=== PATIENT | female | born 1980 | race Caucasian/White ===

== ENCOUNTER 2017-01-16 19:04 | Emergency (ER) | payer OTHER ==
[2017-01-16 19:21] VITALS: BMI 42.0
[2017-01-16] MEDS ORDERED: FAMOTIDINE 20 MG/50 ML IVPB 50 ML IVPB ONE ×2 (20:04→20:19)
[2017-01-16] MEDS ORDERED: ONDANSETRON 4 MG/2 ML VIAL IVPUSH ONE (20:04)
[2017-01-16] MEDS ORDERED: SODIUM CHLORIDE 0.9% 1000 ML INFUS.BAG IV ONE (20:04)
--- NOTE | 2017-01-16 20:18 | PDOC ---
History of Present Illness - General Chief Complaint: Vomiting/Diarrhea Stated Complaint: VOMITING/HEADACHE/BODY ACHE Time Seen by Provider: 01/16/17 19:47 - History of Present Illness Initial Comments: 01/16/17 20:08 CHIEF COMPLAINT: vomiting/diarrhea HISTORY OF PRESENT ILLNESS: 36 yo F with hx of cervical cancer (surgery scheduled next month), depression, anxiety presents to ED with vomiting/ diarrhea since this morning. Patient states she has had persistent vomiting and a least 10 episodes of diarrhea since she woke up this morning and reports current lower abdominal pain bilaterally. Patient also reports having urinary frequency. She denies eating any different foods and states she cooks all her own food and has not had anything different. PAST MEDICAL HISTORY: Denies past medical history FAMILY HISTORY: Denies SOCIAL HISTORY: Lives at home. "Quit smoking and drinking in October when I found out I have cancer." Denies illicit drug use. SURGICAL HISTORY: Denies ALLERGIES: peanuts, iodine REVIEW OF SYSTEMS General/Constitutional: Denies fever or chills. HEENT: Denies change in vision. Denies ear pain or discharge. Denies sore throat. Cardiovascular: Denies chest pain or shortness of breath. Respiratory: Denies cough, wheezing, or hemoptysis. Gastrointestinal: Vomiting/diarrhea since today. Denies rectal bleeding. Genitourinary: "I have to pee all the time." Musculoskeletal: Denies joint or muscle swelling or pain. Denies neck or back pain. Skin and breasts: Denies rash or easy bruising. Neurologic: Denies headache, vertigo, loss of consciousness, or loss of sensation. PHYSICAL EXAM General Appearance: Well-appearing, appropriately dressed. No apparent distress. HEENT: EOMI, PERRLA.No conjunctival pallor. No photophobia, scleral icterus. Neck: Supple. Trachea midline. No tenderness, rigidity, carotid bruit, stridor , lymphadenopathy, or thyromegaly. Respiratory/Chest: Lungs CTAB. Cardiovascular: RRR. S1, S2. Vascular Pulses: Dorsalis-Pedis (R): 2+, Dorsalis-Pedis (L): 2+ Gastrointestinal/Abdominal: Mild tenderness to LLQ. Normal bowel sounds. Abdomen soft, non-distended. No tenderness or rebound tenderness. No organomegaly, pulsatile mass, guarding, hernia, hepatomegaly, splenomegaly. Lymphatic: No adenopathy, tenderness. Musculoskeletal/Extremities: L CVA tenderness. Normal inspection. FROM of all extremities, normal capillary refill. Pelvis Stable. No tenderness to extremities, pedal edema, swelling, erythema or deformity. Integumentary: Appropriate color, dry, warm. No cyanosis, erythema, jaundice or rash Neurologic: clinical services specialist II-XII intact. Fully oriented, alert. Appropriate mood/affect. Motor strength 5/5. No appreciable EOM palsy, facial droop or sensory deficit. Past History - Past Medical History Allergies/Adverse Reactions: Allergies Allergy/AdvReac Type Severity Reaction Status Date / Time Iodine and Iodide Containing Allergy Verified 01/16/17 19:14 Produc No Known Drug Allergies Allergy Verified 01/16/17 19:14 peanut Allergy Rash Verified 01/16/17 19:14 Home Medications: Ambulatory Orders Aripiprazole [Abilify] 10 mg PO HS 09/10/15 Clonazepam [Klonopin] 1 mg PO TID 09/10/15 Ondansetron [Zofran *Odt*] 8 mg SL TID PRN #15 od.tablet 01/16/17 Cardiac Disorders: No Dementia: No Diabetes: No GI Disorders: No Disorders: No Liver Disease: No Psychiatric Problems: Yes (BIPOLAR, anxiety) Suicide Attempt (Hx): No Seizures: No Thyroid Disease: No - Surgical History Abdominal Surgery: Yes (ANA FALLOPIAN TUBES REMOVAL, cervix removed) - Immunization History Immunization Up to Date: Yes - Psycho/Social/Smoking Cessation Hx Anxiety: Yes Suicidal Ideation: No Smoking Status: Yes (QUIT 2007) Smoking History: Former smoker Have you smoked in the past 12 months: Yes Number of Cigarettes Smoked Daily: 0 If you are a former smoker, when did you quit?: t-7 Information on smoking cessation initiated: No 'Breaking Loose' booklet given: 10/30/16 Hx Alcohol Use: No Drug/Substance Use Hx: No Substance Use Type: None Abd/GI Specific PMHX - Complaint Specific PMHX GERD: No *Physical Exam - Vital Signs Last Vital Signs Temp Pulse Resp BP Pulse Ox 97.8 F 95 H 18 137/76 98 01/16/17 19:15 01/16/17 19:15 01/16/17 19:15 01/16/17 19:15 01/16/17 19:15 ED Treatment Course - LABORATORY CBC & Chemistry Diagram: 01/16/17 19:50 01/16/17 19:50 Medical Decision Making - Medical Decision Making 01/16/17 20:18 36 yo F with hx of cervical cancer, depression, anxiety presents to ED with vomiting, diarrhea, and lower abdominal pain since this morning. Ddx includes but is not limited to: gallstones, pancreatitis, acute gastroenteritis. Appendicitis considered but unlikely given nontender RLQ. -CBC, CMP, lipase -UA, Ucx, UPreg -Zofrdionte Pepcid 01/16/17 21:24 Patient reassessed; states she is feeling " much better." -Zofran 8 mg ODT prn vomiting Advised patient to take medication as directed and to f/u with primary care doctor by the end of next week. Advised patient to drink plenty of fluids to maintain hydration and of signs and symptoms for return to ER. Patient verbalized understanding and agrees to plan. *DC/Admit/Observation/Transfer Diagnosis at time of Disposition: Acute gastroenteritis - Discharge Dispostion Disposition: HOME Condition at time of disposition: Stable Admit: No - Prescriptions Prescriptions: Ondansetron [Zofran *Odt*] 8 mg SL TID PRN #15 od.tablet PRN Reason: Nausea And/Or Vomiting - Referrals Referrals: Sapphire Bryant [Primary Care Provider] - - Patient Instructions Printed Discharge Instructions: DI for Viral Gastroenteritis -- Adult Additional Instructions: Please take medication as directed. Drink plenty of fluids to maintain hydration. Start eating bland foods for the next couple of days and advance your diet as tolerated. If you experience fever, chills, or persistent vomiting that does not improve with medication, or you are unable to tolerate and food or fluids, or have any new or worsening symptoms, please return to the ER.
[2017-01-16] MEDS ORDERED: ONDANSETRON 4 MG/2 ML VIAL ONE (20:19)
[2017-01-16 20:23] LABS: BASOPHIL 0.7 % (0-2.0); EOSINOPHIL 1.6 % (0-4.5); MCH 27.9 pg (25.7-33.7); MCHC 33.2 g/dl (32.0-36.0); MEAN CELL VOLUME 83.8 fl (80-96); MEAN PLT VOLUME 8.4 fl (7.5-11.1); NEUTROPHILS 73.2 % (42.8-82.8); PLATELET COUNT 263 K/MM3 (134-434); RDW 13.8 % (11.6-15.6); WHITE BLOOD COUNT 6.1 K/mm3 (4.0-10.0)
[2017-01-16 20:57] LABS: URINE APPEARANCE SLCLOUDY; URINE BILIRUBIN NEGATIVE (NEGATIVE); URINE COLOR YELLOW; URINE GLUCOSE (UA) NEGATIVE (NEGATIVE); URINE KETONE NEGATIVE (NEGATIVE); URINE NITRITE NEGATIVE (NEGATIVE); URINE UROBILINOGEN NEGATIVE E.U./dl (0.2-1.0)
[2017-01-16 20:58] LABS: URINE BLOOD 3+ (NEGATIVE); URINE LEUK ESTERASE 3+ (NEGATIVE); URINE PROTEIN 1+ (NEGATIVE)
[2017-01-16 21:00] LABS: ALBUMIN 3.6 g/dl (3.4-5.0); CALCIUM 8.6 mg/dL (8.5-10.1); CREATININE 1.1 mg/dL (0.55-1.02)
[2017-01-16 21:01] LABS: BILIRUBIN,TOTAL 0.3 mg/dL (0.2-1.0); TOT PROT 7.4 g/dl (6.4-8.2)
[2017-01-16 21:02] LABS: URINE BACTERIA RARE /hpf (NONE SEEN); URINE HYALINE CAST 3 /lpf; URINE MUCUS RARE; URINE RBC 27 /hpf (0-3); URINE WBC 55 /hpf (3-5)
[2017-01-16] MEDS ORDERED: PIPERACILLIN/TAZOB 3.375 GM/50 ML PRE-DOCKED IVPB ONE (21:10)
[2017-01-16 21:46] VITALS: BP 137/78; PULSE 88; TEMP 98.6
== END 2017-01-16 21:44 | disposition home or self-care (01) ==
LOC: JER 19:04
PROC: 3E033GC Introduction of Other Therapeutic Substance into Peripheral Vein, Percutaneous Approach (ICD-10-PCS; principal; 2017-01-16)
DX: K52.9 Noninfective gastroenteritis and colitis, unspecified (principal); F31.9 Bipolar disorder, unspecified; Z87.891 Personal history of nicotine dependence; C53.9 Malignant neoplasm of cervix uteri, unspecified
CPT/HCPCS: 36415; 80053; 81003; 81015; 83690; 84703; 85025; 87077; 87086; 96365; 96375; 99284-25

== ENCOUNTER 2017-02-06 23:23 | Emergency (ER) | payer OTHER ==
[2017-02-06 23:31] VITALS: BP 138/81; PULSE 108; TEMP 97.2; BMI 42.0
--- NOTE | 2017-02-07 00:29 | PDOC ---
History of Present Illness - General Chief Complaint: Pain Stated Complaint: POST OP PAIN Time Seen by Provider: 02/06/17 23:44 History Source: Patient Exam Limitations: No Limitations - History of Present Illness Initial Comments: 02/07/17 00:26 36yo Female patient w/ PmHx: Cervical Ca, constipation and Hysterectomy presents to ED c/o abd pain at surgical incision site, with burning sensation to vagina where catheter is located. 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 She had surgery last week Thursday at [facility] with Dr. Tomlinson and was d/c'd yesterday. Patient denies n/v/d, chills, burning sensation, back pain, fever, diff breathing, or any other complaints at this time. Past History - Travel Traveled outside of the country in the last 30 days: No Close contact w/someone who was outside of country & ill: No - Past Medical History Allergies/Adverse Reactions: Allergies Allergy/AdvReac Type Severity Reaction Status Date / Time Iodine and Iodide Containing Allergy Verified 02/06/17 23:28 Produc No Known Drug Allergies Allergy Verified 02/06/17 23:28 peanut Allergy Rash Verified 02/06/17 23:28 Home Medications: Ambulatory Orders Aripiprazole [Abilify] 10 mg PO HS 09/10/15 Clonazepam [Klonopin] 1 mg PO TID 09/10/15 Ondansetron [Zofran *Odt*] 8 mg SL TID PRN #15 od.tablet 01/16/17 Cephalexin Monohydrate [Keflex -] 500 mg PO BID #20 capsule 02/07/17 Cardiac Disorders: No Dementia: No Diabetes: No GI Disorders: No Disorders: No Liver Disease: No Psychiatric Problems: Yes (BIPOLAR, anxiety) Suicide Attempt (Hx): No Seizures: No Thyroid Disease: No - Surgical History Abdominal Surgery: Yes (ANA FALLOPIAN TUBES REMOVAL, cervix removed) - Immunization History Immunization Up to Date: Yes - Psycho/Social/Smoking Cessation Hx Anxiety: Yes Suicidal Ideation: No Smoking Status: Yes (QUIT 2007) Smoking History: Never smoked Have you smoked in the past 12 months: No Number of Cigarettes Smoked Daily: 0 If you are a former smoker, when did you quit?: t-7 Information on smoking cessation initiated: No 'Breaking Loose' booklet given: 10/30/16 Hx Alcohol Use: No Drug/Substance Use Hx: No Substance Use Type: None Review of Systems - Review of Systems Able to Perform ROS?: Yes Is the patient limited Turkmen proficient: No Constitutional: No: Chills, Fever Respiratory: No: Cough, Shortness of Breath, Stridor, Wheezing Cardiac (ROS): No: Chest Pain, Lightheadedness, Palpitations, Syncope ABD/GI: Yes: Constipated. No: Diarrhea, Nausea, Poor Appetite, Poor Fluid Intake, Vomiting : Yes: Burning. No: Dysuria, Frequency, Flank Pain, Hematuria, Pain, Urgency Musculoskeletal: No: Back Pain Integumentary: No: Bruising, Erythema, Rash Neurological: No: Headache All Other Systems: Reviewed and Negative *Physical Exam - Vital Signs Last Vital Signs Temp Pulse Resp BP Pulse Ox 97.2 F L 108 H 14 138/81 96 02/06/17 23:28 02/06/17 23:28 02/06/17 23:28 02/06/17 23:28 02/06/17 23:28 - Physical Exam General Appearance: Yes: Nourished, Appropriately Dressed. No: Apparent Distress, Mild Distress, Moderate Distress, Severe Distress Neck: positive: Trachea midline, Supple. negative: Stridor, Lymphadenopathy (R) , Lymphadenopathy (L) Respiratory/Chest: positive: Lungs Clear, Normal Breath Sounds. negative: Respiratory Distress, Accessory Muscle Use, Labored Respiration, Rapid RR, Stridor, Wheezing Cardiovascular: positive: Regular Rhythm, Regular Rate. negative: Edema, JVD, Murmur Gastrointestinal/Abdominal: positive: Normal Bowel Sounds, Soft, Distended, Other (Large abdomen with 3 sites of surgical incision that are clean, dry and intact. No drainage, redness, swelling, discharge, odor noted.). negative: Guarding, Rebound, Tenderness Musculoskeletal: positive: Normal Inspection. negative: CVA Tenderness Extremity: positive: Normal Capillary Refill, Normal Inspection, Normal Range of Motion Integumentary: positive: Normal Color, Dry, Warm Neurologic: positive: business insight and analytics manager II-XII NML intact, Fully Oriented, Alert, Normal Mood/ Affect, Normal Response, Motor Strength 5/5 ED Treatment Course - RADIOLOGY Radiology Studies Ordered: Category Date Time Status ABDOMEN FLAT & UPRIGHT [RAD] Stat Radiology 02/07/17 00:16 Ordered *DC/Admit/Observation/Transfer Diagnosis at time of Disposition: Yeast infection Urinary tract infection Qualifiers: Urinary tract infection type: catheter-associated UTI Indwelling urinary catheter type: indwelling urethral catheter Encounter type: initial encounter Qualified Code(s): T83.51XA - Infection and inflammatory reaction due to indwelling urinary catheter, initial encounter; N39.0 - Urinary tract infection , site not specified - Discharge Dispostion Disposition: HOME Condition at time of disposition: Stable Admit: No - Prescriptions Prescriptions: Cephalexin Monohydrate [Keflex -] 500 mg PO BID #20 capsule - Patient Instructions Printed Discharge Instructions: DI for Vaginal Yeast Infection, Urinary Tract Infection Additional Instructions: FOLLOW UP WITH YOUR SURGEON LATER TODAY OR EARLY THURSDAY MORNING. CALL SERVICE LINE TO SCHEDULE APPOINTMENT. DRINK LOTS OF WATER OR CRANBERRY JUICE. RETURN IF YOUR SYMPTOMS WORSEN, OR ANY CONCERNS FOR FURTHER EVALUATION. Print Language: ARMENIAN
[2017-02-07 00:55] LABS: URINE APPEARANCE CLEAR; URINE BILIRUBIN NEGATIVE (NEGATIVE); URINE BLOOD 2+ (NEGATIVE); URINE COLOR YELLOW; URINE GLUCOSE (UA) NEGATIVE (NEGATIVE); URINE KETONE NEGATIVE (NEGATIVE); URINE LEUK ESTERASE TRACE (NEGATIVE); URINE NITRITE NEGATIVE (NEGATIVE); URINE PROTEIN 1+ (NEGATIVE); URINE UROBILINOGEN NEGATIVE E.U./dl (0.2-1.0)
[2017-02-07 00:58] LABS: URINE BACTERIA RARE /hpf (NONE SEEN); URINE HYALINE CAST 1 /lpf; URINE MUCUS RARE; URINE RBC 39 /hpf (0-3); URINE WBC 4 /hpf (3-5)
[2017-02-07] MEDS ORDERED: morphine CARPU-JECT 2 MG/1 ML DISP.SYRIN IM ONE (01:22)
[2017-02-07] MEDS ORDERED: CEPHALEXIN MONOHYDRATE 500 MG CAPSULE (UD) PO ONE (02:08)
[2017-02-07] MEDS ORDERED: FLUCONAZOLE 50 MG TABLET PO ONE (02:08)
[2017-02-07] MEDS ORDERED: morphine CARPU-JECT 2 MG/1 ML DISP.SYRIN ONE ×2 (02:24→02:30)
[2017-02-07] MEDS ORDERED: FLUCONAZOLE 100 MG TABLET (UD) ONE (02:24)
[2017-02-07] MEDS ORDERED: CEPHALEXIN MONOHYDRATE 250 MG CAPSULE (FP) ONE (02:25)
== END 2017-02-07 03:00 | disposition home or self-care (01) ==
LOC: JER 23:23
PROC: 3E023NZ Introduction of Analgesics, Hypnotics, Sedatives into Muscle, Percutaneous Approach (ICD-10-PCS; principal; 2017-02-06)
DX: B37.9 Candidiasis, unspecified (principal); T83.518A Infection and inflammatory reaction due to other urinary catheter, initial encounter; N39.0 Urinary tract infection, site not specified; X58.XXXA Exposure to other specified factors, initial encounter; Y93.9 Activity, unspecified; Z85.41 Personal history of malignant neoplasm of cervix uteri; F41.9 Anxiety disorder, unspecified; Z87.891 Personal history of nicotine dependence
CPT/HCPCS: 74020-TC; 81003; 81015; 87086; 96372; 99282-25

== ENCOUNTER 2017-02-16 21:12 | Emergency (ER) | payer OTHER ==
[2017-02-16 21:27] VITALS: TEMP 98.3; BMI 42.0
--- NOTE | 2017-02-16 21:32 | PDOC ---
Rapid Medical Evaluation Chief Complaint: Urinary Problem Time Seen by Provider: 02/16/17 21:23 Medical Evaluation: Allergies Allergy/AdvReac Type Severity Reaction Status Date / Time Iodine and Iodide Containing Allergy Verified 02/06/17 23:28 Produc No Known Drug Allergies Allergy Verified 02/06/17 23:28 peanut Allergy Rash Verified 02/06/17 23:28 02/16/17 21:26 RME Note: I have performed a brief, in-person evaluation of this patient . This patient presents with CC: dysuria, incontience x today; with fever last night; post partial hysterectomy @ [facility] 02/04 Pertinent PE findings are: suprapubic tenderness, afebrile I have ordered: labs, UA, UC The patient will proceed to ED for further evaluation.
[2017-02-16 21:42] LABS: BASOPHIL 1.1 % (0-2.0); EOSINOPHIL 1.9 % (0-4.5); MCH 28.3 pg (25.7-33.7); MCHC 33.9 g/dl (32.0-36.0); MEAN CELL VOLUME 83.5 fl (80-96); MEAN PLT VOLUME 7.9 fl (7.5-11.1); NEUTROPHILS 69.1 % (42.8-82.8); PLATELET COUNT 378 K/MM3 (134-434); RDW 14.1 % (11.6-15.6)
[2017-02-16 21:49] LABS: URINE APPEARANCE SLCLOUDY; URINE BILIRUBIN NEGATIVE (NEGATIVE); URINE COLOR LTYELLOW; URINE GLUCOSE (UA) NEGATIVE (NEGATIVE); URINE KETONE NEGATIVE (NEGATIVE); URINE NITRITE NEGATIVE (NEGATIVE); URINE UROBILINOGEN NEGATIVE E.U./dl (0.2-1.0)
[2017-02-16 21:51] LABS: URINE BLOOD 1+ (NEGATIVE); URINE LEUK ESTERASE 1+ (NEGATIVE); URINE PROTEIN 1+ (NEGATIVE)
[2017-02-16 21:52] LABS: URINE HYALINE CAST 1 /lpf; URINE MUCUS RARE; URINE RBC 6 /hpf (0-3); URINE WBC 9 /hpf (3-5)
[2017-02-16 22:06] LABS: INR 0.96 (0.82-1.09); PROTHROMBIN TIME (PATIENT) 10.6 SEC (9.98-11.88)
[2017-02-16 22:09] LABS: ACTIVATED PTT 30.7 SECONDS (26.9-34.4)
[2017-02-16 22:21] LABS: ALBUMIN 2.8 g/dl (3.4-5.0); ALK PHOS 62 U/L (45-117); ANION GAP 9 (8-16); BILIRUBIN,TOTAL 0.2 mg/dL (0.2-1.0); CALCIUM 8.5 mg/dL (8.5-10.1); CO2 24 mmol/L (21-32); CREATININE 0.8 mg/dL (0.55-1.02); GLUCOSE,RANDOM 105 mg/dL (74-106); SGOT/AST 21 U/L (15-37); SGPT/ALT 28 U/L (12-78)
--- NOTE | 2017-02-16 23:21 | PDOC ---
History of Present Illness <Elyse Holt - Last Filed: 02/17/17 00:19> - History of Present Illness Initial Comments: 02/17/17 00:28 The patient is a 36 year old female, with a significant past medical history of ovarian cancer s/p laprascopic hysterectomy (02/02/17), who presents to the emergency department with urinary incontinence and abdominal discomfort today. The patient states her abdominal pain begins over the midsection of her abdomen and radiates to her suprapubic region. The patient reports having a fever yesterday of 102F and reports taking ibuprofen. She states she has been taking 600mg ibuprofen every 4-5 hours for pain as per her doctors instructions since her hysterectomy. She denies chest pain, shortness of breath, headache and dizziness. She denies fever, chills, nausea, vomit, diarrhea and constipation. She denies dysuria, frequency, and hematuria. Allergies: NKDA <Miryam Jackson - Last Filed: 02/17/17 00:40> - General Chief Complaint: Urinary Problem Stated Complaint: URINARY PROBLEM/PELVIC PAIN Time Seen by Provider: 02/16/17 21:23 Past History - Past Medical History Cancer: Yes (cervical) Cardiac Disorders: No Dementia: No Diabetes: No GI Disorders: No Disorders: No Liver Disease: No Psychiatric Problems: Yes (BIPOLAR, anxiety) Suicide Attempt (Hx): No Seizures: No Thyroid Disease: No - Surgical History Abdominal Surgery: Yes (ANA FALLOPIAN TUBES REMOVAL, cervix removed) - Reproductive History Is Patient Now?: No Cervical CA: Yes - Immunization History Immunization Up to Date: Yes - Psycho/Social/Smoking Cessation Hx Anxiety: Yes Suicidal Ideation: No Smoking Status: Yes (QUIT 2007) Smoking History: Former smoker Have you smoked in the past 12 months: No Number of Cigarettes Smoked Daily: 0 If you are a former smoker, when did you quit?: October 2016 Information on smoking cessation initiated: No 'Breaking Loose' booklet given: 10/30/16 Hx Alcohol Use: No Drug/Substance Use Hx: No Substance Use Type: None <Elyse Holt - Last Filed: 02/17/17 00:19> <Miryam Jackson - Last Filed: 02/17/17 00:40> - Past Medical History Allergies/Adverse Reactions: Allergies Allergy/AdvReac Type Severity Reaction Status Date / Time Iodine and Iodide Containing Allergy Verified 02/16/17 21:53 Produc No Known Drug Allergies Allergy Verified 02/16/17 21:53 peanut Allergy Rash Verified 02/16/17 21:53 Home Medications: Ambulatory Orders Aripiprazole [Abilify] 10 mg PO HS 09/10/15 Clonazepam [Klonopin] 1 mg PO TID 09/10/15 Ondansetron [Zofran *Odt*] 8 mg SL TID PRN #15 od.tablet 01/16/17 Oxycodone HCl/Acetaminophen [Percocet 5-325 mg Tablet] 5 mg PO PRN PRN 02/16/17 Simethicone [Gas Relief 80] 80 mg PO TID 02/16/17 Abd/GI Specific PMHX - Complaint Specific PMHX GERD: No <Elyse Holt - Last Filed: 02/17/17 00:19> Review of Systems - Review of Systems Able to Perform ROS?: Yes Comments:: 02/17/17 00:35 CONSTITUTIONAL: Absent: fever, chills, diaphoresis, generalized weakness, malaise, loss of appetite HEENT: Absent: rhinorrhea, nasal congestion, throat pain, throat swelling, difficulty swallowing, mouth swelling, ear pain, eye pain, visual Changes CARDIOVASCULAR: Absent: chest pain, syncope, palpitations, irregular heart rate, lightheadedness , peripheral edema RESPIRATORY: Absent: cough, shortness of breath, dyspnea with exertion, orthopnea, wheezing, stridor, hemoptysis GASTROINTESTINAL: (+) abdominal pain and suprapubic pain. Absent: abdominal distension, nausea, vomiting, diarrhea, constipation, melena, hematochezia GENITOURINARY: (+) bladder incontinence. Absent: dysuria, frequency, hesitancy, hematuria, flank pain, genital pain MUSCULOSKELETAL: Absent: myalgia, arthralgia, joint swelling SKIN: Absent: rash, itching, pallor HEMATOLOGIC/IMMUNOLOGIC: Absent: easy bleeding, easy bruising, lymphadenopathy, frequent infections ENDOCRINE: Absent: unexplained weight gain, unexplained weight loss, heat intolerance, cold intolerance NEUROLOGIC: Absent: headache, focal weakness or paresthesias, dizziness, unsteady gait, seizure, mental status changes, bowel incontinence PSYCHIATRIC: Absent: anxiety, depression, suicidal or homicidal ideation, hallucinations. <Miryam Jackson - Last Filed: 02/17/17 00:40> *Physical Exam - Vital Signs Last Vital Signs Temp Pulse Resp BP Pulse Ox 98.3 F 105 H 20 147/89 98 02/16/17 21:25 02/16/17 21:25 02/16/17 21:25 02/16/17 21:25 02/16/17 21:25 <JonathonElyse - Last Filed: 02/17/17 00:19> - Vital Signs Last Vital Signs Temp Pulse Resp BP Pulse Ox 98.3 F 79 20 138/72 98 02/16/17 21:25 02/17/17 00:24 02/17/17 00:24 02/17/17 00:24 02/17/17 00:24 - Physical Exam Comments: 02/17/17 00:36 GENERAL: Well developed, well nourished. Awake and alert. No acute distress. HEENT: Normocephalic, atraumatic. PERRLA, EOMI. No conjunctival pallor. Sclera are non- icteric. Moist mucous membranes. Oropharynx is clear. NECK: Supple. Full ROM. No JVD. Carotid pulses 2+ and symmetric, without bruits. No thyromegaly. No lymphadenopathy. CARDIOVASCULAR: Regular rate and rhythm. No murmurs, rubs, or gallops. Distal pulses are 2+ and symmetric. PULMONARY: No evidence of respiratory distress. Lungs clear to auscultation bilaterally. No wheezing, rales or rhonchi. ABDOMINAL: (+) diffusely tender. There are three 2cm closed incisions, non-erythematous. protuberant abdomen. Non-distended. Soft. No rebound or guarding. No organomegaly. Normoactive bowel sounds. MUSCULOSKELETAL Normal range of motion at all joints. No bony deformities or tenderness. No CVA tenderness. EXTREMITIES: No cyanosis. No clubbing. No edema. No calf tenderness. SKIN: Warm and dry. Normal capillary refill. No rashes. No jaundice. NEUROLOGICAL: Alert, awake, appropriate. Cranial nerves 2-12 intact. Normoreflexic in the upper and lower extremities. Normal speech. Toes are down-going bilaterally. Gait is normal without ataxia. PSYCHIATRIC: Cooperative. Good eye contact. Appropriate mood and affect. <Miryam Jackson - Last Filed: 02/17/17 00:40> ED Treatment Course - LABORATORY CBC & Chemistry Diagram: 02/16/17 21:00 02/16/17 21:00 - ADDITIONAL ORDERS Additional order review: Laboratory Results 02/16/17 02/16/17 02/16/17 21:23 21:00 21:00 INR 0.96 PTT (Actin FS) 30.7 Sodium 140 Potassium 4.3 Chloride 107 Carbon Dioxide 24 Anion Gap 9 BUN 11 D Creatinine 0.8 D Creat Clearance w eGFR > 60 Random Glucose 105 Calcium 8.5 Total Bilirubin 0.2 D AST 21 ALT 28 Alkaline Phosphatase 62 Total Protein 7.0 Albumin 2.8 L D Urine Color Ltyellow Urine Appearance Slcloudy Urine pH 5.0 Ur Specific [place] 1.020 Urine Protein 1+ H Urine Glucose (UA) Negative Urine Ketones Negative Urine Blood 1+ H Urine Nitrite Negative Urine Bilirubin Negative Urine Urobilinogen Negative Ur Leukocyte Esterase 1+ H Urine RBC 6 Urine WBC 9 Ur Epithelial Cells Moderate Hyaline Casts 1 Urine Mucus Rare Urine HCG, Qual Negative 02/16/17 21:00 RBC 3.57 L D MCV 83.5 MCHC 33.9 RDW 14.1 MPV 7.9 Neutrophils % 69.1 Lymphocytes % 19.7 Monocytes % 8.2 Eosinophils % 1.9 Basophils % 1.1 <Elyse Holt - Last Filed: 02/17/17 00:19> - LABORATORY CBC & Chemistry Diagram: 02/16/17 21:00 02/16/17 21:00 - ADDITIONAL ORDERS Additional order review: Laboratory Results 02/16/17 02/16/17 02/16/17 21:23 21:00 21:00 INR 0.96 PTT (Actin FS) 30.7 Sodium 140 Potassium 4.3 Chloride 107 Carbon Dioxide 24 Anion Gap 9 BUN 11 D Creatinine 0.8 D Creat Clearance w eGFR > 60 Random Glucose 105 Calcium 8.5 Total Bilirubin 0.2 D AST 21 ALT 28 Alkaline Phosphatase 62 Total Protein 7.0 Albumin 2.8 L D Urine Color Ltyellow Urine Appearance Slcloudy Urine pH 5.0 Ur Specific [place] 1.020 Urine Protein 1+ H Urine Glucose (UA) Negative Urine Ketones Negative Urine Blood 1+ H Urine Nitrite Negative Urine Bilirubin Negative Urine Urobilinogen Negative Ur Leukocyte Esterase 1+ H Urine RBC 6 Urine WBC 9 Ur Epithelial Cells Moderate Hyaline Casts 1 Urine Mucus Rare Urine HCG, Qual Negative 02/16/17 21:00 RBC 3.57 L D MCV 83.5 MCHC 33.9 RDW 14.1 MPV 7.9 Neutrophils % 69.1 Lymphocytes % 19.7 Monocytes % 8.2 Eosinophils % 1.9 Basophils % 1.1 - Medications Given in the ED: ED Medications Discontinued Medications Generic Name Dose Route Start Last Admin Trade Name Enriqueta PRN Reason Stop Dose Admin Ketorolac Tromethamine 30 mg 02/16/17 23:32 02/16/17 23:39 Toradol Injection - IM 02/16/17 23:33 30 mg ONCE ONE Administration <Miryam Jackson - Last Filed: 02/17/17 00:40> *DC/Admit/Observation/Transfer <Elyse Holt - Last Filed: 02/17/17 00:19> - Attestations Scribe Attestion: 02/17/17 00:40 Documentation prepared by Miryam Jackson, acting as medical sales representative for Elyse Holt MD <Miryam Jackson - Last Filed: 02/17/17 00:40> Diagnosis at time of Disposition: Pelvic pain - Discharge Dispostion Disposition: HOME Condition at time of disposition: Stable - Referrals Referrals: Sapphire Bryant [Primary Care Provider] - - Patient Instructions Printed Discharge Instructions: DI for Pelvic Pain Additional Instructions: If you have further problems,please call your surgeon and make another appointment If you develop a fever or worsening symptoms -return to the emergency department
[2017-02-16] MEDS ORDERED: KETOROLAC TROMETHAMINE 30 MG/1 ML VIAL IM ONE (23:32)
[2017-02-16] MEDS ORDERED: KETOROLAC TROMETHAMINE 30 MG/1 ML VIAL ONE (23:35)
[2017-02-17 00:25] VITALS: BP 138/72; PULSE 79
== END 2017-02-17 00:25 | disposition home or self-care (01) ==
LOC: JER 21:12
PROC: 3E0233Z Introduction of Anti-inflammatory into Muscle, Percutaneous Approach (ICD-10-PCS; principal; 2017-02-16)
DX: R10.2 Pelvic and perineal pain (principal); Z85.41 Personal history of malignant neoplasm of cervix uteri; Z85.43 Personal history of malignant neoplasm of ovary; F32.9 Major depressive disorder, single episode, unspecified
CPT/HCPCS: 36415; 80053; 81003; 81015; 84703; 85025; 85610; 85730; 87086; 96372; 99282-25

== ENCOUNTER 2017-05-26 11:13 | Emergency (ER) | payer OTHER ==
[2017-05-26 11:38] VITALS: BMI 35.0
[2017-05-26] MEDS ORDERED: ONDANSETRON 4 MG/2 ML VIAL IVPUSH ONE (12:03)
[2017-05-26] MEDS ORDERED: KETOROLAC TROMETHAMINE 30 MG/1 ML VIAL IVPUSH ONE (12:03)
--- NOTE | 2017-05-26 12:03 | PDOC ---
History of Present Illness - General History Source: Patient, Old Records Exam Limitations: No Limitations <RachelGiuliana rodriguez - Last Filed: 05/26/17 18:29> - History of Present Illness Initial Comments: 05/26/17 12:11 Patient is a 37 year old female with significant medical hx of bipolar disorder and ovarian cancer s/p laprascopic hysterectomy (02/02/17), who is presenting to the ED with one day of suprapubic pain, LLQ pain, vaginal pain, and dysuria. Patient reports her symptoms began when she woke up this morning around 9 AM. She complains of constant, non-radiating suprapubic pain and vaginal pain. She reports burning with urination but denies any vaginal discharge or hematuria. Patient also complains of nausea and dry, non-productive cough. The patient states shes had UTIs in the past but this does not feel like her past UTIs. Denies fever, chills, shortness of breath, vomiting, diarrhea, or chest pain. Social Hx: Current every day tobacco smoker Allergies: NKDA, peanuts, iodine and iodide containing products Surgical Hx: bilateral fallopian tube removal, cervix removal, LEEP procedure Gynecologic Oncology Surgeon: Raisa Tomlinson MD ([phone]) <Yolette Urias - Last Filed: 05/26/17 18:40> - General Chief Complaint: Pain, Acute Stated Complaint: LOWER ABD PAIN Time Seen by Provider: 05/26/17 11:47 Past History - Past Medical History Cancer: Yes (cervical) Cardiac Disorders: No Dementia: No Diabetes: No GI Disorders: No Disorders: No Liver Disease: No Psychiatric Problems: Yes (BIPOLAR, anxiety) Suicide Attempt (Hx): No Seizures: No Thyroid Disease: No - Surgical History Abdominal Surgery: Yes (ANA FALLOPIAN TUBES REMOVAL, cervix removed) - Reproductive History Cervical CA: Yes - Immunization History Immunization Up to Date: Yes - Psycho/Social/Smoking Cessation Hx Anxiety: Yes Suicidal Ideation: No Smoking Status: Yes (QUIT 2007) Smoking History: Never smoked Have you smoked in the past 12 months: No Number of Cigarettes Smoked Daily: 0 If you are a former smoker, when did you quit?: October 2016 Information on smoking cessation initiated: No 'Breaking Loose' booklet given: 10/30/16 Hx Alcohol Use: No Drug/Substance Use Hx: No Substance Use Type: None <AbelGiuliana - Last Filed: 05/26/17 18:29> <Jaden Uriasantha - Last Filed: 05/26/17 18:40> - Past Medical History Allergies/Adverse Reactions: Allergies Allergy/AdvReac Type Severity Reaction Status Date / Time Iodine and Iodide Containing Allergy Verified 05/26/17 11:38 Produc No Known Drug Allergies Allergy Verified 05/26/17 11:38 peanut Allergy Rash Verified 05/26/17 11:38 Home Medications: Ambulatory Orders Aripiprazole [Abilify] 10 mg PO HS 09/10/15 Clonazepam [Klonopin] 1 mg PO TID 09/10/15 Oxycodone HCl/Acetaminophen [Percocet 5-325 mg Tablet] 1 tab PO Q4H #4 tablet MDD 4 05/26/17 Review of Systems - Review of Systems Comments:: 05/26/17 12:13 GENERAL/CONSTITUTIONAL: No fever or chills. No weakness. HEAD, EYES, EARS, NOSE AND THROAT: No change in vision. No ear pain or discharge. No sore throat. CARDIOVASCULAR: No chest pain or shortness of breath. RESPIRATORY: Dry cough. No wheezing, or hemoptysis. GASTROINTESTINAL: Suprapubic pain, LLQ pain, nausea. No vomiting, diarrhea or constipation. GENITOURINARY: Dysuria, vaginal pain. No frequency or hematuria. MUSCULOSKELETAL: No joint or muscle swelling or pain. No neck or back pain. ENDOCRINE: No increased thirst. No abnormal weight change. SKIN: No rash NEUROLOGIC: No headache, vertigo, loss of consciousness, or change in strength/ sensation. <BridgettYolette - Last Filed: 05/26/17 18:40> *Physical Exam - Vital Signs Last Vital Signs Temp Pulse Resp BP Pulse Ox 98.8 F 89 18 115/78 100 05/26/17 11:33 05/26/17 11:33 05/26/17 11:33 05/26/17 11:33 05/26/17 11:33 <RachelmichaelGiuliana - Last Filed: 05/26/17 18:29> - Vital Signs Last Vital Signs Temp Pulse Resp BP Pulse Ox 98.8 F 89 18 115/78 100 05/26/17 11:33 05/26/17 11:33 05/26/17 11:33 05/26/17 11:33 05/26/17 11:33 - Physical Exam Comments: 05/26/17 12:16 GENERAL: Awake, alert, and fully oriented, in no acute distress HEAD: No signs of trauma EYES: PERRLA, EOMI, sclera anicteric, conjunctiva clear ENT: Auricles normal inspection, hearing grossly normal, nares patent, oropharynx clear without exudates. Moist mucosa NECK: Normal ROM, supple, no lymphadenopathy, JVD, or masses LUNGS: Breath sounds equal, clear to auscultation bilaterally. No wheezes, and no crackles HEART: Regular rate and rhythm, normal S1 and S2, no murmurs, rubs or gallops ABDOMEN: Obese abdomen. Suprapubic and LLQ tenderness without rebound or guarding. Soft, normoactive bowel sounds. No masses EXTREMITIES: Normal range of motion, no edema. No clubbing or cyanosis. No cords, erythema, or tenderness NEUROLOGICAL: Cranial nerves II through XII grossly intact. Normal speech, normal gait SKIN: Warm, Dry, normal turgor, no rashes or lesions noted. HEMATOLOGIC/LYMPHATIC: No anemia, easy bleeding, or history of blood clots. ALLERGIC/IMMUNOLOGIC: No hives or skin allergy. <Yolette Urias - Last Filed: 05/26/17 18:40> ED Treatment Course - LABORATORY CBC & Chemistry Diagram: 05/26/17 12:10 05/26/17 12:10 <Giuliana Roman - Last Filed: 05/26/17 18:29> - LABORATORY CBC & Chemistry Diagram: 05/26/17 12:10 05/26/17 12:10 - RADIOLOGY Radiograph Interpretation: 05/26/17 15:50 Transvaginal US Impression: S/P Hysterectomy with an enlarged right ovary containing a complex area that might represent a hemorrhagic cyst. Clinical correlation and follow-up recommended. Please see discussion. Reported By: Yvan Bui MD 05/26/17 18:12 Abdomen/Pelvis CT Impression: A 8.4 x 4.7 cm fluid structure is seen within the left lower pelvis. This structure demonstrates a heterogenous appears internally on sonography performed earlier the same date. This finding may represent a subacute to chronic hematoma/seroma, infected hematoma/seroma, or abscess. Adjacent soft tissue stranding is seen which may be on the basis of edema and/ or representing postsurgical change. Status post interval hysterectomy in comparison to a 2013 CT study (as well as in comparison to sonography of 2015). In comparison to a 2013 CT study the ovaries are now visualized within the right and left lateral aspects of the mid to upper pelvis adjacent to several surgical clips. A very small amount of free fluid id seen within the cul-de-sac. Diffuse hepatic steatosis. Reported By: Tristan Pickens MD <Yolette Urias - Last Filed: 05/26/17 18:40> Medical Decision Making - Medical Decision Making 05/26/17 12:51 37-year-old female with history of stage I cervical CA status post hysterectomy presents the emergency department with suprapubic and left lower quadrant pain since this morning. Differential diagnosis includes but is not limited to: Urinary tract infection, ovarian pathology, electrolyte abnormality, dehydration , toxic/metabolic derangement. Plan: 1. Labs 2. Urine analysis 3. Pain management 4. Antiemetics 5. Observe and reevaluate 05/26/17 15:57 Addendum: Labs were reviewed and are noted in the EMR. Pelvic ultrasound was obtained that shows a ovarian mass 5.7 x 5.5 x 3.9 cm with no identified and no flow seen. I have reevaluated the patient at this time and she is still in pain. I will emergently consult PLANING MACHINE OPERATOR to evaluate the patient for a suspected ovarian torsion. 05/26/17 18:29 Addendum: I have spoken to PLANING MACHINE OPERATOR on-call regarding this patient. There was some controversy as to whether or not she actually had a hysterectomy therefore I have contacted the patient's gynecologic oncologist at [facility],Dr Guero Brice; he states that this patient indeed had a hysterectomy and bilateral fallopian tube removed and the ovaries were in fact not tacked up. The patient has a chronic fluid collection in her pelvis that was seen on both ultrasound and CAT scan in January of this year that was consistent with the findings seen on our studies. The patient has had multiple admissions to [facility] for this chronic pelvic pain and has missed multiple follow-up appointments. I reevaluated treated the patient at this time and although she still has the pain she is feeling improved and wants to go home. I have discussed the plan with her PLANING MACHINE OPERATOR on physician as well as the patient. The plan is to discharge the patient home and follow-up with her physician in the morning. I have advised the patient to return to the emergency department if her symptoms persist, worsen, or new symptoms arise. <Giuliana Roman - Last Filed: 05/26/17 18:29> *DC/Admit/Observation/Transfer - Discharge Dispostion Admit: No - Attestations Physician Attestion: 05/26/17 12:51 I, Dr. Giuliana Roman, attest that the scribes documentation that appears above has been prepared under my direction and personally reviewed by me in its entirety. I confirmed that the note above accurately reflects all work, treatment, procedures, and medical decision-making performed by me. <Giuliana Roman - Last Filed: 05/26/17 18:29> - Attestations Scribe Attestion: 05/26/17 12:19 Documentation prepared by Yolette Urias, acting as medical office worker for Giuliana Roman MD. <Yolette Urias - Last Filed: 05/26/17 18:40> Diagnosis at time of Disposition: Abdominal pain - Prescriptions Prescriptions: Oxycodone HCl/Acetaminophen [Percocet 5-325 mg Tablet] 1 tab PO Q4H #4 tablet MDD 4 - Patient Instructions Printed Discharge Instructions: DI for Abdominal Pain-Adult Additional Instructions: Please follow-up with your [facility] onc physician, Dr. Abraham tomorrow morning--she will be expecting you at the office. Your are being prescribed percocet--take one tablet every 4-6 hours as needed for pain. Return to the ED if your symptoms persist, worsen or new symptoms arise.
[2017-05-26] MEDS ORDERED: ONDANSETRON 4 MG/2 ML VIAL ONE (12:14)
[2017-05-26] MEDS ORDERED: KETOROLAC TROMETHAMINE 30 MG/1 ML VIAL ONE (12:14)
[2017-05-26 12:38] LABS: BASOPHIL 0.7 % (0-2.0); EOSINOPHIL 0.9 % (0-4.5); MCH 25.8 pg (25.7-33.7); MCHC 32.5 g/dl (32.0-36.0); MEAN CELL VOLUME 79.3 fl (80-96); MEAN PLT VOLUME 8.7 fl (7.5-11.1); NEUTROPHILS 83.9 % (42.8-82.8); PLATELET COUNT 261 K/MM3 (134-434); WHITE BLOOD COUNT 8.2 K/mm3 (4.0-10.0)
[2017-05-26 12:40] LABS: URINE APPEARANCE SLCLOUDY; URINE BILIRUBIN NEGATIVE (NEGATIVE); URINE BLOOD NEGATIVE (NEGATIVE); URINE COLOR YELLOW; URINE GLUCOSE (UA) NEGATIVE (NEGATIVE); URINE KETONE NEGATIVE (NEGATIVE); URINE LEUK ESTERASE NEGATIVE (NEGATIVE); URINE NITRITE NEGATIVE (NEGATIVE); URINE PROTEIN NEGATIVE (NEGATIVE); URINE UROBILINOGEN NEGATIVE E.U./dl (0.2-1.0)
[2017-05-26 13:05] LABS: ALBUMIN 3.5 g/dl (3.4-5.0); ANION GAP 7 (8-16); CO2 26 mmol/L (21-32); CREATININE 0.9 mg/dL (0.55-1.02); GLUCOSE,RANDOM 91 mg/dL (74-106); SGPT/ALT 25 U/L (12-78)
[2017-05-26 13:07] LABS: ALK PHOS 64 U/L (45-117); BILIRUBIN,TOTAL 0.4 mg/dL (0.2-1.0); TOT PROT 7.7 g/dl (6.4-8.2)
[2017-05-26 13:08] LABS: SGOT/AST 24 U/L (15-37)
[2017-05-26] MEDS ORDERED: morphine CARPU-JECT 4 MG/1 ML DISP.SYRIN IVPUSH ONE (15:58)
[2017-05-26] MEDS ORDERED: morphine CARPU-JECT 4 MG/1 ML DISP.SYRIN ONE (16:06)
[2017-05-26 19:03] VITALS: BP 100/70; PULSE 67; TEMP 97.9
== END 2017-05-26 19:04 | disposition home or self-care (01) ==
LOC: JER 11:13
PROC: 3E0333Z Introduction of Anti-inflammatory into Peripheral Vein, Percutaneous Approach (ICD-10-PCS; principal; 2017-05-26)
PROC: 3E033NZ Introduction of Analgesics, Hypnotics, Sedatives into Peripheral Vein, Percutaneous Approach (ICD-10-PCS; 2017-05-26)
PROC: 3E033GC Introduction of Other Therapeutic Substance into Peripheral Vein, Percutaneous Approach (ICD-10-PCS; 2017-05-26)
DX: R10.9 Unspecified abdominal pain (principal); Z85.41 Personal history of malignant neoplasm of cervix uteri; Z87.891 Personal history of nicotine dependence; F31.9 Bipolar disorder, unspecified; F41.9 Anxiety disorder, unspecified
CPT/HCPCS: 36415; 74176-TC; 76830-TC; 80053; 81003; 85025; 87086; 96374; 96375; 99282-25

== ENCOUNTER 2017-08-25 00:04 | Emergency (ER) | payer OTHER ==
[2017-08-25 01:04] VITALS: TEMP 97.6
[2017-08-25 01:10] VITALS: BP 106/77; PULSE 89; BMI 36.0
--- NOTE | 2017-08-25 01:35 | PDOC ---
History of Present Illness - History of Present Illness Initial Comments: 08/25/17 02:04 The patient is a 37 year old female, with a significant past medical history of partial hysterectomy (ovaries remain) s/p cervical CA (January 2017), taking klonopin and Abilify, who presents to the emergency department with right lower quadrant and right suprapubic pain since 4PM yesterday. The patient reports taking one oxycodone with minimal relief of her pain. She denies any other symptoms. She states she is concerned because her last experience with this required drainage which was at [facility]. She denies chest pain, shortness of breath, headache and dizziness. She denies fever, chills, nausea, vomit, diarrhea and constipation. She denies dysuria, frequency, urgency and hematuria. Allergies: NKDA Surgical History: paracentesis (unknown date) Social history: smokes 8 cigarettes daily <Miryam Jackson - Last Filed: 08/25/17 02:04> <Elyse Holt - Last Filed: 08/25/17 03:28> - General Chief Complaint: Pain Stated Complaint: PELVIC PAIN Time Seen by Provider: 08/25/17 00:52 Past History <Miryam Jackson - Last Filed: 08/25/17 02:04> - Past Medical History Cancer: Yes (cervical) Cardiac Disorders: No Dementia: No Diabetes: No GI Disorders: No Disorders: No Liver Disease: No Psychiatric Problems: Yes (BIPOLAR, anxiety) Seizures: No Thyroid Disease: No - Surgical History Abdominal Surgery: Yes (ANA FALLOPIAN TUBES REMOVAL, cervix removed) - Reproductive History Cervical CA: Yes - Immunization History Immunization Up to Date: Yes - Suicide/Smoking/Psychosocial Hx Smoking Status: Yes (QUIT 2007) Smoking History: Never smoked Have you smoked in the past 12 months: No Number of Cigarettes Smoked Daily: 0 If you are a former smoker, when did you quit?: October 2016 Information on smoking cessation initiated: No 'Breaking Loose' booklet given: 10/30/16 Hx Alcohol Use: No Drug/Substance Use Hx: No Substance Use Type: None <Elyse Holt - Last Filed: 08/25/17 03:28> - Past Medical History Allergies/Adverse Reactions: Allergies Allergy/AdvReac Type Severity Reaction Status Date / Time Iodine and Iodide Containing Allergy Verified 08/25/17 01:00 Produc No Known Drug Allergies Allergy Verified 08/25/17 01:00 peanut Allergy Rash Verified 08/25/17 01:00 Home Medications: Ambulatory Orders Aripiprazole [Abilify] 10 mg PO HS 09/10/15 Clonazepam [Klonopin] 1 mg PO TID 09/10/15 Oxycodone HCl/Acetaminophen [Percocet 5-325 mg Tablet] 1 tab PO Q4H #4 tablet MDD 4 05/26/17 Sulfamethoxazole/Trimethoprim [Bactrim Ds -] 1 tab PO BID #10 tablet 08/25/17 Abd/GI Specific PMHX - Complaint Specific PMHX GERD: No <Elyse Holt - Last Filed: 08/25/17 03:28> Review of Systems - Review of Systems Able to Perform ROS?: Yes Comments:: 08/25/17 02:04 CONSTITUTIONAL: Absent: fever, chills, diaphoresis, generalized weakness, malaise, loss of appetite HEENT: Absent: rhinorrhea, nasal congestion, throat pain, throat swelling, difficulty swallowing, mouth swelling, ear pain, eye pain, visual Changes CARDIOVASCULAR: Absent: chest pain, syncope, palpitations, irregular heart rate, lightheadedness , peripheral edema RESPIRATORY: Absent: cough, shortness of breath, dyspnea with exertion, orthopnea, wheezing, stridor, hemoptysis GASTROINTESTINAL: (+) RLQ pain and rigth suprapubic pain. Absent: abdominal distension, nausea, vomiting, diarrhea, constipation, melena, hematochezia GENITOURINARY: Absent: dysuria, frequency, urgency, hesitancy, hematuria, flank pain, genital pain MUSCULOSKELETAL: Absent: myalgia, arthralgia, joint swelling SKIN: Absent: rash, itching, pallor HEMATOLOGIC/IMMUNOLOGIC: Absent: easy bleeding, easy bruising, lymphadenopathy, frequent infections ENDOCRINE: Absent: unexplained weight gain, unexplained weight loss, heat intolerance, cold intolerance NEUROLOGIC: Absent: headache, focal weakness or paresthesias, dizziness, unsteady gait, seizure, mental status changes, bladder or bowel incontinence PSYCHIATRIC: Absent: anxiety, depression, suicidal or homicidal ideation, hallucinations. <Miryam Jackson - Last Filed: 08/25/17 02:04> *Physical Exam - Vital Signs Last Vital Signs Temp Pulse Resp BP Pulse Ox 97.6 F 89 14 106/77 98 08/25/17 01:01 08/25/17 01:01 08/25/17 01:01 08/25/17 01:01 08/25/17 01:01 - Physical Exam Comments: 08/25/17 02:05 GENERAL: Well developed, well nourished. Awake and alert. No acute distress. HEENT: Normocephalic, atraumatic. PERRLA, EOMI. No conjunctival pallor. Sclera are non- icteric. Moist mucous membranes. Oropharynx is clear. NECK: Supple. Full ROM. No JVD. Carotid pulses 2+ and symmetric, without bruits. No thyromegaly. No lymphadenopathy. CARDIOVASCULAR: Regular rate and rhythm. No murmurs, rubs, or gallops. Distal pulses are 2+ and symmetric. PULMONARY: No evidence of respiratory distress. Lungs clear to auscultation bilaterally. No wheezing, rales or rhonchi. ABDOMINAL: (+) RLQ and Right suprapubic ttp. Soft. Non-distended. No rebound or guarding. No organomegaly. Normoactive bowel sounds. MUSCULOSKELETAL Normal range of motion at all joints. No bony deformities or tenderness. No CVA tenderness. EXTREMITIES: No cyanosis. No clubbing. No edema. No calf tenderness. SKIN: Warm and dry. Normal capillary refill. No rashes. No jaundice. NEUROLOGICAL: Alert, awake, appropriate. Cranial nerves 2-12 intact. Normoreflexic in the upper and lower extremities. Normal speech. Toes are down-going bilaterally. Gait is normal without ataxia. PSYCHIATRIC: Cooperative. Good eye contact. Appropriate mood and affect. <Miryam Jackson - Last Filed: 08/25/17 02:04> - Vital Signs Last Vital Signs Temp Pulse Resp BP Pulse Ox 97.6 F 89 14 106/77 98 08/25/17 01:01 08/25/17 01:01 08/25/17 01:01 08/25/17 01:01 08/25/17 01:01 <Elyse Holt - Last Filed: 08/25/17 03:28> ED Treatment Course - LABORATORY CBC & Chemistry Diagram: 08/25/17 01:53 08/25/17 01:53 <Miryam Jackson - Last Filed: 08/25/17 02:04> - LABORATORY CBC & Chemistry Diagram: 08/25/17 01:53 08/25/17 01:53 - RADIOLOGY Radiology Studies Ordered: Category Date Time Status TRANSVAGINAL ULTRASOUND US [US] Stat Ultrasound 08/25/17 01:31 Ordered <Elyse Holt - Last Filed: 08/25/17 03:28> Medical Decision Making - Medical Decision Making 08/25/17 01:35 37-year-old female presents with right adnexal pain. This started at 4 PM this afternoon. She denies any fever or chills, nausea, vomiting or dysuria. Past medical history significant for cervical cancer and she is status post partial hysterectomy with removal of her uterus, but she still has her ovaries. 2, para 2 Medications Klonopin and Abilify 08/25/17 03:21 She denies any abdominal tenderness or dysuria. Ultrasound did not show any torsion, no free fluid Labs were reviewed Patient's discomfort resolved without any intervention Patient discharged home -wanted to give pt bactrim po before leaving but she didnt want it-said she would start her antibiotics in the morning after she picked up her prescription at the pharmacy 08/25/17 03:27 <Elyse Holt - Last Filed: 08/25/17 03:28> *DC/Admit/Observation/Transfer - Attestations Scribe Attestion: 08/25/17 02:05 Documentation prepared by Miryam Jackson, acting as senior medical writer for Elyse Holt MD <Miryam Jackson - Last Filed: 08/25/17 02:04> <Elyse Holt - Last Filed: 08/25/17 03:28> Diagnosis at time of Disposition: Pelvic pain Urinary tract infection Qualifiers: Urinary tract infection type: site unspecified Hematuria presence: without hematuria Qualified Code(s): N39.0 - Urinary tract infection, site not specified - Discharge Dispostion Disposition: HOME Condition at time of disposition: Stable - Prescriptions Prescriptions: Sulfamethoxazole/Trimethoprim [Bactrim Ds -] 1 tab PO BID #10 tablet - Referrals Referrals: STAFF,NOT ON [Primary Care Provider] - - Patient Instructions Printed Discharge Instructions: DI for Urinary Tract Infection (UTI), DI for Pelvic Pain Additional Instructions: please pickle sorter your antibiotics at your pharmacy return if you have any worsening symptoms
[2017-08-25 02:02] LABS: MCH 27.5 pg (25.7-33.7); MCHC 33.5 g/dl (32.0-36.0); MEAN CELL VOLUME 82.3 fl (80-96); MEAN PLT VOLUME 8.3 fl (7.5-11.1); PLATELET COUNT 251 K/MM3 (134-434); RDW 16.8 % (11.6-15.6); WHITE BLOOD COUNT 4.5 K/mm3 (4.0-10.0)
[2017-08-25 02:27] LABS: PLATELET ESTIMATE ADEQUATE (NORMAL); REACTIVE LYMPHOCYTES 2 % (0-80); TOTAL CELLS COUNTED 100
[2017-08-25 02:32] LABS: URINE APPEARANCE CLOUDY; URINE BILIRUBIN NEGATIVE (NEGATIVE); URINE BLOOD NEGATIVE (NEGATIVE); URINE COLOR YELLOW; URINE GLUCOSE (UA) NEGATIVE (NEGATIVE); URINE KETONE NEGATIVE (NEGATIVE); URINE LEUK ESTERASE TRACE (NEGATIVE); URINE NITRITE NEGATIVE (NEGATIVE); URINE PROTEIN NEGATIVE (NEGATIVE); URINE UROBILINOGEN NEGATIVE mg/dL (0.2-1.0)
[2017-08-25 02:34] LABS: ALBUMIN 3.6 g/dl (3.4-5.0); ALK PHOS 53 U/L (45-117); ANION GAP 9 (8-16); BILIRUBIN,TOTAL 0.2 mg/dL (0.2-1.0); CALCIUM 8.5 mg/dL (8.5-10.1); CO2 24 mmol/L (21-32); CREATININE 0.9 mg/dL (0.55-1.02); GLUCOSE,RANDOM 89 mg/dL (74-106); SGOT/AST 16 U/L (15-37); SGPT/ALT 18 U/L (12-78); TOT PROT 7.2 g/dl (6.4-8.2)
[2017-08-25 02:35] LABS: URINE HYALINE CAST 2 /lpf; URINE MUCUS RARE; URINE RBC <1 /hpf (0-3); URINE WBC 17 /hpf (3-5)
== END 2017-08-25 03:31 | disposition home or self-care (01) ==
LOC: JER 00:04
DX: N39.0 Urinary tract infection, site not specified (principal); R10.2 Pelvic and perineal pain; Z85.41 Personal history of malignant neoplasm of cervix uteri; F31.9 Bipolar disorder, unspecified; F41.9 Anxiety disorder, unspecified; Z87.891 Personal history of nicotine dependence
CPT/HCPCS: 36415; 76830-TC; 80053; 81003; 81015; 85025; 99282-25

== ENCOUNTER 2017-12-23 22:33 | Emergency (ER) | payer OTHER ==
[2017-12-23 22:56] VITALS: BP 134/83; PULSE 74; TEMP 98.4; BMI 36.7
--- NOTE | 2017-12-23 23:42 | PDOC ---
History of Present Illness - General History Source: Patient, Family, Old Records Exam Limitations: No Limitations - History of Present Illness Initial Comments: 12/23/17 23:45 The patient is a 37 year old female presenting with a friend, with a significant past medical history of cervical CA s/p hysterectomy, bipolar disorder and anxiety, who presents to the emergency department with chest pain and shortness of breath. She states that she awoke gasping for air. She describes her chest pain as a pressure, ranging from mild to moderate, without radiation or modifying factors. She notes that her left upper extremity feels weird and she feels generally weak. She denies any recent illness. The patient denies headache and dizziness. Denies fever, chills, nausea, vomit, diarrhea and constipation. Allergies: Peanuts Past surgical history: Hysterectomy (01/2017) Social history: Cigarette use. No alcohol use or drug use reported <Claeb Sullivan - Last Filed: 12/23/17 23:44> <Nanette Hdez - Last Filed: 12/24/17 01:33> - General Chief Complaint: Chest Pain Stated Complaint: CHEST PAIN Time Seen by Provider: 12/23/17 23:27 Past History <Caleb Sullivan - Last Filed: 12/23/17 23:44> - Past Medical History Cancer: Yes (cervical) Cardiac Disorders: No COPD: No Dementia: No Diabetes: No GI Disorders: No Disorders: No Liver Disease: No Psychiatric Problems: Yes (BIPOLAR, anxiety) Seizures: No Thyroid Disease: No - Surgical History Abdominal Surgery: Yes (ANA FALLOPIAN TUBES REMOVAL, cervix removed) - Reproductive History (#): 2 Para: 2 Cervical CA: Yes Dysfunctional Uterine Bleeding: No Ectopic : No Endometrial CA: No Polycystic Ovaries: No Therapeutic (s) & number: No Tubal Ligation: No Spontaneous : 0 - Immunization History Immunization Up to Date: Yes - Suicide/Smoking/Psychosocial Hx Smoking Status: Yes (QUIT 2007) Smoking History: Current every day smoker Have you smoked in the past 12 months: Yes Number of Cigarettes Smoked Daily: 0 If you are a former smoker, when did you quit?: October 2016 Information on smoking cessation initiated: No 'Breaking Loose' booklet given: 10/30/16 Hx Alcohol Use: No Drug/Substance Use Hx: No Substance Use Type: None <Nanette Hdez - Last Filed: 12/24/17 01:33> - Past Medical History Allergies/Adverse Reactions: Allergies Allergy/AdvReac Type Severity Reaction Status Date / Time Iodine and Iodide Containing Allergy Verified 12/23/17 22:53 Produc No Known Drug Allergies Allergy Verified 12/23/17 22:53 peanut Allergy Rash Verified 12/23/17 22:53 Home Medications: Ambulatory Orders Aripiprazole [Abilify] 10 mg PO HS 09/10/15 Clonazepam [Klonopin] 1 mg PO TID 09/10/15 Albuterol Sulfate Inhaler - [Ventolin HFA Inhaler -] 1 - 2 inh PO QID PRN #1 inhaler 12/24/17 Inhaler, Assist Devices [Space Chamber Plus] 1 each MC QID PRN #1 spacer Prednisone [Deltasone -] 40 mg PO DAILY #8 tablet 12/24/17 Review of Systems - Review of Systems Able to Perform ROS?: Yes Comments:: 12/23/17 23:45 GENERAL/CONSTITUTIONAL: No fever or chills. No weakness. HEAD, EYES, EARS, NOSE AND THROAT: No change in vision. No ear pain or discharge. No sore throat.- CARDIOVASCULAR: (+) Chest pain and shortness of breath RESPIRATORY: No cough, wheezing, or hemoptysis. GASTROINTESTINAL: No nausea, vomiting, diarrhea or constipation. GENITOURINARY: No dysuria, frequency, or change in urination. MUSCULOSKELETAL: No joint or muscle swelling or pain. No neck or back pain. SKIN: No rash NEUROLOGIC: No headache, vertigo, loss of consciousness, or change in strength/ sensation. ENDOCRINE: No increased thirst. No abnormal weight change HEMATOLOGIC/LYMPHATIC: No anemia, easy bleeding, or history of blood clots. ALLERGIC/IMMUNOLOGIC: No hives or skin allergy. <Caleb Sullivan - Last Filed: 12/23/17 23:44> *Physical Exam - Vital Signs Last Vital Signs Temp Pulse Resp BP Pulse Ox 98.4 F 74 16 134/83 99 12/23/17 22:53 12/23/17 22:53 12/23/17 22:53 12/23/17 22:53 12/23/17 22:53 - Physical Exam Comments: 12/23/17 23:46 GENERAL: (+) Mildly Obese. Awake, alert, and fully oriented, in no acute distress HEAD: No signs of trauma, normocephalic, atraumatic EYES: PERRLA, EOMI, sclera anicteric, conjunctiva clear ENT: Auricles normal inspection, hearing grossly normal, nares patent, oropharynx clear without exudates. Moist mucosa NECK: Normal ROM, supple, no lymphadenopathy, JVD, or masses LUNGS: No distress, speaks full sentences. (+) Wheezing expiratory diffusely. HEART: Regular rate and rhythm, normal S1 and S2, no murmurs, rubs or gallops, peripheral pulses normal and equal bilaterally. ABDOMEN: Soft, nontender, normoactive bowel sounds. No guarding, no rebound. No masses EXTREMITIES : Normal inspection, Normal range of motion, no edema. No clubbing or cyanosis. No calf tenderness. NEUROLOGICAL: Cranial nerves II through XII grossly intact. Normal speech, normal gait, no focal sensorimotor deficits SKIN: Warm, Dry, normal turgor, no rashes or lesions noted. <Caleb Sullivan - Last Filed: 12/23/17 23:44> - Vital Signs Last Vital Signs Temp Pulse Resp BP Pulse Ox 98.4 F 74 16 134/83 99 12/23/17 22:53 12/23/17 22:53 12/23/17 22:53 12/23/17 22:53 12/23/17 22:53 <Nanette Hdez - Last Filed: 12/24/17 01:33> ED Treatment Course - LABORATORY CBC & Chemistry Diagram: 12/24/17 00:00 12/24/17 00:00 <Nanette Hdez - Last Filed: 12/24/17 01:33> Medical Decision Making - Medical Decision Making 12/23/17 23:51 a/p: 37yo female with chest pain and arm pain -woke her from sleep -atypical presentation -wheezing on exam -will check labs, ekg, cxr -will give nebs and reassess 12/24/17 01:21 pt feels better after the neb treatment large smoking hx 12/24/17 01:29 pt with mild end expiratory wheezing, will give 1 more neb discussed lab results pt is not - hx of hysterectomy in January of last year stable for d/c to home with RAD on steroids and albuterol will have her follow up with the pMD. answered all questions no cp at this time 12/24/17 01:33 discussed smoking cessation with the patient in full detail <Nanette Hdez - Last Filed: 12/24/17 01:33> *DC/Admit/Observation/Transfer - Attestations Scribe Attestion: 12/23/17 23:48 Documentation prepared by Caleb Sullivan, acting as medical device sales for Nanette Hdez DO <Caleb Sullivan - Last Filed: 12/23/17 23:44> - Discharge Dispostion Admit: No - Attestations Physician Attestion: 12/24/17 01:33 I, Dr. Nanette Hdez, , attest that this document has been prepared under my direction and personally reviewed by me in its entirety. I further attest, that it accurately reflects all work, treatment, procedures and medical decision -making performed by me. <Nanette Hdez - Last Filed: 12/24/17 01:33> Diagnosis at time of Disposition: Reactive airway disease, Atypical chest pain - Discharge Dispostion Disposition: HOME Condition at time of disposition: Stable - Prescriptions Prescriptions: Albuterol Sulfate Inhaler - [Ventolin HFA Inhaler -] 1 - 2 inh PO QID PRN #1 inhaler PRN Reason: Shortness Of Breath Inhaler, Assist Devices [Space Chamber Plus] 1 each MC QID PRN #1 spacer PRN Reason: Short Of Breath/Wheezing Prednisone [Deltasone -] 40 mg PO DAILY #8 tablet - Referrals Referrals: Sal Garcia MD [Staff Physician] - - Patient Instructions Printed Discharge Instructions: DI for Atypical Chest Pain, DI for Reactive Airway Disease-Adult, Smoking Cessation
[2017-12-23] MEDS ORDERED: ALBUTEROL SO4 2.5/IPRATROPIUM 0.5 INH SOL 3 ML VIAL.NEB. NEB ONE (23:43)
[2017-12-23] MEDS ORDERED: SODIUM CHLORIDE 0.9% 1000 ML INFUS.BAG IV ONE (23:43)
[2017-12-24] MEDS ORDERED: ALBUTEROL SO4 2.5/IPRATROPIUM 0.5 INH SOL 3 ML VIAL.NEB. NEB ONE ×3 (00:09→01:46)
[2017-12-24 00:21] LABS: BASO % 1.1 % (0-2.0); EOS % 4.3 % (0-4.5); HEMATOCRIT 36.8 % (32.4-45.2); HEMOGLOBIN 12.3 GM/dL (10.7-15.3); LYMPH % 39.1 % (8-40); MCH 28.7 pg (25.7-33.7); MCHC 33.4 g/dl (32.0-36.0); MEAN CELL VOLUME 85.8 fl (80-96); MEAN PLT VOLUME 8.3 fl (7.5-11.1); NEUT % 48.5 % (42.8-82.8); PLATELET COUNT 261 K/MM3 (134-434); RBC 4.29 M/mm3 (3.60-5.2); RDW 14.9 % (11.6-15.6); WHITE BLOOD COUNT 3.7 K/mm3 (4.0-10.0)
[2017-12-24 00:51] LABS: ALBUMIN 3.2 g/dl (3.4-5.0); ANION GAP 10 (8-16); BILIRUBIN,TOTAL 0.1 mg/dL (0.2-1.0); BLOOD UREA NITROGEN 12 mg/dL (7-18); CALCIUM 8.7 mg/dL (8.5-10.1); CHLORIDE 106 mmol/L (98-107); CO2 25 mmol/L (21-32); CREATININE 0.9 mg/dL (0.55-1.02); GLUCOSE,RANDOM 91 mg/dL (74-106); SGPT/ALT 20 U/L (12-78); SODIUM 141 mmol/L (136-145); TOT PROT 7.1 g/dl (6.4-8.2)
[2017-12-24 00:53] LABS: ALK PHOS 51 U/L (45-117)
[2017-12-24 00:55] LABS: MAGNESIUM 2.1 mg/dL (1.8-2.4); POTASSIUM 4.1 mmol/L (3.5-5.1); SGOT/AST 18 U/L (15-37)
[2017-12-24] MEDS ORDERED: predniSONE 20 MG TABLET (UD) PO ONE (01:28)
[2017-12-24] MEDS ORDERED: predniSONE 20 MG TABLET (UD) ONE (01:46)
--- NOTE | 2017-12-24 12:59 | EKG ---
Test Reason : Blood Pressure : / mmHG Vent. Rate : 074 BPM Atrial Rate : 074 BPM P-R Int : 164 ms QRS Dur : 080 ms QT Int : 390 ms P-R-T Axes : 048 043 028 degrees QTc Int : 432 ms POOR DATA QUALITY, INTERPRETATION MAY BE ADVERSELY AFFECTED NORMAL SINUS RHYTHM JUNCTIONAL ST DEPRESSION, PROBABLY NORMAL BORDERLINE ECG WHEN COMPARED WITH ECG OF 17-SEP-2016 10:49, NO SIGNIFICANT CHANGE WAS FOUND Confirmed by TEA HALL, MARY ([id number]) on 12/24/2017 12:59:25 PM Referred By: Confirmed By:MARY METCALF MD
== END 2017-12-24 02:11 | disposition home or self-care (01) ==
LOC: JER 22:33
PROC: 3E0337Z Introduction of Electrolytic and Water Balance Substance into Peripheral Vein, Percutaneous Approach (ICD-10-PCS; principal; 2017-12-23)
PROC: 3E0F7GC Introduction of Other Therapeutic Substance into Respiratory Tract, Via Natural or Artificial Opening (ICD-10-PCS; 2017-12-23)
DX: J45.909 Unspecified asthma, uncomplicated (principal); R07.89 Other chest pain; F17.210 Nicotine dependence, cigarettes, uncomplicated; Z85.41 Personal history of malignant neoplasm of cervix uteri; F31.9 Bipolar disorder, unspecified; F41.9 Anxiety disorder, unspecified
CPT/HCPCS: 36415; 71046-TC; 80053; 82550; 83735; 83880; 84484; 85025; 93005; 93010; 99283-25

== ENCOUNTER 2018-01-04 22:05 | Emergency (ER) | payer OTHER ==
[2018-01-04 22:32] VITALS: BP 120/81; PULSE 89; TEMP 97.8; BMI 36.7
--- NOTE | 2018-01-04 23:22 | PDOC ---
History of Present Illness - History of Present Illness Initial Comments: Ms Morgan is a 37yo F with a PMHx of Cervical CA s/p hysterectomy, non-diabetic with frequent UTIs who presents to the ER for sudden onset R flank pain that woke her up Thursday morning. The pain is constant, has been getting progressively worse. She has associated suprapubic pain and increased frequency. She denies dysuria, denies fevers and chills. Also endorses intermittent hematuria. Never had history of kidney stones. Denies CP, SOB, nausea, vomiting, diarrhea, constipation PMD - [facility] ([facility]) PMHx - Bipolar disorder, Asthma, Anxiety <Xiomara Ann - Last Filed: 01/05/18 00:00> <Lindsey Ruiz - Last Filed: 01/05/18 01:12> - General Chief Complaint: Back Pain Stated Complaint: PAIN/FATIGUE Time Seen by Provider: 01/04/18 22:47 Past History - Past Medical History Cancer: Yes (cervical) Cardiac Disorders: No COPD: No DVT: No Dementia: No Diabetes: No GI Disorders: No Disorders: No Liver Disease: No Psychiatric Problems: Yes (BIPOLAR, anxiety) Seizures: No Thyroid Disease: No - Surgical History Abdominal Surgery: Yes (ANA FALLOPIAN TUBES REMOVAL, cervix removed) - Reproductive History (#): 2 Para: 2 Cervical CA: Yes Dysfunctional Uterine Bleeding: No Ectopic : No Endometrial CA: No Polycystic Ovaries: No Therapeutic (s) & number: No Tubal Ligation: No Spontaneous : 0 - Immunization History Immunization Up to Date: Yes - Suicide/Smoking/Psychosocial Hx Smoking Status: Yes (QUIT 2007) Smoking History: Current every day smoker Have you smoked in the past 12 months: Yes Number of Cigarettes Smoked Daily: 8 If you are a former smoker, when did you quit?: October 2016 Information on smoking cessation initiated: No 'Breaking Loose' booklet given: 10/30/16 Hx Alcohol Use: No Drug/Substance Use Hx: No Substance Use Type: None <Xiomara Ann - Last Filed: 01/05/18 00:00> <Lindsey Ruiz - Last Filed: 01/05/18 01:12> - Past Medical History Allergies/Adverse Reactions: Allergies Allergy/AdvReac Type Severity Reaction Status Date / Time Iodine and Iodide Containing Allergy Verified 01/04/18 22:28 Produc No Known Drug Allergies Allergy Verified 12/23/17 22:53 peanut Allergy Rash Verified 01/04/18 22:28 Home Medications: Ambulatory Orders Aripiprazole [Abilify] 10 mg PO HS 09/10/15 Clonazepam [Klonopin] 1 mg PO TID 09/10/15 Review of Systems - Review of Systems Constitutional: No: Chills, Diaphoresis, Fever HEENTM: No: Eye Pain, Blurred Vision, Tearing Respiratory: No: Cough, Orthopnea Cardiac (ROS): No: Chest Pain, Edema ABD/GI: Yes: Symptoms Reported. No: Abdominal Distended, Abd. Pain w/ defecation : Yes: Frequency. No: Burning, Dysuria Musculoskeletal: Yes: Back Pain. No: Gout Integumentary: No: Bruising, Change in Color Neurological: No: Headache, Numbness Psychiatric: No: Depression, Frequent Crying Endocrine: No: See HPI, Excessive Sweating Hematologic/Lymphatic: No: Anemia, Blood Clots <Xiomara Ann - Last Filed: 01/05/18 00:00> *Physical Exam - Vital Signs Last Vital Signs Temp Pulse Resp BP Pulse Ox 97.8 F 89 18 120/81 99 01/04/18 22:29 01/04/18 22:29 01/04/18 22:29 01/04/18 22:29 01/04/18 22:29 - Physical Exam Comments: GEN: AAOx3, NAD, Lying down on her side HEENT: PERRLA, EOMi CV: S1, S2, RRR LUNG: CTABL ABD: Soft, TTP mostly in suprapubic tenderness MSK: R flank tenderness NEURO: CN 2-12 intact <Xiomara Ann - Last Filed: 01/05/18 00:00> - Vital Signs Last Vital Signs Temp Pulse Resp BP Pulse Ox 97.8 F 89 18 120/81 99 01/04/18 22:29 01/04/18 22:29 01/04/18 22:29 01/04/18 22:29 01/04/18 22:29 <Lindsey Ruiz - Last Filed: 01/05/18 01:12> ED Treatment Course - LABORATORY CBC & Chemistry Diagram: 01/04/18 23:13 01/04/18 23:13 <Xiomara Ann - Last Filed: 01/05/18 00:00> - LABORATORY CBC & Chemistry Diagram: 01/04/18 23:13 01/04/18 23:13 - ADDITIONAL ORDERS Additional order review: Laboratory Results 01/04/18 01/04/18 23:13 23:13 Sodium 139 Potassium 3.9 Chloride 104 Carbon Dioxide 27 Anion Gap 8 BUN 11 Creatinine 1.0 Creat Clearance w eGFR > 60 Random Glucose 113 H Calcium 8.7 Total Bilirubin 0.3 D AST 22 ALT 32 Alkaline Phosphatase 62 Total Protein 7.4 Albumin 3.4 Urine Color Yellow Urine Appearance Cloudy Urine pH 5.0 Ur Specific [place] 1.025 Urine Protein Negative Urine Glucose (UA) Negative Urine Ketones Negative Urine Blood Negative Urine Nitrite Negative Urine Bilirubin Negative Urine Urobilinogen Negative Ur Leukocyte Esterase Trace Urine WBC (Auto) 1 Urine RBC (Auto) <1 Ur Epithelial Cells Moderate Urine Bacteria Rare Urine Mucus Rare 01/04/18 23:13 RBC 4.70 MCV 86.1 MCHC 34.0 RDW 14.4 MPV 8.1 Neutrophils % 57.4 Lymphocytes % 32.3 Monocytes % 6.7 Eosinophils % 2.5 Basophils % 1.1 - Medications Given in the ED: ED Medications Discontinued Medications Generic Name Dose Route Start Last Admin Trade Name Terenceq PRN Reason Stop Dose Admin Ketorolac Tromethamine 30 mg 01/04/18 23:58 01/05/18 00:08 Toradol Injection - IVPUSH 01/04/18 23:59 30 mg ONCE ONE Administration <Lindsey Ruiz - Last Filed: 01/05/18 01:12> Medical Decision Making - Medical Decision Making 37yo F with PMHx of Cervical CA s/p hysterectomy, frequent UTI who presents with R flank pain, frequency, hemturia, and suprapubic pain. She denies fevers, chills, dysuria. I suspect she has either a urinary tract infection, cyst rupture (patient has ovaries), or possibly a kidney stone. -- CBC, CMP -- UA -- Will defer Urine since patient had total hysterectomy 01/04/18 23:58 UA negative for UTI. Will get pelvic & renal sono to r/o ovarian pathology or check for kidney stone Will give Toradol 30mg x1 for pain. <Xiomara Ann - Last Filed: 01/05/18 00:00> *DC/Admit/Observation/Transfer <Xiomara Ann - Last Filed: 01/05/18 00:00> - Discharge Dispostion Admit: No <Lindsey Ruiz - Last Filed: 01/05/18 01:12> Diagnosis at time of Disposition: Pain - Discharge Dispostion Disposition: HOME Condition at time of disposition: Good - Patient Instructions Additional Instructions: You can use Motrin for your pain. Return to the Emergency Department for any new/worsening/concerning symptoms.
[2018-01-04 23:27] LABS: BASO % 1.1 % (0-2.0); EOS % 2.5 % (0-4.5); HEMATOCRIT 40.5 % (32.4-45.2); HEMOGLOBIN 13.8 GM/dL (10.7-15.3); LYMPH % 32.3 % (8-40); MCH 29.3 pg (25.7-33.7); MEAN CELL VOLUME 86.1 fl (80-96); MEAN PLT VOLUME 8.1 fl (7.5-11.1); MONO % 6.7 % (3.8-10.2); NEUT % 57.4 % (42.8-82.8); PLATELET COUNT 246 K/MM3 (134-434); RDW 14.4 % (11.6-15.6); WHITE BLOOD COUNT 5.5 K/mm3 (4.0-10.0)
[2018-01-04 23:33] LABS: URINE APPEARANCE CLOUDY; URINE BILIRUBIN NEGATIVE (NEGATIVE); URINE BLOOD NEGATIVE (NEGATIVE); URINE COLOR YELLOW; URINE GLUCOSE (UA) NEGATIVE (NEGATIVE); URINE KETONE NEGATIVE (NEGATIVE); URINE LEUK ESTERASE TRACE (NEGATIVE); URINE NITRITE NEGATIVE (NEGATIVE); URINE PROTEIN NEGATIVE (NEGATIVE); URINE UROBILINOGEN NEGATIVE mg/dL (0.2-1.0)
[2018-01-04 23:39] LABS: EPI CELLS MODERATE /HPF (FEW); URINE BACTERIA RARE /hpf (NONE SEEN); URINE MUCUS RARE
--- NOTE | 2018-01-04 23:46 | PDOC ---
Attending Attestation - Medical Decision Making 01/05/18 00:47 Renal US, preliminary reading by Imaging Fiber Technician Impression: Normal kidneys Pelvic US, preliminary reading by Imaging Fiber Technician Impression: 1.5 cm R ovarian cyst without torsion or free fluid. <Johanna Drew - Last Filed: 01/05/18 00:47> - Resident Resident Name: Xiomara Ann - ED Attending Attestation I have performed the following: I have examined & evaluated the patient, The case was reviewed & discussed with the resident, I agree w/resident's findings & plan, Exceptions are as noted - HPI HPI: 01/04/18 23:45 37 yo female p/w right sided adnexal pain since Thursday. It is constant, but she doesn't have fever, chills or vomiting Past medical history significant for partial hysterectomy. She still has her ovaries. She did have a history of cervical cancer 01/05/18 00:03 - Physicial Exam PE: 01/05/18 00:04 Well-nourished well-developed 37-year-old female presents with right-sided pelvic discomfort since Thursday. Head normocephalic/atraumatic. Neck no bruits, several, no lymphadenopathy. Lungs clear to auscultation. CVS regular rate and rhythm S1, S2. No murmurs, rubs, gallops. Abdominal soft, no rebound and no guarding. She states that she has pain above her right hip that radiates to her groin Musculoskeletal no edema, no clubbing no cellulitis Neuro alert and oriented 3, ambulating with ease - Medical Decision Making 01/05/18 00:05 Urinalysis is negative. CBC is within normal limits. Patient taken to ultrasound 01/05/18 01:17 IMP rt ovarian cyst plan f/u with crap game box person pt told to return if her symptoms worsen or she develop fever or vomiting <Elyse Holt - Last Filed: 01/05/18 01:17>
[2018-01-04] MEDS ORDERED: KETOROLAC TROMETHAMINE 30 MG/1 ML VIAL IVPUSH ONE (23:58)
[2018-01-05 00:08] LABS: ALBUMIN 3.4 g/dl (3.4-5.0); ALK PHOS 62 U/L (45-117); ANION GAP 8 (8-16); BILIRUBIN,TOTAL 0.3 mg/dL (0.2-1.0); BLOOD UREA NITROGEN 11 mg/dL (7-18); CALCIUM 8.7 mg/dL (8.5-10.1); CHLORIDE 104 mmol/L (98-107); CO2 27 mmol/L (21-32); SGPT/ALT 32 U/L (12-78); SODIUM 139 mmol/L (136-145); TOT PROT 7.4 g/dl (6.4-8.2)
[2018-01-05 00:10] LABS: GLUCOSE,RANDOM 113 mg/dL (74-106); POTASSIUM 3.9 mmol/L (3.5-5.1); SGOT/AST 22 U/L (15-37)
[2018-01-05] MEDS ORDERED: KETOROLAC TROMETHAMINE 30 MG/1 ML VIAL ONE (00:11)
== END 2018-01-05 01:29 | disposition home or self-care (01) ==
LOC: JER 22:05
PROC: 3E0333Z Introduction of Anti-inflammatory into Peripheral Vein, Percutaneous Approach (ICD-10-PCS; principal; 2018-01-04)
DX: N83.201 Unspecified ovarian cyst, right side (principal); J45.909 Unspecified asthma, uncomplicated; F41.9 Anxiety disorder, unspecified; F31.9 Bipolar disorder, unspecified; Z85.41 Personal history of malignant neoplasm of cervix uteri
CPT/HCPCS: 36415; 76775-TC; 76856-TC; 80053; 81003; 81015; 85025; 87086; 96374; 99282-25

== ENCOUNTER 2018-05-09 23:29 | Emergency (ER) | payer OTHER ==
[2018-05-10 00:51] VITALS: BP 124/69; PULSE 87; TEMP 98.9; BMI 38.6
[2018-05-10] MEDS ORDERED: KETOROLAC TROMETHAMINE 60 MG/2 ML VIAL IM ONE (01:17)
[2018-05-10] MEDS ORDERED: KETOROLAC TROMETHAMINE 60 MG/2 ML VIAL ONE (01:43)
--- NOTE | 2018-05-10 02:44 | PDOC ---
History of Present Illness - General Chief Complaint: Respiratory Stated Complaint: DIFFICULTY BREATHING Time Seen by Provider: 05/09/18 23:45 History Source: Patient Exam Limitations: No Limitations - History of Present Illness Initial Comments: 05/10/18 02:37 Patient is a 38 year old female with history of bipolar disorder, anxiety, panic attacks, depression, hysterectomy for cervical CVA - with no radiation/ chemotherapy, complaining of left arm pain, left back pain and left chest pain, headache since 9:30 tonight states that she was sitting at home laying on the bed when she had some sharp pain in the mid sternal area. She then started to have some shortness of breathgasping for air, vomited 1. He then took a neb treatment with no relief of symptoms. States the pain went to her left lower back, then to her left arm and now her left breast. States the pain in her left breast a sharp, intermittent stabbing 8/10 and is painful to touch. States initially thought she was having a panic attack but then she had the chest pain she was concerned. PMD: [facility] PMHX; as above PSocHX: neg etoh, drug, GENERAL/CONSTITUTIONAL: [No fever or chills. No weakness. No weight change.] HEAD, EYES, EARS, NOSE AND THROAT: [No change in vision. No ear pain or discharge. No sore throat.] CARDIOVASCULAR: (+) chest pain or shortness of breath.] RESPIRATORY: [No cough, wheezing, or hemoptysis.] GASTROINTESTINAL: [No nausea, vomiting, diarrhea or constipation. No rectal bleeding.] GENITOURINARY: [No dysuria, frequency, or change in urination.] MUSCULOSKELETAL: [No joint or muscle swelling or pain. No neck or back pain.] SKIN AND BREASTS: [No rash or easy bruising.] NEUROLOGIC: [No headache, vertigo, loss of consciousness, or loss of sensation.] PSYCHIATRIC: (+) depression or anxiety.] ENDOCRINE: [No increased thirst. No abnormal weight change.] HEMATOLOGIC/LYMPHATIC: [No anemia, easy bleeding, or history of blood clots.] ALLERGIC/IMMUNOLOGIC: [No hives or skin allergy. No latex allergy.] GENERAL: [The patient is awake, alert, and fully oriented, in no acute distress. ] HEAD: [Normal with no signs of trauma.] EYES: [Pupils equal, round and reactive to light, extraocular movements intact, sclera anicteric, conjunctiva clear.] ENT: [Ears normal, nares patent, oropharynx clear without exudates. Moist mucous membranes.] NECK: [Normal range of motion, supple without lymphadenopathy, JVD, or masses.] LUNGS: [Breath sounds equal, clear to auscultation bilaterally. No wheezes, and no crackles.] HEART: [Regular rate and rhythm, normal S1 and S2 without murmur, rub, (+) tenderness to the left breast to palp.] ABDOMEN: [Soft, nontender, normoactive bowel sounds. No guarding, no rebound. No masses.] EXTREMITIES: [Normal range of motion, no edema. No clubbing or cyanosis. No cords, erythema, or tenderness.] NEUROLOGICAL: [Cranial nerves II through XII grossly intact. Normal speech, normal gait.] PSYCH: [Normal mood- calm, normal flat SKIN: [Warm, Dry, normal turgor, no rashes or lesions noted.] Past History - Past Medical History Allergies/Adverse Reactions: Allergies Allergy/AdvReac Type Severity Reaction Status Date / Time Iodine and Iodide Containing Allergy Verified 05/10/18 03:43 Produc No Known Drug Allergies Allergy Verified 05/10/18 03:43 peanut Allergy Rash Verified 05/10/18 03:43 Home Medications: Ambulatory Orders Aripiprazole [Abilify] 10 mg PO HS 09/10/15 Clonazepam [Klonopin] 1 mg PO TID 09/10/15 Cancer: Yes (cervical) Cardiac Disorders: No COPD: No DVT: No Dementia: No Diabetes: No GI Disorders: No Disorders: No Liver Disease: No Psychiatric Problems: Yes (BIPOLAR, anxiety) Seizures: No Thyroid Disease: No - Surgical History Abdominal Surgery: Yes (ANA FALLOPIAN TUBES REMOVAL, cervix removed) - Reproductive History (#): 2 Para: 2 Cervical CA: Yes Dysfunctional Uterine Bleeding: No Ectopic : No Endometrial CA: No Polycystic Ovaries: No Therapeutic (s) & number: No Tubal Ligation: No Spontaneous : 0 - Immunization History Immunization Up to Date: Yes - Suicide/Smoking/Psychosocial Hx Smoking Status: Yes (QUIT 2007) Smoking History: Current every day smoker Have you smoked in the past 12 months: Yes Number of Cigarettes Smoked Daily: 20 If you are a former smoker, when did you quit?: October 2016 Information on smoking cessation initiated: Yes 'Breaking Loose' booklet given: 10/30/16 Hx Alcohol Use: No Drug/Substance Use Hx: No Substance Use Type: None Cardiac Specific PMH - Complaint Specific PMHX Angina: No Cardiac Arrhythmia: No Cardiac Stent: No GERD: No Pacemaker: No Pulmonary Embolus: No Valvular Heart Disease: No Peripheral Vascular Disease: No *Physical Exam - Vital Signs Last Vital Signs Temp Pulse Resp BP Pulse Ox 98.9 F 87 18 124/69 97 05/10/18 00:00 05/10/18 00:00 05/10/18 00:00 05/10/18 00:00 05/10/18 00:00 ED Treatment Course - RADIOLOGY Radiology Studies Ordered: Category Date Time Status CHEST PA & LAT [RAD] Stat Radiology 05/10/18 01:16 Taken - Medications Given in the ED: ED Medications Discontinued Medications Generic Name Dose Route Start Last Admin Trade Name Freq PRN Reason Stop Dose Admin Ketorolac Tromethamine 60 mg 05/10/18 01:17 05/10/18 01:53 Toradol Injection - IM 05/10/18 01:18 60 mg ONCE ONE Administration Medical Decision Making - Medical Decision Making 05/10/18 02:37 Patient is a 38 year old female with history of bipolar disorder, anxiety, panic attacks, depression, hysterectomy for cervical CVA - with no radiation/ chemotherapy, complaining of left arm pain, left back pain and left chest pain, headache since 9:30 tonight states that she was sitting at home laying on the bed when she had some sharp pain in the mid sternal area. Has symptoms of a panic attack then had pain which is reproducible, that moved to different areas which is not consistent with cardiac chest pain. cxr and ekg toradol 60mg IM EKG SR rate 78, NAD, (-) ST-T wave changes unchanged from 12/2016 CXR neg as read by me I discussed the physical exam findings, ancillary test results and final diagnoses with the patient. I answered all of the patient's questions. The patient was satisfied with the care received and felt comfortable with the discharge plan and treatment plan. The Patient agrees to follow up with the primary care physician within 24-72 hours. 05/10/18 05:56 *DC/Admit/Observation/Transfer Diagnosis at time of Disposition: Anxiety, Chest wall pain - Discharge Dispostion Disposition: HOME Condition at time of disposition: Stable - Referrals Referrals: Vernon Lamb MD [Staff Physician] - - Patient Instructions Printed Discharge Instructions: DI for Atypical Chest Pain, DI for Anxiety -- Adult Additional Instructions: Your Discharge Instructions: You must call primary care physician within 24 hours to arrange follow-up. Return to the Emergency Department with any new, persistent or worsening symptoms, for fever, chills, SOB, dizziness or any other concerning changes that may occur. To her PMD for cardiology follow-up. - Post Discharge Activity
--- NOTE | 2018-05-10 08:44 | EKG ---
Test Reason : Blood Pressure : / mmHG Vent. Rate : 078 BPM Atrial Rate : 078 BPM P-R Int : 154 ms QRS Dur : 084 ms QT Int : 390 ms P-R-T Axes : 047 041 026 degrees QTc Int : 444 ms POOR DATA QUALITY, INTERPRETATION MAY BE ADVERSELY AFFECTED NORMAL SINUS RHYTHM T WAVE ABNORMALITY, CONSIDER ANTERIOR ISCHEMIA ABNORMAL ECG WHEN COMPARED WITH ECG OF 23-DEC-2017 22:39, NO SIGNIFICANT CHANGE WAS FOUND Confirmed by SHADI STORM MD ([id number]) on 05/10/2018 8:44:26 AM Referred By: Confirmed By:SHADI STORM MD
== END 2018-05-10 03:43 | disposition home or self-care (01) ==
LOC: JER 23:29
PROC: 3E0233Z Introduction of Anti-inflammatory into Muscle, Percutaneous Approach (ICD-10-PCS; principal; 2018-05-09)
DX: F41.9 Anxiety disorder, unspecified (principal); R07.89 Other chest pain; F31.9 Bipolar disorder, unspecified; F41.0 Panic disorder [episodic paroxysmal anxiety]; Z85.41 Personal history of malignant neoplasm of cervix uteri; Z90.710 Acquired absence of both cervix and uterus; Z87.891 Personal history of nicotine dependence
CPT/HCPCS: 71046-TC-FY; 93005; 93010; 96372; 99282-25

== ENCOUNTER 2018-07-05 13:59 | Emergency (ER) | payer OTHER ==
[2018-07-05 14:19] VITALS: BP 132/81; PULSE 91; TEMP 98.4; BMI 37.8
[2018-07-05] MEDS ORDERED: IBUPROFEN 600 MG TABLET (FP) PO ONE ×2 (15:01→15:10)
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
== END 2018-07-05 15:55 | disposition home or self-care (01) ==
LOC: JERFT 13:59
DX: S39.012A Strain of muscle, fascia and tendon of lower back, initial encounter (principal); F31.9 Bipolar disorder, unspecified; F41.9 Anxiety disorder, unspecified; Z85.41 Personal history of malignant neoplasm of cervix uteri; F17.210 Nicotine dependence, cigarettes, uncomplicated
CPT/HCPCS: 72050-TC-FY; 73110-TC-RT-FY; 73130-TC-RT-FY; 99281-25

== ENCOUNTER 2018-08-29 18:41 | Emergency (ER) | payer OTHER ==
[2018-08-29 19:02] VITALS: BP 115/67; PULSE 94; TEMP 98.5; BMI 38.6
--- NOTE | 2018-08-29 20:38 | PDOC ---
History of Present Illness - General Chief Complaint: Pain Stated Complaint: ABDOMINAL PAIN, HEADACHE Time Seen by Provider: 08/29/18 20:32 - History of Present Illness Initial Comments: 08/29/18 20:36 38 yo F with h/o anxiety, depression, cervical CA s/p hysterectomy x 8 years who p/w pelvic pain. Patient reports acute onset of sharp, unremitting, pelvic pain beginning 1030AM today, with radiation to lower abdomen. No identifiable triggers or alleviators. Similar pelvic pain one month ago resolving spontaneously. Also endorses multiple x 2-3 episodes of non bilious, non bloody emesis, with decreased appetite today. + lightheadedness, and frontal headache. Normal daily stools. Pain not relieved with OTC Ibuprofen 400mg. Heme/Onc physician Dr. Wynn at [facility]. Patient denies F,C, CP, SOB, urinary complaints, hematuira, vaginal bleeding/ discharge/burning, diarrhea, constipation, BPR. lightheadedness, weakness, sensory changes. PMHx: as noted above. Partial hysterectomy x 8 years ago, with ovaries intact. ROS: as noted SHx: 1/4 ppd tobacco use x 30 years. Social Etoh. Denies IVDA. Sexually active with 1 male partner. Denies h/o STI's. Allergies: NKDA PMD: Kelvin Li Past History - Past Medical History Allergies/Adverse Reactions: Allergies Allergy/AdvReac Type Severity Reaction Status Date / Time Iodine and Iodide Containing Allergy Verified 08/29/18 19:02 Produc No Known Drug Allergies Allergy Verified 08/29/18 19:02 peanut Allergy Rash Verified 08/29/18 19:02 Home Medications: Ambulatory Orders Aripiprazole [Abilify] 10 mg PO HS 09/10/15 Clonazepam [Klonopin] 1 mg PO TID 09/10/15 Cancer: Yes (cervical) Cardiac Disorders: No COPD: No DVT: No Dementia: No Diabetes: No GI Disorders: No Disorders: No Liver Disease: No Psychiatric Problems: Yes (BIPOLAR, anxiety) Seizures: No Thyroid Disease: No - Surgical History Abdominal Surgery: Yes (ANA FALLOPIAN TUBES REMOVAL, cervix removed) - Reproductive History (#): 2 Para: 2 Cervical CA: Yes Dysfunctional Uterine Bleeding: No Ectopic : No Endometrial CA: No Polycystic Ovaries: No Therapeutic (s) & number: No Tubal Ligation: No Spontaneous : 0 - Immunization History Immunization Up to Date: Yes - Suicide/Smoking/Psychosocial Hx Smoking Status: Yes (QUIT 2007) Smoking History: Current every day smoker Have you smoked in the past 12 months: Yes Number of Cigarettes Smoked Daily: 4 If you are a former smoker, when did you quit?: October 2016 Information on smoking cessation initiated: No 'Breaking Loose' booklet given: 10/30/16 Hx Alcohol Use: No Drug/Substance Use Hx: No Substance Use Type: None Review of Systems - Review of Systems Comments:: 08/29/18 20:37 GENERAL/CONSTITUTIONAL: No fever or chills. No weakness. HEAD, EYES, EARS, NOSE AND THROAT: No change in vision. No ear pain or discharge. No sore throat. CARDIOVASCULAR: No chest pain or shortness of breath RESPIRATORY: No cough, wheezing, or hemoptysis. GASTROINTESTINAL: + Abdominal pain, nausea, vomiting.No diarrhea or constipation. GENITOURINARY: No dysuria, frequency, or change in urination. MUSCULOSKELETAL: No joint or muscle swelling or pain. No neck or back pain. SKIN: No rash NEUROLOGIC:+ headache.No vertigo, loss of consciousness, or change in strength/ sensation. ENDOCRINE: No increased thirst. No abnormal weight change HEMATOLOGIC/LYMPHATIC: No anemia, easy bleeding, or history of blood clots. ALLERGIC/IMMUNOLOGIC: No hives or skin allergy. *Physical Exam - Vital Signs Last Vital Signs Temp Pulse Resp BP Pulse Ox 98.5 F 94 H 18 115/67 98 08/29/18 19:00 08/29/18 19:00 08/29/18 19:00 08/29/18 19:00 08/29/18 19:00 - Physical Exam Comments: 08/29/18 20:37 GENERAL: Awake, alert, and fully oriented, in no acute distress HEAD: No signs of trauma, normocephalic, atraumatic EYES: PERRLA, EOMI, sclera anicteric, conjunctiva clear ENT: Hearing grossly normal, nares patent, oropharynx clear without exudates. Moist mucosa NECK: Normal ROM, supple, no lymphadenopathy, JVD, or masses LUNGS: No distress, speaks full sentences, clear to auscultation bilaterally HEART: Regular rate and rhythm, normal S1 and S2, no murmurs, rubs or gallops, peripheral pulses normal and equal bilaterally. ABDOMEN: + Lower abdominal ttp. Nontender, normoactive bowel sounds. No guarding, no rebound, no rigidity. No masses. Neg CVA ttp. EXTREMITIES : Normal inspection, Normal range of motion, no edema. No clubbing or cyanosis. SKIN: Warm, Dry, normal turgor, no rashes or lesions noted Medical Decision Making - Medical Decision Making 08/29/18 20:51 38 yo F with h/o anxiety, depression, cervical CA ( remission x 1 year) s/p hysterectomy x 8 years who p/w pelvic pain.VSS, AF. + Lower abdominal ttp. Possible cystitis. Will consider diverticulitis, colitis, nephrolithiasis. Low suspicion appendicitis, AAA, Ao dissection. Absent upper abdominal involvement. Low suspicion pancreatitis, biliary dz., gastritis. Ed Course: UA, UCx. NS, Zofran, Tylenol, Ibruprofen UA: Neg Patient symptoms improved. Stable for d/c with return precautions. Agrees to f/ u at [facility] with PMD. *DC/Admit/Observation/Transfer Diagnosis at time of Disposition: Pelvic pain - Discharge Dispostion Disposition: HOME Condition at time of disposition: Stable Decision to Admit order: No - Referrals Referrals: Figueroa Gambino MD [Primary Care Provider] - - Patient Instructions Printed Discharge Instructions: DI for Pelvic Pain Additional Instructions: Please return to the emergency department with any new or worsening symptoms or concerns. Please follow up with your primary care physician within 72 hours. - Post Discharge Activity - Attestations Physician Attestion: 08/29/18 20:37 I attest to the information provided in this note.
--- NOTE | 2018-08-29 20:50 | PDOC ---
Attending Attestation - HPI HPI: 08/29/18 21:58 The patient is a 38 year old Female with significant past medical history of anxiety, depression, cervical CA s/p hysterectomy x8 years who presents to the ED for evaluation of acute onset of sharp, pelvic pain since 10:30 AM. She also reports 2-3 episodes of non bilious, non bloody emesis, with decreased appetite today. She denies pain relief with use of OTC Ibuprofen 400mg. Patient denies Fever,Chills, CP, SOB, urinary complaints, vaginal bleeding/ discharge/burning, diarrhea, constipation. SHx: 12/03 ppd tobacco use x 30 years. Social Etoh. Denies IVDA. Sexually active with 1 male partner. Denies h/o STI's. Allergies: NKDA PMD: Kelvin Li Heme/Onc physician Dr. Wynn at [facility]. - Physicial Exam PE: 08/29/18 22:01 GENERAL: Well-appearing, well-nourished. No apparent distress. HEENT: Normocephalic, atraumatic. PERRL, EOM intact. CARDIOVASCULAR: Normal S1, S2. Regular rate and rhythm. PULMONARY: Clear to auscultation bilaterally. ABDOMEN: Soft, non-distended, non-tender. EXTREMITIES: Normal ROM in all four extremities. No gross deformities. SKIN: Warm, dry. No rash NEUROLOGICAL: No focal neurological deficits. - Medical Decision Making 08/29/18 22:01 Documentation prepared by Miryam Jackson, acting as medical education manager for Elyse Holt MD <Miryam Jackson - Last Filed: 08/29/18 21:58> - Resident Resident Name: Harry Paz - ED Attending Attestation I have performed the following: I have examined & evaluated the patient, The case was reviewed & discussed with the resident, I agree w/resident's findings & plan, Exceptions are as noted - Medical Decision Making 38-year-old female with suprapubic discomfort today,she took motrin 400mg at 4pm today. she has no fever,chills,diarrhea -she's s/p hysterectomy for cervical cancer -her UA was negative -she has a benign abd exam -pt is going to followup with her doctor at [facility] if her discomfort persists 08/29/18 23:23 <Elyse Holt - Last Filed: 08/29/18 23:27>
[2018-08-29] MEDS ORDERED: ACETAMINOPHEN 1000 MG/100 ML VIAL (NON FORMULARY) IVPB ONE (20:53)
[2018-08-29] MEDS ORDERED: ONDANSETRON 4 MG/2 ML VIAL IVPUSH ONE (20:53)
[2018-08-29] MEDS ORDERED: SODIUM CHLORIDE 1,000 ML IV STA (20:53)
[2018-08-29 22:13] LABS: URINE APPEARANCE CLEAR; URINE BILIRUBIN NEGATIVE (<2.0 mg/dL); URINE COLOR YELLOW; URINE GLUCOSE (UA) NEGATIVE (NEGATIVE); URINE KETONE NEGATIVE (NEGATIVE); URINE LEUK ESTERASE NEGATIVE (NEGATIVE); URINE NITRITE NEGATIVE (NEGATIVE); URINE PROTEIN NEGATIVE (NEGATIVE); URINE UROBILINOGEN NEGATIVE mg/dL (0.2-1.0)
[2018-08-29] MEDS ORDERED: IBUPROFEN 600 MG TABLET (FP) PO ONE (23:18)
== END 2018-08-29 23:30 | disposition home or self-care (01) ==
LOC: JER 18:41
PROC: 3E033GC Introduction of Other Therapeutic Substance into Peripheral Vein, Percutaneous Approach (ICD-10-PCS; principal; 2018-08-29)
DX: R10.2 Pelvic and perineal pain (principal); F31.9 Bipolar disorder, unspecified; F41.9 Anxiety disorder, unspecified; F32.9 Major depressive disorder, single episode, unspecified; Z85.41 Personal history of malignant neoplasm of cervix uteri; Z90.710 Acquired absence of both cervix and uterus; Z90.79 Acquired absence of other genital organ(s)
CPT/HCPCS: 81003; 87086; 96374; 99282-25

== ENCOUNTER 2018-10-12 21:56 | Emergency (ER) | payer OTHER ==
[2018-10-12 22:15] VITALS: BP 116/72; PULSE 87; TEMP 98.1; BMI 37.8
--- NOTE | 2018-10-12 22:54 | PDOC ---
History of Present Illness - History of Present Illness Initial Comments: 10/12/18 23:20 The patient is a 38 year old female, with a significant past medical history of anxiety, depression, cervical CA (s/p hysterectomy), who presents to the emergency department with, 2.5 hours of chest pain. She describes her chest pain as sharp midsternal, constant, 6/10, and radiating to the left arm with associated tingling to her toes. Yesterday, she was seen at [facility] for an allergic reaction to seafood and placed on Prednisone (compliant). She denies recent fevers, chills, headache or dizziness. She denies recent nausea, vomit, diarrhea or constipation. She denies recent dysuria, frequency, urgency or hematuria. Allergies: Peanuts, Iodine/Iodine products. Past surgical history: 12/03 ppd tobacco use x 30 years. Social Etoh. Denies IVDA. Sexually active with 1 male partner. Denies h/o STI's. Social history: Nonsmoker. Denies EtOH use and recreational drug use. Primary Care Physician: Dr. Kelvin Li Heme/Onc physician Dr. Wynn at [facility]. <Aicha Lee - Last Filed: 10/12/18 23:39> - General History Source: Patient Exam Limitations: No Limitations <Roselyn Brownlee - Last Filed: 10/13/18 01:07> - General Chief Complaint: Chest Pain Stated Complaint: CHEST PAIN Time Seen by Provider: 10/12/18 22:32 Past History <Aicha Lee - Last Filed: 10/12/18 23:39> - Past Medical History Cancer: Yes (cervical) Cardiac Disorders: No COPD: No DVT: No Dementia: No Diabetes: No GI Disorders: No Disorders: No Liver Disease: No Psychiatric Problems: Yes (BIPOLAR, anxiety) Seizures: No Thyroid Disease: No - Surgical History Abdominal Surgery: Yes (ANA FALLOPIAN TUBES REMOVAL, cervix removed) - Reproductive History (#): 2 Para: 2 Cervical CA: Yes Dysfunctional Uterine Bleeding: No Ectopic : No Endometrial CA: No Polycystic Ovaries: No Therapeutic (s) & number: No Tubal Ligation: No Spontaneous : 0 - Immunization History Immunization Up to Date: Yes - Suicide/Smoking/Psychosocial Hx Smoking Status: Yes (QUIT 2007) Smoking History: Current every day smoker Have you smoked in the past 12 months: Yes Number of Cigarettes Smoked Daily: 5 If you are a former smoker, when did you quit?: October 2016 Information on smoking cessation initiated: No 'Breaking Loose' booklet given: 10/30/16 Hx Alcohol Use: Yes Drug/Substance Use Hx: No Substance Use Type: Alcohol <Roselyn Brownlee - Last Filed: 10/13/18 01:07> - Past Medical History Allergies/Adverse Reactions: Allergies Allergy/AdvReac Type Severity Reaction Status Date / Time Iodine and Iodide Containing Allergy Verified 10/12/18 22:15 Produc No Known Drug Allergies Allergy Verified 10/12/18 22:15 peanut Allergy Rash Verified 10/12/18 22:15 Home Medications: Ambulatory Orders Aripiprazole [Abilify] 10 mg PO HS 09/10/15 Clonazepam [Klonopin] 1 mg PO TID 09/10/15 Review of Systems - Review of Systems Able to Perform ROS?: Yes Comments:: 10/12/18 23:21 CONSTITUTIONAL: No fever, no chills, no fatigue EYES: No visual changes ENT: No ear pain, no sore throat +CARDIOVASCULAR: Chest pain. No palpitations RESPIRATORY: No cough, no SOB GI: No abdominal pain, no nausea, no vomiting, no constipation, no diarrhea GENITOURINARY: No dysuria, no frequency, no hematuria MUSKULOSKELETAL: No back pain, no joint pain, no myalgias SKIN: No rash +NEURO: Tingling to the toes. No headache All Other Systems: Reviewed and Negative <Aicha Lee - Last Filed: 10/12/18 23:39> *Physical Exam - Vital Signs Last Vital Signs Temp Pulse Resp BP Pulse Ox 98.1 F 87 17 116/72 100 10/12/18 22:08 10/12/18 22:08 10/12/18 22:08 10/12/18 22:08 10/12/18 22:08 - Physical Exam Comments: 10/12/18 23:39 GENERAL: The patient is in no acute distress. HEAD: Normal with no signs of trauma. EYES: PERRLA, EOMI, sclera anicteric, conjunctiva clear. ENT: Ears normal, nares patent, oropharynx clear without exudates. Moist mucous membranes. NECK: Normal range of motion, supple without lymphadenopathy, JVD, or masses. LUNGS: Breath sounds equal, clear to auscultation bilaterally. No wheezes, and no crackles. HEART:Regular rate and rhythm, normal S1 and S2 without murmur, rub or gallop. ABDOMEN: Soft, nontender, normoactive bowel sounds. No guarding, no rebound. No masses palpable. EXTREMITIES: Normal range of motion, no edema. No clubbing or cyanosis. No erythema, or tenderness. NEUROLOGICAL: Cranial nerves II through XII grossly intact. Normal speech. No focal neurological deficits. MUSCULOSKELETAL: Back non-tender to palpation, no CVA tenderness SKIN: Warm, Dry, normal turgor, no rashes or lesions noted. <Aicha Lee - Last Filed: 10/12/18 23:39> - Vital Signs Last Vital Signs Temp Pulse Resp BP Pulse Ox 98.1 F 87 17 116/72 100 10/12/18 22:08 10/12/18 22:08 10/12/18 22:08 10/12/18 22:08 10/12/18 22:08 <Roselyn Brownlee - Last Filed: 10/13/18 01:07> ED Treatment Course - LABORATORY CBC & Chemistry Diagram: 10/12/18 23:22 10/12/18 23:22 <Aicha Lee - Last Filed: 10/12/18 23:39> - LABORATORY CBC & Chemistry Diagram: 10/12/18 23:22 10/12/18 23:22 <Roselyn Brownlee - Last Filed: 10/13/18 01:07> Medical Decision Making - Medical Decision Making 10/13/18 00:01 38 yo F presenting to the ER with a complaint of chest pain Pt has a h/o cervical cancer s/p MARTINEZ (01/2017), h/o bipolar d/o and anxiety She presents to the ER for evaluation of chest pain that began 2 hrs prior to arrival to the ER She was about to go to bed Developed midsternal chest pain which is described as sharp, no radiation Pt has not taken any medications for her pain No shortness of breath Symptoms non exertional No recent cold or URI On examination: Pt is sleeping, but answers questions appropriately RRR CTA, no wheezing No abd pain Chest wall tender to palpation DD: ACS, musculoskeletal pain, Pneumonia, Effusion Will do Labs CXR Asa, Tylenol, Neb Re assess 10/13/18 00:09 10/13/18 00:10 ReAssessed Pt resting comfortably, no chest pain at all Vitals: CXR: nml cardiomediastinal silhouette, no effusion, no pneumothorax, no infiltrate 10/13/18 00:11 Laboratory Tests 01/04/18 10/12/18 10/12/18 23:13 23:22 23:22 WBC 5.5 D 11.2 H Hgb 13.8 D 12.7 Hct 40.5 38.8 Plt Count 246 269 INR 0.97 BUN Creatinine Creatine Kinase Troponin I 10/12/18 23:22 WBC Hgb Hct Plt Count INR BUN 12 Creatinine 0.9 Creatine Kinase 170 Troponin I < 0.02 Discharge to home Unlikely PE given - Low risk Wells, PERC negative, chest pain resolved with tylenol Follow up with PMD <Roselyn Brownlee - Last Filed: 10/13/18 01:07> *DC/Admit/Observation/Transfer - Attestations Scribe Attestion: 10/12/18 23:22 Documentation prepared by Aicha Lee, acting as diploma medical assistant for Roselyn Brownlee MD. <Aicha Lee - Last Filed: 10/12/18 23:39> - Discharge Dispostion Decision to Admit order: No <Roselyn Brownlee - Last Filed: 10/13/18 01:07> Diagnosis at time of Disposition: Atypical chest pain - Discharge Dispostion Disposition: HOME Condition at time of disposition: Stable - Referrals Referrals: Figueroa Gambino MD [Primary Care Provider] - - Patient Instructions Printed Discharge Instructions: DI for Atypical Chest Pain Additional Instructions: Ms Morgan Thank you for coming in to the ER today Please be sure to review your labs If you develop more chest pain, shortness of breath, weakness, palpitations, please feel free to return to the ER for re assessment at any time Please follow up with your primary care physician at [facility] within 2-3 days - Post Discharge Activity Forms/Work/School Notes: Back to School, Back to Work
[2018-10-12] MEDS ORDERED: ACETAMINOPHEN 1000 MG/100 ML VIAL (NON FORMULARY) IVPB ONE (22:56)
[2018-10-12] MEDS ORDERED: ALBUTEROL SO4 0.083% IH SOL 2.5 MG/3 ML VIAL.NEB. NEB ONE ×2 (22:56→23:29)
[2018-10-12] MEDS ORDERED: ASPIRIN 81 MG CHEWABLE TABLETS PO ONE (22:56)
[2018-10-12 23:30] LABS: BASO % 0.2 % (0-2.0); HEMATOCRIT 38.8 % (32.4-45.2); HEMOGLOBIN 12.7 GM/dL (10.7-15.3); LYMPH % 10.8 % (8-40); MCH 28.6 pg (25.7-33.7); MCHC 32.8 g/dl (32.0-36.0); PLATELET COUNT 269 K/MM3 (134-434); RBC 4.46 M/mm3 (3.60-5.2); RDW 13.6 % (11.6-15.6); WHITE BLOOD COUNT 11.2 K/mm3 (4.0-10.0)
[2018-10-12] MEDS ORDERED: ASPIRIN 81 MG CHEWABLE TABLETS ONE (23:30)
[2018-10-12] MEDS ORDERED: ACETAMINOPHEN INJECTION 100 ML IVPB ONE (23:30)
[2018-10-12 23:42] LABS: INR 0.97 (0.83-1.09); PROTHROMBIN TIME (PATIENT) 11.4 SEC (9.7-13.0)
[2018-10-12 23:55] LABS: ALBUMIN 3.3 g/dl (3.4-5.0); ALK PHOS 46 U/L (45-117); ANION GAP 8 MMOL/L (8-16); BILIRUBIN,TOTAL 0.1 mg/dL (0.2-1); BLOOD UREA NITROGEN 12 mg/dL (7-18); CALCIUM 9.1 mg/dL (8.5-10.1); CHLORIDE 106 mmol/L (98-107); CO2 24 mmol/L (21-32); CREATININE 0.9 mg/dL (0.55-1.3); GLUCOSE,RANDOM 123 mg/dL (74-106); MAGNESIUM 2.2 mg/dL (1.8-2.4); POTASSIUM 4.5 mmol/L (3.5-5.1); SGOT/AST 17 U/L (15-37); SGPT/ALT 20 U/L (13-61); SODIUM 138 mmol/L (136-145); TOT PROT 7.3 g/dl (6.4-8.2)
[2018-10-13] MEDS ORDERED: FAMOTIDINE 20 MG/50 ML IVPB 20 MG/50 ML MG IVPB ONE ×2 (00:08→00:20)
--- NOTE | 2018-10-13 11:33 | EKG ---
Test Reason : Blood Pressure : / mmHG Vent. Rate : 088 BPM Atrial Rate : 088 BPM P-R Int : 158 ms QRS Dur : 092 ms QT Int : 356 ms P-R-T Axes : 036 030 016 degrees QTc Int : 430 ms NORMAL SINUS RHYTHM CANNOT RULE OUT INFERIOR INFARCT , AGE UNDETERMINED ABNORMAL ECG WHEN COMPARED WITH ECG OF 10-MAY-2018 02:54, NO SIGNIFICANT CHANGE WAS FOUND Confirmed by SAMINA HALL, JOSE R ([id number]) on 10/13/2018 11:32:24 AM Referred By: Confirmed By:JOSE R HAAS MD
== END 2018-10-13 01:46 | disposition home or self-care (01) ==
LOC: JER 21:56
PROC: 3E033GC Introduction of Other Therapeutic Substance into Peripheral Vein, Percutaneous Approach (ICD-10-PCS; principal; 2018-10-12)
PROC: 3E033NZ Introduction of Analgesics, Hypnotics, Sedatives into Peripheral Vein, Percutaneous Approach (ICD-10-PCS; 2018-10-12)
PROC: 3E0F7GC Introduction of Other Therapeutic Substance into Respiratory Tract, Via Natural or Artificial Opening (ICD-10-PCS; 2018-10-12)
DX: R07.89 Other chest pain (principal); F31.9 Bipolar disorder, unspecified; F41.9 Anxiety disorder, unspecified; Z85.41 Personal history of malignant neoplasm of cervix uteri; Z90.79 Acquired absence of other genital organ(s)
CPT/HCPCS: 36415; 71045-TC-FY; 80053; 82550; 82553; 83735; 84484; 85025; 85610; 93005; 93010; 94640; 96365; 96375; 99282-25; J0131

== ENCOUNTER 2018-10-31 20:15 | Emergency (ER) | payer OTHER ==
[2018-10-31 20:25] VITALS: BP 132/74; PULSE 102; TEMP 98.5; BMI 39.3
[2018-10-31] MEDS ORDERED: IBUPROFEN 600 MG TABLET (FP) PO ONE ×2 (20:57→20:59)
[2018-10-31] MEDS ORDERED: MAG HYDROX/AL HYDROX/SIMETH 30 ML UNIT-DOSE CUP PO ONE (20:57)
[2018-10-31] MEDS ORDERED: MAG HYDROX/AL HYDROX/SIMETH 30 ML UNIT-DOSE CUP ONE (21:00)
--- NOTE | 2018-10-31 21:02 | PDOC ---
History of Present Illness - General Chief Complaint: Cold Symptoms Stated Complaint: COLD SYMPTOMS Time Seen by Provider: 10/31/18 20:29 History Source: Patient Exam Limitations: No Limitations - History of Present Illness Initial Comments: 10/31/18 20:59 38 yr female with c/o nasal congestion right sided ear pain and epigastric pain since 5pm tonight. Pt denies shortness of breath ahd one epsiode vomiting after eating dinner. no fever, neg abd pain , neg pmhx or allergies. no meds. pt is a smoker Timing/Duration: reports: this afternoon Severity: reports: mild Episode Description: constant epigastric pressure, non radiating Past History - Past Medical History Allergies/Adverse Reactions: Allergies Allergy/AdvReac Type Severity Reaction Status Date / Time Iodine and Iodide Containing Allergy Verified 10/31/18 20:23 Produc No Known Drug Allergies Allergy Verified 10/31/18 20:23 peanut Allergy Rash Verified 10/31/18 20:23 Home Medications: Ambulatory Orders NK [No Known Home Medication] 10/31/18 Cancer: Yes (cervical) Cardiac Disorders: No COPD: No DVT: No Dementia: No Diabetes: No GI Disorders: No Disorders: No Liver Disease: No Psychiatric Problems: Yes (BIPOLAR, anxiety) Seizures: No Thyroid Disease: No - Surgical History Abdominal Surgery: Yes (ANA FALLOPIAN TUBES REMOVAL, cervix removed) - Reproductive History (#): 2 Para: 2 Cervical CA: Yes Dysfunctional Uterine Bleeding: No Ectopic : No Endometrial CA: No Polycystic Ovaries: No Therapeutic (s) & number: No Tubal Ligation: No Spontaneous : 0 - Immunization History Immunization Up to Date: Yes - Suicide/Smoking/Psychosocial Hx Smoking Status: Yes (QUIT 2007) Smoking History: Current every day smoker Have you smoked in the past 12 months: Yes Number of Cigarettes Smoked Daily: 5 If you are a former smoker, when did you quit?: October 2016 Information on smoking cessation initiated: No 'Breaking Loose' booklet given: 10/30/16 Hx Alcohol Use: Yes Drug/Substance Use Hx: No Substance Use Type: Alcohol Respiratory Specific PMHX - Complaint Specific PMHX Angina: No Pulmonary Embolus: No Review of Systems - Review of Systems Able to Perform ROS?: Yes Is the patient limited [place] Citizen proficient: No Constitutional: No: Symptoms Reported HEENTM: Yes: Symptoms Reported, Nose Congestion Respiratory: Yes: Cough Cardiac (ROS): No: Symptoms Reported : No: Symptoms Reported Musculoskeletal: No: Symptoms Reported Integumentary: No: Symptoms Reported Neurological: No: Symptoms reported *Physical Exam - Vital Signs Last Vital Signs Temp Pulse Resp BP Pulse Ox 98.5 F 102 H 18 132/74 97 10/31/18 20:23 10/31/18 20:23 10/31/18 20:23 10/31/18 20:23 10/31/18 20:23 - Physical Exam General Appearance: Yes: Nourished, Appropriately Dressed, Obese HEENT: positive: EOMI, CRISTIANE, TMs Normal, Pharynx Normal, Nasal Congestion. negative: Pharyngeal Erythema, Tonsillar Exudate Neck: positive: Supple Respiratory/Chest: positive: Chest Tender (epigastric area TTP ), Lungs Clear, Normal Breath Sounds Cardiovascular: positive: Regular Rhythm, Regular Rate Gastrointestinal/Abdominal: positive: Normal Bowel Sounds, Soft. 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, Fully Oriented, Alert, Normal Mood/ Affect, Normal Response, Motor Strength 5/5 Moderate Sedation - Procedure Monitoring Vital Signs: Procedure Monitoring Vital Signs Temperature 98.5 F 10/31/18 20:23 Pulse Rate 102 H 10/31/18 20:23 Respiratory Rate 18 10/31/18 20:23 Blood Pressure 132/74 10/31/18 20:23 O2 Sat by Pulse Oximetry (%) 97 10/31/18 20:23 Heart Score/ECG Review - History History: Slightly suspicious - ECG Intrepretation Rhythm: Regular Rhythm - [place]: Normal Medical Decision Making - Medical Decision Making 10/31/18 21:05 cc: epigastric pain nasal congestion ear ache pt has history of bipolar denies taking no meds no nausea non radiating pain no fever no chills dry cough will give maalox, ibuprofen, EKG less likely cardiac as pt has no risk factors no history of cardiac disease 10/31/18 21:30 EKG NSR signed by 10/31/18 21:36 pt feels better after meds pt states the pain has resolved EKG NSR will refer to PMD for follow up *DC/Admit/Observation/Transfer Diagnosis at time of Disposition: Gastritis Qualifiers: Gastritis type: unspecified gastritis Chronicity: acute Gastritis bleeding: without bleeding Qualified Code(s): K29.00 - Acute gastritis without bleeding - Discharge Dispostion Disposition: HOME Condition at time of disposition: Good - Referrals Referrals: Figueroa Gambino MD [Primary Care Provider] - - Patient Instructions Additional Instructions: follow up with your primary care doctor call tomorrow to make appointment bland diet avoid fatty foods, spicy foods you can try over the counter TUMS or maalox for epigastric pain Return to ER for any worsening symptoms you can try a decongestant sold over the counter such as sudafed - Post Discharge Activity
--- NOTE | 2018-11-01 11:09 | EKG ---
Test Reason : Blood Pressure : / mmHG Vent. Rate : 094 BPM Atrial Rate : 094 BPM P-R Int : 150 ms QRS Dur : 088 ms QT Int : 352 ms P-R-T Axes : 032 043 017 degrees QTc Int : 440 ms NORMAL SINUS RHYTHM NORMAL ECG WHEN COMPARED WITH ECG OF 12-OCT-2018 22:11, NO SIGNIFICANT CHANGE WAS FOUND Confirmed by FLORENCE BELL MD ([id number]) on 11/01/2018 11:09:02 AM Referred By: Confirmed By:FLORENCE BELL MD
== END 2018-10-31 21:42 | disposition home or self-care (01) ==
LOC: JERFT 20:15
DX: K29.00 Acute gastritis without bleeding (principal); F17.210 Nicotine dependence, cigarettes, uncomplicated; F31.9 Bipolar disorder, unspecified
CPT/HCPCS: 84703; 93005; 93010; 99281-25

== ENCOUNTER 2019-01-01 23:14 | Emergency (ER) | payer OTHER ==
[2019-01-01 23:26] VITALS: BP 114/69; PULSE 102; TEMP 98.2; BMI 39.6
--- NOTE | 2019-01-01 23:35 | PDOC ---
History of Present Illness - General Chief Complaint: Pain Stated Complaint: PELVIC PAIN Time Seen by Provider: 01/01/19 23:34 History Source: Patient Exam Limitations: No Limitations - History of Present Illness Initial Comments: 01/01/19 23:35 38 year old woman with a significant past medical history of bipolar, anxiety, depression, cervical CA (s/p hysterectomy), who presents to the emergency department with acute onset of bilateral lower quadrant pain at 2000 that was cramping initially and became stabbing, she rates it at 10/10. She took ibuprofen at 2030 without relief of symptoms but notes some slight improvement of symptoms when lying back. She denies any nausea, vomiting, fevers, diarrhea or constipation. She denies burning with urination but admits to dark urine for several days with some small odor noted. She denies any recent fever, nausea, recent travel. She has no other complaints at bedside. Past History - Past Medical History Allergies/Adverse Reactions: Allergies Allergy/AdvReac Type Severity Reaction Status Date / Time Iodine and Iodide Containing Allergy Verified 10/31/18 20:23 Produc No Known Drug Allergies Allergy Verified 10/31/18 20:23 peanut Allergy Rash Verified 10/31/18 20:23 Home Medications: Ambulatory Orders NK [No Known Home Medication] 10/31/18 Cancer: Yes (cervical) Cardiac Disorders: No COPD: No DVT: No Dementia: No Diabetes: No GI Disorders: No Disorders: No Liver Disease: No Psychiatric Problems: Yes (BIPOLAR, anxiety) Seizures: No Thyroid Disease: No - Surgical History Abdominal Surgery: Yes (ANA FALLOPIAN TUBES REMOVAL, cervix removed) - Reproductive History (#): 2 Para: 2 Cervical CA: Yes Dysfunctional Uterine Bleeding: No Ectopic : No Endometrial CA: No Polycystic Ovaries: No Therapeutic (s) & number: No Tubal Ligation: No Spontaneous : 0 - Immunization History Immunization Up to Date: Yes - Suicide/Smoking/Psychosocial Hx Smoking Status: Yes (QUIT 2007) Smoking History: Current some day smoker Have you smoked in the past 12 months: Yes Number of Cigarettes Smoked Daily: 4 If you are a former smoker, when did you quit?: October 2016 Information on smoking cessation initiated: Yes 'Breaking Loose' booklet given: 10/30/16 Hx Alcohol Use: No Drug/Substance Use Hx: No Substance Use Type: Alcohol Review of Systems - Review of Systems Able to Perform ROS?: Yes Is the patient limited [place] proficient: No *Physical Exam - Vital Signs Last Vital Signs Temp Pulse Resp BP Pulse Ox 98.2 F 102 H 20 114/69 100 01/01/19 23:23 01/01/19 23:23 01/01/19 23:23 01/01/19 23:23 01/01/19 23:23 - Physical Exam Comments: 01/02/19 00:40 GENERAL: Awake, alert, and fully oriented, in no acute distress HEAD: No signs of trauma, normocephalic, atraumatic EYES: EOMI, sclera anicteric, conjunctiva clear ENT: oropharynx clear without exudates. Moist mucosa NECK: Normal ROM, supple LUNGS: No distress, speaks full sentences, clear to auscultation bilaterally HEART: Regular rate and rhythm, normal S1 and S2, no murmurs, rubs or gallops, peripheral pulses normal and equal bilaterally. ABDOMEN: Soft, slight LLQ tendernes to palpation, suprapubic and RLQ tenderness to palpation, RLQ rebound, normoactive bowel sounds. No guarding, No masses BACK: No CVA tenderness EXTREMITIES : Normal inspection, Normal range of motion, no edema. No clubbing or cyanosis. NEUROLOGICAL: Cranial nerves II through XII grossly intact. Normal speech, normal gait, no focal sensorimotor deficits SKIN: Warm, Dry, normal turgor, no rashes or lesions noted PELVIC: closed tract, with physiologic fluid Moderate Sedation - Procedure Monitoring Vital Signs: Procedure Monitoring Vital Signs Temperature 98.2 F 01/01/19 23:23 Pulse Rate 102 H 01/01/19 23:23 Respiratory Rate 20 01/01/19 23:23 Blood Pressure 114/69 01/01/19 23:23 O2 Sat by Pulse Oximetry (%) 100 01/01/19 23:23 ED Treatment Course - LABORATORY CBC & Chemistry Diagram: 01/02/19 00:25 01/02/19 00:25 Medical Decision Making - Medical Decision Making 01/02/19 00:39 38 year old woman with a significant past medical history of bipolar, anxiety, depression, cervical CA (s/p hysterectomy), who presents to the emergency department with acute onset of bilateral lower quadrant pain at 1999 that was cramping initially and became stabbing, she rates it at 10/10. She took ibuprofen at 2030 without relief of symptoms but notes some slight improvement of symptoms when lying back. She denies any nausea, vomiting, fevers, diarrhea or constipation. She denies burning with urination but admits to dark urine for several days with some small odor noted. She denies any recent fever, nausea, recent travel. She has no other complaints at bedside. ED Course: acute onset of pain is concerning for ovarian cyst rupture as the patient still has ovaries. consider appendicitis as patient with RLQ pain and positive obturator sign, however symptom onset inconsistent with typical presentation less likely cholecystitis as patient without RUQ pain and with abrupt time course Ovarian torsion is not a likely consideration as patient had a hysterectomy r/o UTI vs pyelo vs nephrolithiasis cbc, cmp, ua, ucx, abd pelvic ct, tvus patient has allergy to iodine, will order CT w/o contrast 01/02/19 01:43 labwork unremarkable Abd Pelvis CT, unremarkable pending TVUS 01/02/19 02:18 TVUS -unremarkable will treat symptomatically and reassess 01/02/19 03:16 Patient walking without difficulty, desires to go home *DC/Admit/Observation/Transfer Diagnosis at time of Disposition: Pelvic pain - Discharge Dispostion Disposition: HOME Condition at time of disposition: Fair Decision to Admit order: No - Referrals Referrals: Figueroa Gambino MD [Primary Care Provider] - - Patient Instructions Printed Discharge Instructions: DI for Abdominal Pain-Adult Additional Instructions: You were seen in the ED for complaints of abdominal pain that is now resolved. In the ED you were evaluated with labwork and imaging. Your results were unremarkable. There does not appear to be an acute need for immediate hospitalization. You are advised to follow up with your Primary Care Physician within 1 week. You have an OBGYN who you see and it is advised that you see your OBGYN within 1 week. Return to the ED immediately if you experience worsening abdominal pain, blood in the urine or stool, nausea, vomiting, fevers, chest pain or shortness of breath. - Post Discharge Activity
--- NOTE | 2019-01-02 00:03 | PDOC ---
Attending Attestation - Resident Resident Name: Arlene Genao - ED Attending Attestation I have performed the following: I have examined & evaluated the patient, The case was reviewed & discussed with the resident, I agree w/resident's findings & plan - Medical Decision Making 01/02/19 00:39 Pt has RLQ pain and significant rebound. She has no CMR on pelvic exam. She has white discharge but no foul odor; s/p hysterectomy. 01/02/19 01:34 Pt's labs are completely normal 01/02/19 01:44 Patient Name: TAMMY LANCE THIS IS A PRELIMINARY REPORT FROM [facility] DATE OF SERVICE: 2019-01-02 00:49:24 IMAGES: [id number] EXAM: CT ABDOMEN \T\ PELVIS CT W/O CONTR HISTORY: Concern for appendicitis COMPARISON: None. FINDINGS: Abdomen Liver: Normal Spleen: Normal Pancreas: Normal Gallbladder: Normal Stomach: Normal Small bowel: Normal Large bowel: Normal Appendix: Normal Adrenals:Normal Kidneys: Normal Vascular: Normal Lymphatic: Normal Peritoneal: No free peritoneal air or fluid Pelvis: Uterus: normal Rectum: Normal Bladder: Normal The inferior thorax: Normal General: Skeletal: Normal Abdominal wall: Normal IMPRESSION: Normal appearing appendix. No acute findings <Linda Scott - Last Filed: 01/02/19 01:44> - HPI HPI: This patient is a 38 year old female, with PMHx of anxiety , depression, BPD, Cervical cancer s/p hysterectomy 8 yrs ago who is presenting with lower back and worsening sudden onset pelvic pain since 8pm. She describes it as cramping initially and eventually became stabbing, constant, rates 10/10, lower b/l quadrants, travels to back when supine for a while and took 800mg ibuprofen at 8 :30m with no relief. She states that she has had this before but this is worse. She denies burning with urination but admits to dark urine for several days with some small odor noted. She states that she has seen her PCP and has had PET & CT scans which came back negative. She denies any fever, chills, nausea, vomiting, chest pain, shortness of breath , recent immobilization, recent illness, recent injury. - Physicial Exam PE: GENERAL: Awake, alert, and fully oriented, in no acute distress HEAD: No signs of trauma EYES: PERRLA, EOMI, sclera anicteric, conjunctiva clear LUNGS: Breath sounds equal, clear to auscultation bilaterally. No wheezes, and no crackles HEART: Regular rate and rhythm, normal S1 and S2, no murmurs, rubs or gallops ABDOMEN: Soft, RLQ rebound tenderness, suprapubic tenderness, normoactive bowel sounds. No guarding. No masses. No flank or mid-back pain. EXTREMITIES: Normal range of motion, no edema. No clubbing or cyanosis. No cords, erythema, or tenderness NEUROLOGICAL: Cranial nerves II through XII grossly intact. Normal speech, normal gait SKIN: Warm, Dry, normal turgor, no rashes or lesions noted. <Tammy Blas - Last Filed: 01/02/19 01:48>
[2019-01-02 00:42] LABS: BASO % 0.8 % (0-2.0); HEMATOCRIT 38.4 % (32.4-45.2); HEMOGLOBIN 13.4 GM/dL (10.7-15.3); LYMPH % 33.5 % (8-40); MCH 30.6 pg (25.7-33.7); MCHC 34.9 g/dl (32.0-36.0); MEAN CELL VOLUME 87.8 fl (80-96); MEAN PLT VOLUME 8.5 fl (7.5-11.1); MONO % 7.7 % (3.8-10.2); PLATELET COUNT 233 K/MM3 (134-434); RBC 4.38 M/mm3 (3.60-5.2); RDW 13.7 % (11.6-15.6); WHITE BLOOD COUNT 5.6 K/mm3 (4.0-10.0)
[2019-01-02 01:16] LABS: ALBUMIN 3.6 g/dl (3.4-5.0); ALK PHOS 52 U/L (45-117); ANION GAP 7 MMOL/L (8-16); BILIRUBIN,TOTAL 0.2 mg/dL (0.2-1); BLOOD UREA NITROGEN 16 mg/dL (7-18); CHLORIDE 106 mmol/L (98-107); CO2 24 mmol/L (21-32); CREATININE 0.9 mg/dL (0.55-1.3); GLUCOSE,RANDOM 110 mg/dL (74-106); SGOT/AST 23 U/L (15-37); SGPT/ALT 22 U/L (13-61); SODIUM 138 mmol/L (136-145); TOT PROT 7.4 g/dl (6.4-8.2)
[2019-01-02 01:20] LABS: POTASSIUM 4.2 mmol/L (3.5-5.1)
[2019-01-02] MEDS ORDERED: ACETAMINOPHEN 500 MG TABLET (FP) PO ONE ×2 (02:17→02:56)
[2019-01-02 02:37] LABS: URINE APPEARANCE SLCLOUDY; URINE BILIRUBIN NEGATIVE (<2.0 mg/dL); URINE COLOR YELLOW; URINE GLUCOSE (UA) NEGATIVE (NEGATIVE); URINE KETONE NEGATIVE (NEGATIVE); URINE LEUK ESTERASE NEGATIVE (NEGATIVE); URINE NITRITE NEGATIVE (NEGATIVE); URINE PROTEIN NEGATIVE (NEGATIVE); URINE UROBILINOGEN NEGATIVE mg/dL (0.2-1.0)
[2019-01-02 02:40] LABS: HCG,QUALITATIVE URINE Negative
== END 2019-01-02 03:33 | disposition home or self-care (01) ==
LOC: JER 23:14
DX: R10.2 Pelvic and perineal pain (principal); N89.8 Other specified noninflammatory disorders of vagina; Z86.59 Personal history of other mental and behavioral disorders; Z85.41 Personal history of malignant neoplasm of cervix uteri; Z90.710 Acquired absence of both cervix and uterus
CPT/HCPCS: 36415; 74176-TC; 76830-TC; 80053; 81003; 84703; 85025; 87086; 99282-25

== ENCOUNTER 2019-01-10 17:11 | Emergency (ER) | payer OTHER ==
[2019-01-10] MEDS ORDERED: ACETAMINOPHEN 325 MG TABLET (FP) PO ONE (17:31)
--- NOTE | 2019-01-10 17:31 | PDOC ---
Rapid Medical Evaluation Medical Evaluation: Allergies Allergy/AdvReac Type Severity Reaction Status Date / Time Iodine and Iodide Containing Allergy Verified 10/31/18 20:23 Produc No Known Drug Allergies Allergy Verified 10/31/18 20:23 peanut Allergy Rash Verified 10/31/18 20:23 I have performed a brief in-person evaluation of this patient. The patient presents with a chief complaint of: Hx of cervical CA s/p hysterectomy, B/L salpingo-oopherectomy; C/o vaginal bleeding and lower back pain x today; states her OB advised her to come to ED Pertinent physical exam findings:Pelvic deferred to ED I have ordered the following: Labs, Tylenol The patient will proceed to the ED for further evaluation. 01/10/19 17:29
[2019-01-10 17:32] VITALS: TEMP 98.2; BMI 39.4
[2019-01-10] MEDS ORDERED: ACETAMINOPHEN 325 MG TABLET (FP) ONE (18:03)
[2019-01-10 18:43] LABS: EOS % 3.3 % (0-4.5); HEMATOCRIT 40.2 % (32.4-45.2); HEMOGLOBIN 13.9 GM/dL (10.7-15.3); LYMPH % 33.9 % (8-40); MCH 30.8 pg (25.7-33.7); MCHC 34.7 g/dl (32.0-36.0); MEAN CELL VOLUME 88.9 fl (80-96); MEAN PLT VOLUME 8.4 fl (7.5-11.1); MONO % 5.9 % (3.8-10.2); NEUT % 55.9 % (42.8-82.8); PLATELET COUNT 264 K/MM3 (134-434); RBC 4.52 M/mm3 (3.60-5.2); RDW 13.7 % (11.6-15.6); WHITE BLOOD COUNT 4.7 K/mm3 (4.0-10.0)
[2019-01-10 18:52] LABS: ANION GAP 9 MMOL/L (8-16); BLOOD UREA NITROGEN 20 mg/dL (7-18); CALCIUM 9.4 mg/dL (8.5-10.1); CHLORIDE 106 mmol/L (98-107); CO2 25 mmol/L (21-32); GLUCOSE,RANDOM 92 mg/dL (74-106); POTASSIUM 4.5 mmol/L (3.5-5.1); SODIUM 140 mmol/L (136-145)
--- NOTE | 2019-01-10 19:26 | PDOC ---
History of Present Illness - General Chief Complaint: Vaginal Bleeding Stated Complaint: BACK PAIN Time Seen by Provider: 01/10/19 17:29 - History of Present Illness Initial Comments: 01/10/19 19:27 38 year old woman with a significant past medical history of bipolar, anxiety, depression, cervical CA (s/p hysterectomy), who presents to the emergency department with Past History - Past Medical History Allergies/Adverse Reactions: Allergies Allergy/AdvReac Type Severity Reaction Status Date / Time Iodine and Iodide Containing Allergy Verified 01/10/19 19:27 Produc No Known Drug Allergies Allergy Verified 01/10/19 19:27 peanut Allergy Rash Verified 01/10/19 19:27 Home Medications: Ambulatory Orders Aripiprazole [Abilify -] 30 mg PO DAILY 01/10/19 clonazePAM [Klonopin -] 2 mg PO TID 01/10/19 Cancer: Yes (cervical) Cardiac Disorders: No COPD: No DVT: No Dementia: No Diabetes: No GI Disorders: No Disorders: No Liver Disease: No Psychiatric Problems: Yes (BIPOLAR, anxiety) Seizures: No Thyroid Disease: No - Surgical History Abdominal Surgery: Yes (ANA FALLOPIAN TUBES REMOVAL, cervix removed) Neurologic Surgery: No - Reproductive History Is Patient Now?: No (#): 2 Para: 2 Cervical CA: Yes Dysfunctional Uterine Bleeding: No Ectopic : No Endometrial CA: No Polycystic Ovaries: No Therapeutic (s) & number: No Tubal Ligation: No Spontaneous : 0 - Immunization History Immunization Up to Date: Yes - Suicide/Smoking/Psychosocial Hx Smoking Status: Yes (QUIT 2007) Smoking History: Current every day smoker Have you smoked in the past 12 months: Yes Number of Cigarettes Smoked Daily: 4 If you are a former smoker, when did you quit?: October 2016 Information on smoking cessation initiated: No 'Breaking Loose' booklet given: 10/30/16 Hx Alcohol Use: No Drug/Substance Use Hx: No Substance Use Type: Alcohol *Physical Exam - Vital Signs Last Vital Signs Temp Pulse Resp BP Pulse Ox 98.2 F 97 H 18 109/76 95 01/10/19 17:29 01/10/19 17:29 01/10/19 17:29 01/10/19 17:29 01/10/19 17:29 Moderate Sedation - Procedure Monitoring Vital Signs: Procedure Monitoring Vital Signs Temperature 98.2 F 01/10/19 17:29 Pulse Rate 97 H 01/10/19 17:29 Respiratory Rate 18 01/10/19 17:29 Blood Pressure 109/76 01/10/19 17:29 O2 Sat by Pulse Oximetry (%) 95 01/10/19 17:29 ED Treatment Course - LABORATORY CBC & Chemistry Diagram: 01/10/19 18:00 01/10/19 18:00 - ADDITIONAL ORDERS Additional order review: Laboratory Results 01/10/19 18:00 Sodium 140 Potassium 4.5 Chloride 106 Carbon Dioxide 25 Anion Gap 9 BUN 20 H Creatinine 1.0 Creat Clearance w eGFR > 60 Random Glucose 92 Calcium 9.4 01/10/19 18:00 RBC 4.52 MCV 88.9 MCHC 34.7 RDW 13.7 MPV 8.4 Neutrophils % 55.9 Lymphocytes % 33.9 Monocytes % 5.9 Eosinophils % 3.3 Basophils % 1.0 - Medications Given in the ED: ED Medications Discontinued Medications Generic Name Dose Route Start Last Admin Trade Name Freq PRN Reason Stop Dose Admin Acetaminophen 975 mg 01/10/19 17:31 01/10/19 18:06 Tylenol - PO 01/10/19 17:32 975 mg ONCE ONE Administration *DC/Admit/Observation/Transfer Diagnosis at time of Disposition: Vaginal bleeding, Hematuria - Discharge Dispostion Disposition: AGAINST MEDICAL ADVICE Condition at time of disposition: Stable Decision to Admit order: No - Referrals Referrals: Figueroa Gambino MD [Primary Care Provider] - - Patient Instructions Printed Discharge Instructions: DI for Vaginal Bleeding, DI for Hematuria Additional Instructions: You were seen in the ED for complaints of blood spots in the toilet. In the ED you were evaluated with bloodwork and physical exam. Your results currently appear unremarkable. It is advised that you stay in the Emergency Department for urine lab results and CT scan. However you desire to leave Against Medical Advice. The risks of leaving the hospital without complete evaluation for possible blood in the urine include , cardiac arrest, heart attack, stroke, loss of consciousness, worsening blood in the urine, fevers, kidney stone. These risks have been discussed with your for > 30min. You express understanding of these risks and still desire to leave the hospital against medical advice. Return to the ED if you experience worsening bleeding, abdominal pain, nausea, vomiting, or fevers. - Post Discharge Activity
--- NOTE | 2019-01-10 19:30 | PDOC ---
Attending Attestation - HPI HPI: 01/10/19 20:37 The patient is a 38 year old female with a PMH of bipolar, anxiety, depression, cervical CA (s/p hysterectomy) who presents to the ER with pelvic cramping. Patient states the pelvic cramping is 10/10 in severity with associated vaginal spotting and back pain, which are similar to the episodes she has been experiencing since her hysterectomy. Patient has been taking ibuprofen 600mg, which she last took at 3PM today. Patient went to her [employer] for similar pelvic pain. Patient went to urgent care today and was told to come to the ER for further evaluation. Patient denies fever, chills, N/V/D/C, or urinary symptoms. Allergies: Iodine Surgical Hx: Hysterectomy Social Hx: No reported alcohol, drug or cigarette use. PCP: Dr. Gambino <Emily Valverde - Last Filed: 01/10/19 20:37> - Resident Resident Name: Arlene Genao - ED Attending Attestation I have performed the following: I have examined & evaluated the patient, The case was reviewed & discussed with the resident, I agree w/resident's findings & plan - Physicial Exam PE: 01/10/19 20:47 GENERAL: Awake, in no acute distress HEAD: No signs of trauma EYES: ENT:clear without exudates. Moist mucosa NECK: Normal ROM, LUNGS:. Normal work of breathing. HEART: Regular rate and rhythm, ABDOMEN: Soft, LLQ tenderness CHEST WALL: BACK: No midline tenderness. EXTREMITIES:. No erythema, or tenderness NEUROLOGICAL: Alert, SKIN: Warm, Dry : agree with residents exam 01/10/19 20:48 - Medical Decision Making 01/10/19 20:50 38-year-old female with left lower quadrant and left flank pain as well as possible hematuria Patient has agreed to give a urinalysis but would like to leave AGAINST MEDICAL ADVICE without imaging as recommended She states that she needs to give her keys to her son She understands that her workup isn't complete and that she may have undiagnosed illness including but not limited to ureterolithiasis She has agreed to come back when she is available and/or to follow-up with her primary care physician <Chandrika Celestin - Last Filed: 01/10/19 20:51>
[2019-01-10 21:06] VITALS: BP 108/72; PULSE 84
[2019-01-10 21:22] LABS: URINE APPEARANCE CLEAR; URINE BILIRUBIN NEGATIVE (<2.0 mg/dL); URINE COLOR LTYELLOW; URINE GLUCOSE (UA) NEGATIVE (NEGATIVE); URINE KETONE NEGATIVE (NEGATIVE); URINE LEUK ESTERASE NEGATIVE (NEGATIVE); URINE NITRITE NEGATIVE (NEGATIVE); URINE PROTEIN NEGATIVE (NEGATIVE); URINE UROBILINOGEN NEGATIVE mg/dL (0.2-1.0)
== END 2019-01-10 21:02 | disposition left against medical advice (07) ==
LOC: JER 17:11
DX: N93.8 Other specified abnormal uterine and vaginal bleeding (principal); R31.9 Hematuria, unspecified; F31.9 Bipolar disorder, unspecified; F41.8 Other specified anxiety disorders; Z85.41 Personal history of malignant neoplasm of cervix uteri; Z90.710 Acquired absence of both cervix and uterus; Z90.79 Acquired absence of other genital organ(s); Z90.722 Acquired absence of ovaries, bilateral
CPT/HCPCS: 36415; 80048; 81003; 85025; 86850; 86900; 86901; 99283-25

== ENCOUNTER 2019-01-11 11:32 | Emergency (ER) | payer OTHER ==
[2019-01-11 11:51] VITALS: BP 128/77; PULSE 96; TEMP 98.4; BMI 39.4
--- NOTE | 2019-01-11 12:48 | PDOC ---
History of Present Illness - General Chief Complaint: Back Pain Stated Complaint: LOWER BACK PAIN Time Seen by Provider: 01/11/19 12:34 - History of Present Illness Initial Comments: 01/11/19 12:47 38-year-old female presents for evaluation of lower back pain. She will if she has a kidney stone. She was triaged in the emergency room last night however left before being seen. Her pain is been going on for 6 days. Past History - Past Medical History Allergies/Adverse Reactions: Allergies Allergy/AdvReac Type Severity Reaction Status Date / Time Iodine and Iodide Containing Allergy Verified 01/11/19 11:47 Produc No Known Drug Allergies Allergy Verified 01/11/19 11:47 peanut Allergy Rash Verified 01/11/19 11:47 Home Medications: Ambulatory Orders clonazePAM [Klonopin -] 2 mg PO TID 01/10/19 Ibuprofen [Motrin -] 600 mg PO TID #30 tablet 01/11/19 Cancer: Yes (cervical) Cardiac Disorders: No COPD: No DVT: No Dementia: No Diabetes: No GI Disorders: No Disorders: No Liver Disease: No Psychiatric Problems: Yes (BIPOLAR, anxiety) Seizures: No Thyroid Disease: No - Surgical History Abdominal Surgery: Yes (ANA FALLOPIAN TUBES REMOVAL, cervix removed) Neurologic Surgery: No - Reproductive History (#): 2 Para: 2 Cervical CA: Yes Dysfunctional Uterine Bleeding: No Ectopic : No Endometrial CA: No Polycystic Ovaries: No Therapeutic (s) & number: No Tubal Ligation: No Spontaneous : 0 - Immunization History Immunization Up to Date: Yes - Suicide/Smoking/Psychosocial Hx Smoking Status: Yes (QUIT 2007) Smoking History: Current every day smoker Have you smoked in the past 12 months: Yes Number of Cigarettes Smoked Daily: 4 If you are a former smoker, when did you quit?: October 2016 Information on smoking cessation initiated: No 'Breaking Loose' booklet given: 10/30/16 Hx Alcohol Use: No Drug/Substance Use Hx: No Substance Use Type: Alcohol Review of Systems - Review of Systems Constitutional: No: Fever : Yes: Flank Pain. No: Dysuria *Physical Exam - Vital Signs Last Vital Signs Temp Pulse Resp BP Pulse Ox 98.4 F 96 H 19 128/77 97 01/11/19 11:47 01/11/19 11:47 01/11/19 11:47 01/11/19 11:47 01/11/19 11:47 - Physical Exam Comments: 01/11/19 12:48 HEAD: NC/AT EYES: Conjuntiva clear Ears: Canals and TM's normal NOSE: No d/c THROAT: Moist mucous membrances, oral pharanx clear, uvula midline NECK: Supple without adenopathy CARDIAC: S1 S2 LUNGS: CTA Full and Equal breath sounds ABDOMEN: Soft NT ND left-sided CVA tenderness MS: Full ROM in all joints without edema NEUROLOGIC: No gross sensory or motor deficits, NVID SKIN: Normal color and temperature no lesions or rashes Moderate Sedation - Procedure Monitoring Vital Signs: Procedure Monitoring Vital Signs Temperature 98.4 F 01/11/19 11:47 Pulse Rate 96 H 01/11/19 11:47 Respiratory Rate 19 01/11/19 11:47 Blood Pressure 128/77 01/11/19 11:47 O2 Sat by Pulse Oximetry (%) 97 01/11/19 11:47 *DC/Admit/Observation/Transfer Diagnosis at time of Disposition: Back strain - Discharge Dispostion Disposition: HOME Condition at time of disposition: Stable Decision to Admit order: No - Referrals Referrals: Maciel Montero MD [Staff Physician] - - Patient Instructions Printed Discharge Instructions: Low Back Pain, DI for Low Back Pain Additional Instructions: Return to the emergency room should symptoms worsen or go unresolved. Please take the and anti-inflammatory 3 times a day with food. Discontinue the medication if it bothers her stomach. Follow-up with spine surgery in 2-3 days for further evaluation and treatment options. Her CAT scan today was normal there is no kidney stone. He may get a report from radiology - Post Discharge Activity
[2019-01-11 13:00] LABS: HCG,QUALITATIVE URINE Negative
[2019-01-11] MEDS ORDERED: KETOROLAC TROMETHAMINE 60 MG/2 ML VIAL IM ONE (13:06)
[2019-01-11] MEDS ORDERED: KETOROLAC TROMETHAMINE 60 MG/2 ML VIAL ONE (13:08)
[2019-01-11 13:45] LABS: URINE APPEARANCE SLCLOUDY; URINE BILIRUBIN NEGATIVE (<2.0 mg/dL); URINE COLOR YELLOW; URINE GLUCOSE (UA) NEGATIVE (NEGATIVE); URINE KETONE NEGATIVE (NEGATIVE); URINE LEUK ESTERASE NEGATIVE (NEGATIVE); URINE NITRITE NEGATIVE (NEGATIVE); URINE PROTEIN NEGATIVE (NEGATIVE); URINE UROBILINOGEN NEGATIVE mg/dL (0.2-1.0)
== END 2019-01-11 14:31 | disposition home or self-care (01) ==
LOC: JERFT 11:32
PROC: 3E0233Z Introduction of Anti-inflammatory into Muscle, Percutaneous Approach (ICD-10-PCS; principal; 2019-01-11)
DX: S39.012A Strain of muscle, fascia and tendon of lower back, initial encounter (principal); X58.XXXA Exposure to other specified factors, initial encounter; Y93.89 Activity, other specified; Y92.89 Other specified places as the place of occurrence of the external cause; Y99.8 Other external cause status; F31.9 Bipolar disorder, unspecified; F41.9 Anxiety disorder, unspecified; Z85.41 Personal history of malignant neoplasm of cervix uteri; Z90.710 Acquired absence of both cervix and uterus; Z90.79 Acquired absence of other genital organ(s)
CPT/HCPCS: 74176-TC; 81003; 84703; 87086; 96372; 99281-25

== ENCOUNTER 2019-03-14 21:16 | Emergency (ER) | payer SELFPAY ==
--- NOTE | 2019-03-14 21:20 | PDOC ---
Rapid Medical Evaluation Time Seen by Provider: 03/14/19 21:19 Medical Evaluation: Allergies Allergy/AdvReac Type Severity Reaction Status Date / Time Iodine and Iodide Containing Allergy Verified 01/11/19 11:47 Produc No Known Drug Allergies Allergy Verified 01/11/19 11:47 peanut Allergy Rash Verified 01/11/19 11:47 03/14/19 21:19 I have performed a brief in-person evaluation of this patient. The patient presents with a chief complaint of: epistaxis and headache Pertinent physical exam findings: TTP over maxillary sinuses I have ordered the following: nothing The patient will proceed to the ED for further evaluation. Discharge Disposition - Diagnosis Sinus pain - Referrals - Patient Instructions - Post Discharge Activity
[2019-03-14 21:21] VITALS: BP 134/78; PULSE 92; TEMP 98.2; BMI 40.6
[2019-03-14] MEDS ORDERED: METOCLOPRAMIDE HCL INJECTION 10 MG/2 ML VIAL IVPUSH ONE (22:18)
[2019-03-14] MEDS ORDERED: SODIUM CHLORIDE 0.9% 500 ML INFUS.BAG IV ONE (22:18)
[2019-03-14] MEDS ORDERED: ACETAMINOPHEN 1000 MG/100 ML VIAL (NON FORMULARY) IVPB ONE (22:18)
[2019-03-14] MEDS ORDERED: ONDANSETRON 4 MG/2 ML VIAL IVPB ONE (22:19)
--- NOTE | 2019-03-14 22:35 | PDOC ---
History of Present Illness - General Chief Complaint: Nausea Stated Complaint: NAUSEA Time Seen by Provider: 03/14/19 21:19 - History of Present Illness Initial Comments: 03/14/19 22:21 38-year-old female with a past medical history of bipolar disorder presents for evaluation of headache typical of her usual migraines. There is no change in character. The headache started this morning and been unrelieved with Motrin. Past History - Past Medical History Allergies/Adverse Reactions: Allergies Allergy/AdvReac Type Severity Reaction Status Date / Time Iodine and Iodide Containing Allergy Verified 03/14/19 21:21 Produc No Known Drug Allergies Allergy Verified 03/14/19 21:21 peanut Allergy Rash Verified 03/14/19 21:21 Home Medications: Ambulatory Orders clonazePAM [Klonopin -] 2 mg PO TID 01/10/19 Ibuprofen [Motrin -] 600 mg PO TID #30 tablet 01/11/19 Cancer: Yes (cervical) Cardiac Disorders: No COPD: No DVT: No Dementia: No Diabetes: No GI Disorders: No Disorders: No Liver Disease: No Psychiatric Problems: Yes (BIPOLAR, anxiety) Seizures: No Thyroid Disease: No - Surgical History Abdominal Surgery: Yes (ANA FALLOPIAN TUBES REMOVAL, cervix removed) Neurologic Surgery: No - Reproductive History (#): 2 Para: 2 Cervical CA: Yes Dysfunctional Uterine Bleeding: No Ectopic : No Endometrial CA: No Polycystic Ovaries: No Therapeutic (s) & number: No Tubal Ligation: No Spontaneous : 0 - Immunization History Immunization Up to Date: Yes - Suicide/Smoking/Psychosocial Hx Smoking Status: Yes (QUIT 2007) Smoking History: Never smoked Have you smoked in the past 12 months: Yes Number of Cigarettes Smoked Daily: 4 If you are a former smoker, when did you quit?: October 2016 'Breaking Loose' booklet given: 10/30/16 Hx Alcohol Use: No Drug/Substance Use Hx: No Substance Use Type: Alcohol *Physical Exam - Vital Signs Last Vital Signs Temp Pulse Resp BP Pulse Ox 98.2 F 92 H 18 134/78 98 03/14/19 21:18 03/14/19 21:18 03/14/19 21:18 03/14/19 21:18 03/14/19 21:18 Medical Decision Making - Medical Decision Making 03/14/19 22:34 03/14/19 22:35 03/14/19 22:57 Pt signed out to main ER *DC/Admit/Observation/Transfer Diagnosis at time of Disposition: Migraine Diagnosis at time of Disposition: (Ruled Out): Sinus pain - Referrals Referrals: Figueroa Gambino MD [Primary Care Provider] - - Patient Instructions - Post Discharge Activity
[2019-03-14] MEDS ORDERED: ONDANSETRON 4 MG/2 ML VIAL ONE ×2 (22:44→22:45)
[2019-03-14] MEDS ORDERED: ACETAMINOPHEN INJECTION 100 ML IVPB ONE (22:44)
--- NOTE | 2019-03-15 00:15 | PDOC ---
*Physical Exam - Vital Signs Last Vital Signs Temp Pulse Resp BP Pulse Ox 98.2 F 92 H 18 134/78 98 03/14/19 21:18 03/14/19 21:18 03/14/19 21:18 03/14/19 21:18 03/14/19 21:18 ED Treatment Course - Medications Given in the ED: ED Medications Discontinued Medications Generic Name Dose Route Start Last Admin Trade Name Enriqueta PRN Reason Stop Dose Admin Acetaminophen 1,000 mg 03/14/19 22:18 03/14/19 22:35 Ofirmev Injection - IVPB 03/14/19 22:19 1,000 mg ONCE ONE Administration Diphenhydramine HCl 25 mg 03/14/19 22:18 03/14/19 22:45 Benadryl Injection - IVPB 03/14/19 22:19 25 mg ONCE ONE Administration Metoclopramide HCl 10 mg 03/14/19 22:18 03/14/19 22:59 Reglan Injection - IVPUSH 03/14/19 22:19 Not Given ONCE ONE Ondansetron HCl 4 mg 03/14/19 22:19 03/14/19 22:40 Zofran Injection IVPB 03/14/19 22:20 4 mg ONCE ONE Administration Sodium Chloride 1,000 ml 03/14/19 22:18 03/14/19 22:58 Normal Saline - IV 03/14/19 22:19 1,000 ml ONCE ONE Administration Medical Decision Making - Medical Decision Making Patient signed out to me by KESHIA Montes Patient feeling much better on reassessment Stable for dc 03/15/19 00:14 *DC/Admit/Observation/Transfer Diagnosis at time of Disposition: Migraine Qualifiers: Migraine type: unspecified Status migrainosus presence: without status migrainosus Intractability: not intractable Qualified Code(s): G43.909 - Migraine, unspecified, not intractable, without status migrainosus - Discharge Dispostion Disposition: HOME Condition at time of disposition: Improved Decision to Admit order: No - Referrals Referrals: Figueroa Gambino MD [Primary Care Provider] - 2 Days - Patient Instructions Printed Discharge Instructions: DI for Migraine Additional Instructions: Thank you for choosing [facility]. It was a pleasure taking care of you. Please continue follow-up with your neurologist for your migraines Return to the Emergency Department if your symptoms worsen or persist or have other concerning symptoms. - Post Discharge Activity
== END 2019-03-15 00:05 | disposition home or self-care (01) ==
LOC: JERFT 21:16 → JER 21:16
PROC: 3E033NZ Introduction of Analgesics, Hypnotics, Sedatives into Peripheral Vein, Percutaneous Approach (ICD-10-PCS; principal; 2019-03-14)
PROC: 3E033GC Introduction of Other Therapeutic Substance into Peripheral Vein, Percutaneous Approach (ICD-10-PCS; 2019-03-14)
PROC: 3E033GC Introduction of Other Therapeutic Substance into Peripheral Vein, Percutaneous Approach (ICD-10-PCS; 2019-03-14)
DX: G43.909 Migraine, unspecified, not intractable, without status migrainosus (principal)
CPT/HCPCS: 99282-25; J0131

== ENCOUNTER 2019-05-20 10:26 | Emergency (ER) | payer SELFPAY ==
[2019-05-20 10:34] VITALS: BMI 39.1
--- NOTE | 2019-05-20 10:57 | PDOC ---
History of Present Illness - General Chief Complaint: Pain Stated Complaint: LT SIDE NECK PAIN Time Seen by Provider: 05/20/19 10:40 tPA Exclusion checklist 3-4.5h - Time Elapsed Date last known well: 05/19/19 Time last known well: 10:00 Elaspsed time: 1 Day(s) and 3 Hour(s) and 57 Minutes - Thrombolytic Therapy Candidate Is patient eligible for thrombolytic therapy: No - Ineligibility reason(s) Reasons No tPA given: Outside of window - delayed arrival NIH Stroke Scale - Last Known Well Date/Time & Onset Date Last Known Well: 05/19/19 Time Last Known Well: 10:00 - Initial Evaluation Level of consciousness: Alert Ask patient the month and their age: Answers both correctly Ask patient to open & close eyes; make fist and let go: Obeys both correctly Best gaze (horizontal eye movement): Normal Visual field testing: No visual field loss Facial paresis (Show teeth/raise eyebrows/close eyes tight): Minor paralysis ( flattened nasolabial fold, asymmetry on smiling) Motor Function: Left Arm: Normal Motor Function: Right Arm: Normal (extends arm 90 (or 45) degrees for 10 seconds without drift Motor Function: Left Leg: Normal (extends leg 30 degrees for 5 seconds without drift) Motor Function: Right Leg: Normal (extends leg 30 degrees for 5 seconds without drift) Limb Ataxia: No ataxia Sensory(Use pinprick test arms,legs,trunk,face/side to side): Normal Best language (Describe picture, name items, read sentences): No Aphasia Dysarthria (read several words): Mild to moderate slurring of words Extinction and Inattention: No abnormality - Total Score NIH Stroke Scale Score: 2 Past History - Travel Traveled outside of the country in the last 30 days: No Close contact w/someone who was outside of country & ill: No - Past Medical History Allergies/Adverse Reactions: Allergies Allergy/AdvReac Type Severity Reaction Status Date / Time No Known Drug Allergies Allergy Verified 05/20/19 10:29 peanut Allergy Rash Verified 05/20/19 10:29 shellfish derived Allergy Verified 05/20/19 12:44 Home Medications: Ambulatory Orders clonazePAM [Klonopin -] 2 mg PO TID 01/10/19 Aripiprazole [Abilify -] 30 mg PO DAILY 05/20/19 Ibuprofen [Motrin -] 600 mg PO TID PRN 05/20/19 Cancer: Yes (cervical) Cardiac Disorders: No COPD: No DVT: No Dementia: No Diabetes: No GI Disorders: No Disorders: No Liver Disease: No Psychiatric Problems: Yes (BIPOLAR, anxiety) Seizures: No Thyroid Disease: No - Surgical History Abdominal Surgery: Yes (ANA FALLOPIAN TUBES REMOVAL, cervix removed) Neurologic Surgery: No - Reproductive History (#): 2 Para: 2 Cervical CA: Yes Dysfunctional Uterine Bleeding: No Ectopic : No Endometrial CA: No Polycystic Ovaries: No Therapeutic (s) & number: No Tubal Ligation: No Spontaneous : 0 - Immunization History Immunization Up to Date: Yes - Suicide/Smoking/Psychosocial Hx Smoking Status: Yes (QUIT 2007) Smoking History: Former smoker Have you smoked in the past 12 months: Yes Number of Cigarettes Smoked Daily: 4 If you are a former smoker, when did you quit?: 05/09/19 Information on smoking cessation initiated: No 'Breaking Loose' booklet given: 10/30/16 Hx Alcohol Use: No Drug/Substance Use Hx: No Substance Use Type: Alcohol Review of Systems - Review of Systems Able to Perform ROS?: Yes Comments:: 05/20/19 11:13 CONSTITUTIONAL: Absent: fever, chills, diaphoresis, generalized weakness, malaise, loss of appetite HEENT: Present: neck pain Absent: rhinorrhea, nasal congestion, throat pain, throat swelling, difficulty swallowing, mouth swelling, ear pain, eye pain, visual Changes CARDIOVASCULAR: Absent: chest pain, loss of consciousness, palpitations, irregular heart rate, peripheral edema RESPIRATORY: Absent: cough, shortness of breath, dyspnea with exertion, orthopnea, wheezing, stridor, hemoptysis GASTROINTESTINAL: Absent: abdominal pain, abdominal distension, nausea, vomiting, diarrhea, constipation, melena, hematochezia GENITOURINARY: Absent: dysuria, frequency, urgency, hesitancy, hematuria, flank pain, genital pain MUSCULOSKELETAL: Absent: myalgia, arthralgia, joint swelling SKIN: Absent: rash, itching, pallor HEMATOLOGIC/IMMUNOLOGIC: Absent: easy bleeding, easy bruising, lymphadenopathy, frequent infections ENDOCRINE: Absent: unexplained weight gain, unexplained weight loss, heat intolerance, cold intolerance NEUROLOGIC: Present: headache, slurred speech Absent: focal weakness or paresthesias, dizziness, unsteady gait, seizure, mental status changes, bladder or bowel incontinence PSYCHIATRIC: Absent: anxiety, depression, suicidal or homicidal ideation, hallucinations. Is the patient limited Yi proficient: No *Physical Exam - Vital Signs Last Vital Signs Temp Pulse Resp BP Pulse Ox 97.8 F 89 18 121/73 99 05/20/19 10:32 05/20/19 10:32 05/20/19 10:32 05/20/19 10:32 05/20/19 10:32 - Physical Exam Comments: 05/20/19 11:14 GENERAL: Well developed, well nourished. Awake and alert. No acute distress. HEENT: Normocephalic, atraumatic. PERRLA, EOMI. No conjunctival pallor. Sclera are non- icteric. Moist mucous membranes. Oropharynx is clear. NECK: Supple. Decreased ROM with rotation to the L. Palpable muscle spasm of the sternocledomastoid at the insert on the clavicle. No JVD. Carotid pulses 2+ and symmetric, without bruits. No thyromegaly. No lymphadenopathy. CARDIOVASCULAR: Regular rate and rhythm. No murmurs, rubs, or gallops. Distal pulses are 2+ and symmetric. PULMONARY: No evidence of respiratory distress. Lungs clear to auscultation bilaterally. No wheezing, rales or rhonchi. ABDOMINAL: Soft. Non-tender. Non-distended. No rebound or guarding. No organomegaly. Normoactive bowel sounds. MUSCULOSKELETAL Normal range of motion at all joints. No bony deformities or tenderness. No CVA tenderness. EXTREMITIES: No cyanosis. No clubbing. No edema. No calf tenderness. SKIN: Warm and dry. Normal capillary refill. No rashes. No jaundice. NEUROLOGICAL: Alert, awake, appropriate. Cranial nerves 2-12 intact. No deficits to light touch and temperature in face, upper extremities and lower extremities. Slight flattening to the L nasolabial fold. No motor deficits in the in upper extremities and lower extremities. Normoreflexic in the upper and lower extremities. Mildly slurred speech. Toes are down-going bilaterally. Gait is normal without ataxia. PSYCHIATRIC: Cooperative. Good eye contact. Appropriate mood and affect. ED Treatment Course - LABORATORY CBC & Chemistry Diagram: 05/20/19 11:36 05/20/19 11:36 Medical Decision Making - Medical Decision Making 05/20/19 10:48 The patient is a 39-year-old female with past medical history of cervical cancer , in remission, anxiety, bipolar disorder, comes into the ER today for evaluation of her neck pain, headache, left arm pain and slurred speech. Patient states that her symptoms began at approximately 10 AM yesterday. She took 800 mg of Motrin to see if it would help at the time and fell asleep. When she woke up in the afternoon she states that her symptoms were still there so she called the ambulance and was evaluated at [facility]. She states that she says the same pain despite treatment yesterday. She received a call from her primary care doctor today telling her to come to the ER for further evaluation of her headache and neck pain, recommending a CAT scan. Patient states that her speech still feels unclear. She has not taken any further medication for her headache. Denies fevers, chills, lightheadedness, dizziness, unsteady gait, nausea, vomiting, loss of consciousness, chest pain and shortness of breath. PCP: Dr. Kelvin Gambino PSHx: Salpingectomy, removal of the cervix Social Hx: Quit smoking two weeks ago, 15 pack year history. No alcohol or drugs. A/P: Neck pain with neurologic changes On exam patient does have some mildly slurred speech, mild flattening of the left nasal labial folds. Patient also with reproducible neck tenderness with pain to palpation along the insert of the cervical and mastoid at the clavicle. Differential diagnosis includes but is not limited to, ischemic versus hemorrhagic stroke, vertebral artery dissection, carotid artery dissection, complex migraine NIS stroke scale of 2 at this time EKG: Rate 82 bpm, sinus rhythm. Normal intervals and axis. No acute ST-T wave changes. Overall normal EKG Basic labs, EKG, cardiac monitoring, urine ordered IV, fluids, ofirmev ordered for pain CT head placed. We'll wait for results and call neuro for consult. Suspect patient will need to CTA. Patient states she does not have an ALLERGY to contrast dye. Reevaluate 05/20/19 13:57 Lab work is all grossly normal at this time Pain improved after ofirmev and fluids. Repeat neuro exam now normal with no slurred speech or nasolabial flattening Wet read of CT/CTA head and neck show no acute pathology Call placed to Dr. Pacheco who also reviewed the images and case was discussed. Given resolution of symptoms and normal scans, likely a complex migraine Will give Reglan and Benadryl at this time. States he will see the patient in the office for follow up DC home with strict return precautions I discussed the physical exam findings, ancillary test results and final diagnoses with the patient. I answered all of the patient's questions. The patient was satisfied with the care received and felt comfortable with the discharge plan and treatment plan. The Patient agrees to follow up with the primary care physician/specialist within 24-72 hours. Return precautions were given. *DC/Admit/Observation/Transfer Diagnosis at time of Disposition: Migraine Qualifiers: Migraine type: unspecified Status migrainosus presence: without status migrainosus Intractability: not intractable Qualified Code(s): G43.909 - Migraine, unspecified, not intractable, without status migrainosus - Discharge Dispostion Disposition: HOME Condition at time of disposition: Stable Decision to Admit order: No - Referrals Referrals: Giacomo Pacheco MD [Staff Physician] - - Patient Instructions Printed Discharge Instructions: DI for Migraine Additional Instructions: You were evaluated today for your headache Your CAT Scans were normal We suspect this was a complex migraine given your symptoms resolved after pain medication Please follow up with neurology this week. Dr. Pacheco's office is expecting you to call. His number is attached Take the Reglan and Tylenol as directed Return to the ER for worsening headache despite treatment, dizziness, lightheadedness, weakness, fever, or if you have any changes in your symptoms - Post Discharge Activity Forms/Work/School Notes: Back to Work
[2019-05-20] MEDS ORDERED: ACETAMINOPHEN 1000 MG/100 ML VIAL (NON FORMULARY) IVPB ONE (10:59)
[2019-05-20] MEDS ORDERED: SODIUM CHLORIDE 1,000 ML IV STA (10:59)
[2019-05-20] MEDS ORDERED: ACETAMINOPHEN INJECTION 100 ML IVPB ONE (11:21)
[2019-05-20 11:54] LABS: BASO % 2.5 % (0-2.0); EOS % 5.8 % (0-4.5); HEMATOCRIT 42.2 % (32.4-45.2); LYMPH % 38.7 % (8-40); MCH 29.4 pg (25.7-33.7); MCHC 33.1 g/dl (32.0-36.0); MEAN CELL VOLUME 88.6 fl (80-96); MEAN PLT VOLUME 8.2 fl (7.5-11.1); MONO % 8.1 % (3.8-10.2); NEUT % 44.9 % (42.8-82.8); PLATELET COUNT 243 K/MM3 (134-434); RBC 4.76 M/mm3 (3.60-5.2); RDW 13.6 % (11.6-15.6)
[2019-05-20 12:05] LABS: INR 0.95 (0.83-1.09); PROTHROMBIN TIME (PATIENT) 11.2 SEC (9.7-13.0)
[2019-05-20 12:08] LABS: URINE APPEARANCE CLEAR; URINE BILIRUBIN NEGATIVE (NEGATIVE); URINE COLOR YELLOW; URINE GLUCOSE (UA) NEGATIVE (NEGATIVE); URINE KETONE NEGATIVE (NEGATIVE); URINE LEUK ESTERASE NEGATIVE (NEGATIVE); URINE NITRITE NEGATIVE (NEGATIVE); URINE PROTEIN NEGATIVE (NEGATIVE); URINE UROBILINOGEN 0.2 mg/dL (0.2-1.0)
[2019-05-20 13:00] LABS: ALBUMIN 3.5 g/dl (3.4-5.0); BILIRUBIN,TOTAL 0.2 mg/dL (0.2-1); CREATININE 0.9 mg/dL (0.55-1.3); POTASSIUM 4.8 mmol/L (3.5-5.1); TOT PROT 7.4 g/dl (6.4-8.2)
--- NOTE | 2019-05-20 13:29 | EKG ---
Test Reason : Blood Pressure : / mmHG Vent. Rate : 082 BPM Atrial Rate : 082 BPM P-R Int : 142 ms QRS Dur : 092 ms QT Int : 376 ms P-R-T Axes : 049 034 017 degrees QTc Int : 439 ms NORMAL SINUS RHYTHM NONSPECIFIC T WAVE ABNORMALITY Confirmed by PATI ALVAREZ MD ([id number]) on 05/20/2019 1:29:32 PM Referred By: Confirmed By:PATI ALVAREZ MD
[2019-05-20] MEDS ORDERED: METOCLOPRAMIDE HCL INJECTION 10 MG/2 ML VIAL IVPB ONE (13:55)
[2019-05-20] MEDS ORDERED: METOCLOPRAMIDE HCL INJECTION 10 MG/2 ML VIAL ONE (14:01)
[2019-05-20 15:25] VITALS: BP 109/59; PULSE 69; TEMP 97.9
== END 2019-05-20 15:28 | disposition home or self-care (01) ==
LOC: JER 10:26
PROC: 3E033NZ Introduction of Analgesics, Hypnotics, Sedatives into Peripheral Vein, Percutaneous Approach (ICD-10-PCS; principal; 2019-05-20)
PROC: 3E033GC Introduction of Other Therapeutic Substance into Peripheral Vein, Percutaneous Approach (ICD-10-PCS; 2019-05-20)
PROC: 3E0337Z Introduction of Electrolytic and Water Balance Substance into Peripheral Vein, Percutaneous Approach (ICD-10-PCS; 2019-05-20)
DX: G43.909 Migraine, unspecified, not intractable, without status migrainosus (principal); Z85.41 Personal history of malignant neoplasm of cervix uteri; F31.9 Bipolar disorder, unspecified; F41.9 Anxiety disorder, unspecified; M54.2 Cervicalgia; R47.81 Slurred speech
CPT/HCPCS: 36415; 70450-TC; 70496-TC; 70498-TC; 80053; 81003; 82550; 84484; 84702; 85025; 85610; 87086; 93005; 93010; 99282-25; J0131; J7030

== ENCOUNTER 2019-06-08 00:13 | Emergency (ER) | payer OTHER ==
--- NOTE | 2019-06-08 02:01 | PDOC ---
History of Present Illness - General Stated Complaint: CHEST DISCOMFORT Time Seen by Provider: 06/08/19 01:48 - History of Present Illness Initial Comments: 06/08/19 03:59 The patient is a 39 year old female with no significant PMH who presents for evaluation of chest pain. The patient reports onset of left sided chest pain with radiation to her left arm yesterday evening prompting her presentation to the ED for further evaluation. She states that the pain is worse with palpation and movement of her left arm. She denies similar symptoms in the past and otherwise denies recent long travel, OCP use, fevers, chills, SOB, cough, nausea, vomiting, abdominal pain, or changes with urination or bowel movements. Past History - Past Medical History Allergies/Adverse Reactions: Allergies Allergy/AdvReac Type Severity Reaction Status Date / Time No Known Drug Allergies Allergy Verified 06/08/19 02:35 peanut Allergy Rash Verified 06/08/19 02:35 shellfish derived Allergy Verified 06/08/19 02:35 Home Medications: Ambulatory Orders clonazePAM [Klonopin -] 2 mg PO TID 01/10/19 Aripiprazole [Abilify -] 30 mg PO DAILY 05/20/19 Ibuprofen [Motrin -] 600 mg PO TID PRN 05/20/19 Cancer: Yes (cervical) Cardiac Disorders: No COPD: No DVT: No Dementia: No Diabetes: No GI Disorders: No Disorders: No Liver Disease: No Psychiatric Problems: Yes (BIPOLAR, anxiety) Seizures: No Thyroid Disease: No - Surgical History Abdominal Surgery: Yes (ANA FALLOPIAN TUBES REMOVAL, cervix removed) Neurologic Surgery: No - Reproductive History (#): 2 Para: 2 Cervical CA: Yes Dysfunctional Uterine Bleeding: No Ectopic : No Endometrial CA: No Polycystic Ovaries: No Therapeutic (s) & number: No Tubal Ligation: No Spontaneous : 0 - Immunization History Immunization Up to Date: Yes - Suicide/Smoking/Psychosocial Hx Smoking Status: Yes (QUIT 2007) Smoking History: Former smoker Have you smoked in the past 12 months: Yes Number of Cigarettes Smoked Daily: 4 If you are a former smoker, when did you quit?: 05/09/19 'Breaking Loose' booklet given: 10/30/16 Hx Alcohol Use: No Drug/Substance Use Hx: No Substance Use Type: Alcohol Review of Systems - Review of Systems Comments:: 06/08/19 04:00 Constitutional: No fevers, chills, fatigue, malaise HEENT: No Rhinorrhea, nasal congestion, visual changes Cardiovascular: Chest pain. No syncope, palpitations, lightheadedness Respiratory: No Cough, SOB, Hemoptysis, Gastrointestinal: No Abdominal pain, Nausea, Vomiting, Constipation, Diarrhea, Melena Genitourinary: No Dysuria, Frequency, Urgency, Hesitancy, Hematuria, Flank pain Musculoskeletal: No Myalgia, arthralgia Skin: No rashes, itching, bruising, pallor Neurologic: No Headache, Dizziness, Numbness, Weakness, or Tingling Psychiatric: No Hallucinations. No SI or HI *Physical Exam - Physical Exam Comments: 06/08/19 04:00 General Appearance: Nourished. No Apparent Distress HEENT: No Pharyngeal Erythema, Tonsillar Exudate, Tonsillar Erythema Neck: No Cervical Lymphadenopathy Respiratory/Chest: Lungs Clear, Normal Breath Sounds. Reproducible tenderness to palpation of the left chest wall. No Crackles, Rales, Rhonchi, Wheezing Cardiovascular: Regular Rhythm, Regular Rate. No Murmur, Gallops, Rubs Gastrointestinal/Abdominal: Normal Bowel Sounds, Soft. No Guarding, Rebound, Tenderness Musculoskeletal: No CVA Tenderness Extremity: Normal Capillary Refill Integumentary: Normal Color, Dry, Warm Neurologic: Fully Oriented, Alert, Normal Mood/Affect, Normal Response, ED Treatment Course - LABORATORY CBC & Chemistry Diagram: 06/08/19 02:15 06/08/19 02:15 Medical Decision Making - Medical Decision Making 06/08/19 04:14 The patient is a 39 year old female with no significant PMH who presents for evaluation of chest pain. Differential includes but is not limited to: ACS, Musculoskeletal, Infectious, Metabolic Derangement. The patient is low risk for PE via PERC criteria. Given the patient's history and physical exam, we will obtain a cbc, cmp, troponin, ekg, chest plain film to evaluate further. We will treat with tylenol and continue to monitor and reassess while here in the ED. 06/08/19 04:54 CBC, cmp, troponin are unremarkable. Chest plain film does not demonstrate any acute pathology. The patient was reassessed and reports improvement in their symptoms. We are comfortable discharging the patient home in stable condition. Patient made aware of impression and plan, return precautions discussed including but not limited to worsening pain or symptoms, fevers, or signs of infection, chest pain, respiratory distress, inability to tolerate oral intake, dehydration, syncope, or neurologic changes. The patient is to follow up with PMD and specialist as recommended within 1 week, follow up information provided and the patient will call for an appointment. The patient is to take medications as instructed for duration of time and continue with supportive care , avoid triggers and precipitants. Patient is safe for outpatient follow-up. *DC/Admit/Observation/Transfer Diagnosis at time of Disposition: Chest wall pain - Discharge Dispostion Disposition: HOME Condition at time of disposition: Stable - Referrals Referrals: Figueroa Gambino MD [Primary Care Provider] - Obed Washington MD [Staff Physician] - - Patient Instructions Printed Discharge Instructions: DI for Atypical Chest Pain Additional Instructions: 1) Please follow-up with your primary care doctor in the next 2-3 days. Please call tomorrow to schedule a follow up appointment. If you cannot follow up with your doctor within 1 week please return to the Emergency Department for any urgent issues. 2) Your laboratory / imaging results were normal here in the ER. Please make sure you follow up with our geography faculty member with in 2-3 days to discuss your ER visit and further management of your symptoms. 3) If you have any worsening of symptoms or any other concerns please return to the ER immediately. Return if worsening symptoms including fevers, headache, vomiting, visual or hearing disturbances, abdominal pain, chest pain, shortness of breath, syncope, dehydration, inability to take things by mouth/vomiting, altered mental status, or worsening concerning symptoms. 4) Please continue taking your home medications as directed. Your medications on discharge include Naproxen. Side effects may include upset stomach, abdominal pain, vomiting, or diarrhea. Do not drink alcohol with your medications. - Post Discharge Activity
[2019-06-08] MEDS ORDERED: ACETAMINOPHEN 500 MG TABLET (FP) PO ONE (02:03)
[2019-06-08 02:30] LABS: BASO % 2.1 % (0-2.0); EOS % 4.6 % (0-4.5); HEMOGLOBIN 13.1 GM/dL (10.7-15.3); LYMPH % 46.6 % (8-40); MCH 29.6 pg (25.7-33.7); MCHC 33.5 g/dl (32.0-36.0); MEAN CELL VOLUME 88.5 fl (80-96); MEAN PLT VOLUME 8.1 fl (7.5-11.1); NEUT % 37.7 % (42.8-82.8); PLATELET COUNT 233 K/MM3 (134-434); RBC 4.41 M/mm3 (3.60-5.2); RDW 13.7 % (11.6-15.6); WHITE BLOOD COUNT 3.5 K/mm3 (4.0-10.0)
[2019-06-08 02:35] VITALS: BP 103/67; PULSE 65; TEMP 98.3; BMI 39.1
--- NOTE | 2019-06-08 02:41 | PDOC ---
Documentation entered by Jenna Torres SCRIBE, acting as scribe for Chandrika Celestin DO. Chandrika Celestin DO: This documentation has been prepared by the Melissa rebolledo Brenda, SCRIBE, under my direction and personally reviewed by me in its entirety. I confirm that the documentation accurately reflects all work , treatment, procedures, and medical decision making performed by me. Attending Attestation - Resident Resident Name: KittyJohny - ED Attending Attestation I have performed the following: I have examined & evaluated the patient, The case was reviewed & discussed with the resident, I agree w/resident's findings & plan, Exceptions are as noted - HPI HPI: 06/08/19 02:39 The patient is a 39 year old female, with a significant PMH of bipolar disorder , anxiety, depression and cervical CA (s/p hysterectomy), who presents to the emergency department with left chest discomfort since 8:00pm. The patient reports symptoms of left chest pain with radiation to the left shoulder, worsened with movement and palpation. The patient denies similar symptoms. Denies trauma and weight bearing. Denies chest pain, headache and dizziness. Denies fever, chills, nausea, vomiting, diarrhea and constipation. Denies any other symptoms. Allergies: NKA Past surgical history: Hysterectomy Social history: Tobacco use. (Unknown if quit) PCP: Dr. Gambino - Physicial Exam PE: 06/08/19 02:02 Agree with resident's exam. - Medical Decision Making 06/08/19 02:34 39-year-old female with left chest wall pain, reproducible on exam EKG, chest x-ray, labs with likely discharge home Anti-inflammatories for pain
[2019-06-08] MEDS ORDERED: ACETAMINOPHEN 325 MG TABLET (FP) ONE (02:46)
[2019-06-08 03:06] LABS: ALBUMIN 3.2 g/dl (3.4-5.0); ALK PHOS 50 U/L (45-117); ANION GAP 6 MMOL/L (8-16); BILIRUBIN,TOTAL 0.3 mg/dL (0.2-1); CALCIUM 8.7 mg/dL (8.5-10.1); CHLORIDE 108 mmol/L (98-107); CO2 26 mmol/L (21-32); GLUCOSE,RANDOM 92 mg/dL (74-106); POTASSIUM 4.8 mmol/L (3.5-5.1); SGOT/AST 15 U/L (15-37); SGPT/ALT 23 U/L (13-61); SODIUM 139 mmol/L (136-145)
--- NOTE | 2019-06-08 08:32 | EKG ---
Test Reason : Blood Pressure : / mmHG Vent. Rate : 072 BPM Atrial Rate : 072 BPM P-R Int : 152 ms QRS Dur : 092 ms QT Int : 402 ms P-R-T Axes : 053 044 018 degrees QTc Int : 440 ms NORMAL SINUS RHYTHM NORMAL ECG WHEN COMPARED WITH ECG OF 20-MAY-2019 10:26, NO SIGNIFICANT CHANGE WAS FOUND Confirmed by JOSE R HAAS MD ([id number]) on 06/08/2019 8:32:15 AM Referred By: Confirmed By:JOSE R HAAS MD
== END 2019-06-08 05:17 | disposition home or self-care (01) ==
LOC: JER 00:13
DX: R07.89 Other chest pain (principal); Z87.891 Personal history of nicotine dependence; Z85.41 Personal history of malignant neoplasm of cervix uteri; F31.9 Bipolar disorder, unspecified
CPT/HCPCS: 36415; 71046-TC-FY; 80053; 82550; 84484; 84703; 85025; 93005; 93010; 99281-25

== ENCOUNTER 2019-08-28 19:39 | Emergency (ER) | payer OTHER ==
[2019-08-28 19:53] VITALS: TEMP 98.1; BMI 38.4
[2019-08-28] MEDS ORDERED: ACETAMINOPHEN 500 MG TABLET (FP) PO ONE (20:18)
[2019-08-28] MEDS ORDERED: METOCLOPRAMIDE HCL INJECTION 10 MG/2 ML VIAL IVPUSH ONE (20:25)
[2019-08-28] MEDS ORDERED: LACTATED RINGERS SOLUTION 1000 ML INFUS.BAG IV ONE (20:26)
[2019-08-28] MEDS ORDERED: METOCLOPRAMIDE HCL INJECTION 10 MG/2 ML VIAL ONE (20:52)
[2019-08-28] MEDS ORDERED: ACETAMINOPHEN 325 MG TABLET (FP) ONE (20:54)
[2019-08-28 21:12] LABS: ALBUMIN 3.5 g/dl (3.4-5.0); BILIRUBIN,TOTAL 0.2 mg/dL (0.2-1); BLOOD UREA NITROGEN 15.3 mg/dL (7-18); CALCIUM 8.9 mg/dL (8.5-10.1); CREATININE 0.9 mg/dL (0.55-1.3); POTASSIUM 4.2 mmol/L (3.5-5.1); TOT PROT 7.2 g/dl (6.4-8.2)
[2019-08-28 21:13] LABS: EOS % 3.1 % (0-4.5); HEMATOCRIT 38.8 % (32.4-45.2); HEMOGLOBIN 12.9 GM/dL (10.7-15.3); MCH 29.3 pg (25.7-33.7); MCHC 33.2 g/dl (32.0-36.0); MEAN CELL VOLUME 88.3 fl (80-96); MEAN PLT VOLUME 8.3 fl (7.5-11.1); NEUT % 44.9 % (42.8-82.8); PLATELET COUNT 274 K/MM3 (134-434); RDW 13.6 % (11.6-15.6); WHITE BLOOD COUNT 4.6 K/mm3 (4.0-10.0)
--- NOTE | 2019-08-28 21:14 | PDOC ---
History of Present Illness - General Chief Complaint: Headache Stated Complaint: HEAD PAIN VOMITING Time Seen by Provider: 08/28/19 20:09 History Source: Patient, Family (Daughter present at bedside.), Old Records Exam Limitations: No Limitations - History of Present Illness Initial Comments: HPI: 39 y/o female presenting to [facility] ER complaining of intermittent posterior headache with nausea and vomiting. Symptoms started on Thursday and improved with OTC Motrin. Returned more intensely this afternoon. Experienced "one second " of transient vision loss in left eye while drinking water. While undergoing triage at this department, the pt developed left ear pain and positional dizziness - made worse with positional change and turning head to left. Headache is made worse by light and sound. Pt reports a history of complex migraines. Was previously under the care of a neurologist and prescribed prophylaxis and abortive migraine therapy but stopped after the doctor left the area. Denies ever undergoing LP. Of note, pt was evaluated in this department in April [address] for similar symptoms[address] Under[address] CT and CTA of head and neck. Studies were grossly unremarkable. Denies use of OCPs or other hormonal therapy. PCP: Immanuel Das Hx: - H/o of Cervical CA s/p salpingectomy - Bipolar Disorder Review of Systems: In addition to that documented in the HPI above, the additional ROS was obtained : Constitutional: Denies fevers or chills Head: Per HPI ENMT: Denies sore throat or difficulty swallowing CV: Denies chest pain Resp: Denies SOB GI: Endorses vomiting. Denies diarrhea : Denies painful urination, hematuria, or increased urinary frequency MSK: Denies recent trauma Skin: Denies new rashes Neuro: Denies new numbness or tingling or weakness Endocrine: Denies polyuria Heme: Denies bleeding or bruising Physical Examination: Constitutional: Well-developed, well-nourished female in no acute distress but obvious discomfort. Obese body habitus. Found semi-fowlers on hospital bed. Answered all questions appropriately and completely. Speech was non-labored, non -pressured. Head: Normocephalic. No obvious external signs of trauma. Eyes: Pupils 4m and PERRL bilaterally. EOMI. Sclerae white. Conjunctiva moist and not injected. Ears: External auditory canals and tympanic membranes pearly young. Hearing grossly intact. No mastoid tenderness. Nose: No nasal discharge. Throat: Oral cavity and pharynx normal. No inflammation, swelling, exudate, or lesions. Teeth and gingiva in good general condition. Neck: Left lateral rotation limited by pain. Diffuse point tenderness to L and R paraspinal areas and base of the occiput. Cardiovascular / Chest: Regular rate and regular rhythm. No murmur, rubs, clicks , or gallops. Peripheral pulses: radial pulses full. Respiratory: Breathing unlabored. Equal chest rise and fall. Clear to auscultation bilaterally. No stridor, no wheezing, no rhonchi. Gastrointestinal: abdomen is soft, non-tender, non-distended. Neuro: Alert and oriented x4. Moving all four extremities spontaneously. No focal deficits. Cranial nerves intact. Sensation to all four extremities intact. Proximal and distal strength 5/5. Admitting Counselor strength 5/5 - equal and symmetric. Plantar flexion and dorsiflexion 5/5. Skin: Warm, dry, and intact. Psych: Affect: appropriate. Mood: normal. MDM: *Reviewed vital signs, nursing notes, and prior visit documentation (if available). 39 y/o female presenting with headache, transient vision loss, nausea, vomiting , and dizziness. H/o of complex migraines but not currently undergoing treatment. Recent imaging unremarkable. Afebrile. Vitals unremarkable for hypotension or tachycardia. Physical exam as described above. Low suspicion for infectious etiology. Likely complex migraine versus IIH. CTA unremarkable for acute pathology. Will attempt LP to eval for opening pressure. Given Tylenol and Reglan for symptom relief. LP unsuccessful. Given Morphine and Ativan during procedure for pain and anxiolytic. Attempts made by multiple providers. Placed IR LP order. Dr. Lomas made aware by ED Attending. Pt signed out to resident Dr. Reveles after she was verbally appraised of the pt s HPI, current ED course, and plan of management. Will f/u on pending LP. Anticipate likely outpatient f/u with pts neurologist, Dr. Pacheco. Lucien Ramon M.D., PGY2 Emergency Medicine Resident Past History - Past Medical History Allergies/Adverse Reactions: Allergies Allergy/AdvReac Type Severity Reaction Status Date / Time No Known Drug Allergies Allergy Verified 06/08/19 02:35 peanut Allergy Rash Verified 06/08/19 02:35 shellfish derived Allergy Verified 06/08/19 02:35 Home Medications: Ambulatory Orders clonazePAM [Klonopin -] 2 mg PO TID 01/10/19 Aripiprazole [Abilify -] 30 mg PO DAILY 05/20/19 Ibuprofen [Motrin -] 600 mg PO TID PRN 05/20/19 Cancer: Yes (cervical) Cardiac Disorders: No COPD: No DVT: No Dementia: No Diabetes: No GI Disorders: No Disorders: No Liver Disease: No Psychiatric Problems: Yes (BIPOLAR, anxiety) Seizures: No Thyroid Disease: No - Surgical History Abdominal Surgery: Yes (AAN FALLOPIAN TUBES REMOVAL, cervix removed) Neurologic Surgery: No - Reproductive History (#): 2 Para: 2 Cervical CA: Yes Dysfunctional Uterine Bleeding: No Ectopic : No Endometrial CA: No Polycystic Ovaries: No Therapeutic (s) & number: No Tubal Ligation: No Spontaneous : 0 - Immunization History Immunization Up to Date: Yes - Psycho Social/Smoking Cessation Hx Smoking Status: Yes (QUIT 2007) Smoking History: Former smoker Have you smoked in the past 12 months: Yes Number of Cigarettes Smoked Daily: 4 If you are a former smoker, when did you quit?: 1 week Information on smoking cessation initiated: No 'Breaking Loose' booklet given: 10/30/16 Hx Alcohol Use: No Drug/Substance Use Hx: No Substance Use Type: Alcohol *Physical Exam - Vital Signs Last Vital Signs Temp Pulse Resp BP Pulse Ox 98.1 F 81 19 132/80 98 08/28/19 19:49 08/28/19 19:49 08/28/19 19:49 08/28/19 19:49 08/28/19 19:49 Procedures - Additional Procedures Progress: Lumbar Puncture Procedure Note INDICATION: Eval for IIH PROCEDURE AUTOMATIC FOLDER SEAMER: Lucien Ramon M.D. PGY2 ATTENDING PHYSICIAN: Dr. Scott In Attendance (Y/N): Y CONSENT: Consent was obtained from pt prior to the procedure. Indications, risks, and benefits were explained at length. PROCEDURE SUMMARY: A time-out was performed. My hands were washed immediately prior to the procedure. I wore a surgical cap, mask with protective eyewear, sterile gown and sterile gloves throughout the procedure. The patient was placed in the right lateral recumbent position with help from the nursing staff. The area was cleansed and draped in usual sterile fashion using chlorhexidine scrub. Anesthesia was achieved with 1% Xylocaine. A 20-gauge 3.5-inch spinal needle was placed in the lumbar interspace. Two attempts made by myself and my attending without success. Estimated blood loss was <5cc. ED Treatment Course - LABORATORY CBC & Chemistry Diagram: 08/28/19 20:39 08/28/19 20:39 - ADDITIONAL ORDERS Additional order review: Laboratory Results 08/28/19 20:39 Sodium 140 Potassium 4.2 Chloride 108 H Carbon Dioxide 24 Anion Gap 8 BUN 15.3 Creatinine 0.9 Est GFR (CKD-EPI)AfAm 92.05 Est GFR (CKD-EPI)NonAf 79.42 Random Glucose 92 Calcium 8.9 Total Bilirubin 0.2 AST 27 ALT 35 Alkaline Phosphatase 50 Total Protein 7.2 Albumin 3.5 - RADIOLOGY Radiology Studies Ordered: Category Date Time Status HEAD CT WITHOUT CONTRAST [CT] Stat CT Scan 08/28/19 20:46 Ordered Radiograph Interpretation: HCT: THIS IS A PRELIMINARY REPORT FROM IMAGING ANIMAL SCIENTIST EXAM: CT head without contrast IMAGES: 147 DATE OF EXAM: 2019-08-28 21:02:42 REASON FOR EXAM: Posterior headache with nausea COMPARISON: None. FINDINGS: The brain parenchyma demonstrates normal attenuation without focal mass or mass effect. The ventricles are not enlarged. No acute intracranial hemorrhage or acute infarction. The visualized aspect of the paranasal sinuses and mastoid air cells are unremarkable. No acute fracture. One or more of the following dose reduction techniques were used: automated exposure control, adjustment of the mA and/or kV according to patient size, use of iterative reconstructive technique. THIS DOCUMENT HAS BEEN ELECTRONICALLY SIGNED Maciel You MD 08/28/2019 21:58 EST - Medications Given in the ED: ED Medications Discontinued Medications Generic Name Dose Route Start Last Admin Trade Name Freq PRN Reason Stop Dose Admin Acetaminophen 975 mg 08/28/19 20:18 08/28/19 21:09 Tylenol - PO 08/28/19 20:19 975 mg ONCE ONE Administration Metoclopramide HCl 10 mg 08/28/19 20:25 08/28/19 21:09 Reglan Injection - IVPUSH 08/28/19 20:26 10 mg ONCE ONE Administration Discharge - Discharge Information Problems reviewed: Yes Clinical Impression/Diagnosis: Headache Qualifiers: Headache type: unspecified Headache chronicity pattern: acute headache Intractability: not intractable Qualified Code(s): R51 - Headache - Follow up/Referral Referrals: Figueroa Gambino MD [Primary Care Provider] - - Patient Discharge Instructions - Post Discharge Activity
[2019-08-28] MEDS ORDERED: MORPHINE SULFATE 2 MG/ML VIAL ONE (22:46)
[2019-08-28] MEDS ORDERED: LORazepam 2 MG/ML SDV VIAL ONE (22:53)
[2019-08-28] MEDS ORDERED: LIDOCAINE 1%/EPI 1:100000 (20 ML MULTI DOSE VIAL) ONE (22:53)
[2019-08-28] MEDS ORDERED: LIDOCAINE HCL 1%, 10 MG/ML (50 mL VIAL) SQ ONE (23:58)
[2019-08-28] MEDS ORDERED: morphine CARPU-JECT 4 MG/1 ML DISP.SYRIN IVPUSH ONE (23:58)
--- NOTE | 2019-08-29 02:23 | PDOC ---
Documentation entered by Aicha Lee SCRIBE, acting as scribe for Linda Scott MD. Linda Scott MD: This documentation has been prepared by the Jesus rebolledo Nirvannie, SCRIBE, under my direction and personally reviewed by me in its entirety. I confirm that the documentation accurately reflects all work, treatment, procedures, and medical decision making performed by me. Attending Attestation - Resident Resident Name: RamonLucien - ED Attending Attestation I have performed the following: I have examined & evaluated the patient, The case was reviewed & discussed with the resident, I agree w/resident's findings & plan - HPI HPI: 08/28/19 23:47 The patient is a 39 year old female, with a significant past medical history of bipolar disorder, anxiety, depression and cervical CA (s/p hysterectomy), who presents to the emergency department with, a headache described as pounding. As per patient, she has a history of headaches which she had multiple head CTs for but, never had a LP for opening pressure measurement. She denies recent chest pain or shortness of breath. Allergies: NKDA Primary Care Physician: Dr. Gambino - Physicial Exam PE: 08/28/19 23:47 GENERAL: Awake, alert, and fully oriented, in no acute distress HEAD: No signs of trauma EYES: PERRLA, EOMI, sclera anicteric, conjunctiva clear ENT: Auricles normal inspection, hearing grossly normal, nares patent, oropharynx clear without exudates. Moist mucosa NECK: Normal ROM, supple, no lymphadenopathy, JVD, or masses LUNGS: Breath sounds equal, clear to auscultation bilaterally. No wheezes, and no crackles HEART: Regular rate and rhythm, normal S1 and S2, no murmurs, rubs or gallops ABDOMEN: Soft, nontender, normoactive bowel sounds. No guarding, no rebound. No masses EXTREMITIES: Normal range of motion, no edema. No clubbing or cyanosis. No cords, erythema, or tenderness NEUROLOGICAL: Alert, awake, appropriate. Cranial nerves 2-12 intact. No deficits to light touch and temperature in face, upper extremities and lower extremities. No motor deficits in the in face, upper extremities and lower extremities. No pronator drift. Normoreflexic in the upper and lower extremities. Normal speech. Toes are down-going bilaterally. Gait is normal without ataxia. No dysmetria. No dysdiadochokinesis. No skew deviation. No abnormal nystagmus. SKIN: Warm, Dry, normal turgor, no rashes or lesions noted. - Medical Decision Making 08/28/19 22:10 Patient Name: TAMMY LANCE THIS IS A PRELIMINARY REPORT FROM IMAGING DIRECTOR RADIO EXAM: CT head without contrast IMAGES: 147 DATE OF EXAM: 2019-08-28 21:02:42 REASON FOR EXAM: Posterior headache with nausea COMPARISON: None. FINDINGS: The brain parenchyma demonstrates normal attenuation without focal mass or mass effect. The ventricles are not enlarged. No acute intracranial hemorrhage or acute infarction. The visualized aspect of the paranasal sinuses and mastoid air cells are unremarkable. No acute fracture. 08/29/19 02:25 We failed to do a spinal tap. We are looking to measure pt's CSF opening pressure to r/o pseudotumor cerebri; pt has migrained x years and never had an LP. Pt will have LP done under fluoroscopy. She will remain in the ER til AM we will request Dr. Cabrera to see the patient.
--- NOTE | 2019-08-29 07:32 | PDOC ---
*Physical Exam - Vital Signs Last Vital Signs Temp Pulse Resp BP Pulse Ox 98.1 F 74 18 123/86 98 08/28/19 19:49 08/29/19 06:16 08/29/19 06:16 08/29/19 06:16 08/29/19 06:16 ED Treatment Course - LABORATORY CBC & Chemistry Diagram: 08/28/19 20:39 08/28/19 20:39 - ADDITIONAL ORDERS Additional order review: Laboratory Results 08/28/19 08/28/19 21:21 20:39 Sodium 140 Potassium 4.2 Chloride 108 H Carbon Dioxide 24 Anion Gap 8 BUN 15.3 Creatinine 0.9 Est GFR (CKD-EPI)AfAm 92.05 Est GFR (CKD-EPI)NonAf 79.42 Random Glucose 92 Calcium 8.9 Total Bilirubin 0.2 AST 27 ALT 35 Alkaline Phosphatase 50 Total Protein 7.2 Albumin 3.5 Urine HCG, Qual Negative 08/28/19 20:39 RBC 4.40 MCV 88.3 MCHC 33.2 RDW 13.6 MPV 8.3 Neutrophils % 44.9 Lymphocytes % 41.0 H Monocytes % 10.0 Eosinophils % 3.1 Basophils % 1.0 - Medications Given in the ED: ED Medications Discontinued Medications Generic Name Dose Route Start Last Admin Trade Name Freq PRN Reason Stop Dose Admin Acetaminophen 975 mg 08/28/19 20:18 08/28/19 21:09 Tylenol - PO 08/28/19 20:19 975 mg ONCE ONE Administration Lactated Ringer's 1,000 ml 08/28/19 20:26 08/28/19 21:19 Lactated Ringers Solution IV 08/28/19 20:27 1,000 ml ONCE ONE Administration Lidocaine HCl 5 ml 08/28/19 23:58 08/29/19 00:05 Xylocaine 1% SQ 08/28/19 23:59 5 ml ONCE ONE Administration Lorazepam 2 mg 08/28/19 23:58 08/29/19 00:05 Ativan Injection - IVPUSH 08/28/19 23:59 2 mg ONCE ONE Administration Metoclopramide HCl 10 mg 08/28/19 20:25 08/28/19 21:09 Reglan Injection - IVPUSH 08/28/19 20:26 10 mg ONCE ONE Administration Morphine Sulfate 2 mg 08/28/19 23:58 08/29/19 00:05 Morphine Injection - IVPUSH 08/28/19 23:59 2 mg ONCE ONE Administration Medical Decision Making - Medical Decision Making Pt was signed out to me by resident Dr. Ramon, who explained the presentation, ED course, any pending results, and needed interventions. Pending results include LP conducted by IR (Dr. Medina). Pt is currently stable and is lying comfortably; headache was improved with tylenol, reglan, morphine, and IVF. 08/29/19 07:31 IR will do LP, requested stat INR. Coags ordered. 08/29/19 11:17 Due to negative head CT, pt symptomatic improvement, we will not pursue LP at this time. Pt agrees with outpatient f/u with Neurology. Pt pain improved after tylenol. Strict return precautions provided with pt understanding. Pt tolerated PO intake in ED. 08/29/19 13:03 Discharge - Discharge Information Problems reviewed: Yes Clinical Impression/Diagnosis: Headache Qualifiers: Headache type: unspecified Headache chronicity pattern: acute headache Intractability: not intractable Qualified Code(s): R51 - Headache Condition: Improved Disposition: HOME - Admission No - Follow up/Referral Referrals: Figueroa Gambino MD [Primary Care Provider] - Giacomo Pacheco MD [Staff Physician] - - Patient Discharge Instructions Patient Printed Discharge Instructions: DI for Migraine Additional Instructions: You were seen in the ER today for headache. The results of your labs and imaging today were normal. Please follow-up with your primary care doctor and neurology (Dr. Pacheco) within 1-2 days to discuss your visit and make sure your symptoms have improved. Please return to the ER if you have any worsening pain, development of fevers or chills, loss of consciousness, inability to tolerate food or fluids, or any other concerns. You can take tylenol or motrin every 4-6 hours as needed for pain. - Post Discharge Activity
[2019-08-29 11:07] VITALS: BP 110/68; PULSE 68
[2019-08-29 12:36] LABS: PROTHROMBIN TIME (PATIENT) 11.8 SEC (9.7-13.0)
[2019-08-29 12:39] LABS: ACTIVATED PTT 32.8 SECONDS (25.2-36.5)
--- NOTE | 2019-08-29 13:15 | EKG ---
Test Reason : Blood Pressure : / mmHG Vent. Rate : 074 BPM Atrial Rate : 074 BPM P-R Int : 166 ms QRS Dur : 096 ms QT Int : 386 ms P-R-T Axes : 034 034 024 degrees QTc Int : 428 ms NORMAL SINUS RHYTHM NORMAL ECG WHEN COMPARED WITH ECG OF 08-JUN-2019 00:58, NO SIGNIFICANT CHANGE WAS FOUND Confirmed by SHADI STORM MD ([id number]) on 08/29/2019 1:14:59 PM Referred By: Confirmed By:SHADI STORM MD
== END 2019-08-29 13:59 | disposition home or self-care (01) ==
LOC: JER 19:39 → SUPCPDRO 19:39 → JER 08-29 13:59
PROC: 3E033GC Introduction of Other Therapeutic Substance into Peripheral Vein, Percutaneous Approach (ICD-10-PCS; principal; 2019-08-28)
PROC: 00JU3ZZ Inspection of Spinal Canal, Percutaneous Approach (ICD-10-PCS; 2019-08-28)
DX: R51 Headache (principal); F31.9 Bipolar disorder, unspecified; F41.9 Anxiety disorder, unspecified; Z85.41 Personal history of malignant neoplasm of cervix uteri; Z90.710 Acquired absence of both cervix and uterus; Z90.79 Acquired absence of other genital organ(s); Z91.010 Allergy to peanuts; Z91.013 Allergy to seafood
CPT/HCPCS: 36415; 62270; 70450-TC; 80053; 84703; 85025; 85610; 85730; 93005; 93010; 96374; 99283-25

== ENCOUNTER 2019-09-16 21:18 | Inpatient (IN) | payer OTHER ==
[2019-09-16 21:25] VITALS: BMI 38.4
--- NOTE | 2019-09-16 21:29 | PDOC ---
Rapid Medical Evaluation Time Seen by Provider: 09/16/19 21:22 Medical Evaluation: Allergies Allergy/AdvReac Type Severity Reaction Status Date / Time No Known Drug Allergies Allergy Verified 06/08/19 02:35 peanut Allergy Rash Verified 06/08/19 02:35 shellfish derived Allergy Verified 06/08/19 02:35 09/16/19 21:24 I have performed a brief in-person evaluation of this patient. The patient presents with a chief complaint of: Sudden onset of slurred speech and heavy tongue with RUE weakness which started at around 6:45pm today. Also says that it was all preceeded with a headache. PMH anxiety and bipolar. Pertinent physical exam findings: slurred speech. 5/5 strength bilateral UEs. I have ordered the following: Code young, CT head, labs including cardiac enzymes , EKG The patient will proceed to the ED for further evaluation. 09/16/19 21:26 Discharge Disposition - Diagnosis Slurred speech - Referrals - Patient Instructions - Post Discharge Activity
--- NOTE | 2019-09-16 21:40 | PDOC ---
History of Present Illness - General Chief Complaint: CVA/TIA Stated Complaint: HEADACHE Time Seen by Provider: 09/16/19 21:22 History Source: Patient Exam Limitations: No Limitations - History of Present Illness Initial Comments: 09/16/19 21:40 Nancy Morgan is a 39yF w PMHx bipolar and migraines presenting w slurred speech and headache. Between 6-7p today, pt laying down when noted sudden onset slurred speech, R occipital headache radiating anterior, R facial numbness, and bilateral upper extremity weakness and numbness. Denies alcohol, heroin, cocaine use. Denies fever, headache, nausea/vomiting, chest/AB pain, Past History - Past Medical History Allergies/Adverse Reactions: Allergies Allergy/AdvReac Type Severity Reaction Status Date / Time No Known Drug Allergies Allergy Verified 09/16/19 21:25 peanut Allergy Rash Verified 09/16/19 21:25 shellfish derived Allergy Verified 09/16/19 21:25 Home Medications: Ambulatory Orders clonazePAM [Klonopin -] 2 mg PO TID 01/10/19 Aripiprazole [Abilify -] 30 mg PO DAILY 05/20/19 Cancer: Yes (cervical) Cardiac Disorders: No COPD: No DVT: No Dementia: No Diabetes: No GI Disorders: No Disorders: No Liver Disease: No Psychiatric Problems: Yes (BIPOLAR, anxiety) Seizures: No Thyroid Disease: No - Surgical History Abdominal Surgery: Yes (ANA FALLOPIAN TUBES REMOVAL, cervix removed) Neurologic Surgery: No - Reproductive History (#): 2 Para: 2 Cervical CA: Yes Dysfunctional Uterine Bleeding: No Ectopic : No Endometrial CA: No Polycystic Ovaries: No Therapeutic (s) & number: No Tubal Ligation: No Spontaneous : 0 - Immunization History Td Vaccination: Yes TDAP Vaccination: Yes Immunization Up to Date: Yes - Psycho Social/Smoking Cessation Hx Smoking Status: Yes (QUIT 2007) Smoking History: Never smoked Have you smoked in the past 12 months: Yes Number of Cigarettes Smoked Daily: 4 If you are a former smoker, when did you quit?: 1 week 'Breaking Loose' booklet given: 10/30/16 Hx Alcohol Use: No Drug/Substance Use Hx: No Substance Use Type: Alcohol Neuro Specific PMHX - Complaint Specific PMHX Glaucoma: No Herniated Disk: No Laminectomy: No Migraine: Yes Multiple Sclerosis: No TIA: No Review of Systems - Review of Systems Constitutional: No: Chills, Fever HEENTM: Yes: Recent change in vision. No: Eye Pain, Nose Pain, Throat Pain, Mouth Pain Respiratory: No: Cough, Shortness of Breath Cardiac (ROS): No: Chest Pain, Palpitations, Syncope ABD/GI: No: Abdominal Distended, Constipated, Diarrhea, Nausea, Vomiting : No: Burning, Dysuria, Discharge, Flank Pain, Hematuria Musculoskeletal: No: Back Pain, Joint Pain, Muscle Pain, Neck Pain Integumentary: No: Bruising, Flushing, Lesions Neurological: Yes: Headache, Numbness. No: Seizure, Tingling, Tremors Psychiatric: No: Anxiety, Depression, Stressors Endocrine: No: Excessive Sweating, Flushing, Intolerance to Cold, Intolerance to Heat Hematologic/Lymphatic: No: Anemia, Blood Clots *Physical Exam - Vital Signs Last Vital Signs Temp Pulse Resp BP Pulse Ox 98 F 93 H 18 139/84 99 09/16/19 21:22 09/16/19 21:22 09/16/19 21:22 09/16/19 21:22 09/16/19 21:22 - Physical Exam General Appearance: Yes: Nourished, Appropriately Dressed, Mild Distress HEENT: positive: EOMI, CRISTIANE, Normal Voice, Hearing Grossly Normal. negative: Scleral Icterus (R), Scleral Icterus (L) Respiratory/Chest: positive: Lungs Clear, Normal Breath Sounds. negative: Chest Tender, Respiratory Distress, Crackles, Rales, Rhonchi, Stridor, Wheezing Cardiovascular: positive: Regular Rhythm, Regular Rate, S1, S2. negative: Edema , Murmur Gastrointestinal/Abdominal: positive: Normal Bowel Sounds, Flat, Soft. negative : Tender, Organomegaly, Distended, Guarding, Rebound Extremity: positive: Normal Capillary Refill Integumentary: positive: Normal Color Neurologic: positive: Fully Oriented, Alert, Motor Strength 5/5, Responsive, Depressed Affect (slow response). negative: fractionating still operator II-XII NML intact (R mouth droop), Normal Mood/Affect (slowly follows commands, sleepy), Numbness, Sensory Deficit, Confused, Disoriented NIH Stroke Scale - Last Known Well Date/Time & Onset Date Last Known Well: 09/16/19 Time Last Known Well: 18:00 - Initial Evaluation Level of consciousness: Alert Ask patient the month and their age: Answers both correctly Ask patient to open & close eyes; make fist and let go: Obeys both correctly Best gaze (horizontal eye movement): Normal Visual field testing: No visual field loss Facial paresis (Show teeth/raise eyebrows/close eyes tight): Minor paralysis ( flattened nasolabial fold, asymmetry on smiling) Motor Function: Left Arm: Normal Motor Function: Right Arm: Normal (extends arm 90 (or 45) degrees for 10 seconds without drift Motor Function: Left Leg: Normal (extends leg 30 degrees for 5 seconds without drift) Motor Function: Right Leg: Normal (extends leg 30 degrees for 5 seconds without drift) Limb Ataxia: No ataxia Sensory(Use pinprick test arms,legs,trunk,face/side to side): Normal Best language (Describe picture, name items, read sentences): No Aphasia Dysarthria (read several words): Mild to moderate slurring of words Extinction and Inattention: No abnormality - Total Score NIH Stroke Scale Score: 2 tPA Exclusion Checklist 0-3hr - Time Elapsed Date last known well: 09/16/19 Time last known well: 18:00 Elaspsed time: Day(s) and 7 Hour(s) and 50 Minutes - Thrombolytic Therapy Candidate Is the patient eligible for Thrombolytic Therapy?: No - Exclusion Criteria 0-3hr SBP greater than 185 or DBP greater than 110mmHg despite tx: No Recent IC/spinal surgery,head trauma or stroke w/in last 3mo: No Hx of previous IC hemorrhage, IC neoplasm, AVM or aneurysm: No Active internal bleeding: No Blding diathesis(low plt ct, inc PTT,INR>1.7 or use of NOAC): No Symptoms suggest subarachnoid hemorrhage: No CT demonstrates multilobar infarct(>1/3 cerebral hemiphere): No Arterial puncture at noncompressible site in previous 7 days: No Blood glucose concentration less than 50mg/dL (2.7mmol/L): No - Relative Exclusion Criteria 0-3h Life expectancy <1yr/severe co-morbid illness/MANAGER MANAGING on admit: No : No Patient/family refused: No Rapid improvement: No Stroke severity too mild: Yes Recent acute FL (w/in previous 3 months): No Seizure at onset with postictal residual neuro impairments: No Major surgery or serious trauma w/in previous 14 days: No Recent GI or hemorrhage (w/in previous 21 days): No - Ineligibility reason(s) Reasons No tPA given: Outside of window - delayed arrival (outside 3.5hrs, mild symptoms) tPA Exclusion checklist 3-4.5h - Time Elapsed Date last known well: 09/16/19 Time last known well: 18:45 Elaspsed time: Day(s) and 7 Hour(s) and 5 Minutes Critical Care Time/MDM Note - Medical Decision Making Note: 09/16/19 22:00 CBC CMP trop coags HCG UA Utox EKG CXR head CT 1L NS reglan EKG shows NSR, flat T waves, HR 87, QTc 438 CXR shows ana basilar infiltrates, unchanged to 06/[address] shows no acute bleed/infarct/lesion CBC CMP coags UA normal, neg HCG, trop, UTox --- Nancy Morgan is a 39yF w PMHx bipolar and migraines presenting w slurred speech and headache 3.5hrs before admission concerning for post-ictal seizure vs TIA vs psychiatric. Upon arrival a code carrasco was initiated in the ED. Pt had slurred speech, R mouth droop, flat affect w delayed response w NIHSS score 2. No tPA given bc pt passed 3 hr threshold and mild symptoms. Head CT shows no acute bleed/infarct/lesion. No evidence of ACS (neg trop, NSR EKG) or lung infection or UTI or toxins. Not . Given 1L NS reglan for headache On reevaluation at 1130p, pt had normal speech, normal affect, no facial droop, regular response, no headache Admitted stroke Dr Christie for slurred speech Discharge - Discharge Information Problems reviewed: Yes Clinical Impression/Diagnosis: Slurred speech Condition: Improved - Follow up/Referral Referrals: Figueroa Gambino MD [Primary Care Provider] - - Patient Discharge Instructions - Post Discharge Activity
[2019-09-16] MEDS ORDERED: METOCLOPRAMIDE HCL INJECTION 10 MG/2 ML VIAL IVPUSH ONE (21:45)
[2019-09-16] MEDS ORDERED: SODIUM CHLORIDE 1,000 ML IV ONE (21:45)
[2019-09-16] MEDS ORDERED: METOCLOPRAMIDE HCL INJECTION 10 MG/2 ML VIAL ONE (21:57)
[2019-09-16 22:11] LABS: BASO % 0.5 % (0-2.0); EOS % 2.9 % (0-4.5); HEMATOCRIT 37.3 % (32.4-45.2); HEMOGLOBIN 12.7 GM/dL (10.7-15.3); LYMPH % 37.5 % (8-40); MCH 29.7 pg (25.7-33.7); MCHC 34.1 g/dl (32.0-36.0); MEAN CELL VOLUME 87.1 fl (80-96); MEAN PLT VOLUME 8.1 fl (7.5-11.1); MONO % 8.7 % (3.8-10.2); NEUT % 50.4 % (42.8-82.8); PLATELET COUNT 243 K/MM3 (134-434); RBC 4.29 M/mm3 (3.60-5.2); RDW 13.8 % (11.6-15.6)
[2019-09-16 22:23] LABS: INR 0.94 (0.83-1.09); PROTHROMBIN TIME (PATIENT) 11.1 SEC (9.7-13.0)
[2019-09-16 22:40] LABS: ALBUMIN 3.3 g/dl (3.4-5.0); BILIRUBIN,TOTAL 0.2 mg/dL (0.2-1); BLOOD UREA NITROGEN 14.9 mg/dL (7-18); CALCIUM 8.7 mg/dL (8.5-10.1); MAGNESIUM 1.9 mg/dL (1.8-2.4); PHOSPHOROUS 3.4 mg/dL (2.5-4.9); POTASSIUM 4.2 mmol/L (3.5-5.1); TOT PROT 6.9 g/dl (6.4-8.2)
[2019-09-16] MEDS ORDERED: ACETAMINOPHEN 1000 MG/100 ML VIAL (NON FORMULARY) IVPB ONE (22:40)
[2019-09-16] MEDS ORDERED: ACETAMINOPHEN INJECTION 100 ML IVPB ONE (23:00)
[2019-09-16 23:10] LABS: EPI CELLS 6.2 /HPF (0-5/HPF); HYALINE CASTS 5 /lpf (0-8); URINE APPEARANCE CLEAR; URINE BILIRUBIN NEGATIVE (NEGATIVE); URINE COLOR YELLOW; URINE GLUCOSE (UA) NEGATIVE (NEGATIVE); URINE KETONE NEGATIVE (NEGATIVE); URINE LEUK ESTERASE TRACE (NEGATIVE); URINE NITRITE NEGATIVE (NEGATIVE); URINE PROTEIN NEGATIVE (NEGATIVE); URINE RBC 1 /hpf (0-4); URINE UROBILINOGEN 0.2 mg/dL (0.2-1.0); URINE WBC 7 /hpf (0-5)
[2019-09-16 23:22] LABS: COCAINE, UR NEGATIVE ng/ml (CUTOFF=300); METHADONE, UR NEGATIVE ng/ml (CUTOFF=300); PHENCYCLIDINE,URINE NEGATIVE ng/ml (CUTOFF=25); URINE AMPHETAMINES NEGATIVE ng/ml (CUTOFF=500); URINE BENZODIAZEPINES NEGATIVE ng/ml (CUTOFF=200)
[2019-09-16 23:23] LABS: OPIATES, URI NEGATIVE ng/ml (CUTOFF=300); URINE BARBITURATES NEGATIVE ng/ml (CUTOFF=200)
--- NOTE | 2019-09-16 23:27 | PDOC ---
Documentation entered by Renetta Terrazas SCRIBE, acting as scribe for Andrade Drummond MD. Andrade Drummond MD: This documentation has been prepared by the idaliaibeMk Lincy, SCRIBE, under my direction and personally reviewed by me in its entirety. I confirm that the documentation accurately reflects all work, treatment, procedures, and medical decision making performed by me. Attending Attestation - Resident Resident Name: Marshall Brumfield - ED Attending Attestation I have performed the following: I have examined & evaluated the patient, The case was reviewed & discussed with the resident, I agree w/resident's findings & plan, Exceptions are as noted - HPI HPI: 09/16/19 21:54 39y F hx of bipolar disorder, migraines noted that she have b/l upper extermity numnbess and weakness, R facial numbness , slurred speech. Pt denies any headache 09/16/19 22:59 The patient is a 39-year-old female with a past medical history significant for Bipolar disorder and migraine who presents to the emergency department with bilateral upper extremity weakness, right facial numbness, and right mouth droop since around 6:00 pm today. The patient reports she woke from sleep with a frontal headache and facial pain, associated with slurred speech, right mouth drooping, right facial numbness, and bilateral upper extremity weakness. Denies fever, chest pain, nausea, vomiting, or IV drug use. The patient reports her usual migraine is to the occipital region, current pain is to the frontal area. - Physicial Exam PE: 09/16/19 22:16 GENERAL: The patient is awake, alert, and fully oriented, Nontoxic - in no acute distress. HEAD: Normocephalic, atraumatic. EYES: extraocular movements intact, sclera anicteric, conjunctiva clear. ENT: Normal voice, dry mucous membranes, NECK: Normal range of motion, supple LUNGS: Breath sounds equal, clear to auscultation bilaterally. No wheezes, no rhonchi, no rales. HEART: Regular rate and rhythm, normal S1 and S2 without murmur, rub or gallop. ABDOMEN: Soft, nontender, No guarding, no rebound. No CVA tenderness EXTREMITIES: Normal range of motion, no edema. PSYCH: Normal mood, flat affect. SKIN: Warm, Dry, normal turgor, NEURO: Mental status: The patient is oriented x3. Cranial nerves: EOMI, normal sensation symmetrically on the face, very faint droop of the lateral corner of the right lip without any flattening of the nasolabial fold, cranial nerve exam otherwise unremarkable Motor: The upper extremities are 5 over 5 in all muscle groups. The lower extremities are 5 over 5 in all muscle groups. Negative pronator drift Sensation: Sensation is intact to light touch throughout. romberg negative Cerebellar: [id number]-[id number] is normal in both upper extremities. Heel-knee- payne is normal in both lower extremities. rapid alternating movements are normal. Reflexes: 2+ and symmetric in the upper and lower extremities. Gait: deferred - Medical Decision Making 09/16/19 22:22 39y F hx of bipolar, migraines presents with onset of headache and facial weakness between 6-7pm -upon arrival a code carrasco was initiated in the ED. the patient did have mild slurring of speech as well as a very faint weakness in her right corner of the mouth however her rest of exam was unremarkable. CT head was negative Onset was approximately 4 hours prior to arrival. Patient does not meet criteria for TPA as she has passed 3.5 hours and due to very mild symptoms. We will treat the patient with Reglan, Toradol for her headache. Anticipate admission for neuro eval 09/16/19 23:41 pts labs reviewed pt back to [facility] now - her affect is also cmpletely different - and is esesntially normal. her weakness has ersulved. NIHSS is 0 unclear etiology o fwh happenned - with the affect chanes and weakness -? posible seizure/post ictal? - she denies any tounge biting or urinary incontinenc.e recommend admission, however pt Heart Score/ECG Review - ECG Impressions Comment:: 09/17/19 00:13 Twelve-lead EKG was performed and reviewed by me. There is normal sinus rhythm with a normal rate. Rate of 87 The axis is normal. The intervals are normal. There is normal R wave progression Nonspecific ST wave changes
--- NOTE | 2019-09-17 00:47 | PN ---
Teaching Attending Note Name of Resident: Kayleigh Akers ATTENDING PHYSICIAN STATEMENT I saw and evaluated the patient. I reviewed the resident's note and discussed the case with the resident. I agree with the resident's findings and plan as documented. SUBJECTIVE: 39-year-old woman w/ Bipolar disorder and migraine d/o reported right sided headache which started 1800 on 09/17, associated with right facial droop, right facial numbness, right arm weakness and slurred speech. Right sided headache started spontaneously and was not worsened by bright lights or loud sounds. She reports migraine attacks at least twice a month. Was on a prophylactic medication previously but not currently. Lost f/u with her old neurologist. Said that tylenol relieved her headache in er. She was a code young in ER. OBJECTIVE: Last Vital Signs Temp Pulse Resp BP Pulse Ox 98 F 79 18 139/84 99 09/16/19 21:22 09/16/19 22:10 09/16/19 21:22 09/16/19 21:22 09/16/19 22:10 heent - atraumatic , perrla neck - supple cv chest abdomen obese, soft, n neuro - slight dysarthria, no facial droop noted, CN intact aside from dysarhtria. 4/5 right sided handgrip, no hyperfelxia, finger to nose test was wnl b/l, neg babinski, no hyperreflexia Abnormal Lab Results 09/16/19 21:41 Random Glucose 107 H Albumin 3.3 L imaging studies appreciated head ct neg for acute insults ASSESSMENT AND PLAN: unilateral right sided headache associated with right facial droop, right facial numbness, probably a complex migraine with hemiplegia. I doubt CVA as this patient is generally young and lacks risk factors. -admit to telemetry -neurology evaluation -asa -tylenol prn if headache -echo,carotid duplex -brain mri only if neurology requests (doubt actual CVA) -dvt ppx
--- NOTE | 2019-09-17 02:52 | HP ---
CHIEF COMPLAINT: slurred speech, facial drooping PCP: HISTORY OF PRESENT ILLNESS: 39F w/ pmh of cervical cancer(s/p hysterectomy), bipolar, chronic migraines presenting with complaint of sudden onset Right-sided numbness, speech slurring , Right-sided Headache, at ~18:30 - 19:00. States that her tongue felt full and wouldn't stay in her mouth. Denies h/o stroke, TIA, [place], recent trauma. Has had migraines x2 q-monthly, w/o specific auditory, olfactory triggers. Takes motrin for migraines. Used to see a Neurologist for migraines. LMP was 2ys prior, due to hysterectomy. ER course was notable for: (1) NIHSS ~2 d/t Right-sided facial droop, slurred speech; Code [place] (2) CT H: neg (3) NIHSS ~0 prior to admission decision (4) UDS neg (5) troponin neg Recent Travel: none PAST MEDICAL HISTORY: cervical cancer(s/p hysterectomy), bipolar, chronic migraines PAST SURGICAL HISTORY: hysterectomy Social History: Smoking: current active smoker Alcohol: social Drugs: drugs Allergies No Known Drug Allergies Allergy (Verified 09/16/19 21:25) peanut Allergy (Verified 09/16/19 21:25) Rash shellfish derived Allergy (Verified 09/16/19 21:25) HOME MEDICATIONS: Home Medications Medication Instructions Recorded clonazePAM [Klonopin -] 2 mg PO TID 01/10/19 Aripiprazole [Abilify -] 30 mg PO DAILY 05/20/19 REVIEW OF SYSTEMS CONSTITUTIONAL: Absent: fever, chills, diaphoresis, generalized weakness, malaise, loss of appetite, weight change HEENT: Absent: rhinorrhea, nasal congestion, throat pain, throat swelling, difficulty swallowing, mouth swelling, ear pain, eye pain CARDIOVASCULAR: Absent: chest pain, syncope, palpitations, irregular heart rate, lightheadedness , peripheral edema RESPIRATORY: Absent: cough, shortness of breath, dyspnea with exertion, orthopnea, wheezing, stridor, hemoptysis GASTROINTESTINAL: Absent: abdominal pain, abdominal distension, nausea, vomiting, diarrhea, constipation, melena, hematochezia GENITOURINARY: Absent: dysuria, frequency, urgency, hesitancy, hematuria, flank pain, genital pain MUSCULOSKELETAL: Absent: myalgia, arthralgia, joint swelling, back pain, neck pain SKIN: Absent: rash, itching, pallor HEMATOLOGIC/IMMUNOLOGIC: Absent: easy bleeding, easy bruising, lymphadenopathy, frequent infections ENDOCRINE: Absent: unexplained weight gain, unexplained weight loss, heat intolerance, cold intolerance NEUROLOGIC: Right-sided BAR, Right-sided facial droop, slurred speech Absent: focal weakness or paresthesias, dizziness, unsteady gait, seizure, mental status changes, bladder or bowel incontinence PHYSICAL EXAMINATION Vital Signs - 24 hr 09/16/19 09/16/19 21:22 22:10 Temperature 98 F Pulse Rate 93 H 79 Respiratory 18 Rate Blood Pressure 139/84 O2 Sat by Pulse 99 99 Oximetry (%) GENERAL: Awake, alert, and fully oriented, in no acute distress. HEAD: NC/AT EYES: Pupils equal, round and reactive to light, extraocular movements intact, sclera anicteric, conjunctiva clear. EARS, NOSE, THROAT: Ears normal, nares patent, oropharynx clear without exudates. Moist mucous membranes. No tongue deviation NECK: Normal range of motion, supple without lymphadenopathy, JVD, or masses. LUNGS: Breath sounds equal, clear to auscultation bilaterally. No wheezes, and no crackles. No accessory muscle use. HEART: Regular rate and rhythm, normal S1 and S2 without murmur, rub or gallop. ABDOMEN: Soft, nontender, not distended, no guarding, no rebound, no masses. MUSCULOSKELETAL: Normal range of motion at all joints. No bony deformities or tenderness. No CVA tenderness. UPPER EXTREMITIES: 2+ pulses, warm, well-perfused. No cyanosis. No peripheral edema. LOWER EXTREMITIES: 2+ pulses, warm, well-perfused. No calf tenderness. No peripheral edema. NEUROLOGICAL: No visual field defects. Cranial nerves II-XII intact. Normal speech. Normal 2+ reflexes of Antecubital, Knees. 4/5 Title Supervisor Strength of Right hand. NIHSS 0 SKIN: Warm, dry, normal turgor, no rashes or lesions noted, normal capillary refill. Laboratory Results - last 24 hr 09/16/19 09/16/19 09/16/19 21:41 21:41 21:41 WBC 5.0 RBC 4.29 Hgb 12.7 Hct 37.3 MCV 87.1 MCH 29.7 MCHC 34.1 RDW 13.8 Plt Count 243 MPV 8.1 Absolute Neuts (auto) 2.5 Neutrophils % 50.4 Lymphocytes % 37.5 Monocytes % 8.7 Eosinophils % 2.9 Basophils % 0.5 Nucleated RBC % 0 PT with INR INR Sodium Potassium Chloride Carbon Dioxide Anion Gap BUN Creatinine Est GFR (CKD-EPI)AfAm Est GFR (CKD-EPI)NonAf Random Glucose Calcium Phosphorus Magnesium Total Bilirubin AST ALT Alkaline Phosphatase Creatine Kinase 175 Creatine Kinase Index 0.6 CK-MB (CK-2) 1.2 Troponin I < 0.02 Total Protein Albumin Beta HCG, Quant < 1.0 Urine Color Urine Appearance Urine pH Ur Specific Perry Urine Protein Urine Glucose (UA) Urine Ketones Urine Blood Urine Nitrite Urine Bilirubin Urine Urobilinogen Ur Leukocyte Esterase Urine WBC (Auto) Urine RBC (Auto) Urine Casts (Auto) U Epithel Cells (Auto) Urine Bacteria (Auto) Opiates Screen Methadone Screen Barbiturate Screen Phencyclidine Screen Ur Amphetamines Screen MDMA (Ecstasy) Screen Benzodiazepines Screen Cocaine Screen U Marijuana (THC) Screen 09/16/19 09/16/19 09/16/19 21:41 21:41 23:00 WBC RBC Hgb Hct MCV MCH MCHC RDW Plt Count MPV Absolute Neuts (auto) Neutrophils % Lymphocytes % Monocytes % Eosinophils % Basophils % Nucleated RBC % PT with INR 11.10 INR 0.94 Sodium 138 Potassium 4.2 Chloride 107 Carbon Dioxide 22 Anion Gap 8 BUN 14.9 Creatinine 1.0 Est GFR (CKD-EPI)AfAm 81.04 Est GFR (CKD-EPI)NonAf 69.92 Random Glucose 107 H Calcium 8.7 Phosphorus 3.4 Magnesium 1.9 Total Bilirubin 0.2 AST 23 ALT 37 Alkaline Phosphatase 49 Creatine Kinase Creatine Kinase Index CK-MB (CK-2) Troponin I Total Protein 6.9 Albumin 3.3 L Beta HCG, Quant Urine Color Urine Appearance Urine pH Ur Specific Perry Urine Protein Urine Glucose (UA) Urine Ketones Urine Blood Urine Nitrite Urine Bilirubin Urine Urobilinogen Ur Leukocyte Esterase Urine WBC (Auto) Urine RBC (Auto) Urine Casts (Auto) U Epithel Cells (Auto) Urine Bacteria (Auto) Opiates Screen Negative Methadone Screen Negative Barbiturate Screen Negative Phencyclidine Screen Negative Ur Amphetamines Screen Negative MDMA (Ecstasy) Screen Negative Benzodiazepines Screen Negative Cocaine Screen Negative U Marijuana (THC) Screen Negative 09/16/19 23:00 WBC RBC Hgb Hct MCV MCH MCHC RDW Plt Count MPV Absolute Neuts (auto) Neutrophils % Lymphocytes % Monocytes % Eosinophils % Basophils % Nucleated RBC % PT with INR INR Sodium Potassium Chloride Carbon Dioxide Anion Gap BUN Creatinine Est GFR (CKD-EPI)AfAm Est GFR (CKD-EPI)NonAf Random Glucose Calcium Phosphorus Magnesium Total Bilirubin AST ALT Alkaline Phosphatase Creatine Kinase Creatine Kinase Index CK-MB (CK-2) Troponin I Total Protein Albumin Beta HCG, Quant Urine Color Yellow Urine Appearance Clear Urine pH 5.0 Ur Specific Perry 1.028 Urine Protein Negative Urine Glucose (UA) Negative Urine Ketones Negative Urine Blood Negative Urine Nitrite Negative Urine Bilirubin Negative Urine Urobilinogen 0.2 Ur Leukocyte Esterase Trace Urine WBC (Auto) 7 Urine RBC (Auto) 1 Urine Casts (Auto) 5 U Epithel Cells (Auto) 6.2 Urine Bacteria (Auto) 227.0 Opiates Screen Methadone Screen Barbiturate Screen Phencyclidine Screen Ur Amphetamines Screen MDMA (Ecstasy) Screen Benzodiazepines Screen Cocaine Screen U Marijuana (THC) Screen ASSESSMENT/PLAN: 39F w/ pmh of cervical cancer(s/p hysterectomy), bipolar, chronic migraines presented with transient Right-sided facial droop w/a slurring of speech likely 2/2 migraine-related. #slurred speech, facial droop -- resolved -- unlikely CVA, more likely related to migraines - no TPA due to being outside of stroke window > CTH(09/17/19): neg > UDS: all neg - ASA 162mg --unlikely CVA but drug is relatively benign - fu neurology consult - possible carotid duplex - possible echo - possible MRI brain - tele admission #chronic migraines - acetaminophen for pain PRN - fu neurology consult #bipolar - med rec needs to be done prior to resuming home meds #FEN - low salt/sugar diet #DVT ppx -lovenox Visit type - Emergency Visit Emergency Visit: Yes ED Registration Date: 09/16/19 Care time: The patient presented to the Emergency Department on the above date and was hospitalized for further evaluation of their emergent condition. - New Patient This patient is new to me today: Yes Date on this admission: 09/17/19 - Critical Care Critical Care patient: No ATTENDING PHYSICIAN STATEMENT I saw and evaluated the patient. I reviewed the resident's note and discussed the case with the resident. I agree with the resident's findings and plan as documented. SUBJECTIVE: OBJECTIVE: ASSESSMENT AND PLAN:
[2019-09-17] MEDS ORDERED: MAGNESIUM OXIDE 400 MG TABLET (FP) PO ONE (05:45)
[2019-09-17] MEDS ORDERED: ACETAMINOPHEN 325 MG TABLET (FP) PO PRN (05:48)
[2019-09-17] MEDS ORDERED: PT OWN MED DRAWER 7, Y5N ONE ×2 (09:12→20:46)
[2019-09-17] MEDS: OSELTAMIVIR PHOSPHATE 75 MG CAPSULE PO SCH ×2 (09:40→21:03)
[2019-09-17] MEDS ORDERED: ASPIRIN COATED 81 MG TABLET.EC PO SCH (10:00)
[2019-09-17] MEDS ORDERED: FLU VACCINE QUAD 60 MCG/0.5 ML (MDV 19-20) IM ONE (10:00)
[2019-09-17] MEDS ORDERED: ENOXAPARIN NA (PORCINE) 40 MG/0.4 ML DISP.SYRIN SQ SCH (10:00)
--- NOTE | 2019-09-17 12:26 | CON.NEURO ---
Consult - History of Present Illness History of Present Illness: Neurology Coverage for Dr WU 39F w/ pmh of cervical cancer(s/p hysterectomy), bipolar, chronic migraines presenting with complaint of sudden onset Right-sided numbness, speech slurring , Right-sided Headache, at ~18:30 - 19:00. States that her tongue felt full and wouldn't stay in her mouth. Denies h/o stroke, TIA, [place], recent trauma. Has had migraines x2 q-monthly, w/o specific auditory, olfactory triggers. Takes motrin for migraines. Used to see a Neurologist for migraines. LMP was 2ys prior, due to hysterectomy. feeling better , BAR improved, though tongue still feels heavy. - Past Medical History Pulmonary: Yes: Other (+ smoker). No: Asthma ...LMP: 12/31/18 - Alcohol/Substance Use Hx Alcohol Use: No - Smoking History Smoking history: Current every day smoker Have you smoked in the past 12 months: Yes Aproximately how many cigarettes per day: 5 If you are a former smoker, when did you quit?: 1 week - Social History History of Recent Travel: No Home Medications - Allergies Allergies/Adverse Reactions: Allergies Allergy/AdvReac Type Severity Reaction Status Date / Time No Known Drug Allergies Allergy Verified 09/16/19 21:25 peanut Allergy Rash Verified 09/16/19 21:25 shellfish derived Allergy Verified 09/16/19 21:25 - Home Medications Home Medications: Ambulatory Orders clonazePAM [Klonopin -] 2 mg PO TID 01/10/19 Aripiprazole [Abilify -] 30 mg PO DAILY 05/20/19 Physical Exam-Neuro Vital Signs: Vital Signs Temperature 97.8 F 09/17/19 10:00 Pulse Rate 73 09/17/19 10:00 Respiratory Rate 22 H 09/17/19 10:00 Blood Pressure 134/90 09/17/19 10:00 O2 Sat by Pulse Oximetry (%) 97 09/17/19 09:00 Labs: CBC, BMP 09/16/19 21:41 09/16/19 21:41 INR, PTT INR 0.94 (0.83-1.09) 09/16/19 21:41 - Neuro Exam Level Of Consciousness: Yes: Alert (EOMi, mild dysrthria continues , no focal weakness, numbness , nonfocal ) Imaging - Results Cat Scan: Report Reviewed, Image Reviewed Problem List - Problems (1) Migraine Code(s): G43.909 - MIGRAINE, UNSP, NOT INTRACTABLE, WITHOUT STATUS MIGRAINOSUS (2) Slurred speech Code(s): R47.81 - SLURRED SPEECH Assessment/Plan 39F w/ pmh of cervical cancer(s/p hysterectomy), bipolar, chronic migraines presenting with complaint of sudden onset Right-sided numbness, speech slurring , Right-sided Headache, at ~18:30 - 19:00. States that her tongue felt full and wouldn't stay in her mouth. Denies h/o stroke, TIA, [place], recent trauma. Has had migraines x2 q-monthly, w/o specific auditory, olfactory triggers. Takes motrin for migraines. Used to see a Neurologist for migraines. LMP was 2ys prior, due to hysterectomy. feeling better , BAR improved, though tongue still feels heavy. AP : chronic migraines with transient R sided numbness and slight dysarthria dysarthria continues -- although migraine possible , her BAR resolved and dysarthria continues would check MRI BRAIN with Meseret ( HX of CA ) if (-) then can DC and can FU as outpt DR DEXTER
--- NOTE | 2019-09-17 13:52 | PN ---
Progress Note (short form) - Note Progress Note: Patient seen and examined at bedside no events overnight feels better today still with dysarthria and speaking like her tongue is heavy or as if there is something in her mouth which she says is not her baseline on exam she is AAOx3 with dysarthria RRR CTAB soft, obese non tender abdomen on neuro exam CN 2-12 intact. global muscle strength 5/5 neuro consult noted and appreciated-discussed with Dr. Payne face to face. Will get MRI with gadolinium if negative can discharge and follow up as outpatient please see H&P done earlier this AM Visit type - Emergency Visit Emergency Visit: Yes ED Registration Date: 09/16/19 Care time: The patient presented to the Emergency Department on the above date and was hospitalized for further evaluation of their emergent condition. - New Patient This patient is new to me today: Yes Date on this admission: 09/17/19 - Critical Care Critical Care patient: No
--- NOTE | 2019-09-17 20:20 | EKG ---
Test Reason : Blood Pressure : / mmHG Vent. Rate : 087 BPM Atrial Rate : 087 BPM P-R Int : 146 ms QRS Dur : 090 ms QT Int : 364 ms P-R-T Axes : 049 029 018 degrees QTc Int : 438 ms NORMAL SINUS RHYTHM NONSPECIFIC T WAVE ABNORMALITY ABNORMAL ECG WHEN COMPARED WITH ECG OF 28-AUG-2019 20:38, NO SIGNIFICANT CHANGE WAS FOUND Confirmed by MD JENNY, SANDY ([id number]) on 09/17/2019 8:20:00 PM Referred By: Confirmed By:SANDY ALVARADO MD
[2019-09-17 22:50] VITALS: BP 118/74; PULSE 88; TEMP 97.7
--- NOTE | 2019-09-18 07:29 | DS ---
Physical Examination Vital Signs: Vital Signs Temperature 97.7 F 09/17/19 22:00 Pulse Rate 88 09/17/19 22:00 Respiratory Rate 19 09/17/19 22:00 Blood Pressure 118/74 09/17/19 22:00 O2 Sat by Pulse Oximetry (%) 98 09/17/19 21:25 Findings/Remarks: patient left AMA no exam Labs: CBC, BMP 09/16/19 21:41 09/16/19 21:41 Discharge Summary Problems reviewed: Yes Reason For Visit: SLURRED SPEECH Hospital Course: 39F w/ pmh of cervical cancer(s/p hysterectomy), bipolar, chronic migraines presenting with complaint of sudden onset Right-sided numbness, speech slurring , Right-sided Headache. States that her tongue felt full and wouldn't stay in her mouth. Denies h/o stroke, TIA, CT, recent trauma. Has had migraines x2 q- monthly, w/o specific auditory, olfactory triggers. Takes motrin for migraines. Used to see a Neurologist for migraines. LMP was 2ys prior, due to hysterectomy. Patient was seen by neurology and had MRI of brain with gadolinium which did not show any acute stroke. Patient left AMA last night. Plan was to discharge patient this AM if MRI was without acute findings with follow up to Dr. payne. Patient still had tongue heaviness. Senior on team to call patient to give her Dr. payne follow up information today. Condition: Stable - Instructions Diet, Activity, Other Instructions: please follow up with your primary care doctor please follow up with Dr. Payne from neurology Referrals: London Payne DO [Staff Physician] - 2 Weeks Figueroa Gambino MD [Primary Care Provider] - Disposition: AGAINST MEDICAL ADVICE - Home Medications Comprehensive Discharge Medication List: Ambulatory Orders clonazePAM [KlonoPIN -] 2 mg PO TID 01/10/19 Aripiprazole [Abilify -] 30 mg PO DAILY 05/20/19 This patient is new to me today: No Emergency Visit: Yes ED Registration Date: 09/16/19 Care time: The patient presented to the Emergency Department on the above date and was hospitalized for further evaluation of their emergent condition. Critical Care patient: No - Discharge Referral Referred to [facility] No
== END 2019-09-17 23:00 | disposition left against medical advice (07) | DRG 54 ==
LOC: JER 21:18 → JERBED 23:59 → J4W 09-17 04:03
PROVIDERS: ADMIT Internal Medicine; ATTEND Internal Medicine
DX: G43.909 Migraine, unspecified, not intractable, without status migrainosus (principal); R47.81 Slurred speech; R47.1 Dysarthria and anarthria; F17.210 Nicotine dependence, cigarettes, uncomplicated; R20.0 Anesthesia of skin; R29.810 Facial weakness; F31.9 Bipolar disorder, unspecified; E66.9 Obesity, unspecified; Z68.38 Body mass index [BMI] 38.0-38.9, adult
CPT/HCPCS: 36415; 70450-TC; 70552-TC; 71045-TC-FY; 80053; 80307; 81003; 82550; 82553; 82962; 83735; 84100; 84484; 84702; 85025; 85610; 87086; 93005; 93010; 99285-25; A9579; J7030; Q2036

== ENCOUNTER 2019-10-25 09:54 | Inpatient (IN) | payer OTHER ==
[2019-10-25 10:04] VITALS: BMI 45.4
--- NOTE | 2019-10-25 10:44 | PDOC ---
History of Present Illness <ZacharyAsh - Last Filed: 10/25/19 11:27> - General History Source: Patient - History of Present Illness Timing/Duration: reports: this morning Severity: reports: moderate Associated Symptoms: reports: shortness of breath. denies: cough, fever/chills <Jaelyn Armando - Last Filed: 10/25/19 18:37> - General Chief Complaint: Shortness of Breath Stated Complaint: CHEST PAIN/ CONGESTED/ SOB Time Seen by Provider: 10/25/19 10:24 Past History <ZacharyAsh - Last Filed: 10/25/19 11:27> - Past Medical History Cancer: Yes (cervical) Cardiac Disorders: No COPD: No DVT: No Dementia: No Diabetes: No GI Disorders: No Disorders: No Liver Disease: No Psychiatric Problems: Yes (BIPOLAR, anxiety) Seizures: No Thyroid Disease: No - Surgical History Abdominal Surgery: Yes (ANA FALLOPIAN TUBES REMOVAL, cervix removed) Neurologic Surgery: No - Reproductive History (#): 2 Para: 2 Cervical CA: Yes Dysfunctional Uterine Bleeding: No Ectopic : No Endometrial CA: No Polycystic Ovaries: No Therapeutic (s) & number: No Tubal Ligation: No Spontaneous : 0 - Immunization History Td Vaccination: Yes TDAP Vaccination: Yes Immunization Up to Date: Yes - Psycho Social/Smoking Cessation Hx Smoking Status: Yes (QUIT 2007) Smoking History: Current every day smoker Have you smoked in the past 12 months: Yes Number of Cigarettes Smoked Daily: 4 If you are a former smoker, when did you quit?: 1 week Information on smoking cessation initiated: No 'Breaking Loose' booklet given: 09/17/19 Hx Alcohol Use: No Drug/Substance Use Hx: No Substance Use Type: None Hx Substance Use Treatment: No <Jaelyn Armando - Last Filed: 10/25/19 18:37> - Past Medical History Allergies/Adverse Reactions: Allergies Allergy/AdvReac Type Severity Reaction Status Date / Time No Known Drug Allergies Allergy Verified 10/25/19 10:04 peanut Allergy Rash Verified 10/25/19 10:04 shellfish derived Allergy Verified 10/25/19 10:04 Home Medications: Ambulatory Orders clonazePAM [KlonoPIN -] 2 mg PO TID 01/10/19 Aripiprazole [Abilify -] 30 mg PO HS 05/20/19 Respiratory Specific PMHX - Complaint Specific PMHX Hx Pulmonary Embolus: No <TrJaelyn Last Filed: 10/25/19 18:37> Review of Systems - Review of Systems Constitutional: No: Chills, Fever Respiratory: Yes: Shortness of Breath. No: Cough, Wheezing, Hemoptysis Cardiac (ROS): Yes: Chest Pain. No: Palpitations <TrJaelyn - Last Filed: 10/25/19 18:37> *Physical Exam - Vital Signs Last Vital Signs Temp Pulse Resp BP Pulse Ox 97.7 F 100 H 16 131/86 99 10/25/19 10:00 10/25/19 10:00 10/25/19 10:00 10/25/19 10:00 10/25/19 10:00 <Ash Sharma - Last Filed: 10/25/19 11:27> - Vital Signs Last Vital Signs Temp Pulse Resp BP Pulse Ox 97.7 F 100 H 16 131/86 99 10/25/19 10:00 10/25/19 10:00 10/25/19 10:00 10/25/19 10:00 10/25/19 10:00 - Physical Exam General Appearance: Yes: Appropriately Dressed, Mild Distress HEENT: positive: Normal Voice Neck: positive: Supple Respiratory/Chest: positive: Lungs Clear, Normal Breath Sounds. negative: Respiratory Distress Cardiovascular: positive: Regular Rate, S1, S2, Tachycardia Gastrointestinal/Abdominal: positive: Soft. negative: Tender Extremity: positive: Pedal Edema Integumentary: positive: Dry, Warm Neurologic: positive: Fully Oriented, Alert, Normal Mood/Affect, Motor Strength 5/5 <TrJaelyn - Last Filed: 10/25/19 18:37> Heart Score/ECG Review #1 ECG reviewed & interpreted by me at: 09:59 General ECG Interpretation: Sinus Rhythm, Normal Rate (89), Normal Intervals ( qtc 438), No acute ischemic changes <Ash Sharma - Last Filed: 10/25/19 11:27> ED Treatment Course - LABORATORY CBC & Chemistry Diagram: 10/25/19 11:40 10/25/19 11:40 <Jaelyn Armando - Last Filed: 10/25/19 18:37> Medical Decision Making - Medical Decision Making 10/25/19 10:40 39 female history of cervical cancer, s/p surgery 2 years ago at [facility], here with sudden onset shortness of breath w/ severe L sided CP that started this am while talking to her sister on the phone. Denies palpitations, leg pain, swelling, diaphoresis, nausea, vomiting, cough, fever or chills. No history of similar symptoms see exam R/o PE, less likely ACS or infection Tachy to 100 and esme very uncomfortable Placed on monitor EKG wnl -labs and CTA (shellfish allergy but no longer contraindication for IV dye and pt s/p multiple contrast study including 05/18 at [facility] per records) -dipso pending 10/25/19 14:45 CTA read as filling defect in right lower lobe. Study limited for confirmation given opacity of pulmonary arterial tree per radiology. Given history and how patient presented, will treat for PE. Pt stable at present. Will arrange admission at this time <Jaelyn Armando - Last Filed: 10/25/19 18:37> Discharge <Ash Sharma - Last Filed: 10/25/19 11:27> - Discharge Information Problems reviewed: Yes - Admission Yes <Jaelyn Armando - Last Filed: 10/25/19 18:37> - Discharge Information Clinical Impression/Diagnosis: Precordial chest pain, SOB (shortness of breath) Pulmonary embolism Qualifiers: Pulmonary embolism type: unspecified Chronicity: acute Acute cor pulmonale presence: unspecified Qualified Code(s): I26.99 - Other pulmonary embolism without acute cor pulmonale Condition: Fair
--- NOTE | 2019-10-25 11:58 | PDOC ---
*Physical Exam - Vital Signs Last Vital Signs Temp Pulse Resp BP Pulse Ox 97.7 F 100 H 16 131/86 99 10/25/19 10:00 10/25/19 10:00 10/25/19 10:00 10/25/19 10:00 10/25/19 10:00 ED Treatment Course - LABORATORY CBC & Chemistry Diagram: 10/26/19 06:27 10/26/19 06:27 Medical Decision Making - Medical Decision Making 10/25/19 11:48 Patient seen and evaluated with the nurse practitioner. I agree with the overall evaluation, assessment, and management with the following summary of visit: 39-year-old female presents with acute onset of shortness of breath today, slight tachycardia triage but not hypoxic, afebrile. symmetric and clear breath sounds. agree with exam as noted labs cxr r/o ptx, cta chest given suspicion for PE EKG improved heart rate and sinus without ischemia/strain dispo accordingly Discharge - Discharge Information Problems reviewed: Yes Clinical Impression/Diagnosis: Precordial chest pain, SOB (shortness of breath) Pulmonary embolism Qualifiers: Pulmonary embolism type: unspecified Chronicity: unspecified Acute cor pulmonale presence: unspecified Qualified Code(s): I26.99 - Other pulmonary embolism without acute cor pulmonale Condition: Guarded Disposition: AGAINST MEDICAL ADVICE - Follow up/Referral - Patient Discharge Instructions - Post Discharge Activity
[2019-10-25 11:59] LABS: BASO % 1.4 % (0-2.0); HEMATOCRIT 38.8 % (32.4-45.2); HEMOGLOBIN 13.1 GM/dL (10.7-15.3); MCH 29.5 pg (25.7-33.7); MCHC 33.8 g/dl (32.0-36.0); MEAN CELL VOLUME 87.2 fl (80-96); MEAN PLT VOLUME 7.9 fl (7.5-11.1); MONO % 7.2 % (3.8-10.2); NEUT % 59.4 % (42.8-82.8); PLATELET COUNT 248 K/MM3 (134-434); RBC 4.45 M/mm3 (3.60-5.2); RDW 13.6 % (11.6-15.6); WHITE BLOOD COUNT 5.4 K/mm3 (4.0-10.0)
[2019-10-25 12:08] LABS: INR 0.97 (0.83-1.09); PROTHROMBIN TIME (PATIENT) 11.4 SEC (9.7-13.0)
[2019-10-25 12:28] LABS: ALBUMIN 3.4 g/dl (3.4-5.0); ALK PHOS 51 U/L (45-117); ANION GAP 6 MMOL/L (8-16); BILIRUBIN,TOTAL 0.3 mg/dL (0.2-1); BLOOD UREA NITROGEN 13.9 mg/dL (7-18); CALCIUM 9.2 mg/dL (8.5-10.1); CHLORIDE 108 mmol/L (98-107); CO2 22 mmol/L (21-32); CREATININE 0.8 mg/dL (0.55-1.3); GLUCOSE,RANDOM 78 mg/dL (74-106); POTASSIUM 5.1 mmol/L (3.5-5.1); SGOT/AST 31 U/L (15-37); SGPT/ALT 35 U/L (13-61); SODIUM 136 mmol/L (136-145); TOT PROT 7.3 g/dl (6.4-8.2)
[2019-10-25] MEDS ORDERED: ENOXAPARIN NA (PORCINE) 120 MG/0.8 ML DISP.SYRIN SQ SCH (14:45)
[2019-10-25] MEDS ORDERED: ENOXAPARIN NA (PORCINE) 60 MG/0.6 ML DISP.SYRIN SQ ONE ×3 (15:18→23:36)
[2019-10-25] MEDS ORDERED: ENOXAPARIN NA (PORCINE) 60 MG/0.6 ML DISP.SYRIN SQ SCH (15:30)
--- NOTE | 2019-10-25 15:45 | HP ---
CHIEF COMPLAINT: chest pain/shortness of breath PCP: HISTORY OF PRESENT ILLNESS: Patient is a 39 year old female with a significant past medical history of cervical cancer, s/p surgery in 2016 at [facility], daily smoker and morbid obesity. Patient presents to the ED with sudden onset shortness of breath with left sided chest pain that started this morning while speaking with her sister this morning. Patient denies any leg pain, swelling, diaphoresis, nausea, vomiting, cough, fever or chills. No history of similar symptoms in the past. In the ED a CTA was performed which shows as a possible filling defect in the right lower lobe, but study limited for confirmation given opacity of pulmonary arterial tree per radiology report. Patient was given Lovenox 120mg once in the ED and is being admitted for chest pain and will be monitored on tele. Pulmonary consult for possible PE. ER course was notable for: (1) lovenox 120mg x 1 (2) sinus rhythm, heart rate 89s. qtc 438 Recent Travel: denies PAST MEDICAL HISTORY: cervical cancer, s/p surgery in 2016 at [facility], daily smoker and morbid obesity. PAST SURGICAL HISTORY: Social History: Smokin cigarettes per day Alcohol: denies Drugs: denies Allergies No Known Drug Allergies Allergy (Verified 10/25/19 10:04) peanut Allergy (Verified 10/25/19 10:04) Rash shellfish derived Allergy (Verified 10/25/19 10:04) HOME MEDICATIONS: Home Medications Medication Instructions Recorded clonazePAM [KlonoPIN -] 2 mg PO TID 01/10/19 Aripiprazole [Abilify -] 30 mg PO DAILY 05/20/19 PHYSICAL EXAMINATION Vital Signs - 24 hr 10/25/19 10:00 Temperature 97.7 F Pulse Rate 100 H Respiratory 16 Rate Blood Pressure 131/86 O2 Sat by Pulse 99 Oximetry (%) GENERAL: Awake, alert, and fully oriented, in no acute distress. HEAD: Normal with no signs of trauma. EYES: Pupils equal, round and reactive to light, extraocular movements intact, sclera anicteric, conjunctiva clear. No lid lag. EARS, NOSE, THROAT: Ears normal, nares patent, oropharynx clear without exudates. Moist mucous membranes. NECK: Normal range of motion, supple without lymphadenopathy, JVD, or masses. LUNGS: Breath sounds equal, clear to auscultation bilaterally. No wheezes, and no crackles. No accessory muscle use. HEART: Regular rate and rhythm, ABDOMEN: Soft, nontender, not distended, normoactive bowel sounds, no guarding, no rebound, no masses. No hepatomegaly or splenomegaly. MUSCULOSKELETAL: Normal range of motion at all joints. No bony deformities or tenderness. No CVA tenderness. UPPER EXTREMITIES: . No clubbing. No peripheral edema. LOWER EXTREMITIES: No calf tenderness. No peripheral edema. NEUROLOGICAL: Cranial nerves II-XII intact. Normal speech. Normal gait. PSYCHIATRIC: Cooperative. Good eye contact. Appropriate mood and affect. SKIN: Warm, dry, normal turgor, no rashes or lesions noted, normal capillary refill. Laboratory Results - last 24 hr 10/25/19 10/25/19 10/25/19 11:40 11:40 11:40 WBC 5.4 RBC 4.45 Hgb 13.1 Hct 38.8 MCV 87.2 MCH 29.5 MCHC 33.8 RDW 13.6 Plt Count 248 MPV 7.9 Absolute Neuts (auto) 3.2 Neutrophils % 59.4 Lymphocytes % 30.0 Monocytes % 7.2 Eosinophils % 2.0 Basophils % 1.4 Nucleated RBC % 0 PT with INR 11.40 INR 0.97 Sodium 136 Potassium 5.1 Chloride 108 H Carbon Dioxide 22 Anion Gap 6 L BUN 13.9 Creatinine 0.8 Est GFR (CKD-EPI)AfAm 106.13 Est GFR (CKD-EPI)NonAf 91.57 Random Glucose 78 Calcium 9.2 Total Bilirubin 0.3 AST 31 ALT 35 Alkaline Phosphatase 51 Troponin I < 0.02 Total Protein 7.3 Albumin 3.4 Urine HCG, Qual Blood Type Antibody Screen 10/25/19 10/25/19 11:40 14:50 WBC RBC Hgb Hct MCV MCH MCHC RDW Plt Count MPV Absolute Neuts (auto) Neutrophils % Lymphocytes % Monocytes % Eosinophils % Basophils % Nucleated RBC % PT with INR INR Sodium Potassium Chloride Carbon Dioxide Anion Gap BUN Creatinine Est GFR (CKD-EPI)AfAm Est GFR (CKD-EPI)NonAf Random Glucose Calcium Total Bilirubin AST ALT Alkaline Phosphatase Troponin I Total Protein Albumin Urine HCG, Qual Negative Blood Type AB POSITIVE Antibody Screen Negative ASSESSMENT/PLAN: Problem List - Problem (1) Pulmonary embolism Assessment/Plan: chest cta with possible PE, patient presents with acute shortness of breath with a hx of cervical cancer s/p surgery on 2016. She is also morbidly obese and a current every day smoker. will order vascular doppler, echo and d dimer pulmonary consult to rule out PE on lovenox 120mg BID Code(s): I26.99 - OTHER PULMONARY EMBOLISM WITHOUT ACUTE COR PULMONALE Qualifiers: Pulmonary embolism type: unspecified Chronicity: acute Acute cor pulmonale presence: unspecified Qualified Code(s): I26.99 - Other pulmonary embolism without acute cor pulmonale (2) Chest pain Assessment/Plan: chest pain with associated shortness of breath monitor on tele, trend troponins repeat ekg echo, hmga1c and lipid panel ordered cardiology consult Code(s): R07.9 - CHEST PAIN, UNSPECIFIED (3) SOB (shortness of breath) Assessment/Plan: resolved, tolerating room air monitor airway Code(s): R06.02 - SHORTNESS OF BREATH Visit type - Emergency Visit Emergency Visit: Yes ED Registration Date: 10/25/19 Care time: The patient presented to the Emergency Department on the above date and was hospitalized for further evaluation of their emergent condition. - New Patient This patient is new to me today: Yes Date on this admission: 10/25/19 - Critical Care Critical Care patient: No
[2019-10-25 17:25] LABS: URINE APPEARANCE CLOUDY; URINE BILIRUBIN NEGATIVE (NEGATIVE); URINE COLOR YELLOW; URINE GLUCOSE (UA) NEGATIVE (NEGATIVE); URINE KETONE NEGATIVE (NEGATIVE)
[2019-10-25 17:26] LABS: URINE LEUK ESTERASE NEGATIVE (NEGATIVE); URINE NITRITE NEGATIVE (NEGATIVE); URINE PROTEIN NEGATIVE (NEGATIVE); URINE UROBILINOGEN 0.2 mg/dL (0.2-1.0)
[2019-10-25] MEDS ORDERED: clonazePAM 2 MG TABLET PO PRN (18:06)
--- NOTE | 2019-10-25 18:19 | PDOC ---
History of Present Illness - General Chief Complaint: Shortness of Breath Stated Complaint: CHEST PAIN/ CONGESTED/ SOB Time Seen by Provider: 10/25/19 10:24 Past History - Past Medical History Allergies/Adverse Reactions: Allergies Allergy/AdvReac Type Severity Reaction Status Date / Time No Known Drug Allergies Allergy Verified 10/25/19 10:04 peanut Allergy Rash Verified 10/25/19 10:04 shellfish derived Allergy Verified 10/25/19 10:04 Home Medications: Ambulatory Orders clonazePAM [KlonoPIN -] 2 mg PO TID 01/10/19 Aripiprazole [Abilify -] 30 mg PO HS 05/20/19 Cancer: Yes (cervical) Cardiac Disorders: No COPD: No DVT: No Dementia: No Diabetes: No GI Disorders: No Disorders: No Liver Disease: No Psychiatric Problems: Yes (BIPOLAR, anxiety) Seizures: No Thyroid Disease: No - Surgical History Abdominal Surgery: Yes (ANA FALLOPIAN TUBES REMOVAL, cervix removed) Neurologic Surgery: No - Reproductive History (#): 2 Para: 2 Cervical CA: Yes Dysfunctional Uterine Bleeding: No Ectopic : No Endometrial CA: No Polycystic Ovaries: No Therapeutic (s) & number: No Tubal Ligation: No Spontaneous : 0 - Immunization History Td Vaccination: Yes TDAP Vaccination: Yes Immunization Up to Date: Yes - Psycho Social/Smoking Cessation Hx Smoking Status: Yes (QUIT 2007) Smoking History: Current every day smoker Have you smoked in the past 12 months: Yes Number of Cigarettes Smoked Daily: 4 If you are a former smoker, when did you quit?: 1 week Information on smoking cessation initiated: No 'Breaking Loose' booklet given: 09/17/19 Hx Alcohol Use: No Drug/Substance Use Hx: No Substance Use Type: None Hx Substance Use Treatment: No *Physical Exam - Vital Signs Last Vital Signs Temp Pulse Resp BP Pulse Ox 97.7 F 98 H 20 110/75 100 10/25/19 10:00 10/25/19 15:00 10/25/19 15:00 10/25/19 15:00 10/25/19 15:00 ED Treatment Course - LABORATORY CBC & Chemistry Diagram: 10/25/19 11:40 10/25/19 11:40 - ADDITIONAL ORDERS Additional order review: Laboratory Results 10/25/19 10/25/19 10/25/19 11:40 11:40 11:40 PT with INR 11.40 INR 0.97 Sodium 136 Potassium 5.1 Chloride 108 H Carbon Dioxide 22 Anion Gap 6 L BUN 13.9 Creatinine 0.8 Est GFR (CKD-EPI)AfAm 106.13 Est GFR (CKD-EPI)NonAf 91.57 Random Glucose 78 Calcium 9.2 Total Bilirubin 0.3 AST 31 ALT 35 Alkaline Phosphatase 51 Troponin I < 0.02 Total Protein 7.3 Albumin 3.4 Blood Type AB POSITIVE Antibody Screen Negative 10/25/19 11:40 RBC 4.45 MCV 87.2 MCHC 33.8 RDW 13.6 MPV 7.9 Neutrophils % 59.4 Lymphocytes % 30.0 Monocytes % 7.2 Eosinophils % 2.0 Basophils % 1.4 - Medications Given in the ED: ED Medications Discontinued Medications Generic Name Dose Route Start Last Admin Trade Name Freq PRN Reason Stop Dose Admin Enoxaparin Sodium 120 mg 10/25/19 15:30 10/25/19 15:28 Lovenox - SQ 10/25/19 15:31 120 mg ONCE ONE Administration Discharge - Discharge Information Clinical Impression/Diagnosis: Precordial chest pain, SOB (shortness of breath) Pulmonary embolism Qualifiers: Pulmonary embolism type: unspecified Chronicity: acute Acute cor pulmonale presence: unspecified Qualified Code(s): I26.99 - Other pulmonary embolism without acute cor pulmonale Condition: Fair - Follow up/Referral - Patient Discharge Instructions - Post Discharge Activity
--- NOTE | 2019-10-25 23:04 | CON.CARD ---
Consult Consult Specialty:: Cardiolology - History of Present Illness History of Present Illness: Patient is a 39 year old female with a significant past medical history of cervical cancer, s/p surgery in 2016 at [facility], daily smoker and morbid obesity. Patient presents to the ED with sudden onset shortness of breath with left sided chest pain that started this morning while speaking with her sister this morning. Patient denies any leg pain, swelling, diaphoresis, nausea, vomiting, cough, fever or chills. No history of similar symptoms in the past. In the ED a CTA was performed which shows as a possible filling defect in the right lower lobe, but study limited for confirmation given opacity of pulmonary arterial tree per radiology report. Patient was given Lovenox 120mg once in the ED and is being admitted for chest pain and will be monitored on tele. Pulmonary consult for possible PE. - History Source History Provided By: Patient, Medical Record - Past Medical History Pulmonary: Yes: Other (+ smoker). No: Asthma ...LMP: 12/31/18 - Alcohol/Substance Use Hx Alcohol Use: No - Smoking History Smoking history: Current every day smoker Have you smoked in the past 12 months: Yes Aproximately how many cigarettes per day: 4 If you are a former smoker, when did you quit?: 1 week - Social History History of Recent Travel: No Home Medications - Allergies Allergies/Adverse Reactions: Allergies Allergy/AdvReac Type Severity Reaction Status Date / Time No Known Drug Allergies Allergy Verified 10/25/19 10:04 peanut Allergy Rash Verified 10/25/19 10:04 shellfish derived Allergy Verified 10/25/19 10:04 - Home Medications Home Medications: Ambulatory Orders clonazePAM [KlonoPIN -] 2 mg PO TID 01/10/19 Aripiprazole [Abilify -] 30 mg PO HS 05/20/19 Atorvastatin Ca [Lipitor] 40 mg PO HS #60 tablet 10/26/19 Rivaroxaban [Xarelto] 15 mg PO BID #30 tab 10/26/19 Rivaroxaban [Xarelto] 15 mg PO DAILY #42 tab 10/26/19 Rivaroxaban [Xarelto] 20 mg PO DAILY #60 tablet 10/26/19 Review of Systems - Review of Systems Constitutional: reports: No Symptoms Eyes: reports: No Symptoms HENT: reports: No Symptoms Neck: reports: No Symptoms Cardiovascular: reports: Chest Pain Respiratory: reports: SOB Gastrointestinal: reports: No Symptoms Genitourinary: reports: No Symptoms Breasts: reports: No Symptoms Reported Musculoskeletal: reports: No Symptoms Integumentary: reports: No Symptoms Neurological: reports: No Symptoms Endocrine: reports: No Symptoms Hematology/Lymphatic: reports: No Symptoms Psychiatric: reports: No Symptoms Vital Signs: Vital Signs Temperature 97.7 F 10/25/19 10:00 Pulse Rate 98 H 10/25/19 15:00 Respiratory Rate 20 10/25/19 15:00 Blood Pressure 110/75 10/25/19 15:00 O2 Sat by Pulse Oximetry (%) 100 10/25/19 15:00 Constitutional: Yes: Well Nourished, No Distress, Calm Eyes: Yes: WNL, Conjunctiva Clear, EOM Intact HENT: Yes: WNL, Atraumatic, Normocephalic Neck: Yes: WNL, Supple, Trachea Midline Respiratory: Yes: WNL, Regular, CTA Bilaterally Gastrointestinal: Yes: WNL, Normal Bowel Sounds Renal/: Yes: WNL Cardiovascular: Yes: WNL, Regular Rate and Rhythm Musculoskeletal: Yes: WNL Extremities: Yes: WNL Integumentary: Yes: WNL Neurological: Yes: WNL, Alert, Oriented ...Motor Strength: WNL Psychiatric: Yes: WNL, Alert, Oriented - Other Data Labs, Other Data: CBC, BMP 10/25/19 11:40 10/25/19 11:40 INR, PTT INR 0.97 (0.83-1.09) 10/25/19 11:40 Troponin, BNP 10/25/19 10/25/19 11:40 21:30 Troponin I < 0.02 < 0.02 Troponin, BNP 10/25/19 10/25/19 11:40 21:30 Troponin I < 0.02 < 0.02 Imaging - Results Chest X-ray: Image Reviewed (no i/e) EKG: Image Reviewed (nsr) Problem List - Problems (1) Abdominal pain Code(s): R10.9 - UNSPECIFIED ABDOMINAL PAIN (2) Acute gastroenteritis Code(s): K52.9 - NONINFECTIVE GASTROENTERITIS AND COLITIS, UNSPECIFIED (3) Atypical chest pain Code(s): R07.89 - OTHER CHEST PAIN (4) Atypical glandular cells of undetermined significance (GINGER) on cervical Pap smear Code(s): R87.619 - UNSP ABNORMAL CYTOLOG FINDINGS IN SPECMN FROM CERVIX UTERI (5) 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 Code(s): D06.9 - CARCINOMA IN SITU OF CERVIX, UNSPECIFIED (6) Cervicitis Code(s): N72 - INFLAMMATORY DISEASE OF CERVIX UTERI (7) Chest pain Code(s): R07.9 - CHEST PAIN, UNSPECIFIED (8) Endometrium, polyp Code(s): N84.0 - POLYP OF CORPUS UTERI (9) Headache Code(s): R51 - HEADACHE Qualifiers: Headache type: unspecified Headache chronicity pattern: acute headache Intractability: not intractable Qualified Code(s): R51 - Headache (10) Migraine Code(s): G43.909 - MIGRAINE, UNSP, NOT INTRACTABLE, WITHOUT STATUS MIGRAINOSUS (11) Pain Code(s): R52 - PAIN, UNSPECIFIED (12) Pelvic pain Code(s): R10.2 - PELVIC AND PERINEAL PAIN (13) Precordial chest pain Code(s): R07.2 - PRECORDIAL PAIN (14) Pulmonary embolism Code(s): I26.99 - OTHER PULMONARY EMBOLISM WITHOUT ACUTE COR PULMONALE Qualifiers: Pulmonary embolism type: unspecified Chronicity: acute Acute cor pulmonale presence: unspecified Qualified Code(s): I26.99 - Other pulmonary embolism without acute cor pulmonale (15) Reactive airway disease Code(s): J45.909 - UNSPECIFIED ASTHMA, UNCOMPLICATED (16) SOB (shortness of breath) Code(s): R06.02 - SHORTNESS OF BREATH (17) Slurred speech Code(s): R47.81 - SLURRED SPEECH (18) Urinary tract infection Code(s): N39.0 - URINARY TRACT INFECTION, SITE NOT SPECIFIED Qualifiers: Urinary tract infection type: site unspecified Hematuria presence: without hematuria Qualified Code(s): N39.0 - Urinary tract infection, site not specified (19) Yeast infection Code(s): B37.9 - CANDIDIASIS, UNSPECIFIED (20) Anxiety Code(s): F41.9 - ANXIETY DISORDER, UNSPECIFIED (21) Chest wall pain Code(s): R07.89 - OTHER CHEST PAIN (22) Back strain Code(s): S39.012A - STRAIN OF MUSCLE, FASCIA AND TENDON OF LOWER BACK, INIT (23) Gastritis Code(s): K29.70 - GASTRITIS, UNSPECIFIED, WITHOUT BLEEDING Qualifiers: Gastritis type: unspecified gastritis Chronicity: acute Gastritis bleeding: without bleeding Qualified Code(s): K29.00 - Acute gastritis without bleeding (24) Hematuria Code(s): R31.9 - HEMATURIA, UNSPECIFIED (25) Migraine Code(s): G43.909 - MIGRAINE, UNSP, NOT INTRACTABLE, WITHOUT STATUS MIGRAINOSUS Qualifiers: Migraine type: unspecified Status migrainosus presence: without status migrainosus Intractability: not intractable Qualified Code(s): G43.909 - Migraine, unspecified, not intractable, without status migrainosus (26) Muscle strain Code(s): T14.8XXA - OTHER INJURY OF UNSPECIFIED BODY REGION, INITIAL ENCOUNTER (27) Vaginal bleeding Code(s): N93.9 - ABNORMAL UTERINE AND VAGINAL BLEEDING, UNSPECIFIED Assessment/Plan chest pain sob pulmonary emboli Plan agree with AC ECHO to evaluate RV telemetry
[2019-10-25] MEDS: ENOXAPARIN NA (PORCINE) 120 MG/0.8 ML DISP.SYRIN SQ SCH (23:46)
[2019-10-26 07:24] LABS: BASO % 0.9 % (0-2.0); EOS % 3.5 % (0-4.5); HEMATOCRIT 39.9 % (32.4-45.2); HEMOGLOBIN 13.4 GM/dL (10.7-15.3); MCH 29.5 pg (25.7-33.7); MCHC 33.7 g/dl (32.0-36.0); MEAN CELL VOLUME 87.7 fl (80-96); MEAN PLT VOLUME 8.3 fl (7.5-11.1); MONO % 7.1 % (3.8-10.2); NEUT % 51.5 % (42.8-82.8); PLATELET COUNT 260 K/MM3 (134-434); RBC 4.55 M/mm3 (3.60-5.2); RDW 13.7 % (11.6-15.6); WHITE BLOOD COUNT 4.3 K/mm3 (4.0-10.0)
[2019-10-26 07:58] LABS: ALBUMIN 3.4 g/dl (3.4-5.0); BILIRUBIN,TOTAL 0.4 mg/dL (0.2-1); BLOOD UREA NITROGEN 13.2 mg/dL (7-18); CREATININE 0.9 mg/dL (0.55-1.3); MAGNESIUM 2.2 mg/dL (1.8-2.4); POTASSIUM 4.3 mmol/L (3.5-5.1); TOT PROT 7.2 g/dl (6.4-8.2)
--- NOTE | 2019-10-26 09:02 | DS ---
Physical Exam: SUBJECTIVE: Patient seen and examined at the bedside. Wants to leave AMA. Again explained the risks of leaving AMA and her risk of sudden and worsening shortness of breath. She has the capacity to make her own medical decisions, verbalized understanding and tells me that she is aware of risks and will see her PCP today at 2pm. She is willing to take the Xarelto She denies chest pain or shortness of breath. OBJECTIVE: Spoke to Pulmonary (Dr. Patrick) and discussed case Patient to be sent home on Xarelto 15mg BID x 21 days, then Xarelto 20mg once per day Explained this to the patient and she verbalized understanding Asked to her to reconsider staying until seen/evaluated by pulmonary but she is not willing to do so. Encouraged her strongly to see a story analyst accepted by her insurance. Vital Signs Period Temp Pulse Resp BP Sys/Galaviz Pulse Ox Last 24 Hr 97.7 F 82-100 16-20 110-131/60-86 96-100 PHYSICAL EXAM GENERAL: The patient is awake, alert, and fully oriented, in no acute distress. HEAD: Normal with no signs of trauma. EYES: PERRL, extraocular movements intact, sclera anicteric, conjunctiva clear. ENT: Ears normal, nares patent, oropharynx clear without exudates, moist mucous membranes. NECK: Trachea midline, full range of motion, supple. LUNGS: Breath sounds equal, clear to auscultation bilaterally, no wheezes, no crackles, no accessory muscle use. HEART: Regular rate and rhythm, S1, S2 without murmur, rub or gallop. ABDOMEN: Soft, nontender, nondistended, normoactive bowel sounds, no guarding, no rebound, no hepatosplenomegaly, no masses. EXTREMITIES: 2+ pulses, warm, well-perfused, no edema. NEUROLOGICAL: Cranial nerves II through XII grossly intact. Normal speech, gait not observed. PSYCH: Normal mood, normal affect. SKIN: Warm, dry, normal turgor, no rashes or lesions noted. LABS Laboratory Results - last 24 hr 10/25/19 10/25/19 10/25/19 11:40 11:40 11:40 WBC 5.4 RBC 4.45 Hgb 13.1 Hct 38.8 MCV 87.2 MCH 29.5 MCHC 33.8 RDW 13.6 Plt Count 248 MPV 7.9 Absolute Neuts (auto) 3.2 Neutrophils % 59.4 Lymphocytes % 30.0 Monocytes % 7.2 Eosinophils % 2.0 Basophils % 1.4 Nucleated RBC % 0 PT with INR 11.40 INR 0.97 D-Dimer Sodium 136 Potassium 5.1 Chloride 108 H Carbon Dioxide 22 Anion Gap 6 L BUN 13.9 Creatinine 0.8 Est GFR (CKD-EPI)AfAm 106.13 Est GFR (CKD-EPI)NonAf 91.57 Random Glucose 78 Hemoglobin A1c % Calcium 9.2 Magnesium Total Bilirubin 0.3 AST 31 ALT 35 Alkaline Phosphatase 51 Troponin I < 0.02 Total Protein 7.3 Albumin 3.4 Triglycerides Cholesterol Total LDL Cholesterol HDL Cholesterol Urine Color Urine Appearance Urine pH Ur Specific Welch Urine Protein Urine Glucose (UA) Urine Ketones Urine Blood Urine Nitrite Urine Bilirubin Urine Urobilinogen Ur Leukocyte Esterase Urine HCG, Qual Blood Type Antibody Screen 10/25/19 10/25/19 10/25/19 11:40 14:50 14:50 WBC RBC Hgb Hct MCV MCH MCHC RDW Plt Count MPV Absolute Neuts (auto) Neutrophils % Lymphocytes % Monocytes % Eosinophils % Basophils % Nucleated RBC % PT with INR INR D-Dimer Sodium Potassium Chloride Carbon Dioxide Anion Gap BUN Creatinine Est GFR (CKD-EPI)AfAm Est GFR (CKD-EPI)NonAf Random Glucose Hemoglobin A1c % Calcium Magnesium Total Bilirubin AST ALT Alkaline Phosphatase Troponin I Total Protein Albumin Triglycerides Cholesterol Total LDL Cholesterol HDL Cholesterol Urine Color Yellow Urine Appearance Cloudy Urine pH 5.0 Ur Specific Welch 1.068 H Urine Protein Negative Urine Glucose (UA) Negative Urine Ketones Negative Urine Blood Negative Urine Nitrite Negative Urine Bilirubin Negative Urine Urobilinogen 0.2 Ur Leukocyte Esterase Negative Urine HCG, Qual Negative Blood Type AB POSITIVE Antibody Screen Negative 10/25/19 10/25/19 10/26/19 21:30 21:30 06:27 WBC 4.3 RBC 4.55 Hgb 13.4 Hct 39.9 MCV 87.7 MCH 29.5 MCHC 33.7 RDW 13.7 Plt Count 260 MPV 8.3 Absolute Neuts (auto) 2.2 Neutrophils % 51.5 Lymphocytes % 37.0 D Monocytes % 7.1 Eosinophils % 3.5 Basophils % 0.9 Nucleated RBC % 0 PT with INR INR D-Dimer 1755 H Sodium Potassium Chloride Carbon Dioxide Anion Gap BUN Creatinine Est GFR (CKD-EPI)AfAm Est GFR (CKD-EPI)NonAf Random Glucose Hemoglobin A1c % Calcium Magnesium Total Bilirubin AST ALT Alkaline Phosphatase Troponin I < 0.02 Total Protein Albumin Triglycerides Cholesterol Total LDL Cholesterol HDL Cholesterol Urine Color Urine Appearance Urine pH Ur Specific Welch Urine Protein Urine Glucose (UA) Urine Ketones Urine Blood Urine Nitrite Urine Bilirubin Urine Urobilinogen Ur Leukocyte Esterase Urine HCG, Qual Blood Type Antibody Screen 10/26/19 10/26/19 06:27 06:27 WBC RBC Hgb Hct MCV MCH MCHC RDW Plt Count MPV Absolute Neuts (auto) Neutrophils % Lymphocytes % Monocytes % Eosinophils % Basophils % Nucleated RBC % PT with INR INR D-Dimer Sodium 138 Potassium 4.3 Chloride 106 Carbon Dioxide 26 Anion Gap 6 L BUN 13.2 Creatinine 0.9 Est GFR (CKD-EPI)AfAm 92.05 Est GFR (CKD-EPI)NonAf 79.42 Random Glucose 104 Hemoglobin A1c % 5.8 Calcium 9.0 Magnesium 2.2 Total Bilirubin 0.4 AST 26 ALT 33 Alkaline Phosphatase 50 Troponin I Total Protein 7.2 Albumin 3.4 Triglycerides 357 H Cholesterol 226 H Total LDL Cholesterol 137 H HDL Cholesterol 33 L Urine Color Urine Appearance Urine pH Ur Specific Welch Urine Protein Urine Glucose (UA) Urine Ketones Urine Blood Urine Nitrite Urine Bilirubin Urine Urobilinogen Ur Leukocyte Esterase Urine HCG, Qual Blood Type Antibody Screen HOSPITAL COURSE: Date of Admission:10/25/19 Date of Discharge: 10/26/19 Patient is a 39 year old female with a significant past medical history of cervical cancer with surgical revision 2015, no active cancer per patient and not on chemotherapy, daily smoker and morbid obesity. She presents to the ED on 10/25 with severe chest pain and shortness of breath and found to have an elevated d dimer and possible PE on CTA (suboptimal imaging). She was started on Lovenox 120mg BID dose for treatment of PE. The plan was for her to be monitored on tele, seen by pulmonary and story analyst so that she can be followed outpatient. An echo was ordered for her also. She is not willing to stay and complete treatment and have an echocardiogram. I spoke to her and asked her to re consider staying as she is a high risk for cardiac event including sudden . She still wants to sign out AMA despite the risk of sudden cardiac . Will call in her medications to her pharmacy (Xarelto) as well as encouraged her to see her PCP today to further evaluate. The dosing of Xarelto explained to her in detail and written for her on the discharge instructions. Minutes to complete discharge: 60 Discharge Summary Problems reviewed: Yes Reason For Visit: SOB PRECORDIAL PAIN Current Active Problems Chest pain (Acute) Precordial chest pain (Acute) Pulmonary embolism (Acute) SOB (shortness of breath) (Acute) Condition: Guarded - Instructions Diet, Activity, Other Instructions: You are leaving against medical advice. The plan was for you to be evaluated by a pulmomary specialist and story analyst before you left, however you are not willing to stay. YOU CAME IN FOR CHEST PAIN AND YOUR IMAGING SHOWS THAT YOU HAVE A POSSIBLE PULMONARY EMBOLISM. What is a pulmonary embolism? It is a clot that is in your lung and it can travel and cause you severe symptoms of shortness of BREATH. It can be fatal if not treated. You will need close monitoring. we will send the referrals to you as follows: Dr. Patrick (pulmonoloigist) Dr. Whitaker (story analyst) Here is the medication that we will be calling in for you Xarelto 15mg TWICE per day for 21 days, start tonight at 8PM (then take at 8am, 8pm every day for 21 days after) then stop after you have taken it for 21 days. THEN, START Xarelto 20mg ONCE per day. DO not skip ANY doses of xarelto. Please see a grievance and appeals coordinator (have your PCP refer you to one) - I have included a referral for one Please see a story analyst/Oncologist - I have included a referral for one IF YOU HAVE SEVERE CHEST PAIN OR SHORTNESS OF BREATH, PLEASE TO GO THE NEAREST EMERGENCY ROOM Lipitor 40mg daily has been called for you for high cholesterol levels. Thank you for allowing us to care for you. Referrals: Tristan Patrick MD [Staff Physician] - Figueroa Olmedo [Primary Care Provider] - Andrade Whitaker MD [Staff Physician] - Disposition: AGAINST MEDICAL ADVICE - Home Medications Comprehensive Discharge Medication List: Ambulatory Orders clonazePAM [KlonoPIN -] 2 mg PO TID 01/10/19 Aripiprazole [Abilify -] 30 mg PO HS 05/20/19 Atorvastatin Ca [Lipitor] 40 mg PO HS #60 tablet 10/26/19 Rivaroxaban [Xarelto] 15 mg PO DAILY #42 tab 10/26/19 Rivaroxaban [Xarelto] 20 mg PO DAILY #60 tablet 10/26/19 Problem List - Problems (1) Pulmonary embolism Code(s): I26.99 - OTHER PULMONARY EMBOLISM WITHOUT ACUTE COR PULMONALE Qualifiers: Pulmonary embolism type: unspecified Chronicity: acute Acute cor pulmonale presence: unspecified Qualified Code(s): I26.99 - Other pulmonary embolism without acute cor pulmonale (2) Chest pain Code(s): R07.9 - CHEST PAIN, UNSPECIFIED (3) SOB (shortness of breath) Code(s): R06.02 - SHORTNESS OF BREATH This patient is new to me today: No Emergency Visit: Yes ED Registration Date: 10/25/19 Care time: The patient presented to the Emergency Department on the above date and was hospitalized for further evaluation of their emergent condition. Critical Care patient: No - Discharge Referral Referred to [facility] No
[2019-10-26] MEDS: ENOXAPARIN NA (PORCINE) 120 MG/0.8 ML DISP.SYRIN SQ SCH (09:18)
[2019-10-26 09:20] VITALS: BP 127/68; PULSE 94; TEMP 98.3
[2019-10-26] MEDS ORDERED: ENOXAPARIN NA (PORCINE) 100 MG/1 ML DISP.SYRIN SQ ONE (09:21)
[2019-10-26] MEDS ORDERED: clonazePAM 0.5 MG TABLET ONE (09:21)
[2019-10-26] MEDS ORDERED: ENOXAPARIN NA (PORCINE) 30 MG/0.3 ML DISP.SYRIN SQ ONE (09:22)
--- NOTE | 2019-10-26 10:49 | EKG ---
Test Reason : Blood Pressure : / mmHG Vent. Rate : 089 BPM Atrial Rate : 089 BPM P-R Int : 146 ms QRS Dur : 090 ms QT Int : 360 ms P-R-T Axes : 027 025 014 degrees QTc Int : 438 ms NORMAL SINUS RHYTHM NORMAL ECG WHEN COMPARED WITH ECG OF 16-SEP-2019 21:40, NO SIGNIFICANT CHANGE WAS FOUND Confirmed by JOSE R HAAS MD ([id number]) on 10/26/2019 10:49:02 AM Referred By: Confirmed By:JOSE R HAAS MD
--- NOTE | 2019-10-26 13:39 | PN ---
Progress Note, Physician History of Present Illness: Patient is a 39 year old female with a significant past medical history of cervical cancer, s/p surgery in 2016 at [facility], daily smoker and morbid obesity. Patient presents to the ED with sudden onset shortness of breath with left sided chest pain that started this morning while speaking with her sister this morning. Patient denies any leg pain, swelling, diaphoresis, nausea, vomiting, cough, fever or chills. No history of similar symptoms in the past. In the ED a CTA was performed which shows as a possible filling defect in the right lower lobe, but study limited for confirmation given opacity of pulmonary arterial tree per radiology report. Patient was given Lovenox 120mg once in the ED and is being admitted for chest pain and will be monitored on tele. Pulmonary consult for possible PE. - Objective Vital Signs: Vital Signs Temperature 98.3 F 10/26/19 09:19 Pulse Rate 94 H 10/26/19 09:19 Respiratory Rate 18 10/26/19 09:19 Blood Pressure 127/68 10/26/19 09:19 O2 Sat by Pulse Oximetry (%) 100 10/26/19 09:19 Eyes: Yes: WNL, Conjunctiva Clear, EOM Intact HENT: Yes: WNL, Atraumatic, Normocephalic Neck: Yes: WNL, Supple, Trachea Midline Cardiovascular: Yes: WNL, Regular Rate and Rhythm Respiratory: Yes: WNL, Regular, CTA Bilaterally Gastrointestinal: Yes: WNL, Normal Bowel Sounds Genitourinary: Yes: WNL Musculoskeletal: Yes: WNL Extremities: Yes: WNL Edema: No Integumentary: Yes: WNL Neurological: Yes: WNL, Alert, Oriented ...Motor Strength: WNL Psychiatric: Yes: WNL Labs: CBC, BMP 10/26/19 06:27 10/26/19 06:27 INR, PTT INR 0.97 (0.83-1.09) 10/25/19 11:40 Problem List - Problems (1) Abdominal pain Code(s): R10.9 - UNSPECIFIED ABDOMINAL PAIN (2) Acute gastroenteritis Code(s): K52.9 - NONINFECTIVE GASTROENTERITIS AND COLITIS, UNSPECIFIED (3) Atypical chest pain Code(s): R07.89 - OTHER CHEST PAIN (4) Atypical glandular cells of undetermined significance (GINGER) on cervical Pap smear Code(s): R87.619 - UNSP ABNORMAL CYTOLOG FINDINGS IN SPECMN FROM CERVIX UTERI (5) 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 Code(s): D06.9 - CARCINOMA IN SITU OF CERVIX, UNSPECIFIED (6) Cervicitis Code(s): N72 - INFLAMMATORY DISEASE OF CERVIX UTERI (7) Chest pain Code(s): R07.9 - CHEST PAIN, UNSPECIFIED (8) Endometrium, polyp Code(s): N84.0 - POLYP OF CORPUS UTERI (9) Headache Code(s): R51 - HEADACHE Qualifiers: Headache type: unspecified Headache chronicity pattern: acute headache Intractability: not intractable Qualified Code(s): R51 - Headache (10) Migraine Code(s): G43.909 - MIGRAINE, UNSP, NOT INTRACTABLE, WITHOUT STATUS MIGRAINOSUS (11) Pain Code(s): R52 - PAIN, UNSPECIFIED (12) Pelvic pain Code(s): R10.2 - PELVIC AND PERINEAL PAIN (13) Precordial chest pain Code(s): R07.2 - PRECORDIAL PAIN (14) Pulmonary embolism Code(s): I26.99 - OTHER PULMONARY EMBOLISM WITHOUT ACUTE COR PULMONALE Qualifiers: Pulmonary embolism type: unspecified Chronicity: acute Acute cor pulmonale presence: unspecified Qualified Code(s): I26.99 - Other pulmonary embolism without acute cor pulmonale (15) Reactive airway disease Code(s): J45.909 - UNSPECIFIED ASTHMA, UNCOMPLICATED (16) SOB (shortness of breath) Code(s): R06.02 - SHORTNESS OF BREATH (17) Slurred speech Code(s): R47.81 - SLURRED SPEECH (18) Urinary tract infection Code(s): N39.0 - URINARY TRACT INFECTION, SITE NOT SPECIFIED Qualifiers: Urinary tract infection type: site unspecified Hematuria presence: without hematuria Qualified Code(s): N39.0 - Urinary tract infection, site not specified (19) Yeast infection Code(s): B37.9 - CANDIDIASIS, UNSPECIFIED (20) Anxiety Code(s): F41.9 - ANXIETY DISORDER, UNSPECIFIED (21) Chest wall pain Code(s): R07.89 - OTHER CHEST PAIN (22) Back strain Code(s): S39.012A - STRAIN OF MUSCLE, FASCIA AND TENDON OF LOWER BACK, INIT (23) Gastritis Code(s): K29.70 - GASTRITIS, UNSPECIFIED, WITHOUT BLEEDING Qualifiers: Gastritis type: unspecified gastritis Chronicity: acute Gastritis bleeding: without bleeding Qualified Code(s): K29.00 - Acute gastritis without bleeding (24) Hematuria Code(s): R31.9 - HEMATURIA, UNSPECIFIED (25) Migraine Code(s): G43.909 - MIGRAINE, UNSP, NOT INTRACTABLE, WITHOUT STATUS MIGRAINOSUS Qualifiers: Migraine type: unspecified Status migrainosus presence: without status migrainosus Intractability: not intractable Qualified Code(s): G43.909 - Migraine, unspecified, not intractable, without status migrainosus (26) Muscle strain Code(s): T14.8XXA - OTHER INJURY OF UNSPECIFIED BODY REGION, INITIAL ENCOUNTER (27) Vaginal bleeding Code(s): N93.9 - ABNORMAL UTERINE AND VAGINAL BLEEDING, UNSPECIFIED Assessment/Plan chest pain sob pulmonary emboli Plan agree with AC ECHO to evaluate RV telemetry patient signed out AMA understands risks of
[2019-10-26] MEDS ORDERED: ATORVASTATIN CA 40 MG TABLET (FP) PO SCH (22:00)
== END 2019-10-26 09:36 | disposition left against medical advice (07) | DRG 134 ==
LOC: JER 09:54 → JERBED 14:46
PROVIDERS: ADMIT Internal Medicine; ATTEND Nurse Practitioner Family
DX: I26.99 Other pulmonary embolism without acute cor pulmonale (principal); R07.9 Chest pain, unspecified; R06.02 Shortness of breath; E66.01 Morbid (severe) obesity due to excess calories; Z68.42 Body mass index [BMI] 45.0-49.9, adult; F17.210 Nicotine dependence, cigarettes, uncomplicated
CPT/HCPCS: 36415; 71275-TC; 80053; 80061; 81003; 83036; 83721; 83735; 84484; 84703; 85025; 85379; 85610; 86850; 86900; 86901; 93005; 93010; 93970-TC; 99284-25; Q9967

== ENCOUNTER 2019-11-07 00:27 | Emergency (ER) | payer OTHER ==
[2019-11-07 00:47] VITALS: BP 124/81; PULSE 88; TEMP 97.6; BMI 38.4
--- NOTE | 2019-11-07 00:57 | PDOC ---
History of Present Illness - General Chief Complaint: Chest Pain Stated Complaint: LUNG PAIN Time Seen by Provider: 11/07/19 00:53 History Source: Patient Exam Limitations: No Limitations - History of Present Illness Initial Comments: 11/07/19 01:00 Patient is a 39F with history of PE (dx on 10/25, left AMA on 10/26), bipolar disorder, cervical cancer (stage 1, uterus/cervix removed, no chemo/radiation) here today complaining of chest pain that onset at rest on the left side of her chest 5 hours prior to presentation. Endorses associated shortness of breath. Pain worsened with inspiration. Denies fevers, chills, vomiting. Endorses a mild headache that onset gradually on the left side. Endorses associated nausea. Patient endorses compliance with her xarelto. Patient has not followed up with pulm or heme. Denies leg pain and swelling. Review of records shows patient's CT read showed possible PE in RLL, but was not able to confirm due to a suboptimal study. Past History - Past Medical History Allergies/Adverse Reactions: Allergies Allergy/AdvReac Type Severity Reaction Status Date / Time No Known Drug Allergies Allergy Verified 10/25/19 10:04 peanut Allergy Rash Verified 10/25/19 10:04 shellfish derived Allergy Verified 10/25/19 10:04 Home Medications: Ambulatory Orders clonazePAM [KlonoPIN -] 2 mg PO TID 01/10/19 Aripiprazole [Abilify -] 30 mg PO HS 05/20/19 Atorvastatin Ca [Lipitor] 40 mg PO HS #60 tablet 10/26/19 Rivaroxaban [Xarelto] 15 mg PO BID #30 tab 10/26/19 Rivaroxaban [Xarelto] 15 mg PO DAILY #42 tab 10/26/19 Rivaroxaban [Xarelto] 20 mg PO DAILY #60 tablet 10/26/19 Cancer: Yes (cervical) Cardiac Disorders: No COPD: No DVT: No Dementia: No Diabetes: No GI Disorders: No Disorders: No Liver Disease: No Psychiatric Problems: Yes (BIPOLAR, anxiety) Seizures: No Thyroid Disease: No Other medical history: Blood clot - Surgical History Abdominal Surgery: Yes (ANA FALLOPIAN TUBES REMOVAL, cervix removed) Neurologic Surgery: No - Reproductive History (#): 2 Para: 2 Cervical CA: Yes Dysfunctional Uterine Bleeding: No Ectopic : No Endometrial CA: No Polycystic Ovaries: No Therapeutic (s) & number: No Tubal Ligation: No Spontaneous : 0 - Immunization History Td Vaccination: Yes TDAP Vaccination: Yes Immunization Up to Date: Yes - Psycho Social/Smoking Cessation Hx Smoking Status: Yes (QUIT 2007) Smoking History: Never smoked Have you smoked in the past 12 months: Yes Number of Cigarettes Smoked Daily: 4 If you are a former smoker, when did you quit?: 1 week 'Breaking Loose' booklet given: 09/17/19 Hx Alcohol Use: No Drug/Substance Use Hx: No Substance Use Type: None Hx Substance Use Treatment: No Review of Systems - Review of Systems Able to Perform ROS?: Yes Comments:: 11/07/19 01:13 GENERAL/CONSTITUTIONAL: No fever or chills. No weakness. HEAD, EYES, EARS, NOSE AND THROAT: No change in vision. No ear pain or discharge. No sore throat. CARDIOVASCULAR: +chest pain +shortness of breath RESPIRATORY: No cough, wheezing, or hemoptysis. GASTROINTESTINAL: No nausea, vomiting, diarrhea or constipation. GENITOURINARY: No dysuria, frequency, or change in urination. MUSCULOSKELETAL: No joint or muscle swelling or pain. No neck or back pain. SKIN: No rash NEUROLOGIC: No headache, vertigo, loss of consciousness, or change in strength/ sensation. ENDOCRINE: No increased thirst. No abnormal weight change HEMATOLOGIC/LYMPHATIC: No anemia, easy bleeding, +history of blood clots. ALLERGIC/IMMUNOLOGIC: No hives or skin allergy. *Physical Exam - Vital Signs Last Vital Signs Temp Pulse Resp BP Pulse Ox 97.6 F 88 20 124/81 100 11/07/19 00:43 11/07/19 00:43 11/07/19 00:43 11/07/19 00:43 11/07/19 00:43 - Physical Exam 11/07/19 01:15 GENERAL: Awake, alert, and fully oriented, in no acute distress HEAD: No signs of trauma, normocephalic, atraumatic EYES: PERRLA, EOMI, sclera anicteric, conjunctiva clear ENT: Auricles normal inspection, hearing grossly normal, nares patent, oropharynx clear without exudates. Moist mucosa NECK: Normal ROM, supple, no lymphadenopathy, JVD, or masses LUNGS: No distress, speaks full sentences, clear to auscultation bilaterally HEART: Regular rate and rhythm, normal S1 and S2, no murmurs, rubs or gallops, peripheral pulses normal and equal bilaterally. ABDOMEN: Soft, nontender, normoactive bowel sounds. No guarding, no rebound. No masses EXTREMITIES: Normal inspection, Normal range of motion, no edema. No clubbing or cyanosis. NEUROLOGICAL: Cranial nerves II through XII grossly intact. Normal speech, normal gait, no focal sensorimotor deficits SKIN: Warm, Dry, normal turgor, no rashes or lesions noted. ED Treatment Course - LABORATORY CBC & Chemistry Diagram: 11/07/19 01:45 11/07/19 01:45 Medical Decision Making - Medical Decision Making 11/07/19 01:15 Patient is 39F with history of PE, cervical ca here today with chest pain. Vitals normal and stable. Ddx includes, but is not limited to: PE, msk pain, pna. Will evaluate with cardiac labs, CTA. Dispo pending workup results. Will treat headache with fluids and tylenol. 11/07/19 01:47 EKG shows NSR with rate of 86. No st elevations/depressions. Flattened t waves in III, aVF, V4, V5. Inverted t wave in V3. 11/07/19 02:55 CBC normal. CMP reassuring. Trop negative. Vitals have remained stable. CTA shows PE in same area previously found. Patient endorsing compliance, has pill bottle at bedside. Patient states pain has improved, asking to go home. Will discharge with return precautions. Instructed to continue following with PCP. Discharge - Discharge Information Problems reviewed: Yes Clinical Impression/Diagnosis: Pulmonary embolism Condition: Good Disposition: HOME - Admission No - Follow up/Referral Referrals: Figueroa Gambino MD [Primary Care Provider] - - Patient Discharge Instructions Patient Printed Discharge Instructions: DI for Pulmonary Embolism Additional Instructions: Please continue taking your blood thinner medication. It is critical that you continue to do so. Please follow up with your primary care doctor this week. Please return if you have any new, worsening or concerning symptoms, especially increasing pain, losing consciousness and increased shortness of breath. - Post Discharge Activity
[2019-11-07] MEDS ORDERED: SODIUM CHLORIDE 1,000 ML IV STA (01:01)
[2019-11-07] MEDS ORDERED: ACETAMINOPHEN 1000 MG/100 ML VIAL (NON FORMULARY) IVPB ONE (01:01)
[2019-11-07] MEDS ORDERED: ACETAMINOPHEN INJECTION 100 ML IVPB ONE (01:48)
[2019-11-07 02:06] LABS: BASO % 1.1 % (0-2.0); EOS % 2.3 % (0-4.5); HEMATOCRIT 38.6 % (32.4-45.2); LYMPH % 41.5 % (8-40); MCH 29.2 pg (25.7-33.7); MCHC 33.8 g/dl (32.0-36.0); MEAN CELL VOLUME 86.4 fl (80-96); MEAN PLT VOLUME 8.5 fl (7.5-11.1); MONO % 5.6 % (3.8-10.2); NEUT % 49.5 % (42.8-82.8); PLATELET COUNT 301 K/MM3 (134-434); RBC 4.46 M/mm3 (3.60-5.2); RDW 13.6 % (11.6-15.6); WHITE BLOOD COUNT 5.3 K/mm3 (4.0-10.0)
--- NOTE | 2019-11-07 02:17 | PDOC ---
Documentation entered by Aicha Lee SCRIBE, acting as scribe for Lyndon Fitzgerald MD. Lyndon Fitzgerald MD: This documentation has been prepared by the Jesus rebolledo Nirvannie, SCRIBE, under my direction and personally reviewed by me in its entirety. I confirm that the documentation accurately reflects all work, treatment, procedures, and medical decision making performed by me. Attending Attestation - Resident Resident Name: Jonathon Wyatt - ED Attending Attestation I have performed the following: I have examined & evaluated the patient, The case was reviewed & discussed with the resident, I agree w/resident's findings & plan, Exceptions are as noted - HPI HPI: 11/07/19 01:25 CC: Chest pain. HPI: The patient is a 39 year old female, with a significant past medical history of PE (10/25), bipolar disorder, cervical cancer (stage 1, uterus/cervix removed, no chemo/radiation), who presents to the emergency department with, 5 hours of left sided pleuritic chest pain with associated shortness of breath. She denies recent dysuria, frequency, urgency or hematuria. - Physicial Exam PE: 11/07/19 03:02 Vitals: Triage Vital signs reviewed General Appearance: No acute distress, well nourished well developed, Chest Wall: Nontender Cardiac: Regular rate and rhythym, no murmurs, no rubs, no gallops, Lungs: Clear to auscultation bilateral, good air movement bilaterally, Abdomen: Soft, non distended, normal bowel sounds, non tender to palpation Extremities: Full range of motion to all extremities, no cyanosis, clubbing, or edema Skin: Warm and dry, no rashes or lesions, no rash, no petechiae Psych: Normal mood, normal affect - Medical Decision Making 11/07/19 03:02 39 years old recently diagnosed with right sided segmental PE no saddle embolism placed on Xarelto signed out of hospital AGAINST MEDICAL ADVICE re- presents with some left-sided pleuritic chest pain greater than 1 day EKG nonischemic no ST elevations or T wave inversions Repeat CTA demonstrates no progression of PE Patient is hemodynamically stable there is no evidence of saddle embolism troponin is negative she is not hypotensive no suggestion of large PE causing heart strain Patient is stable for outpatient management will recommend to continue her Xarelto the importance of close outpatient follow-up stressed at length with patient Findings, need for follow-up and strict return instructions discussed with patient.
[2019-11-07 02:40] LABS: ALBUMIN 3.5 g/dl (3.4-5.0); ALK PHOS 53 U/L (45-117); ANION GAP 9 MMOL/L (8-16); BILIRUBIN,TOTAL 0.3 mg/dL (0.2-1); BLOOD UREA NITROGEN 15.8 mg/dL (7-18); CALCIUM 8.9 mg/dL (8.5-10.1); CHLORIDE 106 mmol/L (98-107); CO2 24 mmol/L (21-32); CREATININE 0.9 mg/dL (0.55-1.3); GLUCOSE,RANDOM 92 mg/dL (74-106); POTASSIUM 4.2 mmol/L (3.5-5.1); SGOT/AST 29 U/L (15-37); SGPT/ALT 38 U/L (13-61); SODIUM 139 mmol/L (136-145); TOT PROT 7.4 g/dl (6.4-8.2)
[2019-11-07 03:12] LABS: N-TERMINAL BNP 64.6 pg/ml (5-125)
[2019-11-07 04:51] LABS: INR 0.99 (0.83-1.09); PROTHROMBIN TIME (PATIENT) 11.7 SEC (9.7-13.0)
[2019-11-07 04:55] LABS: ACTIVATED PTT 36.7 SECONDS (25.2-36.5)
--- NOTE | 2019-11-07 15:34 | EKG ---
Test Reason : Blood Pressure : / mmHG Vent. Rate : 086 BPM Atrial Rate : 086 BPM P-R Int : 166 ms QRS Dur : 092 ms QT Int : 370 ms P-R-T Axes : 022 020 016 degrees QTc Int : 442 ms NORMAL SINUS RHYTHM NONSPECIFIC T WAVE ABNORMALITY ABNORMAL ECG WHEN COMPARED WITH ECG OF 25-OCT-2019 09:59, NO SIGNIFICANT CHANGE WAS FOUND Confirmed by FLORENCE BELL MD ([id number]) on 11/07/2019 3:33:47 PM Referred By: Confirmed By:FLORENCE BELL MD
== END 2019-11-07 03:16 | disposition home or self-care (01) ==
LOC: JER 00:27
PROC: 3E033NZ Introduction of Analgesics, Hypnotics, Sedatives into Peripheral Vein, Percutaneous Approach (ICD-10-PCS; principal; 2019-11-07)
DX: I26.99 Other pulmonary embolism without acute cor pulmonale (principal); Z79.01 Long term (current) use of anticoagulants; F31.9 Bipolar disorder, unspecified; R41.9 Unspecified symptoms and signs involving cognitive functions and awareness; Z85.41 Personal history of malignant neoplasm of cervix uteri; Z90.710 Acquired absence of both cervix and uterus; Z90.79 Acquired absence of other genital organ(s)
CPT/HCPCS: 36415; 71275-TC; 80053; 82550; 82553; 83735; 83880; 84484; 84703; 85025; 85610; 85730; 93005; 93010; 96374; 99284-25; J0131; J7030; Q9967

== ENCOUNTER 2020-05-28 12:24 | Emergency (ER) | payer OTHER ==
[2020-05-28 12:29] VITALS: BP 114/75; PULSE 85; TEMP 98.5; BMI 37.3
--- NOTE | 2020-05-28 12:31 | PDOC ---
Rapid Medical Evaluation Time Seen by Provider: 05/28/20 12:26 Medical Evaluation: Allergies Allergy/AdvReac Type Severity Reaction Status Date / Time No Known Drug Allergies Allergy Verified 10/25/19 10:04 peanut Allergy Rash Verified 10/25/19 10:04 shellfish derived Allergy Verified 10/25/19 10:04 05/28/20 12:28 CC: feels like something is in her throat and had generalized itching since this am. pt took 2 dph with no improvement. On Clonapem. Exam: uvula midline, tonsils 2+ , speaking full sentences but sounds slightly garbled plan: soft tissue Discharge Disposition - Diagnosis Throat irritation - Referrals - Patient Instructions - Post Discharge Activity
[2020-05-28] MEDS ORDERED: DEXAMETHASONE SOD PHOSPHATE 10 MG/1 ML VIAL ONE (13:19)
--- NOTE | 2020-05-28 13:33 | PDOC ---
History of Present Illness - General Chief Complaint: Allergic Reaction Stated Complaint: POSSIBLE ALLERGIC REACTION Time Seen by Provider: 05/28/20 12:26 History Source: Patient Exam Limitations: No Limitations - History of Present Illness Initial Comments: 05/28/20 13:29 HISTORY OF PRESENT ILLNESS: 40-year-old woman past medical history of bipolar disorder presents emergency department for evaluation of "I feel like my throat is closing and itching all over" over the past 8 hours. Patient reports taking 2 doses of Benadryl this morning (unaware of dosage) and is concerned that she is unable to breathe. Patient reports she is allergic to shellfish and peanuts but has not eaten either 1. Patient reports she only had special K with fat- free milk this morning for breakfast. She reports this is her usual daily breakfast and is taken for many years without incident. She denies shortness of breath, vomiting, drooling, vocal changes. She denies any change in diet, medication, soaps, shampoo or cleaning products. No recent travel or sick contacts. PAST MEDICAL HISTORY: See HPI SURGICAL HISTORY: Denies ALLERGIES: No known drug allergies; peanuts, shellfish REVIEW OF SYSTEMS General/Constitutional: Denies fever or chills. Denies weakness, weight change. HEENT: See HPI Cardiovascular: Denies chest pain or shortness of breath. Respiratory: Denies cough, wheezing, or hemoptysis. Gastrointestinal: Denies nausea, vomiting, diarrhea or constipation. Denies rectal bleeding. Genitourinary: Denies dysuria, frequency, or change in urination. Musculoskeletal: Denies joint or muscle swelling or pain. Denies neck or back pain. Skin and breasts: Denies rash or easy bruising. Neurologic: Denies headache, vertigo, loss of consciousness, or loss of sensation. Psychiatric: Denies depression or anxiety. Endocrine: Denies increased thirst. Denies abnormal weight change. Hematologic/Lymphatic: Denies anemia, easy bleeding, or history of blood clots. Allergic/Immunologic: Denies hives or skin allergy. Denies latex allergy. PHYSICAL EXAM General Appearance: Well-appearing, appropriately dressed. No apparent distress, no intoxication. HEENT: EOMI, PERRLA, normal ENT inspection, normal voice, TMs normal, pharynx normal. No conjunctival pallor. No photophobia, scleral icterus. 2+ tonsils present. Uvula is midline. No tonsillar erythema, exudates or lesions present. Neck: Supple. Trachea midline. No tenderness, rigidity, carotid bruit, stridor, lymphadenopathy, or thyromegaly. Respiratory/Chest: Lungs CTAB. No shortness of breath, chest tenderness, respiratory distress, accessory muscle use. No crackles, rales, rhonchi, stridor, wheezing, dullness Cardiovascular: RRR. S1, S2. No JVD, murmur, bradycardia, tachycardia. 05/28/20 13:29 Past History - Medical History Allergies/Adverse Reactions: Allergies Allergy/AdvReac Type Severity Reaction Status Date / Time No Known Drug Allergies Allergy Verified 10/25/19 10:04 peanut Allergy Rash Verified 10/25/19 10:04 shellfish derived Allergy Verified 10/25/19 10:04 Home Medications: Ambulatory Orders clonazePAM [KlonoPIN -] 2 mg PO TID 01/10/19 Aripiprazole [Abilify -] 30 mg PO HS 05/20/19 Atorvastatin Ca [Lipitor] 40 mg PO HS #60 tablet 10/26/19 Rivaroxaban [Xarelto] 15 mg PO DAILY #42 tab 10/26/19 Rivaroxaban [Xarelto] 20 mg PO DAILY #60 tablet 10/26/19 Epinephrine [Epipen 2-Isrrael] 0.3 mg IJ ASDIR #1 kit 05/28/20 Cancer: Yes (cervical) Cardiac Disorders: No COPD: No DVT: No Dementia: No Diabetes: No GI Disorders: No Disorders: No Liver Disease: No Psychiatric Problems: Yes (BIPOLAR, anxiety) Seizures: No Thyroid Disease: No - Surgical History Abdominal Surgery: Yes (ANA FALLOPIAN TUBES REMOVAL, cervix removed) Neurologic Surgery: No - Reproductive History (#): 2 Para: 2 Cervical CA: Yes Dysfunctional Uterine Bleeding: No Ectopic : No Endometrial CA: No Polycystic Ovaries: No Therapeutic (s) & number: No Tubal Ligation: No Spontaneous : 0 - Immunization History Td Vaccination: Yes TDAP Vaccination: Yes Immunization Up to Date: Yes - Psycho-Social/Smoking History Smoking Status: Yes (QUIT 2007) Smoking History: Never smoked Have you smoked in the past 12 months: Yes Number of Cigarettes Smoked Daily: 4 If you are a former smoker, when did you quit?: 1 week 'Breaking Loose' booklet given: 09/17/19 - Substance Abuse Hx (Audit-C & DAST Scrn) How often the patient has a drink containing alcohol: Never Score: In Men: 4 or > Positive; In Women: 3 or > Positive: 0 Screen Result (Pos requires Nsg. Audit-10AR): Negative Respiratory Specific PMHX - Complaint Specific PMHX Hx Pulmonary Embolus: No *Physical Exam - Vital Signs Last Vital Signs Temp Pulse Resp BP Pulse Ox 98.5 F 85 20 114/75 100 05/28/20 12:27 05/28/20 12:27 05/28/20 12:27 05/28/20 12:27 05/28/20 12:27 Medical Decision Making - Medical Decision Making 05/28/20 13:32 A/P: 40-year-old woman with total body itching and sensation of throat closing for 8 hours No stridor auscultated No drooling noted No swelling or lifting present in the sublingual area Speaking in full sentences Slightly hoarse voice As patient is Vazquez taken Benadryl today I will add Decadron 10 mg IM now. X-ray as read by me: No foreign body present in the airway. No obvious airway compromise. Reassess 05/28/20 14:00 Patient reports she has returned to baseline. Is requesting to leave at this time. As I gave patient Decadron 10 mg IM I feel it is safe to discharge home now to follow-up with her steel erecting pusher. Prescription for EpiPen has been provided and patient has been instructed to take if she become short of breath and return to the emergency department immediately. I discussed the physical exam findings, ancillary test results and final diagnoses with the patient. I answered all of the patient's questions. The patient was satisfied with the care received and felt comfortable with the discharge plan and treatment plan. The patient will call their primary care physician within 24 hours to arrange follow-up and will return to the Emergency Department with any new, persistent or worsening symptoms. Portions of this note have been documented using voice recognition software. As a result, errors may occur in the concrete mixer operator process. Effort has been made to correct all grammatical and concrete mixer operator error, but some may have been missed which may produce sporadic inaccurate concrete mixer operator or nonsensical phrases. Discharge - Discharge Information Problems reviewed: Yes Clinical Impression/Diagnosis: Throat irritation Condition: Fair Disposition: HOME - Admission No - Additional Discharge Information Prescriptions: Epinephrine [Epipen 2-Isrrael] 0.3 mg IJ ASDIR #1 kit - Follow up/Referral Referrals: Heraclio Fisher MD [Staff Physician] - - Patient Discharge Instructions Additional Instructions: Rest, drink lots of fluids: Teas, water, soups Saltwater gargles. Consider humidifier in room at night Avoid contact with allergens Lots of handwashing and good hygiene Continue antihistamines daily until pollen season is over; Zyrtec, Claritin, Sho during the daytime and Benadryl at nighttime as will make sleepy Tylenol or Motrin for fever and pain Followup with private physician in one to 2 days as needed You have been prescribed an EpiPen. Use if you become short of breath. If you use your EpiPen you need to return to the closest emergency department immediately for evaluation. Consider following up with an steel erecting pusher/scouring train operator chief for skin testing and possible allergy shots Return to emergency department for worsened symptoms, fevers, dehydration - Post Discharge Activity
[2020-05-28] MEDS ORDERED: DEXAMETHASONE SOD PHOSPHATE 10 MG/1 ML VIAL IM ONE (13:58)
== END 2020-05-28 14:10 | disposition home or self-care (01) ==
LOC: JERFT 12:24
PROC: 3E023GC Introduction of Other Therapeutic Substance into Muscle, Percutaneous Approach (ICD-10-PCS; principal; 2020-05-28)
DX: R09.89 Other specified symptoms and signs involving the circulatory and respiratory systems (principal)
CPT/HCPCS: 70360-TC-FY; 96372; 99284-25; J1100

== ENCOUNTER 2020-06-06 12:39 | Emergency (ER) | payer OTHER ==
[2020-06-06 12:47] VITALS: BP 122/71; PULSE 93; TEMP 98.9; BMI 37.3
--- NOTE | 2020-06-06 12:47 | PDOC ---
Rapid Medical Evaluation Chief Complaint: Injury Time Seen by Provider: 06/06/20 12:44 Medical Evaluation: Allergies Allergy/AdvReac Type Severity Reaction Status Date / Time No Known Drug Allergies Allergy Verified 10/25/19 10:04 peanut Allergy Rash Verified 10/25/19 10:04 shellfish derived Allergy Verified 10/25/19 10:04 06/06/20 12:44 I have performed a brief in-person evaluation of this patient. The patient presents with a chief complaint of:tripped in store and fell mostly on R side today, c/o R knee/leg pain mostly. Did hit head and reports R sided BAR, no loc, dizziness, n/v. H/o cervical ca, s/p surgery 3 weeks, PE dx last year and on xarelto currently Pertinent physical exam findings:well esme, stable I have ordered the following:CTH The patient will proceed to the ED for further evaluation Discharge Disposition - Diagnosis Leg injury Qualifiers: Encounter type: initial encounter Laterality: right Qualified Code(s): S89.91XA - Unspecified injury of right lower leg, initial encounter Head injury Qualifiers: Encounter type: initial encounter Qualified Code(s): S09.90XA - Unspecified injury of head, initial encounter - Referrals - Patient Instructions - Post Discharge Activity
--- NOTE | 2020-06-06 14:05 | PDOC ---
History of Present Illness - General Chief Complaint: Injury Stated Complaint: FALL Time Seen by Provider: 06/06/20 12:44 History Source: Patient Exam Limitations: No Limitations - History of Present Illness Initial Comments: 06/06/20 13:59 40 year old female with pmhx of cervical CA, DVT/PE on Xarelto presenting to the ED after fall. Pt states that she tripped over a box in a store faling onto her right side, hitting her knee thigh and head. Pt states that she did no have LOC but does endorse a gradual in onset, not worse of life BAR. Pt is mostly concerned because of her knee pain. Pt was able to get up after fall and is able to ambulate with a limp. Pt otherwise denies: fevers, chills, syncope, lightheadedness, dizziness, headaches, changes in vision, neck pain, chest pain, shortness of breath, palpitations, back pain, abdominal pain, nausea, vomiting. Past History - Medical History Allergies/Adverse Reactions: Allergies Allergy/AdvReac Type Severity Reaction Status Date / Time No Known Drug Allergies Allergy Verified 06/06/20 12:47 peanut Allergy Rash Verified 06/06/20 12:47 shellfish derived Allergy Verified 06/06/20 12:47 Home Medications: Ambulatory Orders clonazePAM [KlonoPIN -] 2 mg PO TID 01/10/19 Aripiprazole [Abilify -] 30 mg PO HS 05/20/19 Atorvastatin Ca [Lipitor] 40 mg PO HS #60 tablet 10/26/19 Rivaroxaban [Xarelto] 15 mg PO DAILY #42 tab 10/26/19 Rivaroxaban [Xarelto] 20 mg PO DAILY #60 tablet 10/26/19 Epinephrine [Epipen 2-Isrrael] 0.3 mg IJ ASDIR #1 kit 05/28/20 Cyclobenzaprine HCl [Flexeril 10 mg] 10 mg PO BID PRN #14 tablet 06/06/20 Cancer: Yes (cervical) Cardiac Disorders: No COPD: No DVT: No Dementia: No Diabetes: No GI Disorders: No Disorders: No Liver Disease: No Psychiatric Problems: Yes (BIPOLAR, anxiety) Seizures: No Thyroid Disease: No Other medical history: PE on Zeralta x 1 yr - Surgical History Abdominal Surgery: Yes (ANA FALLOPIAN TUBES REMOVAL, cervix removed) Neurologic Surgery: No - Reproductive History (#): 2 Para: 2 Cervical CA: Yes Dysfunctional Uterine Bleeding: No Ectopic : No Endometrial CA: No Polycystic Ovaries: No Therapeutic (s) & number: No Tubal Ligation: No Spontaneous : 0 - Immunization History Td Vaccination: Yes TDAP Vaccination: Yes Immunization Up to Date: Yes - Psycho-Social/Smoking History Smoking Status: Yes (QUIT 2007) Smoking History: Never smoked Have you smoked in the past 12 months: Yes Number of Cigarettes Smoked Daily: 4 If you are a former smoker, when did you quit?: 1 week 'Breaking Loose' booklet given: 09/17/19 - Substance Abuse Hx (Audit-C & DAST Scrn) How often the patient has a drink containing alcohol: Never Score: In Men: 4 or > Positive; In Women: 3 or > Positive: 0 Screen Result (Pos requires Nsg. Audit-10AR): Negative Review of Systems - Review of Systems Constitutional: No: Chills, Fever HEENTM: No: Eye Pain, Blurred Vision, Double Vision, Ear Discharge Respiratory: No: Shortness of Breath Cardiac (ROS): No: Chest Pain ABD/GI: No: Abdominal Distended, Blood Streaked Bowels, Nausea, Vomiting : No: Dysuria Musculoskeletal: Yes: Joint Pain, Muscle Pain. No: Back Pain, Neck Pain Integumentary: Yes: Bruising (R knee) Neurological: Yes: Headache. No: Numbness, Paresthesia, Seizure, Tingling, Tremors *Physical Exam - Vital Signs Last Vital Signs Temp Pulse Resp BP Pulse Ox 98.9 F 93 H 18 122/71 98 06/06/20 12:43 06/06/20 12:43 06/06/20 12:43 06/06/20 12:43 06/06/20 12:43 - Physical Exam 06/06/20 14:02 Gen: AAOx 3, no acute distress, comfortable, no signs of respiratory distress HENT: atraumatic, normocephalic with no laceration or contusion. Nasal mucosa without erythema. Oropharynx without erythema or exudates. Mucous membranes moist. EYES: PERRL, EOM intact, conjunctiva pink NECK: supple; trachea midline; no JVD, no lymphadenopathy, or thyromegaly CV: RRR no murmurs, gallops, or rubs. CHEST: CTA b/l no wheezing, rales or rhonchi ABD: +BS/ND. no TTP; soft, no rebound, no guarding EXTREMITY: no cyanosis or erythema. 2+ dorsalis pedis, posterior tibial, and radial pulse. No pedal edema; no calf swelling or tenderness RLE: swelling and ttp to anterior patella region, area of ecchymosis to right lateral thigh supple nonttp, FROM 5/5 strength SKIN: no rash, warm and dry, no diaphoresis HEME: no purpura or ecchymosis NEURO: normal speech, CN II-XII intact, sensation intact, normal gait, no cerebellar deficits, finger to nose, rapid alternating movements intact neg rhomberg MS: 5/5 strength in all extremities, FROM intact in all extremities. ED Treatment Course - RADIOLOGY Radiology Studies Ordered: Category Date Time Status KNEE 3 POS-RIGHT [RAD] Stat Radiology 06/06/20 13:13 Taken Medical Decision Making - Medical Decision Making 06/06/20 14:03 40 year old female s/p trip and fall with minor head trauma (on Xarelto), and knee pain. VSS Benign neuro exam Will obtain CT head to assess for ICH XR knee to assess for fracture / effusion Will reassess based on results. CT head negative for any acute findings XR knee shows no acute pathology. Pt is safe and stable for discharge Supportive care instructions explained and given to pt. Reasons to return emergently to ER explained and given. Importance of follow up with PMD and other specialists as indicated stressed to pt. Pt verbalized understanding of instructions. Pt to follow up with PMD in 2 days. 06/06/20 14:26 Discharge - Discharge Information Problems reviewed: Yes Clinical Impression/Diagnosis: Leg injury Qualifiers: Encounter type: initial encounter Laterality: right Qualified Code(s): S89.91XA - Unspecified injury of right lower leg, initial encounter Head injury Qualifiers: Encounter type: initial encounter Qualified Code(s): S09.90XA - Unspecified injury of head, initial encounter Condition: Stable Disposition: HOME - Additional Discharge Information Prescriptions: Cyclobenzaprine HCl [Flexeril 10 mg] 10 mg PO BID PRN #14 tablet PRN Reason: Pain - Follow up/Referral Referrals: Figueroa Gambino MD [Primary Care Provider] - - Patient Discharge Instructions Patient Printed Discharge Instructions: DI for Knee Pain - Post Discharge Activity
== END 2020-06-06 14:32 | disposition home or self-care (01) ==
LOC: JERFT 12:39
DX: S09.90XA Unspecified injury of head, initial encounter (principal); S89.91XA Unspecified injury of right lower leg, initial encounter; W01.0XXA Fall on same level from slipping, tripping and stumbling without subsequent striking against object, initial encounter
CPT/HCPCS: 70450-TC; 73562-TC-RT-FY; 99284-25

== ENCOUNTER 2020-06-11 21:33 | Emergency (ER) | payer OTHER ==
[2020-06-11] MEDS ORDERED: SODIUM CHLORIDE 1,000 ML IV STA (21:44)
[2020-06-11] MEDS ORDERED: ACETAMINOPHEN 1000 MG/100 ML VIAL (NON FORMULARY) IVPB ONE (21:44)
--- NOTE | 2020-06-11 21:44 | PDOC ---
Rapid Medical Evaluation Chief Complaint: Pain Time Seen by Provider: 06/11/20 21:43 Medical Evaluation: Allergies Allergy/AdvReac Type Severity Reaction Status Date / Time No Known Drug Allergies Allergy Verified 06/06/20 12:47 peanut Allergy Rash Verified 06/06/20 12:47 shellfish derived Allergy Verified 06/06/20 12:47 06/11/20 21:43 40 year old female c/o right lower abdominal pain since 6 pm. denies fever/ chills, flank pain. denies NVD. patient reports taking tylenol with no symptom relief PMHX: cervical cancer, PE on xarelto A: RLQ pain P: labs UA Discharge Disposition - Diagnosis Right lower quadrant pain - Referrals - Patient Instructions - Post Discharge Activity
[2020-06-11 21:47] VITALS: BMI 38.4
--- NOTE | 2020-06-11 23:13 | PDOC ---
History of Present Illness - General Chief Complaint: Pain Stated Complaint: LOWER ABD PAIN Time Seen by Provider: 06/11/20 21:43 - History of Present Illness Initial Comments: 40 yo female with PMH of cervical ca, hysterectomy, PE on xeralto presents with 4 hours of RLQ pain. The pain is constant, non-radiating, 10/10 sharp pain that is worsened with deep inspiration. She has been having a normal appetite without n/v/d. She has taken tylenol without relief. Her bowel movements have been normal and she denies bloody stool. She denies fevers, chills, sob, dysuria and discharge. Past History - Medical History Allergies/Adverse Reactions: Allergies Allergy/AdvReac Type Severity Reaction Status Date / Time No Known Drug Allergies Allergy Verified 06/11/20 21:47 peanut Allergy Rash Verified 06/11/20 21:47 shellfish derived Allergy Verified 06/11/20 21:47 Home Medications: Ambulatory Orders clonazePAM [KlonoPIN -] 2 mg PO TID 01/10/19 Aripiprazole [Abilify -] 30 mg PO HS 05/20/19 Atorvastatin Ca [Lipitor] 40 mg PO HS #60 tablet 10/26/19 Rivaroxaban [Xarelto] 15 mg PO DAILY #42 tab 10/26/19 Rivaroxaban [Xarelto] 20 mg PO DAILY #60 tablet 10/26/19 Epinephrine [Epipen 2-Isrrael] 0.3 mg IJ ASDIR #1 kit 05/28/20 Cyclobenzaprine HCl [Flexeril 10 mg] 10 mg PO BID PRN #14 tablet 06/06/20 Cancer: Yes (cervical) Cardiac Disorders: No COPD: No DVT: No Dementia: No Diabetes: No GI Disorders: No Disorders: No Liver Disease: No Psychiatric Problems: Yes (BIPOLAR, anxiety) Seizures: No Thyroid Disease: No - Surgical History Abdominal Surgery: Yes (ANA FALLOPIAN TUBES REMOVAL, cervix removed) Neurologic Surgery: No - Reproductive History (#): 2 Para: 2 Cervical CA: Yes Dysfunctional Uterine Bleeding: No Ectopic : No Endometrial CA: No Polycystic Ovaries: No Therapeutic (s) & number: No Tubal Ligation: No Spontaneous : 0 - Immunization History Td Vaccination: Yes TDAP Vaccination: Yes Immunization Up to Date: Yes - Psycho-Social/Smoking History Smoking Status: Yes (QUIT 2007) Smoking History: Current every day smoker Have you smoked in the past 12 months: Yes Number of Cigarettes Smoked Daily: 7 If you are a former smoker, when did you quit?: 1 week Information on smoking cessation initiated: Yes 'Breaking Loose' booklet given: 09/17/19 - Substance Abuse Hx (Audit-C & DAST Scrn) How often the patient has a drink containing alcohol: Never Score: In Men: 4 or > Positive; In Women: 3 or > Positive: 0 Screen Result (Pos requires Nsg. Audit-10AR): Negative In the last yr the pt used illegal drug/Rx for NonMed reason: No Score: Yes response is considered Positive: 0 Screen Result (Positive result requires Nsg. DAST-10): Negative Review of Systems - Review of Systems Constitutional: No: Chills, Diaphoresis, Fever HEENTM: No: Blurred Vision, Recent change in vision Respiratory: No: Cough, Orthopnea, Shortness of Breath Cardiac (ROS): No: Chest Pain, Edema, Palpitations ABD/GI: No: Abdominal Distended, Blood Streaked Bowels, Constipated, Diarrhea, Nausea, Poor Appetite, Vomiting : No: Dysuria, Flank Pain, Hematuria Musculoskeletal: No: Back Pain, Joint Pain, Joint Swelling Integumentary: No: Bruising, Change in Color, Erythema, Flushing Neurological: No: Headache, Dizziness Psychiatric: No: Anxiety, Depression, Mood Swings Endocrine: No: Intolerance to Cold, Intolerance to Heat *Physical Exam - Vital Signs Last Vital Signs Temp Pulse Resp BP Pulse Ox 98.5 F 100 H 18 115/72 97 06/11/20 21:45 06/11/20 21:45 06/11/20 21:45 06/11/20 21:45 06/11/20 21:45 - Physical Exam General Appearance: Yes: Nourished, Appropriately Dressed. No: Apparent Distress HEENT: positive: EOMI, Normal Voice Respiratory/Chest: positive: Lungs Clear, Normal Breath Sounds. negative: Respiratory Distress Cardiovascular: positive: Regular Rhythm, Regular Rate, S1, S2 Gastrointestinal/Abdominal: positive: Flat, Soft, Other (Tenderness at mcburney's point. Pain at costovertebral angle. pain with ipsilateral hip flexion. ). negative: Tender, Organomegaly Extremity: positive: Normal Capillary Refill, Normal Inspection, Normal Range of Motion Integumentary: positive: Normal Color, Dry, Warm Neurologic: positive: Fully Oriented, Alert, Normal Mood/Affect ED Treatment Course - LABORATORY CBC & Chemistry Diagram: 06/11/20 23:00 06/11/20 23:00 Medical Decision Making - Medical Decision Making 40 yo female with PMH of cervical ca, hysterectomy, PE presents with RLQ pain for 4 hours w/o nvd. Patient was signed out to gis instructor. 06/12/20 21:47 Discharge - Discharge Information Problems reviewed: Yes Clinical Impression/Diagnosis: Right lower quadrant pain Condition: Improved Disposition: HOME - Follow up/Referral Referrals: Figueroa Olmedo [Primary Care Provider] - - Patient Discharge Instructions Patient Printed Discharge Instructions: DI for Abdominal Pain-Adult Additional Instructions: Your workup did not show anything concerning Take tylenol or ibuprofen if you have pain Follow up with your primary care doctor - Post Discharge Activity
--- NOTE | 2020-06-11 23:13 | PDOC ---
Documentation entered by Tobias Wilson SCRIBE, acting as scribe for Elyse Holt MD. Elyse Holt MD: This documentation has been prepared by the scribe, Tobias Hernandez SCRIBE, under my direction and personally reviewed by me in its entirety. I confirm that the documentation accurately reflects all work, treatment, procedures, and medical decision making performed by me. Attending Attestation - Resident Resident Name: Lorena Galicia - ED Attending Attestation I have performed the following: I have examined & evaluated the patient, The case was reviewed & discussed with the resident, I agree w/resident's findings & plan, Exceptions are as noted - HPI HPI: 06/11/20 23:13 The patient is a 40 year old female with a significant past medical history of cervical cancer and PE (within the past year) who presents to the ED with constant right lower quadrant pain that began 4 hours ago. The patient reports pain is associated with right flank pain and is worsened with deep inspiration and laying down. The patient endorses she took Tylenol with no relief. The patient reports normal appetite. The patient denies chest pain and shortness of breath. Denies fever and chills. Denies any other symptoms. Allergies: NKDA, peanut, shellfish derived Social Hx: Surgical Hx: total hysterectomy PCP: Dr. Olmedo - Physicial Exam PE: 06/11/20 23:27 40 yo female p/w RLQpain head ncat neck supple lungs cta b/l cvs [id number] abd rlq tenderness extemities noerythema,no edema skin warm and dry neuro axox3 - Medical Decision Making 06/11/20 23:28 labs,IVF, ct scan abd/pel 06/12/20 01:42 ct scan of abd/pelvis : normal appendix, no sbo, s/p hysterectomy , no acute abdominal pathology pt has an appt with her PCP this week Discharge - Discharge Information Problems reviewed: Yes Clinical Impression/Diagnosis: Right lower quadrant pain Condition: Improved Disposition: HOME - Follow up/Referral Referrals: Figueroa Olmedo [Primary Care Provider] - - Patient Discharge Instructions Patient Printed Discharge Instructions: DI for Abdominal Pain-Adult Additional Instructions: Your workup did not show anything concerning Take tylenol or ibuprofen if you have pain Follow up with your primary care doctor - Post Discharge Activity
[2020-06-11 23:51] LABS: BASO % 1.6 % (0-2.0); EOS % 1.6 % (0-4.5); HEMATOCRIT 37.4 % (32.4-45.2); HEMOGLOBIN 12.5 GM/dL (10.7-15.3); LYMPH % 26.8 % (8-40); MCH 29.6 pg (25.7-33.7); MCHC 33.3 g/dl (32.0-36.0); MEAN CELL VOLUME 88.9 fl (80-96); MEAN PLT VOLUME 8.4 fl (7.5-11.1); MONO % 5.6 % (3.8-10.2); NEUT % 64.4 % (42.8-82.8); PLATELET COUNT 256 K/MM3 (134-434); RBC 4.21 M/mm3 (3.60-5.2); WHITE BLOOD COUNT 7.2 K/mm3 (4.0-10.0)
--- NOTE | 2020-06-11 23:51 | PDOC ---
*Physical Exam - Vital Signs Last Vital Signs Temp Pulse Resp BP Pulse Ox 98.5 F 100 H 18 115/72 97 06/11/20 21:45 06/11/20 21:45 06/11/20 21:45 06/11/20 21:45 06/11/20 21:45 ED Treatment Course - LABORATORY CBC & Chemistry Diagram: 06/11/20 23:00 06/11/20 23:00 - Medications Given in the ED: ED Medications Discontinued Medications Generic Name Dose Route Start Last Admin Trade Name Enriqueta PRN Reason Stop Dose Admin Acetaminophen 1,000 mg 06/11/20 21:44 06/11/20 23:25 Ofirmev Injection - IVPB 06/11/20 21:45 Not Given ONCE ONE Sodium Chloride 1,000 mls @ 1,000 mls/hr 06/11/20 21:44 06/11/20 23:24 Normal Saline - IV 06/11/20 22:43 1,000 mls/hr ASDIR STA Administration Medical Decision Making - Medical Decision Making 06/11/20 23:50 Signed out from day team 40 yo female with PMH of cervical ca, hysterectomy, PE presents with RLQ pain for 4 hours No evidence of UTI (neg) vs kidney stone (no hematuria) vs (neg) Given tylenol, 1L NS, pain resolved on re-eval. DC home w PCP f/u, supportive care Discharge - Discharge Information Problems reviewed: Yes Clinical Impression/Diagnosis: Right lower quadrant pain Condition: Improved Disposition: HOME - Follow up/Referral Referrals: Figueroa Olmedo [Primary Care Provider] - - Patient Discharge Instructions Patient Printed Discharge Instructions: DI for Abdominal Pain-Adult Additional Instructions: Your workup did not show anything concerning Take tylenol or ibuprofen if you have pain Follow up with your primary care doctor - Post Discharge Activity
[2020-06-11 23:54] LABS: URINE APPEARANCE CLOUDY; URINE BILIRUBIN NEGATIVE (NEGATIVE); URINE COLOR YELLOW; URINE GLUCOSE (UA) NEGATIVE (NEGATIVE); URINE KETONE NEGATIVE (NEGATIVE); URINE LEUK ESTERASE NEGATIVE (NEGATIVE); URINE NITRITE NEGATIVE (NEGATIVE); URINE PROTEIN NEGATIVE (NEGATIVE)
[2020-06-12 00:36] LABS: BILIRUBIN,TOTAL 0.2 mg/dL (0.2-1); BLOOD UREA NITROGEN 23.4 mg/dL (7-18); CALCIUM 8.8 mg/dL (8.5-10.1); CREATININE 0.9 mg/dL (0.55-1.3); POTASSIUM 4.7 mmol/L (3.5-5.1); TOT PROT 6.7 g/dl (6.4-8.2)
[2020-06-12 00:57] VITALS: BP 118/79; PULSE 83; TEMP 97
--- NOTE | 2020-06-12 09:55 | EKG ---
Test Reason : Blood Pressure : / mmHG Vent. Rate : 090 BPM Atrial Rate : 090 BPM P-R Int : 146 ms QRS Dur : 094 ms QT Int : 362 ms P-R-T Axes : 031 039 023 degrees QTc Int : 442 ms NORMAL SINUS RHYTHM NORMAL ECG WHEN COMPARED WITH ECG OF 07-NOV-2019 01:07, NONSPECIFIC T WAVE ABNORMALITY HAS REPLACED INVERTED T WAVES IN ANTERIOR LEADS Confirmed by MD MELANI, LILY ([id number]) on 06/12/2020 9:55:10 AM Referred By: Confirmed By:LILY POLO MD
== END 2020-06-12 02:02 | disposition home or self-care (01) ==
LOC: JER 21:33
PROC: 3E0333Z Introduction of Anti-inflammatory into Peripheral Vein, Percutaneous Approach (ICD-10-PCS; principal; 2020-06-11)
PROC: 3E0337Z Introduction of Electrolytic and Water Balance Substance into Peripheral Vein, Percutaneous Approach (ICD-10-PCS; 2020-06-11)
DX: R10.31 Right lower quadrant pain (principal)
CPT/HCPCS: 36415; 74177-TC; 80053; 81003; 83690; 84703; 85025; 93005; 93010; 99285-25; Q9967

== ENCOUNTER 2020-07-10 20:05 | Emergency (ER) | payer OTHER ==
--- NOTE | 2020-07-10 20:08 | PDOC ---
Rapid Medical Evaluation Time Seen by Provider: 07/10/20 20:06 Medical Evaluation: Allergies Allergy/AdvReac Type Severity Reaction Status Date / Time No Known Drug Allergies Allergy Verified 06/11/20 21:47 peanut Allergy Rash Verified 06/11/20 21:47 shellfish derived Allergy Verified 06/11/20 21:47 07/10/20 20:06 I have performed a brief in-person evaluation of this patient. CC: right foot pain s/p trip and fall 06/06 PE: 2+ DP pulses. No focal findings to right foot Orders: xray, ice Patient will proceed to ED for further evaluation. Discharge Disposition - Diagnosis Right ankle pain - Referrals - Patient Instructions - Post Discharge Activity
[2020-07-10 20:09] VITALS: BP 123/75; PULSE 108; TEMP 98.3; BMI 37.3
--- NOTE | 2020-07-10 20:50 | PDOC ---
History of Present Illness - General Chief Complaint: Injury Stated Complaint: RT FOOT INJURY Time Seen by Provider: 07/10/20 20:06 - History of Present Illness Initial Comments: 07/10/20 20:47 40-year-old female with a past medical history of stage I cervical cancer and pulmonary embolism currently on Xarelto presents for evaluation of right calf pain. Patient states a few weeks ago she tripped over a box injuring her right calf she points to the area of the Achilles in the area of the musculotendinous junction as the area of her discomfort she has problems bearing weight. Her initial injury was about a month ago and over the last week it is recently been exacerbated without any precipitating traumatic event she describes radiation into the bottom of her foot and up the anterior aspect of her right leg to the level of her neck Past History - Medical History Allergies/Adverse Reactions: Allergies Allergy/AdvReac Type Severity Reaction Status Date / Time No Known Drug Allergies Allergy Verified 07/10/20 20:09 peanut Allergy Rash Verified 07/10/20 20:09 shellfish derived Allergy Verified 07/10/20 20:09 Home Medications: Ambulatory Orders clonazePAM [KlonoPIN -] 2 mg PO TID 01/10/19 Aripiprazole [Abilify -] 30 mg PO HS 05/20/19 Atorvastatin Ca [Lipitor] 40 mg PO HS #60 tablet 10/26/19 Rivaroxaban [Xarelto] 15 mg PO DAILY #42 tab 10/26/19 Rivaroxaban [Xarelto] 20 mg PO DAILY #60 tablet 10/26/19 Epinephrine [Epipen 2-Isrrael] 0.3 mg IJ ASDIR #1 kit 05/28/20 Cyclobenzaprine HCl [Flexeril 10 mg] 10 mg PO BID PRN #14 tablet 06/06/20 Cancer: Yes (cervical) Cardiac Disorders: No COPD: No DVT: No Dementia: No Diabetes: No GI Disorders: No Disorders: No Liver Disease: No Psychiatric Problems: Yes (BIPOLAR, anxiety) Seizures: No Thyroid Disease: No - Surgical History Abdominal Surgery: Yes (ANA FALLOPIAN TUBES REMOVAL, cervix removed) Neurologic Surgery: No - Reproductive History Is Patient Now?: No (#): 2 Para: 2 Cervical CA: Yes Dysfunctional Uterine Bleeding: No Ectopic : No Endometrial CA: No Polycystic Ovaries: No Therapeutic (s) & number: No Tubal Ligation: No Spontaneous : 0 - Immunization History Td Vaccination: Yes TDAP Vaccination: Yes Immunization Up to Date: Yes - Psycho-Social/Smoking History Smoking Status: Yes (QUIT 2007) Smoking History: Current every day smoker Have you smoked in the past 12 months: Yes Number of Cigarettes Smoked Daily: 5 If you are a former smoker, when did you quit?: 1 week Information on smoking cessation initiated: Yes 'Breaking Loose' booklet given: 09/17/19 - Substance Abuse Hx (Audit-C & DAST Scrn) How often the patient has a drink containing alcohol: Never Score: In Men: 4 or > Positive; In Women: 3 or > Positive: 0 Screen Result (Pos requires Nsg. Audit-10AR): Negative In the last yr the pt used illegal drug/Rx for NonMed reason: No Score: Yes response is considered Positive: 0 Screen Result (Positive result requires Nsg. DAST-10): Negative Review of Systems - Review of Systems Musculoskeletal: Yes: See HPI, Joint Pain *Physical Exam - Vital Signs Last Vital Signs Temp Pulse Resp BP Pulse Ox 98.3 F 108 H 18 123/75 98 07/10/20 20:06 07/10/20 20:06 07/10/20 20:06 07/10/20 20:06 07/10/20 20:06 - Physical Exam 07/10/20 20:48 There is full range of motion of the right hip and knee. Thigh and calf are soft and nontender. There is tenderness about the Achilles in the area of the musculotendinous junction Bass's test is negative she has no gross sensorimotor deficits 4 out of 5 strength in plantar and dorsiflexion no other areas of tenderness in the foot or ankle. No palpable defect neurovascular intact Medical Decision Making - Medical Decision Making 07/10/20 20:49 X-rays of the right ankle and foot show no fracture trauma or destructive process she does have some soft tissue edema on the lateral In view of the ankle. This may represent a torn plantaris. She is already on anticoagulation for a pulmonary embolism. Follow-up with orthopedics in 1 to 2 days for further evaluation and treatment options. Weight-bear as tolerated with crutches. Tylenol for pain. Discharge - Discharge Information Problems reviewed: Yes Clinical Impression/Diagnosis: Right ankle pain Condition: Stable Disposition: HOME - Admission No - Follow up/Referral Referrals: Chilo Dominguez DO [Staff Physician] - - Patient Discharge Instructions Additional Instructions: You may weight-bear as tolerated with crutches and return to the emergency room at any time for further evaluation and treatment should you fail to get an appointment with orthopedic surgery in 1 to 2 days. Without fail follow-up with orthopedic surgery in 1 to 2 days for further evaluation and treatment options. Tylenol as directed for pain. - Post Discharge Activity
== END 2020-07-10 21:03 | disposition home or self-care (01) ==
LOC: JERFT 20:05
DX: M25.571 Pain in right ankle and joints of right foot (principal)
CPT/HCPCS: 73610-TC-RT-FY; 73630-TC-RT-FY; 99283-25

== ENCOUNTER 2020-07-25 01:23 | Emergency (ER) | payer OTHER ==
--- NOTE | 2020-07-25 02:04 | PDOC ---
History of Present Illness - General Stated Complaint: RIGHT LEG PAIN Time Seen by Provider: 07/25/20 02:01 Past History - Medical History Allergies/Adverse Reactions: Allergies Allergy/AdvReac Type Severity Reaction Status Date / Time No Known Drug Allergies Allergy Verified 07/10/20 20:09 peanut Allergy Rash Verified 07/10/20 20:09 shellfish derived Allergy Verified 07/10/20 20:09 Home Medications: Ambulatory Orders clonazePAM [KlonoPIN -] 2 mg PO TID 01/10/19 Aripiprazole [Abilify -] 30 mg PO HS 05/20/19 Atorvastatin Ca [Lipitor] 40 mg PO HS #60 tablet 10/26/19 Rivaroxaban [Xarelto] 15 mg PO DAILY #42 tab 10/26/19 Rivaroxaban [Xarelto] 20 mg PO DAILY #60 tablet 10/26/19 Epinephrine [Epipen 2-Isrrael] 0.3 mg IJ ASDIR #1 kit 05/28/20 Cyclobenzaprine HCl [Flexeril 10 mg] 10 mg PO BID PRN #14 tablet 06/06/20 Cancer: Yes (cervical) Cardiac Disorders: No COPD: No DVT: No Dementia: No Diabetes: No GI Disorders: No Disorders: No Liver Disease: No Psychiatric Problems: Yes (BIPOLAR, anxiety) Seizures: No Thyroid Disease: No - Surgical History Abdominal Surgery: Yes (ANA FALLOPIAN TUBES REMOVAL, cervix removed) Neurologic Surgery: No - Reproductive History (#): 2 Para: 2 Cervical CA: Yes Dysfunctional Uterine Bleeding: No Ectopic : No Endometrial CA: No Polycystic Ovaries: No Therapeutic (s) & number: No Tubal Ligation: No Spontaneous : 0 - Immunization History Td Vaccination: Yes TDAP Vaccination: Yes Immunization Up to Date: Yes - Psycho-Social/Smoking History Smoking Status: Yes (QUIT 2007) Smoking History: Current every day smoker Have you smoked in the past 12 months: Yes Number of Cigarettes Smoked Daily: 5 If you are a former smoker, when did you quit?: 1 week 'Breaking Loose' booklet given: 09/17/19 Discharge - Follow up/Referral Referrals: Figueroa Gambino MD [Primary Care Provider] - - Patient Discharge Instructions - Post Discharge Activity
[2020-07-25 02:17] VITALS: BP 110/77; PULSE 82; TEMP 97.5; BMI 38.9
--- NOTE | 2020-07-25 02:17 | PDOC ---
*Physical Exam - Vital Signs Last Vital Signs Temp Pulse Resp BP Pulse Ox 97.5 F L 82 16 110/77 97 07/25/20 01:25 07/25/20 01:25 07/25/20 01:25 07/25/20 01:25 07/25/20 01:25 Medical Decision Making - Medical Decision Making 07/25/20 02:16 Patient seen by the advanced practice provider under my supervision. Ancillary testing reviewed as necessary. I agree with plan as outlined by the advanced practice provider. Discharge - Discharge Information Condition: Fair - Follow up/Referral Referrals: Figueroa Gambino MD [Primary Care Provider] - - Patient Discharge Instructions - Post Discharge Activity
== END 2020-07-25 05:02 | disposition left against medical advice (07) ==
LOC: JER 01:23
DX: M79.604 Pain in right leg (principal)
CPT/HCPCS: 99281-25

== ENCOUNTER 2020-08-04 00:26 | Emergency (ER) | payer OTHER ==
--- NOTE | 2020-08-04 00:39 | PDOC ---
History of Present Illness - General Chief Complaint: Pain, Acute Stated Complaint: ABDOMINAL PAIN - History of Present Illness Initial Comments: 40 yo female with PMH of PE on Xarelto, Hysterectomy after cervical cancer in remission, and ovarian cysts. She presents with RLQ pain for 1 hour ago while she was laying down in bed. She denies fevers, chills, nvd, headaches. She had a bowel movement earlier today and is passing gas normally. Past History - Medical History Allergies/Adverse Reactions: Allergies Allergy/AdvReac Type Severity Reaction Status Date / Time No Known Drug Allergies Allergy Verified 07/25/20 02:16 peanut Allergy Rash Verified 07/25/20 02:16 shellfish derived Allergy Verified 07/25/20 02:16 Home Medications: Ambulatory Orders clonazePAM [KlonoPIN -] 2 mg PO TID 01/10/19 Aripiprazole [Abilify -] 30 mg PO HS 05/20/19 Atorvastatin Ca [Lipitor] 40 mg PO HS #60 tablet 10/26/19 Rivaroxaban [Xarelto] 15 mg PO DAILY #42 tab 10/26/19 Rivaroxaban [Xarelto] 20 mg PO DAILY #60 tablet 10/26/19 Epinephrine [Epipen 2-Isrrael] 0.3 mg IJ ASDIR #1 kit 05/28/20 Cyclobenzaprine HCl [Flexeril 10 mg] 10 mg PO BID PRN #14 tablet 06/06/20 Cephalexin [Keflex] 500 mg PO TID #21 capsule 08/04/20 Cancer: Yes (cervical) Cardiac Disorders: No COPD: No DVT: No Dementia: No Diabetes: No GI Disorders: No Disorders: No Liver Disease: No Psychiatric Problems: Yes (BIPOLAR, anxiety) Seizures: No Thyroid Disease: No - Surgical History Abdominal Surgery: Yes (ANA FALLOPIAN TUBES REMOVAL, cervix removed) Neurologic Surgery: No - Reproductive History (#): 2 Para: 2 Cervical CA: Yes Dysfunctional Uterine Bleeding: No Ectopic : No Endometrial CA: No Polycystic Ovaries: No Therapeutic (s) & number: No Tubal Ligation: No Spontaneous : 0 - Immunization History Td Vaccination: Yes TDAP Vaccination: Yes Immunization Up to Date: Yes - Psycho-Social/Smoking History Smoking Status: Yes (QUIT 2007) Smoking History: Never smoked Have you smoked in the past 12 months: Yes Number of Cigarettes Smoked Daily: 5 If you are a former smoker, when did you quit?: 1 week 'Breaking Loose' booklet given: 09/17/19 Review of Systems - Review of Systems Constitutional: No: Chills, Fever HEENTM: No: Recent change in vision, Double Vision Respiratory: No: Cough, Shortness of Breath Cardiac (ROS): No: Chest Pain, Palpitations ABD/GI: Yes: Other (RLQ abdominal pain). No: Constipated, Diarrhea, Nausea, Vomiting : No: Burning, Dysuria, Hematuria Musculoskeletal: No: Joint Pain, Muscle Pain Integumentary: No: Dryness, Erythema, Flushing Neurological: No: Headache, Dizziness Psychiatric: No: Anxiety, Depression, Mood Swings Endocrine: No: Intolerance to Cold, Intolerance to Heat Hematologic/Lymphatic: No: Anemia, Easy Bruising *Physical Exam - Physical Exam General Appearance: Yes: Appropriately Dressed, Apparent Distress, Moderate Distress HEENT: positive: EOMI, Normal Voice Neck: negative: Tender, Rigid Respiratory/Chest: positive: Lungs Clear, Normal Breath Sounds. negative: Respiratory Distress Cardiovascular: positive: Regular Rhythm, Regular Rate, S1, S2 Gastrointestinal/Abdominal: positive: Normal Bowel Sounds, Tender (RLQ), Flat, Soft, Other (positive psoas sign, positive obturator sign) Musculoskeletal: positive: Normal Inspection, CVA Tenderness (R) Extremity: positive: Normal Capillary Refill, Normal Inspection, Normal Range of Motion Integumentary: positive: Normal Color, Dry, Warm Neurologic: positive: Fully Oriented, Alert, Normal Mood/Affect ED Treatment Course - LABORATORY CBC & Chemistry Diagram: 08/04/20 01:21 08/04/20 01:21 Medical Decision Making - Medical Decision Making 40 yo female with PMH of PE on Xarelto, Hysterectomy after cervical cancer in remission, and ovarian cysts. She presents with RLQ pain for 1 hour ago Positive mcburney's point, psoas sign, obturator sign CBC unremarkable CMP unremarkable UA- positive UTI Pelvic US- shows 1.9 cm x 1.8 cm x 1.2 cm simple right ovarian cyst CT Abd/Pelvis shows no signs of appendicitis. In hospital treatment with 1g ceftriaxone Prescription sent for 500mg cephalexin TID Pt symptoms have improved. Pt stable for discharge. 08/04/20 05:44 Discharge - Discharge Information Problems reviewed: Yes Clinical Impression/Diagnosis: UTI (urinary tract infection) Qualifiers: Urinary tract infection type: site unspecified Hematuria presence: without hematuria Qualified Code(s): N39.0 - Urinary tract infection, site not specified Abdominal pain Qualifiers: Abdominal location: right lower quadrant Qualified Code(s): R10.31 - Right lower quadrant pain Condition: Stable Disposition: HOME - Admission No - Additional Discharge Information Prescriptions: Cephalexin [Keflex] 500 mg PO TID #21 capsule - Follow up/Referral - Patient Discharge Instructions Additional Instructions: Go to your pharmacy to fruit or nut picker your antibiotics for the UTI and stay well nourished and hydrated. Follow up with your PCP for further monitoring of your condition. Return to the ED if your symptoms worsen and/or you experience fevers, chills, nausea, vomiting, diarrhea, constipation, severe abdominal pain or flank pain, painful urination, bloody urine, chest pain, shortness of breath. - Post Discharge Activity
[2020-08-04 00:50] VITALS: BMI 41.4
[2020-08-04] MEDS ORDERED: SODIUM CHLORIDE 1,000 ML IV STA (01:12)
[2020-08-04] MEDS ORDERED: ACETAMINOPHEN 1000 MG/100 ML VIAL (NON FORMULARY) IVPB ONE (01:12)
--- NOTE | 2020-08-04 01:45 | PDOC ---
Documentation entered by Tobias Wilson SCRIBE, acting as scribe for Linda Scott MD. Linda Scott MD: This documentation has been prepared by the scribe, Tobias Wilson SCRIBE, under my direction and personally reviewed by me in its entirety. I confirm that the documentation accurately reflects all work, treatment, procedures, and medical decision making performed by me. Attending Attestation - Resident Resident Name: Lorena Galicia - ED Attending Attestation I have performed the following: I have examined & evaluated the patient, The case was reviewed & discussed with the resident, I agree w/resident's findings & plan, Exceptions are as noted - HPI HPI: 08/04/20 01:16 The patient is a 40 year old female with a significant past medical history of cervical cancer and PE (within the past year; on Xarelto), ovarian cysts, bipolar, and anxiety who presents to the emergency department, [facility], for evaluation of sudden onset of right lower quadrant pain two hours ago. The patient endorses remaining in bed often recently due to a right leg injury. She reports normal eating, urinating, and BMs. The patient denies chest/back pain, cough, and shortness of breath. Denies fever, chills, nausea, vomiting, and/or any GI symptoms. Denies any symptoms. Denies any other symptoms. Allergies: NKDA, peanut, shellfish derived Surgical Hx: total hysterectomy Family Hx: kidney stones Social Hx: The patient reports she quit smoking one week ago. (Prior: 5 cigarettes per day) PCP: Dr. Olmedo - Physicial Exam PE: 08/04/20 00:45 GENERAL: morbidly obese The patient is awake, alert, and fully oriented, Nontoxic - in no acute distress. HEAD: Normocephalic, atraumatic. EYES: extraocular movements intact, sclera anicteric, conjunctiva clear. ENT: Normal voice, Moist mucous membranes. NECK: Normal range of motion, supple without lymphadenopathy, JVD, or masses. LUNGS: Breath sounds equal, clear to auscultation bilaterally. No wheezes, no crackles, no rales. HEART: Regular rate and rhythm, normal S1 and S2 without murmur, rub or gallop. ABDOMEN: +RLQ and right inguinal pain Soft, nontender, normoactive bowel sounds. No guarding, no rebound. No masses. EXTREMITIES: Normal range of motion, no edema. No clubbing or cyanosis. No cords, erythema, or tenderness. NEUROLOGICAL: No facial asymmetry, Normal speech, normal gait. PSYCH: Normal mood, normal affect. SKIN: Warm, Dry, normal turgor, no rashes or lesions noted. - Medical Decision Making 08/04/20 01:06 Pt has RLQ Pain. She will be sent for songram of her pelvis/transvag sono, as she has a hx of ovarian cysts. Pt has a hx of hyterectomyl she has her ovaries. SHe has never had kidney stones, but they run in the family. Pt has her appendix. She is able to eat and drink. Pt injured her leg, and as such she has been spending a lot of time in bed and not lifting heavy objects. Pt was tested for STDs by her [employer] recently and she gets tested every 3 years. States that she has no vag discharge. Pt will gert sono and CT scan 08/04/20 04:09 Patient Name: TAMMY LANCE THIS IS A PRELIMINARY REPORT DATE OF SERVICE: 2020-08-04 01:14:40 IMAGES: 20 EXAM: PELVIC / BLADDER US HISTORY: Evaluate for right ovarian cyst COMPARISON: None. FINDINGS/IMPRESSION: The uterus has been surgically removed. 1.9 cm x 1.8 cm x 1.2 cm simple right ovarian cyst No evidence of ovarian torsion No free fluid Pt has a large UTI; she will be treated with ceftriaxone 08/04/20 04:14 [address] to [address] scanner 08/04/20 05:[address] abd pelvis. She has gas and stool in the RLQ; she has no evidence of hernia and I cannot visualize her appendix. 08/04/20 05:43 Pt feels better; No RLQ pain. SHe is ready for discharge 08/04/20 06:16 Patient Name: TAMMY LANCE THIS IS A PRELIMINARY REPORT DATE OF SERVICE: 2020-08-04 04:20:59 IMAGES: 520 EXAM: ABDOMEN \T\ PELVIS CT WITH CONTR HISTORY: Rule out appendicitis COMPARISON: None. FINDINGS: Lung bases are clear. The visualized cardiac chambers are normal size and configuration. Normal liver, gallbladder, pancreas, spleen, adrenal glands and kidneys. The stomach and abdominal small and large bowel are normal. There is no aortic aneurysm. There is no significant retroperitoneal lymphadenopathy. Diastases recti is noted. The pelvic small and large bowel are normal. The appendix is normal. Status post hysterectomy. Urinary bladder is unremarkable. There is no pelvic free fluid. No discrete pelvic lymphadenopathy is identified. IMPRESSION: No evidence of acute pathology. Discharge - Discharge Information Problems reviewed: Yes Clinical Impression/Diagnosis: UTI (urinary tract infection) Qualifiers: Urinary tract infection type: site unspecified Hematuria presence: without hematuria Qualified Code(s): N39.0 - Urinary tract infection, site not specified Abdominal pain Qualifiers: Abdominal location: right lower quadrant Qualified Code(s): R10.31 - Right lower quadrant pain Condition: Stable Disposition: HOME - Additional Discharge Information Prescriptions: Cephalexin [Keflex] 500 mg PO TID #21 capsule - Follow up/Referral - Patient Discharge Instructions Additional Instructions: Go to your pharmacy to picker operator your antibiotics for the UTI and stay well nourished and hydrated. Follow up with your PCP for further monitoring of your condition. Return to the ED if your symptoms worsen and/or you experience fevers, chills, nausea, vomiting, diarrhea, constipation, severe abdominal pain or flank pain, painful urination, bloody urine, chest pain, shortness of breath. - Post Discharge Activity
[2020-08-04] MEDS ORDERED: ACETAMINOPHEN INJECTION 100 ML IVPB ONE (02:06)
[2020-08-04 02:10] LABS: HEMATOCRIT 38.7 % (32.4-45.2); HEMOGLOBIN 12.9 GM/dL (10.7-15.3); MCH 29.3 pg (25.7-33.7); MCHC 33.3 g/dl (32.0-36.0); MEAN CELL VOLUME 88.1 fl (80-96); MEAN PLT VOLUME 7.9 fl (7.5-11.1); PLATELET COUNT 250 K/MM3 (134-434); RBC 4.39 M/mm3 (3.60-5.2)
[2020-08-04 02:38] LABS: ALBUMIN 3.2 g/dl (3.4-5.0); BILIRUBIN,TOTAL 0.3 mg/dL (0.2-1); BLOOD UREA NITROGEN 17.9 mg/dL (7-18); CALCIUM 8.7 mg/dL (8.5-10.1); CREATININE 0.9 mg/dL (0.55-1.3); POTASSIUM 4.2 mmol/L (3.5-5.1)
[2020-08-04 03:37] LABS: HCG,QUALITATIVE URINE Negative
[2020-08-04 03:38] LABS: EPI CELLS >36 /uL (0-25.1); HYALINE CASTS 23 /uL (0-3.1); URINE APPEARANCE TURBID; URINE BACTERIA 8860 /uL (0-1359); URINE BILIRUBIN NEGATIVE (NEGATIVE); URINE COLOR YELLOW; URINE GLUCOSE (UA) NEGATIVE (NEGATIVE); URINE KETONE NEGATIVE (NEGATIVE); URINE LEUK ESTERASE TRACE (NEGATIVE); URINE NITRITE NEGATIVE (NEGATIVE); URINE PROTEIN NEGATIVE (NEGATIVE); URINE RBC 13 /uL (0-23.9); URINE UROBILINOGEN 0.2 mg/dL (0.2-1.0); URINE WBC 180 /uL (0-25.8)
[2020-08-04] MEDS ORDERED: CEFTRIAXONE 1 GM in DEXTROSE 5%-WATER - 50 ML IVPB ONE (04:07)
[2020-08-04] MEDS ORDERED: CEFTRIAXONE 1 GM/50 ML BAG ONE (04:39)
[2020-08-04 05:51] VITALS: BP 112/69; PULSE 75; TEMP 98
== END 2020-08-04 06:20 | disposition home or self-care (01) ==
LOC: JER 00:26
PROC: 3E03329 Introduction of Other Anti-infective into Peripheral Vein, Percutaneous Approach (ICD-10-PCS; principal; 2020-08-04)
PROC: 3E033GC Introduction of Other Therapeutic Substance into Peripheral Vein, Percutaneous Approach (ICD-10-PCS; 2020-08-04)
PROC: 3E0337Z Introduction of Electrolytic and Water Balance Substance into Peripheral Vein, Percutaneous Approach (ICD-10-PCS; 2020-08-04)
DX: N39.0 Urinary tract infection, site not specified (principal); R10.31 Right lower quadrant pain
CPT/HCPCS: 36415; 74177-TC; 76856-TC; 80053; 81003; 83690; 84703; 85027; 87086; 99285-25; J0131

== ENCOUNTER 2020-10-03 19:50 | Emergency (ER) | payer OTHER ==
[2020-10-03 20:02] VITALS: TEMP 98.2; BMI 40.7
--- NOTE | 2020-10-03 20:03 | PDOC ---
Rapid Medical Evaluation Time Seen by Provider: 10/03/20 19:58 Medical Evaluation: Allergies Allergy/AdvReac Type Severity Reaction Status Date / Time No Known Drug Allergies Allergy Verified 09/30/20 18:32 peanut Allergy Rash Verified 09/30/20 18:32 shellfish derived Allergy Verified 09/30/20 18:32 10/03/20 20:01 CC: pt here for llq pain, seen here 09/30, std w/u. Reviewed gen cx which resulted this afternoon ...+ BV, no urinary complaints Exam: left suprapubic tenderness, rotund abd, vss Plan: urine, u/s - on 09/30, needs tx for BV Discharge Disposition - Diagnosis Urinary frequency - Referrals - Patient Instructions - Post Discharge Activity
--- OUTSIDE RECORDS SUMMARY | 2020-10-03 20:13 | XMS ---
:1980 Author Organization [facility] Care Team Providers Name Role Phone JULIANE HUA Unavailable Unavailable [facility], [id number] Unavailable Unavailable Scott, Mohammad Unavailable [phone] Scott, Mohammad Unavailable [phone] Rosita Freeman MD Unavailable Unavailable Cathie Freeman MD Unavailable Unavailable Cathie Freeman MD Unavailable Unavailable Cathie Freeman MD Unavailable Unavailable Cathie Freeman MD Unavailable Unavailable Cathie Freeman MD Unavailable Unavailable Cathie Freeman MD Unavailable Unavailable Cathie Freeman MD Unavailable Unavailable Cathie Freeman MD Unavailable Unavailable Cathie Freeman MD Unavailable Unavailable Cathie Freeman MD Unavailable Unavailable Cathie Freeman MD Unavailable Unavailable Cathie Freeman MD Unavailable Unavailable Cathie Freeman MD Unavailable Unavailable Cathie Freeman MD Unavailable Unavailable Re-disclosure Warning The records that you are about to access may contain information from federally- assisted alcohol or drug abuse programs. If such information is present, then the following federally mandated warning applies: This information has been disclosed to you from records protected by federal confidentiality rules (42 CFR part 2). The federal rules prohibit you from making any further disclosure of this information unless further disclosure is expressly permitted by the written consent of the person to whom it pertains or as otherwise permitted by 42 CFR part 2. A general authorization for the release of medical or other information is NOT sufficient for this purpose. The Federal rules restrict any use of the information to criminally investigate or prosecute any alcohol or drug abuse patient.The records that you are about to access may contain highly sensitive health information, the redisclosure of which is protected by Article 27-F of the [facility] Public Health law. If you continue you may haveaccess to information: Regarding HIV / AIDS; Provided by facilities licensed or operated by the [facility] Office of Mental Health; or Provided by the [facility] Office for People With Developmental Disabilities. If such information is present, then the following [facility] mandated warning applies: This information has been disclosed to you from confidential records which are protected by state law. State law prohibits you from making any further disclosure of this information without the specific written consent of the person to whom it pertains, or as otherwise permitted by law. Any unauthorized further disclosure in violation of state law may result in a fine or skilled nursing sentence or both. A general authorization for the release of medical or other information is NOT sufficient authorization for further disclosure. Encounters Encounter Providers Location Date Indications Data Source(s ) Outpatient Attender: [id number] 09/03/2020 [facility] ([facility] 05:37:41 PM [facility] EDT [facility]) Patient admitted. Outpatient Attender: [id number] 06/30/2020 12:46:51 PM [facility] ([facility] EDT [facility]) Patient admitted. Attender: [facility] EDT - 04/03/2020 [facility] 02:31:00 PM EDT Center) Outpatient Attender: [id number] 02/17/2020 05:48:32 [facility] ([facility]) Patient admitted. Outpatient Attender: JULIANE Woods 01/17/2020 [facility] [place]: 01:00:00 PM [facility] JULIANE CARDOZOReferrer: JULIANE CARDOZO OutpatientOFFICE/O Attender: [facility] 01/17/2020 [facility] ([facility]IS[facility], [facility] 01:00:00 PM EST - J osephs NEW 01/17/2020 Medical 01:00:00 PM EST Center) Outpatient 01/17/2020 [facility] 08:24:00 AM EST Medical C enter Outpatient 01/17/2020 [facility] 12:00:00 AM EST Medical C enter 05/19/2019 [facility] 12:00:00 AM EDT Medical C enter Medications Medication Brand Start Product Dose Route Administrative Pharmacy [facility] Indications Reaction Description Data Name Date Form Instructions Instructions Source(s) rivaroxaban Xarelt ORAL active rivarox aban NEXTGEN 15 MG Oral o 2019 {tbl} 15 MG Oral (S aint Tablet mg 12:00: Tablet Jacob [Xarelto] tablet 00 AM [Xarelto] Me dical Xarelto 15 EST Center) mg tablet 24 HR Nicode TRANSD complet 24 HR NEXT GEN Nicotine rm CQ 2018 patch ERMAL ed Nicotine (Deshawn nt 0.583 MG/HR 14 12:00: 0.583 MG/HR Jacob Transdermal mg/24 00 AM Transdermal Medical Patch hr EDT System Center) [Nicoderm daily [Nicoderm C-Q] transd C-Q] Nicoderm CQ ermal 14 mg/24 hr patch daily transdermal patch Nasonex 50 mometa 03/23/ mometas one NEXTGEN mcg/actuati sone 2017 ed furoate 0.05 ([facility] [place] furoat 12:00: MG/ACTUAT [place] sephs e 0.05 00 AM Metered Dose Medi sergio MG/ACT EDT Nasal [place] Center ) UAT [Nasonex] Metere d Dose Nasal [place] 12 HR Zyrtec . ORAL complet take 1 NEXTG EN cetirizine -D 2017 {tbl} ed tablet by (Sa int hydrochlori mg-120 12:00: oral rout e Jacob de 5 MG / mg 00 AM every 12 Medic al Pseudoephed tablet EDT hours Cente r) rine ,exten Hydrochlori ded de 120 MG releas Extended e Release Oral Tablet Zyrtec-D 5 mg-120 mg tablet,exte nded release Clonazepam Klonop 1 ORAL complet Clonazepa m 1 NEXTGEN 1 MG Oral in 1 {tbl} ed MG Oral (Saint Tablet mg Tablet Jacob [Klonopin] tablet [Klonopin] M edical Klonopin 1 Center) mg tablet aripiprazol Abilif 1.00 ORAL complet aripipra zole NEXTGEN e 5 MG Oral y 5 mg {tbl} ed 5 MG Oral ([facility] Tablet tablet Tablet Jacob [Abilify] [Abilify] Medic al Abilify 5 Center) mg tablet Insurance Providers Payer name Policy type Policy ID Covered Covered libertarian's Policy P cait / Coverage libertarian ID relationship to [place] [employer] ormation type hamilton AFFINITY [id number] SP [id number] AFFINITY [id number] SP [id number] ESSENTIAL PLAN 1 2 AFFINITY [id number] SP [id number] ESSENTIAL PLAN 1 2 HMO [place]EPP self [place]EPP ESSENTIALS-COM MERCIAL MEDICAID [id number] SP [id number] HMO O [id number] 01 [id number] ESSENTIALS-COM MERCIAL AFFINITY O [id number] 01 [id number] HEALTH PLAN AFFINITY [id number] HEALTH PLAN AFFINITY [id number] SP [id number] ESSENTIAL PLAN 1 2 AFFINITY [id number] SP [id number] [facility] MEDICAID [id number] SP [id number] COMM PLAN SELF PAY SP INSURANCE MVP MEDICAID [id number] SP [id number] HMO O MV HEALTHCARE O [id number] 01 [id number] [facility] O [id number] Problems, Conditions, and Diagnoses Code Display Name Description Problem Type Effective Dates Data Source(s) Z28.89 Immunization not IMMUNIZATION NOT Diagnosis 01/17/2020 Sa yohana James carried out for CARRIED OUT FOR 01:00:00 PM [facility] other reason OTHER REASON Z71.3 Dietary counseling DIETARY COUNSELING Diagnosis 0 [facility] and surveillance AND SURVEILLANCE 01:00:00 PM [facility] Z71.89 Other specified OTHER SPECIFIED Diagnosis 01/17/2020 Tristan James counseling COUNSELING 01:00:00 PM [facility] Medical enter Z68.41 Body mass index BODY MASS INDEX Diagnosis 01/17/2020 Tristan t Jacob (BMI) 40.0-44.9, (BMI) 40.0-44.9, 01:00:00 PM [facility] [place] adult ADULT Z13.9 Encounter for ENCOUNTER FOR Diagnosis 01/17/2020 [facility] screening, SCREENING, 01:00:00 PM EST Medical C enter unspecified UNSPECIFIED Z23 Encounter for ENCOUNTER FOR Diagnosis 01/17/2020 [facility] immunization IMMUNIZATION 01:00:00 PM [facility] Z11.1 Encounter for ENCOUNTER FOR Diagnosis 01/17/2020 [facility] screening for SCREENING FOR 01:00:00 PM EST [facility] respiratory RESPIRATORY tuberculosis TUBERCULOSIS Z02.1 Encounter for ENCOUNTER FOR Diagnosis 01/17/2020 [facility] pre-employment PRE-EMPLOYMENT 01:00:00 PM [facility] examination EXAMINATION Surgeries/Procedures Procedure Description Date Indications Data Source(s) [facility]PATIENT [facility]Micaela shake[facility] VISIT, NEW 12:00:00 AM EST - Medical Ce nter) 01/17/2020 12:00:00 AM EST Results ID Date Data Source [id number] 08/29/2020 06:39:00 PM EDT [facility] Name Value Range Interpretation Description Data Sup porting Code Source(s) Document(s ) SARS [facility] coronavirus 2 RNA This lab was ordered by [facility] and reported by [facility]. Procedure Social History Code Duration Value Status Description Data Source(s ) Caffeine Use 01/17/2020 completed [facility]EXT[facility] (Deshawn nt Details 12:00:00 AM [facility]) 01/17/2020 Current completed Current [facility] ([facility] 12:00:00 AM EST non-smoker non-smoker [facility]) Smoking 01/17/2020 Never smoker completed Never smoker NEXT[facility] (S aint 12:00:00 AM [facility]) Vital Signs ID Date Data Source UNK Name Value Range Interpretation Code Description Data Source(s) Oxygen saturation 98 % 98 % [facility] ([facility] in Arterial blood [facility] by Pulse oximetry Center) Body mass index 41.66 kg/m2 Overweight 41.66 kg/m2 [facility] ([facility] (BMI) [Ratio] [facility]) Respiratory rate 18 /min 18 /min [facility] ([facility]) Body temperature 36.72 Brianna 36.72 Brianna [facility] ([facility]) Heart rate 92 /min 92 /min [facility] ([facility]) Diastolic blood 77 mm[Hg] 77 mm[Hg] [facility] ( [facility] pressure [facility]) Systolic blood 111 mm[Hg] 111 mm[Hg] [facility]S aint pressure [facility]) Body weight 111.130 kg 111.130 kg [facility] ([facility]) Body height 163.32 cm 163.32 cm [facility] ([facility]) Patient Treatment Plan of Care Planned Activity Planned Date Details Description Data Source (s) rivaroxaban 15 MG Oral 01/17/2020 NEXTG EN ([facility] Tablet [Xarelto] 12:00:00 AM [facility]) 24 HR Nicotine 0.583 MG/HR 03/23/2018 N EXTGEN ([facility] Transdermal Patch [Nicoderm 12:00:00 AM [facility] C-Q] [place]) 12 HR cetirizine 03/23/2018 NEXTGEN (Sa int hydrochloride 5 MG / 12:00:00 AM [facility] Pseudoephedrine [place]) Hydrochloride 120 MG Extended Release Oral Tablet Nasonex 50 mcg/actuation 03/23/2018 NEX TGEN ([facility] [place] 12:00:00 AM [facility]) aripiprazole 5 MG Oral NEXTG EN (Saint Tablet [Abilify] [facility]) Clonazepam 1 MG Oral Tablet [facility] ([facility] [Klonopin] [facility])
[2020-10-03] MEDS ORDERED: KETOROLAC TROMETHAMINE 30 MG/1 ML VIAL IVPUSH ONE (20:54)
--- NOTE | 2020-10-03 20:57 | PDOC ---
*Physical Exam - Vital Signs Last Vital Signs Temp Pulse Resp BP Pulse Ox 98.2 F 100 H 19 166/74 98 10/03/20 19:59 10/03/20 19:59 10/03/20 19:59 10/03/20 19:59 10/03/20 19:59 ED Treatment Course - LABORATORY CBC & Chemistry Diagram: 10/03/20 21:15 10/03/20 21:15 Medical Decision Making - Medical Decision Making 10/03/20 20:57 Patient seen by the advanced practice provider under my supervision. Ancillary testing reviewed as necessary. I agree with plan as outlined by the advanced practice provider. Discharge - Discharge Information Problems reviewed: Yes Clinical Impression/Diagnosis: Urinary frequency Chest pain Qualifiers: Chest pain type: unspecified Qualified Code(s): R07.9 - Chest pain, unspecified Abdominal pain Qualifiers: Abdominal location: left lower quadrant Qualified Code(s): R10.32 - Left lower quadrant pain Condition: Stable Disposition: HOME - Follow up/Referral Referrals: Figueroa Gambino MD [Primary Care Provider] - - Patient Discharge Instructions Patient Printed Discharge Instructions: DI for Abdominal Pain-Adult, DI for Chest Pain Additional Instructions: please see your doctor - Post Discharge Activity
--- NOTE | 2020-10-03 21:01 | PDOC ---
History of Present Illness - General Chief Complaint: Pain, Acute Stated Complaint: PAIN Time Seen by Provider: 10/03/20 19:58 History Source: Patient Exam Limitations: No Limitations - History of Present Illness Initial Comments: 10/03/20 20:58 40-year-old female past medical history of cervical cancer status post hysterectomy pulmonary embolism on Xarelto which she is compliant with presenting to the ED with left lower quadrant pain. Patient was seen and evaluated here on the first and discharged patient microbiology grew BV. Patient is also complaining of chest pain shortness of breath that started while in the emergency room. Pt otherwise denies: fevers, chills, syncope, lightheadedness, dizziness, headaches, neck pain, palpitations, back pain, nausea, vomiting, diarrhea, constipation. Past History - Medical History Allergies/Adverse Reactions: Allergies Allergy/AdvReac Type Severity Reaction Status Date / Time No Known Drug Allergies Allergy Verified 09/30/20 18:32 peanut Allergy Rash Verified 09/30/20 18:32 shellfish derived Allergy Verified 09/30/20 18:32 Home Medications: Ambulatory Orders clonazePAM [KlonoPIN -] 2 mg PO TID 01/10/19 Aripiprazole [Abilify -] 30 mg PO HS 05/20/19 Atorvastatin Ca [Lipitor] 40 mg PO HS #60 tablet 10/26/19 Rivaroxaban [Xarelto] 15 mg PO DAILY #42 tab 10/26/19 Rivaroxaban [Xarelto] 20 mg PO DAILY #60 tablet 10/26/19 Epinephrine [Epipen 2-Isrrael] 0.3 mg IJ ASDIR #1 kit 05/28/20 Cyclobenzaprine HCl [Flexeril 10 mg] 10 mg PO BID PRN #14 tablet 06/06/20 Cephalexin [Keflex] 500 mg PO TID #21 capsule 08/04/20 metroNIDAZOLE [Flagyl -] 500 mg PO BID #14 tablet 10/04/20 Cancer: Yes (cervical) Cardiac Disorders: No COPD: No DVT: No Dementia: No Diabetes: No GI Disorders: No Disorders: No Liver Disease: No Psychiatric Problems: Yes (BIPOLAR, anxiety) Seizures: No Thyroid Disease: No - Surgical History Abdominal Surgery: Yes (ANA FALLOPIAN TUBES REMOVAL, cervix removed) Neurologic Surgery: No - Reproductive History Is Patient Now?: No (#): 2 Para: 2 Cervical CA: Yes Dysfunctional Uterine Bleeding: No Ectopic : No Endometrial CA: No Polycystic Ovaries: No Therapeutic (s) & number: No Tubal Ligation: No Spontaneous : 0 - Immunization History Td Vaccination: Yes TDAP Vaccination: Yes Immunization Up to Date: Yes - Psycho-Social/Smoking History Smoking Status: Yes (QUIT 2007) Smoking History: Former smoker Have you smoked in the past 12 months: Yes Number of Cigarettes Smoked Daily: 5 If you are a former smoker, when did you quit?: 1 week Information on smoking cessation initiated: No 'Breaking Loose' booklet given: 09/17/19 - Substance Abuse Hx (Audit-C & DAST Scrn) How often the patient has a drink containing alcohol: Never Score: In Men: 4 or > Positive; In Women: 3 or > Positive: 0 Screen Result (Pos requires Nsg. Audit-10AR): Negative In the last yr the pt used illegal drug/Rx for NonMed reason: No Score: Yes response is considered Positive: 0 Screen Result (Positive result requires Nsg. DAST-10): Negative *Physical Exam - Vital Signs Last Vital Signs Temp Pulse Resp BP Pulse Ox 98.2 F 100 H 19 166/74 98 10/03/20 19:59 10/03/20 19:59 10/03/20 19:59 10/03/20 19:59 10/03/20 19:59 - Physical Exam 10/03/20 21:00 Gen: AAOx 3, no acute distress, comfortable, no signs of respiratory distress HENT: atraumatic, normocephalic with no laceration or contusion. Nasal mucosa without erythema. Oropharynx without erythema or exudates. Mucous membranes moist. EYES: PERRL, EOM intact, conjunctiva pink NECK: supple; trachea midline; no JVD, no lymphadenopathy, or thyromegaly CV: Tender palpation to anterior chest wall RRR no murmurs, gallops, or rubs. CHEST: CTA b/l no wheezing, rales or rhonchi ABD: +BS/ND. Left lower quadrant TTP; rest of abdomen soft, no rebound, no guarding EXTREMITY: no cyanosis or erythema. 2+ dorsalis pedis, posterior tibial, and radial pulse. No pedal edema; no calf swelling or tenderness SKIN: no rash, warm and dry, no diaphoresis HEME: no purpura or ecchymosis NEURO: normal speech, CN II-XII intact, sensation intact, normal gait, no cerebellar deficits MS: 5/5 strength in all extremities, FROM intact in all extremities. ED Treatment Course - LABORATORY CBC & Chemistry Diagram: 10/03/20 21:15 10/03/20 21:15 - RADIOLOGY Radiology Studies Ordered: Category Date Time Status CHEST PA & LAT [RAD] Stat Radiology 10/03/20 20:54 Ordered Medical Decision Making - Medical Decision Making 10/03/20 21:00 40-year-old female with known BV left lower quadrant pain and chest pain with associated shortness of breath Patient mildly tachycardic to 100 satting 98 afebrile and hypertensive Will treat for BV Will obtain EKG chest x-ray labs to include troponin We will give Toradol for pain Will reassess based on results Due to patient's history will obtain CTA of the chest as well as CT abdomen pelvis to rule out any acute pathology Labs show white blood cell count 5.0 H&H 13/39.3 Chemistry within normal limits Creatine kinase mildly elevated to 79 Troponin negative Rest of labs within normal limits UA contaminated but negative for UTI EKG normal sinus rhythm with no ST elevations or depression CTA chest shows no evidence of pulmonary embolism, no acute pathology visualized CT abdomen pelvis within normal limits Patient reports resolution of pain in the emergency room is requesting to go home Patient discharged on Flagyl 500 twice daily for 7 days for bacterial vaginosis Pt appears well and is safe and stable for discharge with strict return precau tions including signs and symptoms requring immediate return to the ED Supportive care instructions explained and given to pt. Reasons to return emergently to ER explained and given. Importance of follow up with PMD and other specialists as indicated stressed to pt. Pt verbalized understanding of instructions. Pt to follow up with PMD in 2 days. Discharge - Discharge Information Problems reviewed: Yes Clinical Impression/Diagnosis: Urinary frequency Chest pain Qualifiers: Chest pain type: unspecified Qualified Code(s): R07.9 - Chest pain, unspecified Abdominal pain Qualifiers: Abdominal location: left lower quadrant Qualified Code(s): R10.32 - Left lower quadrant pain Condition: Stable Disposition: HOME - Additional Discharge Information Prescriptions: metroNIDAZOLE [Flagyl -] 500 mg PO BID #14 tablet - Follow up/Referral Referrals: Figueroa Gambino MD [Primary Care Provider] - - Patient Discharge Instructions Patient Printed Discharge Instructions: DI for Abdominal Pain-Adult, DI for Chest Pain Additional Instructions: please see your doctor - Post Discharge Activity
[2020-10-03] MEDS ORDERED: KETOROLAC TROMETHAMINE 30 MG/1 ML VIAL ONE (21:22)
[2020-10-03 21:31] LABS: BASO % 1.1 % (0-2.0); EOS % 3.9 % (0-4.5); HEMATOCRIT 39.3 % (32.4-45.2); LYMPH % 29.6 % (8-40); MCH 28.6 pg (25.7-33.7); MEAN CELL VOLUME 86.7 fl (80-96); MONO % 7.6 % (3.8-10.2); NEUT % 57.8 % (42.8-82.8); PLATELET COUNT 277 K/MM3 (134-434); RBC 4.53 M/mm3 (3.60-5.2)
[2020-10-03 21:37] LABS: INR 0.92 (0.83-1.09); PROTHROMBIN TIME (PATIENT) 11.2 SEC (9.7-13.0)
[2020-10-03 21:42] LABS: CHLORIDE 107 mmol/L (98-107); POTASSIUM 4.4 mmol/L (3.5-5.1); SODIUM 139 mmol/L (136-145)
[2020-10-03 21:44] LABS: CALCIUM 9.3 mg/dL (8.5-10.1)
[2020-10-03 21:45] LABS: ANION GAP 7 MMOL/L (8-16); CO2 25 mmol/L (21-32); GLUCOSE,RANDOM 105 mg/dL (74-106); LIPASE 211 U/L (73-393)
[2020-10-03 21:46] LABS: ALBUMIN 3.3 g/dl (3.4-5.0)
[2020-10-03 21:48] LABS: CREATININE 0.9 mg/dL (0.55-1.3); SGOT/AST 26 U/L (15-37); SGPT/ALT 31 U/L (13-61)
[2020-10-03 21:49] LABS: BILIRUBIN,TOTAL 0.2 mg/dL (0.2-1); TOT PROT 7.2 g/dl (6.4-8.2)
[2020-10-03 21:51] LABS: ALK PHOS 58 U/L (45-117)
[2020-10-03 21:53] LABS: BLOOD UREA NITROGEN 12.2 mg/dL (7-18)
[2020-10-04 00:29] LABS: EPI CELLS >36 /uL (0-25.1); HYALINE CASTS 7 /uL (0-3.1); URINE APPEARANCE Clear; URINE BACTERIA 1572 /uL (0-1359); URINE BILIRUBIN Negative (NEGATIVE); URINE COLOR Yellow; URINE GLUCOSE (UA) Negative (NEGATIVE); URINE KETONE Trace (NEGATIVE); URINE LEUK ESTERASE Negative (NEGATIVE); URINE NITRITE Negative (NEGATIVE); URINE PROTEIN Trace (NEGATIVE); URINE RBC 5 /uL (0-23.9); URINE WBC 20 /uL (0-25.8)
[2020-10-04 01:06] VITALS: BP 111/68; PULSE 82
--- NOTE | 2020-10-04 11:49 | EKG ---
Test Reason : Blood Pressure : / mmHG Vent. Rate : 091 BPM Atrial Rate : 091 BPM P-R Int : 150 ms QRS Dur : 090 ms QT Int : 356 ms P-R-T Axes : 048 041 024 degrees QTc Int : 437 ms NORMAL SINUS RHYTHM NONSPECIFIC T WAVE ABNORMALITY ABNORMAL ECG WHEN COMPARED WITH ECG OF 11-JUN-2020 22:48, NO SIGNIFICANT CHANGE WAS FOUND Confirmed by MARY METCALF MD ([id number]) on 10/04/2020 11:48:35 AM Referred By: Confirmed By:MARY METCALF MD
== END 2020-10-04 00:40 | disposition home or self-care (01) ==
LOC: JER 19:50
PROC: 3E0333Z Introduction of Anti-inflammatory into Peripheral Vein, Percutaneous Approach (ICD-10-PCS; principal; 2020-10-03)
DX: R35.0 Frequency of micturition (principal); R07.9 Chest pain, unspecified; R10.32 Left lower quadrant pain
CPT/HCPCS: 36415; 71046-TC-FY; 71275-TC; 74177-TC; 80053; 81003; 82550; 82553; 83690; 84484; 85025; 85610; 87086; 87186; 93005; 93010; 99285-25; Q9967

== ENCOUNTER 2020-10-11 22:51 | Emergency (ER) | payer OTHER ==
[2020-10-11 22:58] VITALS: TEMP 98.3; BMI 44.1
[2020-10-11] MEDS ORDERED: METOCLOPRAMIDE HCL INJECTION 10 MG/2 ML VIAL IVPUSH ONE (23:37)
[2020-10-11] MEDS ORDERED: ACETAMINOPHEN 1000 MG/100 ML VIAL (NON FORMULARY) IVPB ONE (23:37)
[2020-10-11] MEDS ORDERED: LACTATED RINGERS SOLUTION 1000 ML INFUS.BAG IV ONE (23:37)
[2020-10-12 00:16] LABS: BASO % 1.1 % (0-2.0); EOS % 4.5 % (0-4.5); HEMATOCRIT 36.2 % (32.4-45.2); HEMOGLOBIN 12.3 GM/dL (10.7-15.3); LYMPH % 32.3 % (8-40); MCH 29.8 pg (25.7-33.7); MCHC 34.1 g/dl (32.0-36.0); MEAN CELL VOLUME 87.3 fl (80-96); MEAN PLT VOLUME 7.8 fl (7.5-11.1); MONO % 7.9 % (3.8-10.2); NEUT % 54.2 % (42.8-82.8); PLATELET COUNT 236 K/MM3 (134-434); RBC 4.15 M/mm3 (3.60-5.2); RDW 13.8 % (11.6-15.6); WHITE BLOOD COUNT 5.1 K/mm3 (4.0-10.0)
[2020-10-12] MEDS ORDERED: METOCLOPRAMIDE HCL INJECTION 10 MG/2 ML VIAL ONE (00:16)
[2020-10-12] MEDS ORDERED: ACETAMINOPHEN INJECTION 100 ML IVPB ONE (00:17)
[2020-10-12 00:33] LABS: CHLORIDE 107 mmol/L (98-107); POTASSIUM 4.4 mmol/L (3.5-5.1); SODIUM 137 mmol/L (136-145)
[2020-10-12 00:36] LABS: ALBUMIN 3.2 g/dl (3.4-5.0); ANION GAP 8 MMOL/L (8-16); BLOOD UREA NITROGEN 19.2 mg/dL (7-18); CALCIUM 8.5 mg/dL (8.5-10.1); CO2 22 mmol/L (21-32); GLUCOSE,RANDOM 108 mg/dL (74-106)
[2020-10-12 00:39] LABS: CREATININE 0.8 mg/dL (0.55-1.3); SGOT/AST 29 U/L (15-37); SGPT/ALT 31 U/L (13-61)
[2020-10-12 00:40] LABS: EPI CELLS >36 /uL (0-25.1); HYALINE CASTS 3 /uL (0-3.1); PH,URINE 5.5 (5.0-8.0); URINE APPEARANCE CLOUDY; URINE BACTERIA 336 /uL (0-1359); URINE BILIRUBIN NEGATIVE (NEGATIVE); URINE COLOR YELLOW; URINE GLUCOSE (UA) NEGATIVE (NEGATIVE); URINE KETONE NEGATIVE (NEGATIVE); URINE LEUK ESTERASE TRACE (NEGATIVE); URINE NITRITE NEGATIVE (NEGATIVE); URINE PROTEIN NEGATIVE (NEGATIVE); URINE RBC 8 /uL (0-23.9); URINE UROBILINOGEN 0.2 mg/dL (0.2-1.0); URINE WBC 15 /uL (0-25.8)
[2020-10-12 00:41] LABS: BILIRUBIN,TOTAL 0.3 mg/dL (0.2-1)
[2020-10-12 00:42] LABS: ALK PHOS 45 U/L (45-117)
[2020-10-12 02:13] VITALS: BP 128/79; PULSE 82
== END 2020-10-12 02:13 | disposition home or self-care (01) ==
LOC: JER 22:51
PROC: 3E0333Z Introduction of Anti-inflammatory into Peripheral Vein, Percutaneous Approach (ICD-10-PCS; principal; 2020-10-11)
PROC: 3E033GC Introduction of Other Therapeutic Substance into Peripheral Vein, Percutaneous Approach (ICD-10-PCS; 2020-10-11)
DX: R07.9 Chest pain, unspecified (principal)
CPT/HCPCS: 36415; 71046-TC-FY; 80053; 81003; 82550; 82553; 84484; 85025; 87086; 87186; 87804; 93005; 93010; 99285-25; C9803; J0131; U0003

== ENCOUNTER 2020-12-24 23:26 | Emergency (ER) | payer OTHER ==
[2020-12-24 23:49] VITALS: BP 124/86; PULSE 99; TEMP 97.9; BMI 27.4
== END 2020-12-25 03:26 | disposition home or self-care (01) ==
LOC: JER 23:26
DX: R68.83 Chills (without fever) (principal); R05 Cough; R42 Dizziness and giddiness; R11.0 Nausea
CPT/HCPCS: 71045-TC-FY; 87804; 93005; 93010; 99284-25; C9803; U0003

== ENCOUNTER 2021-01-05 10:55 | Emergency (ER) | payer OTHER ==
[2021-01-05 11:06] VITALS: TEMP 98.2; BMI 41.1
[2021-01-05] MEDS ORDERED: ACETAMINOPHEN 325 MG TABLET (FP) PO ONE (12:24)
[2021-01-05] MEDS ORDERED: ACETAMINOPHEN 325 MG TABLET (FP) ONE (12:52)
[2021-01-05 13:06] LABS: PROTHROMBIN TIME (PATIENT) 12.1 SEC (9.7-13.0)
[2021-01-05 13:07] LABS: BASO % 0.9 % (0-2.0); EOS % 2.9 % (0-4.5); HEMATOCRIT 36.3 % (32.4-45.2); HEMOGLOBIN 12.1 GM/dL (10.7-15.3); LYMPH % 17.8 % (8-40); MCH 28.8 pg (25.7-33.7); MCHC 33.2 g/dl (32.0-36.0); MEAN CELL VOLUME 86.9 fl (80-96); MEAN PLT VOLUME 8.2 fl (7.5-11.1); MONO % 12.1 % (3.8-10.2); NEUT % 66.3 % (42.8-82.8); PLATELET COUNT 219 K/MM3 (134-434); RBC 4.18 M/mm3 (3.60-5.2); RDW 14.3 % (11.6-15.6); WHITE BLOOD COUNT 3.2 K/mm3 (4.0-10.0)
[2021-01-05 13:08] LABS: ACTIVATED PTT 30.4 SECONDS (25.2-36.5)
[2021-01-05 13:22] LABS: CHLORIDE 107 mmol/L (98-107); POTASSIUM 4.4 mmol/L (3.5-5.1); SODIUM 140 mmol/L (136-145)
[2021-01-05 13:24] LABS: ALBUMIN 3.3 g/dl (3.4-5.0); ANION GAP 7 MMOL/L (8-16); BLOOD UREA NITROGEN 12.9 mg/dL (7-18); CALCIUM 8.9 mg/dL (8.5-10.1); CO2 26 mmol/L (21-32); GLUCOSE,RANDOM 79 mg/dL (74-106)
[2021-01-05 13:27] LABS: CREATININE 0.9 mg/dL (0.55-1.3); SGOT/AST 27 U/L (15-37); SGPT/ALT 34 U/L (13-61)
[2021-01-05 13:29] LABS: BILIRUBIN,TOTAL 0.4 mg/dL (0.2-1); TOT PROT 6.9 g/dl (6.4-8.2)
[2021-01-05 13:30] LABS: ALK PHOS 50 U/L (45-117)
[2021-01-05 16:32] VITALS: BP 115/70; PULSE 76
== END 2021-01-05 16:32 | disposition home or self-care (01) ==
LOC: JER 10:55
DX: U07.1 COVID-19 (principal)
CPT/HCPCS: 36415; 71045-TC-FY; 80053; 82550; 82553; 84484; 85025; 85610; 85730; 93005; 93010; 99285-25; C9803; U0003

== ENCOUNTER 2021-01-10 20:21 | Emergency (ER) | payer OTHER ==
[2021-01-10 20:38] VITALS: BP 120/86; PULSE 120; TEMP 98.1; BMI 40.4
== END 2021-01-10 21:52 | disposition home or self-care (01) ==
LOC: JER 20:21
PROC: 3E033GC Introduction of Other Therapeutic Substance into Peripheral Vein, Percutaneous Approach (ICD-10-PCS; principal; 2021-01-10)
DX: R21 Rash and other nonspecific skin eruption (principal); U07.1 COVID-19
CPT/HCPCS: 99284-25

== ENCOUNTER 2021-03-06 23:20 | Emergency (ER) | payer OTHER ==
[2021-03-06 23:30] VITALS: TEMP 98.4; BMI 40.7
[2021-03-07 01:10] LABS: BASO % 1.4 % (0-2.0); EOS % 4.2 % (0-4.5); HEMATOCRIT 35.5 % (32.4-45.2); HEMOGLOBIN 11.9 GM/dL (10.7-15.3); LYMPH % 34.6 % (8-40); MCH 29.3 pg (25.7-33.7); MCHC 33.7 g/dl (32.0-36.0); MEAN CELL VOLUME 87.1 fl (80-96); MEAN PLT VOLUME 8.1 fl (7.5-11.1); MONO % 7.4 % (3.8-10.2); NEUT % 52.4 % (42.8-82.8); PLATELET COUNT 268 K/MM3 (134-434); RBC 4.07 M/mm3 (3.60-5.2); WHITE BLOOD COUNT 5.1 K/mm3 (4.0-10.0)
[2021-03-07 01:28] LABS: CHLORIDE 105 mmol/L (98-107); POTASSIUM 4.1 mmol/L (3.5-5.1); SODIUM 139 mmol/L (136-145)
[2021-03-07 01:30] LABS: CALCIUM 8.8 mg/dL (8.5-10.1)
[2021-03-07 01:31] LABS: ALBUMIN 3.2 g/dl (3.4-5.0); ANION GAP 8 MMOL/L (8-16); BLOOD UREA NITROGEN 12.9 mg/dL (7-18); CO2 25 mmol/L (21-32); GLUCOSE,RANDOM 126 mg/dL (74-106); MAGNESIUM 1.9 mg/dL (1.8-2.4)
[2021-03-07 01:34] LABS: CREATININE 0.9 mg/dL (0.55-1.3); SGOT/AST 22 U/L (15-37); SGPT/ALT 24 U/L (13-61)
[2021-03-07 01:36] LABS: BILIRUBIN,TOTAL 0.2 mg/dL (0.2-1); TOT PROT 6.6 g/dl (6.4-8.2)
[2021-03-07 01:37] LABS: ALK PHOS 54 U/L (45-117)
[2021-03-07 01:49] VITALS: BP 101/62; PULSE 80
== END 2021-03-07 04:28 | disposition home or self-care (01) ==
LOC: JER 23:20
DX: T50.901A Poisoning by unspecified drugs, medicaments and biological substances, accidental (unintentional), initial encounter (principal)
CPT/HCPCS: 36415; 71045-TC-FY; 80053; 80307; 82550; 82553; 83735; 84484; 84703; 85025; 93005; 93010; 99285-25; C9803; U0003; U0005

== ENCOUNTER 2021-05-04 21:23 | Emergency (ER) | payer OTHER ==
[2021-05-04 21:32] VITALS: TEMP 98.5; BMI 43.9
[2021-05-04] MEDS ORDERED: LACTATED RINGERS SOLUTION 1000 ML INFUS.BAG IV ONE (22:05)
[2021-05-04] MEDS ORDERED: ONDANSETRON 4 MG/2 ML VIAL IVPUSH ONE (22:05)
[2021-05-04] MEDS ORDERED: ACETAMINOPHEN 1000 MG/100 ML VIAL (NON FORMULARY) IVPB ONE (22:05)
[2021-05-04] MEDS ORDERED: ONDANSETRON 4 MG/2 ML VIAL ONE (22:12)
[2021-05-04] MEDS ORDERED: ACETAMINOPHEN INJECTION 100 ML IVPB ONE (22:12)
[2021-05-04 22:39] LABS: BASO % 1.5 % (0-2.0); EOS % 3.9 % (0-4.5); HEMATOCRIT 36.4 % (32.4-45.2); HEMOGLOBIN 12.4 GM/dL (10.7-15.3); LYMPH % 35.6 % (8-40); MCH 29.4 pg (25.7-33.7); MEAN CELL VOLUME 86.7 fl (80-96); MEAN PLT VOLUME 7.7 fl (7.5-11.1); PLATELET COUNT 262 K/MM3 (134-434); RDW 13.7 % (11.6-15.6)
[2021-05-04 23:03] LABS: INR 0.88 (0.83-1.09); PROTHROMBIN TIME (PATIENT) 10.9 SEC (9.7-13.0)
[2021-05-04 23:05] LABS: ACTIVATED PTT 30.2 SECONDS (25.2-36.5)
[2021-05-04 23:55] LABS: CALCIUM 8.9 mg/dL (8.5-10.1)
[2021-05-04 23:56] LABS: ALBUMIN 3.2 g/dl (3.4-5.0); CO2 22 mmol/L (21-32); GLUCOSE,RANDOM 104 mg/dL (74-106)
[2021-05-04 23:59] LABS: CREATININE 0.8 mg/dL (0.55-1.3)
[2021-05-05 00:01] LABS: BILIRUBIN,TOTAL 0.1 mg/dL (0.2-1); TOT PROT 6.8 g/dl (6.4-8.2)
[2021-05-05 00:02] LABS: ALK PHOS 52 U/L (45-117)
[2021-05-05 00:44] VITALS: BP 115/67; PULSE 70
[2021-05-05] MEDS ORDERED: LIDOCAINE 5% TOPICAL PATCH TP ONE (01:01)
[2021-05-05] MEDS ORDERED: CYCLOBENZAPRINE HCL 5 MG TABLET PO ONE (01:01)
[2021-05-05] MEDS ORDERED: LIDOCAINE 5% TOPICAL PATCH ONE (01:02)
[2021-05-05] MEDS ORDERED: CYCLOBENZAPRINE HCL 10 MG TABLET (FP) ONE (01:02)
[2021-05-05 01:06] LABS: ANION GAP 8 MMOL/L (8-16); CHLORIDE 108 mmol/L (98-107); SODIUM 138 mmol/L (136-145)
[2021-05-05 01:10] LABS: MAGNESIUM 1.9 mg/dL (1.8-2.4)
[2021-05-05 01:22] LABS: SGOT/AST 21 U/L (15-37)
[2021-05-05 01:27] LABS: BLOOD UREA NITROGEN 17.9 mg/dL (7-18)
[2021-05-05 01:37] LABS: SGPT/ALT 31 U/L (13-61)
[2021-05-05] MEDS ORDERED: LIDOCAINE PATCH REMOVAL MC SCH (22:00)
== END 2021-05-05 01:26 | disposition home or self-care (01) ==
LOC: JER 21:23
PROC: 3E0333Z Introduction of Anti-inflammatory into Peripheral Vein, Percutaneous Approach (ICD-10-PCS; principal; 2021-05-04)
PROC: 3E033GC Introduction of Other Therapeutic Substance into Peripheral Vein, Percutaneous Approach (ICD-10-PCS; 2021-05-04)
DX: R07.9 Chest pain, unspecified (principal)
CPT/HCPCS: 36415; 70450-TC; 71045-TC-FY; 71275-TC; 80053; 83735; 84484; 85025; 85379; 85610; 85730; 93005; 93010; 99285-25; J0131; Q9967

== ENCOUNTER 2021-05-21 16:31 | Emergency (ER) | payer OTHER ==
[2021-05-21 16:39] VITALS: BP 124/81; PULSE 95; TEMP 98; BMI 43.6
[2021-05-21 18:52] LABS: EOS % 2.3 % (0-4.5); HEMATOCRIT 38.4 % (32.4-45.2); HEMOGLOBIN 12.9 GM/dL (10.7-15.3); LYMPH % 27.5 % (8-40); MCH 28.8 pg (25.7-33.7); MCHC 33.5 g/dl (32.0-36.0); MEAN PLT VOLUME 8.1 fl (7.5-11.1); MONO % 7.4 % (3.8-10.2); NEUT % 61.8 % (42.8-82.8); PLATELET COUNT 241 10^3/uL (134-434); RBC 4.46 M/mm3 (3.60-5.2); RDW 13.7 % (11.6-15.6); WHITE BLOOD COUNT 5.5 K/mm3 (4.0-10.0)
[2021-05-21 19:03] LABS: INR 0.86 (0.83-1.09); PROTHROMBIN TIME (PATIENT) 10.4 SEC (9.7-13.0)
[2021-05-21 19:06] LABS: ACTIVATED PTT 29.3 SECONDS (25.2-36.5)
[2021-05-21] MEDS ORDERED: MECLIZINE HCL 25 MG TABLET (FP) PO ONE (19:07)
[2021-05-21 19:10] LABS: CHLORIDE 104 mmol/L (98-107); SODIUM 139 mmol/L (136-145)
[2021-05-21] MEDS ORDERED: ACETAMINOPHEN 500 MG TABLET (FP) PO ONE (19:10)
[2021-05-21 19:11] LABS: ALBUMIN 3.6 g/dl (3.4-5.0); ANION GAP 9 MMOL/L (8-16); BLOOD UREA NITROGEN 13.4 mg/dL (7-18); CALCIUM 9.4 mg/dL (8.5-10.1); CO2 26 mmol/L (21-32); GLUCOSE,RANDOM 113 mg/dL (74-106); MAGNESIUM 2.1 mg/dL (1.8-2.4)
[2021-05-21] MEDS ORDERED: MECLIZINE HCL 25 MG TABLET (FP) ONE (19:13)
[2021-05-21 19:15] LABS: SGOT/AST 22 U/L (15-37); SGPT/ALT 28 U/L (13-61)
[2021-05-21] MEDS ORDERED: ACETAMINOPHEN 500 MG TABLET (FP) ONE (19:15)
[2021-05-21 19:17] LABS: TOT PROT 7.4 g/dl (6.4-8.2)
[2021-05-21 19:18] LABS: ALK PHOS 54 U/L (45-117)
[2021-05-21 19:35] LABS: BILIRUBIN,TOTAL 0.2 mg/dL (0.2-1)
== END 2021-05-21 20:41 | disposition home or self-care (01) ==
LOC: JER 16:31
DX: R42 Dizziness and giddiness (principal); R07.89 Other chest pain
CPT/HCPCS: 36415; 70450-TC; 71046-TC-FY; 80053; 82550; 83735; 84484; 84703; 85025; 85610; 85730; 93005; 93010; 99285-25; C9803; U0003; U0005

== ENCOUNTER 2021-07-14 11:15 | Emergency (ER) | payer OTHER ==
[2021-07-14 11:33] VITALS: BP 112/78; PULSE 96; TEMP 98; BMI 43.9
[2021-07-14] MEDS ORDERED: METHOCARBAMOL 500 MG TABLET PO ONE (12:27)
[2021-07-14] MEDS ORDERED: ACETAMINOPHEN 325 MG TABLET (FP) PO ONE (12:27)
[2021-07-14] MEDS ORDERED: LIDOCAINE 5% TOPICAL PATCH TP ONE (12:27)
[2021-07-14] MEDS ORDERED: LIDOCAINE 5% TOPICAL PATCH ONE (13:12)
[2021-07-14] MEDS ORDERED: ACETAMINOPHEN 325 MG TABLET (FP) ONE (13:12)
[2021-07-14] MEDS ORDERED: METHOCARBAMOL 500 MG TABLET ONE (13:13)
[2021-07-14] MEDS ORDERED: LIDOCAINE PATCH REMOVAL MC SCH (22:00)
== END 2021-07-14 14:44 | disposition home or self-care (01) ==
LOC: JER 11:15
DX: R60.0 Localized edema (principal); M54.41 Lumbago with sciatica, right side
CPT/HCPCS: 93971-TC; 99283-25

== ENCOUNTER 2021-09-03 23:23 | Emergency (ER) | payer OTHER ==
[2021-09-03 23:34] VITALS: BP 101/65; PULSE 106; TEMP 97.9; BMI 34.3
[2021-09-03] MEDS ORDERED: ACETAMINOPHEN 1000 MG/100 ML VIAL (NON FORMULARY) IVPB ONE (23:42)
[2021-09-03] MEDS ORDERED: ACETAMINOPHEN INJECTION 100 ML IVPB ONE (23:49)
[2021-09-04 00:47] LABS: HEMATOCRIT 36.2 % (32.4-45.2); HEMOGLOBIN 12.4 GM/dL (10.7-15.3); MCH 29.3 pg (25.7-33.7); MCHC 34.4 g/dl (32.0-36.0); MEAN CELL VOLUME 85.2 fl (80-96); MEAN PLT VOLUME 7.8 fl (7.5-11.1); PLATELET COUNT 279 10^3/uL (134-434); RBC 4.25 M/mm3 (3.60-5.2); RDW 13.8 % (11.6-15.6); WHITE BLOOD COUNT 5.6 K/mm3 (4.0-10.0)
[2021-09-04 01:04] LABS: CHLORIDE 106 mmol/L (98-107); SODIUM 138 mmol/L (136-145)
[2021-09-04 01:06] LABS: ALBUMIN 3.2 g/dl (3.4-5.0); ANION GAP 7 MMOL/L (8-16); BLOOD UREA NITROGEN 12.1 mg/dL (7-18); CO2 26 mmol/L (21-32)
[2021-09-04 01:07] LABS: GLUCOSE,RANDOM 111 mg/dL (74-106)
[2021-09-04 01:09] LABS: SGOT/AST 25 U/L (15-37); SGPT/ALT 35 U/L (13-61)
[2021-09-04 01:10] LABS: CREATININE 0.8 mg/dL (0.55-1.3)
[2021-09-04 01:11] LABS: BILIRUBIN,TOTAL 0.2 mg/dL (0.2-1); TOT PROT 6.9 g/dl (6.4-8.2)
[2021-09-04 01:12] LABS: ALK PHOS 52 U/L (45-117)
[2021-09-04 01:18] LABS: INR 0.85 (0.83-1.09); PROTHROMBIN TIME (PATIENT) 10.4 SEC (9.7-13.0)
== END 2021-09-04 05:12 | disposition home or self-care (01) ==
LOC: JER 23:23
PROC: 3E033NZ Introduction of Analgesics, Hypnotics, Sedatives into Peripheral Vein, Percutaneous Approach (ICD-10-PCS; principal; 2021-09-03)
DX: R07.89 Other chest pain (principal); R94.31 Abnormal electrocardiogram [ECG] [EKG]
CPT/HCPCS: 36415; 70450-TC; 71275-TC; 80053; 83880; 84484; 84703; 85027; 85379; 85610; 85730; 93005; 93010; 99285-25; J0131

== ENCOUNTER 2021-10-23 16:32 | Emergency (ER) | payer OTHER ==
[2021-10-23 16:40] VITALS: BP 151/102; PULSE 99; TEMP 97.9; BMI 40.1
[2021-10-23] MEDS ORDERED: FAMOTIDINE 10 MG TABLET PO ONE (17:04)
[2021-10-23] MEDS ORDERED: predniSONE 20 MG TABLET (UD) PO ONE (17:04)
[2021-10-23] MEDS ORDERED: FAMOTIDINE 20 MG TABLET PO ONE (17:05)
[2021-10-23] MEDS ORDERED: predniSONE 20 MG TABLET (UD) ONE (17:09)
[2021-10-23] MEDS ORDERED: FAMOTIDINE 10 MG TABLET ONE (17:09)
[2021-10-23] MEDS ORDERED: FAMOTIDINE 20 MG TABLET ONE (17:10)
[2021-10-23] MEDS ORDERED: LORATADINE 10 MG TABLET PO ONE (17:17)
[2021-10-23] MEDS ORDERED: LORATADINE 10 MG TABLET ONE (17:23)
== END 2021-10-23 18:37 | disposition home or self-care (01) ==
LOC: JER 16:32
DX: L29.9 Pruritus, unspecified (principal); H57.813 Brow ptosis, bilateral; R11.0 Nausea; T78.40XA Allergy, unspecified, initial encounter
CPT/HCPCS: 99283-25

== ENCOUNTER 2022-01-27 10:43 | Emergency (ER) | payer OTHER ==
[2022-01-27 10:55] VITALS: TEMP 97.9; BMI 40.7
[2022-01-27 12:10] LABS: BASO % 1.3 % (0-2.0); EOS % 3.7 % (0-4.5); HEMATOCRIT 37.5 % (32.4-45.2); HEMOGLOBIN 12.6 GM/dL (10.7-15.3); LYMPH % 32.8 % (8-40); MCH 28.8 pg (25.7-33.7); MCHC 33.6 g/dl (32.0-36.0); MEAN CELL VOLUME 85.7 fl (80-96); MONO % 7.1 % (3.8-10.2); NEUT % 55.1 % (42.8-82.8); PLATELET COUNT 273 10^3/uL (134-434); RBC 4.38 M/mm3 (3.60-5.2); RDW 14.2 % (11.6-15.6); WHITE BLOOD COUNT 3.7 K/mm3 (4.0-10.0)
[2022-01-27 12:12] VITALS: BP 116/74; PULSE 89
[2022-01-27 12:37] LABS: CHLORIDE 108 mmol/L (98-107); SODIUM 136 mmol/L (136-145)
[2022-01-27 12:38] LABS: CALCIUM 8.7 mg/dL (8.5-10.1)
[2022-01-27 12:39] LABS: ALBUMIN 3.2 g/dl (3.4-5.0); ANION GAP 4 MMOL/L (8-16); CO2 24 mmol/L (21-32)
[2022-01-27 12:40] LABS: BLOOD UREA NITROGEN 11.5 mg/dL (7-18); GLUCOSE,RANDOM 105 mg/dL (74-106)
[2022-01-27 12:42] LABS: CREATININE 0.9 mg/dL (0.55-1.3); SGOT/AST 55 U/L (15-37); SGPT/ALT 28 U/L (13-61)
[2022-01-27 12:43] LABS: CHOLESTEROL 207 mg/dL (50-200); TRIGLYCERIDES 285 mg/dL (0-150)
[2022-01-27 12:44] LABS: LDL CHOLESTEROL (ONLY SJRH) 140 mg/dL (5-100); TOT PROT 7.3 g/dl (6.4-8.2)
[2022-01-27 12:45] LABS: BILIRUBIN,TOTAL 0.6 mg/dL (0.2-1); HDL CHOLESTEROL 33 mg/dL (40-60)
[2022-01-27 12:46] LABS: ALK PHOS 52 U/L (45-117)
[2022-01-27 12:49] LABS: ACTIVATED PTT 31.5 SECONDS (25.2-36.5); PROTHROMBIN TIME (PATIENT) 11.5 SEC (9.7-13.0)
== END 2022-01-27 14:40 | disposition left against medical advice (07) ==
LOC: JER 10:43
DX: G45.9 Transient cerebral ischemic attack, unspecified (principal); R07.9 Chest pain, unspecified
CPT/HCPCS: 36415; 70450-TC; 80053; 80061; 82550; 82553; 82962; 83036; 84484; 84703; 85025; 85610; 85730; 86850; 86900; 86901; 93005; 93010; 99285-25

== ENCOUNTER 2022-04-12 21:05 | Emergency (ER) | payer OTHER ==
[2022-04-12 21:39] VITALS: BP 121/78; PULSE 98; TEMP 98.2; BMI 45.4
[2022-04-12 22:15] LABS: BASO % 1.4 % (0-2.0); EOS % 2.7 % (0-4.5); HEMOGLOBIN 12.2 GM/dL (10.7-15.3); LYMPH % 36.3 % (8-40); MCH 29.3 pg (25.7-33.7); MEAN CELL VOLUME 86.2 fl (80-96); MEAN PLT VOLUME 7.1 fl (7.5-11.1); NEUT % 51.6 % (42.8-82.8); PLATELET COUNT 255 10^3/uL (134-434); RBC 4.18 M/mm3 (3.60-5.2); RDW 14.2 % (11.6-15.6); WHITE BLOOD COUNT 4.4 K/mm3 (4.0-10.0)
[2022-04-12 22:28] LABS: INR 0.92 (0.83-1.09); PROTHROMBIN TIME (PATIENT) 10.6 SEC (9.7-13.0)
[2022-04-12 22:30] LABS: ACTIVATED PTT 29.8 SECONDS (25.2-36.5)
[2022-04-12 22:46] LABS: CALCIUM 9.3 mg/dL (8.5-10.1)
[2022-04-12 22:47] LABS: ALBUMIN 3.2 g/dl (3.4-5.0); BLOOD UREA NITROGEN 14.3 mg/dL (7-18); MAGNESIUM 2.2 mg/dL (1.8-2.4)
[2022-04-12 22:50] LABS: CREATININE 0.8 mg/dL (0.55-1.3)
[2022-04-12 22:51] LABS: BILIRUBIN,TOTAL 0.1 mg/dL (0.2-1); TOT PROT 6.7 g/dl (6.4-8.2)
== END 2022-04-13 01:50 | disposition left against medical advice (07) ==
LOC: JER 21:05
DX: R07.9 Chest pain, unspecified (principal)
CPT/HCPCS: 0241U-QW; 36415; 71045-TC-FY; 71275-TC; 80053; 83735; 84484; 84703; 85025; 85610; 85730; 93005; 93010; 99285-25; Q9967

== ENCOUNTER 2022-08-01 22:27 | Emergency (ER) | payer OTHER ==
[2022-08-01 22:38] VITALS: BP 141/90; RESP 18; TEMP 98.3; BMI 44.6
[2022-08-01 23:12] VITALS: PULSE 81
[2022-08-01] MEDS ORDERED: DEXAMETHASONE LIQUID 0.5 MG/5 ML PO ONE (23:46)
== END 2022-08-02 00:41 | disposition home or self-care (01) ==
LOC: JER 22:27
DX: T78.40XA Allergy, unspecified, initial encounter (principal)
CPT/HCPCS: 99283-25

== ENCOUNTER 2023-06-03 15:07 | Emergency (ER) | payer OTHER ==
[2023-06-03 15:43] VITALS: BP 109/64; PULSE 90; RESP 20; TEMP 98.2; BMI 42.0
[2023-06-03] MEDS ORDERED: ACETAMINOPHEN 1000 MG/100 ML BAG IVPB ONE (16:44)
[2023-06-03] MEDS ORDERED: SODIUM CHLORIDE 1,000 ML IV STA (16:44)
[2023-06-03] MEDS ORDERED: ACETAMINOPHEN INJECTION 100 ML IVPB ONE (16:58)
[2023-06-03 18:26] LABS: BASO % 0.7 % (0-2.0); EOS % 2.2 % (0-4.5); HEMATOCRIT 38.8 % (32.4-45.2); HEMOGLOBIN 12.8 GM/dL (10.7-15.3); LYMPH % 32.2 % (8-40); MCH 28.3 pg (25.7-33.7); MCHC 33.1 g/dl (32.0-36.0); MEAN CELL VOLUME 85.5 fl (80-96); MEAN PLT VOLUME 8.2 fl (7.5-11.1); MONO % 7.8 % (3.8-10.2); NEUT % 57.1 % (42.8-82.8); PLATELET COUNT 310 10^3/uL (134-434); RBC 4.53 M/mm3 (3.60-5.2)
[2023-06-03 19:16] LABS: POTASSIUM 4.3 mmol/L (3.5-5.1)
[2023-06-03 19:19] LABS: ALBUMIN 3.5 g/dl (3.4-5.0); BLOOD UREA NITROGEN 10.9 mg/dL (7-18)
[2023-06-03 19:22] LABS: CREATININE 0.9 mg/dL (0.55-1.3)
[2023-06-03 19:23] LABS: BILIRUBIN,TOTAL 0.2 mg/dL (0.2-1); TOT PROT 7.3 g/dl (6.4-8.2)
== END 2023-06-03 19:57 | disposition home or self-care (01) ==
LOC: JER 15:07
PROC: 3E033NZ Introduction of Analgesics, Hypnotics, Sedatives into Peripheral Vein, Percutaneous Approach (ICD-10-PCS; principal; 2023-06-03)
PROC: 3E0337Z Introduction of Electrolytic and Water Balance Substance into Peripheral Vein, Percutaneous Approach (ICD-10-PCS; 2023-06-03)
DX: R55 Syncope and collapse (principal); R51.9 Headache, unspecified; R42 Dizziness and giddiness
CPT/HCPCS: 36415; 70450-TC; 71045-TC-FY; 80053; 84443; 84484; 85025; 93005; 93010; 99285-25

== ENCOUNTER 2024-01-27 21:16 | Emergency (ER) | payer OTHER ==
[2024-01-27 21:22] VITALS: BP 113/85; PULSE 91; RESP 20; BMI 42.3
[2024-01-27 21:43] VITALS: TEMP 99.1
[2024-01-27 22:27] LABS: URINE APPEARANCE Error; URINE BILIRUBIN NEGATIVE (NEGATIVE); URINE COLOR YELLOW; URINE GLUCOSE (UA) NEGATIVE (NEGATIVE); URINE KETONE NEGATIVE (NEGATIVE); URINE LEUK ESTERASE NEGATIVE (NEGATIVE); URINE NITRITE NEGATIVE (NEGATIVE); URINE PROTEIN NEGATIVE (NEGATIVE); URINE UROBILINOGEN 0.2 mg/dL (0.2-1.0)
== END 2024-01-27 22:55 | disposition home or self-care (01) ==
LOC: JER 21:16 → JERFT 21:16 → JER 22:55
DX: M54.50 Low back pain, unspecified (principal); R30.0 Dysuria; R68.83 Chills (without fever); Z20.822 Contact with and (suspected) exposure to COVID-19
CPT/HCPCS: 0241U-QW; 81003; 84703; 87086; 99283-25

== ENCOUNTER 2024-02-15 12:41 | Emergency (ER) | payer OTHER ==
[2024-02-15 12:53] VITALS: RESP 18; BMI 40.7
[2024-02-15] MEDS ORDERED: METOCLOPRAMIDE HCL INJECTION 10 MG/2 ML VIAL ONE (15:08)
[2024-02-15] MEDS ORDERED: ACETAMINOPHEN INJECTION 100 ML IVPB ONE (15:08)
[2024-02-15] MEDS: ACETAMINOPHEN 1000 MG/100 ML BAG IVPB ONE (15:21)
[2024-02-15] MEDS: METOCLOPRAMIDE HCL INJECTION 10 MG/2 ML VIAL IVPUSH ONE (15:21)
[2024-02-15] MEDS: SODIUM CHLORIDE 0.9% 500 ML INFUS.BAG IV ONE (15:21)
[2024-02-15 15:29] LABS: BASO % 1.4 % (0-2.0); EOS % 5.1 % (0-4.5); HEMATOCRIT 35.9 % (32.4-45.2); HEMOGLOBIN 12.2 GM/dL (10.7-15.3); LYMPH % 45.2 % (8-40); MCH 29.2 pg (25.7-33.7); MCHC 33.8 g/dl (32.0-36.0); MEAN CELL VOLUME 86.4 fl (80-96); MEAN PLT VOLUME 7.4 fl (7.5-11.1); MONO % 6.9 % (3.8-10.2); NEUT % 41.4 % (42.8-82.8); PLATELET COUNT 284 10^3/uL (134-434); RBC 4.16 M/mm3 (3.60-5.2); RDW 13.6 % (11.6-15.6); WHITE BLOOD COUNT 3.8 K/mm3 (4.0-10.0)
[2024-02-15 15:58] LABS: POTASSIUM 3.8 mmol/L (3.5-5.1)
[2024-02-15 16:01] LABS: CALCIUM 8.8 mg/dL (8.5-10.1)
[2024-02-15 16:02] LABS: ALBUMIN 3.2 g/dl (3.4-5.0); BLOOD UREA NITROGEN 7.1 mg/dL (7-18)
[2024-02-15 16:05] LABS: CREATININE 0.9 mg/dL (0.55-1.3)
[2024-02-15 16:06] LABS: TOT PROT 6.9 g/dl (6.4-8.2)
[2024-02-15 16:07] LABS: BILIRUBIN,TOTAL 0.2 mg/dL (0.2-1)
[2024-02-15 17:17] VITALS: BP 108/73; PULSE 68; TEMP 97.7
== END 2024-02-15 18:02 | disposition home or self-care (01) ==
LOC: JER 12:41
PROC: 3E033NZ Introduction of Analgesics, Hypnotics, Sedatives into Peripheral Vein, Percutaneous Approach (ICD-10-PCS; principal; 2024-02-15)
PROC: 3E033GC Introduction of Other Therapeutic Substance into Peripheral Vein, Percutaneous Approach (ICD-10-PCS; 2024-02-15)
DX: R51.9 Headache, unspecified (principal); R53.83 Other fatigue; R11.0 Nausea
CPT/HCPCS: 36415; 70450-TC; 80053; 85025; 99284-25; J0131

== ENCOUNTER 2024-03-23 19:46 | Inpatient (IN) | payer OTHER ==
[2024-03-23 19:54] VITALS: BMI 40.6
[2024-03-23 21:31] LABS: BASO % 1.1 % (0-2.0); HEMATOCRIT 39.6 % (32.4-45.2); HEMOGLOBIN 13.2 GM/dL (10.7-15.3); LYMPH % 29.2 % (8-40); MCH 28.3 pg (25.7-33.7); MCHC 33.3 g/dl (32.0-36.0); MEAN CELL VOLUME 85.1 fl (80-96); NEUT % 59.7 % (42.8-82.8); PLATELET COUNT 388 10^3/uL (134-434); RBC 4.65 M/mm3 (3.60-5.2); RDW 13.9 % (11.6-15.6); WHITE BLOOD COUNT 5.3 K/mm3 (4.0-10.0)
[2024-03-23 21:43] LABS: INR 1.03 (0.83-1.09); PROTHROMBIN TIME (PATIENT) 11.9 SEC (9.7-13.0)
[2024-03-23] MEDS ORDERED: ACETAMINOPHEN INJECTION 100 ML IVPB ONE (21:44)
[2024-03-23 21:46] LABS: ACTIVATED PTT 29.1 SECONDS (25.2-36.5)
[2024-03-23] MEDS: ACETAMINOPHEN 1000 MG/100 ML BAG IVPB ONE (21:47)
[2024-03-23 21:55] LABS: POTASSIUM 4.3 mmol/L (3.5-5.1)
[2024-03-23 21:56] LABS: CALCIUM 8.7 mg/dL (8.5-10.1)
[2024-03-23 21:57] LABS: ALBUMIN 3.3 g/dl (3.4-5.0); BLOOD UREA NITROGEN 13.6 mg/dL (7-18)
[2024-03-23 21:58] LABS: URIC ACID 4.5 mg/dL (2.6-7.2)
[2024-03-23 22:00] LABS: CREATININE 1.1 mg/dL (0.55-1.3)
[2024-03-23 22:02] LABS: BILIRUBIN,TOTAL 0.4 mg/dL (0.2-1); TOT PROT 7.3 g/dl (6.4-8.2)
[2024-03-23 22:21] LABS: ERYTHROCYTE SEDIMENTATION RATE 49 mm/hr (0-20)
[2024-03-24] MEDS ORDERED: KETOROLAC TROMETHAMINE 15 MG/ML VIAL ONE (01:07)
[2024-03-24] MEDS: KETOROLAC TROMETHAMINE 15 MG/ML VIAL IVPUSH ONE (01:10)
[2024-03-24 05:58] LABS: BASO % 1.9 % (0-2.0); EOS % 2.1 % (0-4.5); HEMATOCRIT 38.3 % (32.4-45.2); HEMOGLOBIN 12.5 GM/dL (10.7-15.3); LYMPH % 42.7 % (8-40); MCH 28.2 pg (25.7-33.7); MCHC 32.7 g/dl (32.0-36.0); MEAN CELL VOLUME 86.2 fl (80-96); MEAN PLT VOLUME 6.9 fl (7.5-11.1); MONO % 11.5 % (3.8-10.2); NEUT % 41.8 % (42.8-82.8); PLATELET COUNT 345 10^3/uL (134-434); RBC 4.44 M/mm3 (3.60-5.2); RDW 13.9 % (11.6-15.6); WHITE BLOOD COUNT 4.9 K/mm3 (4.0-10.0)
[2024-03-24 06:17] LABS: POTASSIUM 3.8 mmol/L (3.5-5.1)
[2024-03-24 06:20] LABS: CALCIUM 8.5 mg/dL (8.5-10.1)
[2024-03-24 06:21] LABS: MAGNESIUM 2.2 mg/dL (1.8-2.4)
[2024-03-24 06:27] LABS: BILIRUBIN,TOTAL 0.4 mg/dL (0.2-1); CREATININE 1.1 mg/dL (0.55-1.3); PHOSPHOROUS 3.9 mg/dL (2.5-4.9); TOT PROT 6.8 g/dl (6.4-8.2)
[2024-03-24 09:28] VITALS: RESP 20
[2024-03-24 11:07] LABS: EPI CELLS >36 /uL (0-25.1); HYALINE CASTS 4 /uL (0-3.1); URINE APPEARANCE TURBID; URINE BACTERIA 1860 /uL (0-1359); URINE BILIRUBIN NEGATIVE (NEGATIVE); URINE COLOR DK YELLOW; URINE GLUCOSE (UA) NEGATIVE (NEGATIVE); URINE KETONE NEGATIVE (NEGATIVE); URINE LEUK ESTERASE NEGATIVE (NEGATIVE); URINE NITRITE NEGATIVE (NEGATIVE); URINE PROTEIN 1+ (NEGATIVE); URINE RBC 11 /uL (0-23.9); URINE UROBILINOGEN 0.2 mg/dL (0.2-1.0); URINE WBC 28 /uL (0-25.8)
[2024-03-24 11:44] LABS: METHADONE, UR NEGATIVE (NEGATIVE)
[2024-03-24 11:46] LABS: COCAINE, UR NEGATIVE (NEGATIVE); PHENCYCLIDINE,URINE NEGATIVE (NEGATIVE); URINE BARBITURATES NEGATIVE (NEGATIVE)
[2024-03-24 11:47] LABS: URINE AMPHETAMINES NEGATIVE (NEGATIVE)
[2024-03-24 11:48] LABS: OPIATES, URI NEGATIVE (NEGATIVE); URINE BENZODIAZEPINES POSITIVE (NEGATIVE)
[2024-03-24] MEDS: INDOMETHACIN 50 MG CAPSULE PO ONE (16:23)
[2024-03-24 16:42] VITALS: BP 122/60; PULSE 95; TEMP 98.9
[2024-03-25] MEDS ORDERED: ENOXAPARIN NA (PORCINE) 40 MG/0.4 ML DISP.SYRIN SQ SCH (10:00)
[2024-03-25 21:07] LABS: CYCLIC CITRULLINE PEPTIDE AB 6 units (0-19)
[2024-03-28 16:08] LABS: C-ANCA <1:20 titer (Neg:<1:20)
== END 2024-03-24 16:47 | disposition home or self-care (01) | DRG 351 ==
LOC: JER 19:46 → JERBED 03-24 01:17 → OBSVTOIN 03-24 03:08
PROVIDERS: ADMIT Internal Medicine
DX: M79.672 Pain in left foot (principal); I47.29 Other ventricular tachycardia; E66.01 Morbid (severe) obesity due to excess calories; Z68.41 Body mass index [BMI] 40.0-44.9, adult; R07.9 Chest pain, unspecified; R59.0 Localized enlarged lymph nodes; M79.671 Pain in right foot
CPT/HCPCS: 0241U-QW; 36415; 71045-TC-FY; 71275-TC; 80053; 80307; 81003; 83520; 83735; 83880; 84100; 84484; 84550; 84703; 85025; 85610; 85651; 85730; 86038; 86140; 86200; 86256; 86431; 87040; 87086; 93005; 93010; 93970-TC; 99285-25; G0378; J0131; Q9967